=== PATIENT | male | born 1965 | race Caucasian/White ===

== ENCOUNTER 2023-06-21 09:45 | Outpatient (OUT) | payer MEDICARE, SELFPAY ==
[2023-06-22 09:11] LABS: HBsAg Screen Negative (Negative); HCV Ab Non Reactive (Non Reactive); HIV Ab/p24 Ag Screen Non Reactive (Non Reactive); Hep A Ab, IgM Negative (Negative); Hep B Core Ab, IgM Negative (Negative)
[2023-06-22 12:09] LABS: Rapid Plasma Reagin, Quant Non Reactive titer (NonRea<1:1)
== END 2023-06-21 09:46 | disposition home or self-care (01) ==
LOC: LAB 09:45
PROVIDERS: PCP Nurse Practitioner Family; Visit Provider Nurse Practitioner Family
DX: I10 Essential (primary) hypertension (principal); E78.5 Hyperlipidemia, unspecified; R53.83 Other fatigue; E11.9 Type 2 diabetes mellitus without complications; Z12.5 Encounter for screening for malignant neoplasm of prostate; Z12.11 Encounter for screening for malignant neoplasm of colon; E29.1 Testicular hypofunction; R36.9 Urethral discharge, unspecified; R74.8 Abnormal levels of other serum enzymes; Z11.3 Encounter for screening for infections with a predominantly sexual mode of transmission
CPT/HCPCS: 36415; 80074; 86592; 86695; 86696; 87389

== ENCOUNTER 2024-12-26 18:00 | Emergency (ER) | payer MEDICARE, SELFPAY ==
[2024-12-26] VITALS (9 sets, daily range): BP systolic 109–137; BP diastolic 72–85; PULSE 67–95; TEMP 36.7; O2SAT 99–100; BMI 28.3
--- OUTSIDE RECORDS SUMMARY | 2024-12-26 18:11 | XMS_ITS | CCD ---
Author Organization [facility] CliniSyga Care Team Providers Care Armored Vehicle Officer Name Role Phone Omayra Gonzales Attending Unavailable MADDY COTTO Primary Care Unavailable Omayra Gonzales Admitting Unavailable LAURA Felipe Primary Care Provider LAURA Felipe Attending Provider [phone] MD Maddy Cabezas II Attending Provider [phone] Unavailable Primary Care Provider UnavailShreyas Gregory Primary Care Provider MADDY CABEZAS Admitting Unavailable MADDY CABEZAS Attending Unavailable SHREYAS FELIPE Primary Care Unavailable MADDY CABEZAS Referring Unavailable LAURA Felipe Primary Care Provider DANILO Rodriguez Emergency Provider SHREYAS FELIPE Admitting Unavailable SHREYAS FELIPE Attending Unavailable SHREYAS FELIPE Consulting Unavailable MISC, DR HERZOG Attending Unavailable MISC, DR HERZOG Admitting Unavailable SHREYAS FELIPE Admitting Unavailable SHREYAS FELIPE Attending Unavailable SHREYAS FELIPE Consulting Unavailable Unavailable Primary Care Provider UnavailASHLYN BuiEDNA Yeung Emergency Provider LAURA Felipe Primary Care Provider LAURA Farrell Attending Provider [phone] JESSICA DOTSON Referring Unavailable RAÚL SULLIVAN Attending Unavailable JEMTTI, JESSICA T Referring Unavailable RICVILMATTI, JESSICA T Referring Unavailable RICVILMATTI, JESSICA T Referring Unavailable SELF Referring Unavailable RIGOBERTO JESSICA T Attending Unavailable LAURA Felipe Primary Care Provider Bullimore, PRINT OPERATOR-BC Nataliia E Emergency Provider Ly, DO Tuyet Florez Attending Provider Pcp MEETING SPECIALIST, No Primary Care Provider Unavaildiane Jerome MD, Naresh Lehman Primary Care Provider [phone] Josie, Shreyas Angelia Primary Care Unavailable Tuyet Adams Attending Unavailable Angie, Tuyet L Admitting Unavailable Josie, Shreyas Angelia Primary Care Unavailable Jessica Jensen Attending Unavailable Jensen, Jessica Admitting Unavailable Bullimore, Nataliia E Attending Unavailable Bullimore, Nataliia E Admitting Unavailable Josie, Shreyas Angelia Primary Care Unavailable DENAE LOPEZ A Attending Unavailable DENAE LOPEZ A Attending Unavailable Unavailable Primary Care Provider Unavailabl e Allergies Allergy Classification Reported Allergen(s) Allergy Type Date of Onset Reaction(s) Facility (1 source) No Known Medication Allergies; Translations: [No Known Medication Allergies] Propensity to adverse reactions to drug (disorder) [facility] (20 sources) Latex; Translations: [LATEX] Allergy to substance 8 Hives, Rash [facility] (8 sources) Adhesive Tape; Translations: [ADHESIVE TAPE (ROSINS)] Allergy to substance 3 [facility] Work Phone: (8 sources) Cat Dander; Translations: [CAT DANDER] Drug Allergy 3 Other: See Comments [facility] (2 sources) Cat Allergy to substance 4 Unknown Reaction [facility] (6 sources) Pravastatin Drug Allergy 3 [facility] (3 sources) Cat Hair Extract Allergy to substance 3 [facility] (2 sources) Wound Dressing Adhesive Drug Allergy 3 [facility] NEGATED: Highlighted row has been ruled out! (2 sources) Other Propensity to adverse reactions 3 Other (See Comments) [facility] Work Phone: Medications Current Medications Medication Drug Class(es) Dates Sig (Normalized) Sig (Original) 8 hr acetaminophen 650 mg extended release oral tablet (7 sources) acetaminophen (Tylenol 8 Hour) 650 MG ER tablet Take 650 mg by mouth. Active acetaminophen 325 mg / oxyCODONE hydrochloride 5 mg oral tablet (20 sources) Opioid Agonist Start: 05-22-2021 take 1 tablet by mouth every six hours Oxycodone-Acetamino phen (Percocet) 5-325 mg tablet Active 1 TAB PO Q6H 4 1 May 22, 2021 Start: 05-15-2021 End: 05-22-2021 take 1 tablet by mouth every eight hours Oxycodone-Acetaminophen (Percocet) 5-325 mg tablet Discontinued 1 TAB PO Q8H 9 3 May 15, 2021 May 22, 2021 7:11pm Start: 03-26-2019 End: 05-15-2021 take 1 tablet by mouth four times daily Oxycodone-Acetaminophen (Percocet) 10-32 5 mg tablet Discontinued 1 TAB PO Four times daily March 26, 2019 12:00am May 15, 2021 5:54pm Start: 08-04-2017 PERCOCET 10-32 5 mg tablet 0 08/04/2017 Active Start: 01-05-2017 take 1 tablet by amira th every four hours as needed oxyCODONE-acetaminophen (PERCOCET) 5-325 mg tablet Take 1 tablet by mouth every 4 hours as needed for Pain. 120 tablet 01/05/2017 Active Comment on above: Take 1 tablet by amira th every 4 hours as needed for Pain. [id number] 200 actuat albuterol 0.09 mg/actuat metered dose inhaler (10 sources) beta2-Adrenergic Agonist Start: 07-15-2024 take 2 puff(s) by mouth every six hours as needed for wheezing albuterol HFA 90 mcg/act inhaler INHALE 2 PUFFS BY MOUTH EVERY 6 HOURS NEEDED for SHORTNESS OF BREATH or FOR WHEEZING 07/15/2024 Active Start: 12-26-2016 albuterol HFA (VENTOLIN HFA) 90 mcg/actuation inhaler Inhale by mouth as instructed. 0 12/26/2016 Active Start: 12-26-2016 take 2 puff(s) by in halation every four hours as needed for wheezing albuterol sulfate HFA (PROVENTIL;VENTOLIN;PROAIR) 108 (90 Base) MCG/ACT inhaler Inhale 2 puffs into the lungs every 4 hours as needed for Shortness of Breath or Wheezing 0 12/26/2016 Active Comment on above: Inhale by mouth as i nstructed. amLODIPine 10 mg oral tablet (13 sources) Dihydropyridine Calcium Channel Miesha take 1 tablet by mouth once daily amLODIPine (NORVASC) 10 mg tablet Take 10 mg by mouth once daily. Active Comment on above: Take 10 mg by mouth once daily. amoxicillin 500 mg oral capsule (1 source) Penicillin-class Antibacterial Start: 12-26-19 25 amoxicillin (AMOXIL) 500 mg capsule Indications: Preventive antibiotic Take 4 capsules one hour prior to procedure 4 capsule 5 12/25/2024 Active calcium chloride 0.0014 meq/ml / potassium chloride 0.004 meq/ml / sodium chloride 0.103 meq/ml / sodium lactate 0.028 meq/ml injectable solution (1 source) Start: 07-26-19 23 lactated ringers infusion ciclopirox 7.7 mg/ml topical cream (2 sources) Start: 07-28-19 25 ciclopirox (Loprox) 0.77 % cream Indications: Erythema intertrigo Apply thin layer to affected area once a day, 30 day supply 90 g 11 07/28/2024 Active cloNIDine hydrochloride 0.1 mg oral tablet (5 sources) Central alpha-2 Adrenergic Agonist Start: 10-09-19 24 take 0.1 mg by mouth twice daily Clonidine Hcl Active 0.1 MG PO Twice daily October 10, 2023 12:00am take 1 tablet by mouth once claudio y cloNIDine (CATAPRES) 0.1 MG tablet Take 0.1 mg by mouth daily 0 Active 1 ml diphenhydrAMINE hydrochloride 50 mg/ml cartridge (1 source) Histamine-1 Receptor Antagonist Start: 07-26-2022 End: 07-27-2022 diphenhydrAMINE (BENADRYL) injection 12.5 mg hydroCHLOROthiazide 25 mg oral tablet (7 sources) Thiazide Diuretic Start: 10-10-2023 take 25 mg by mouth once daily Hydrochlorothiazide Active 25 MG PO Daily October 10, 2023 12:00am take 0.5 tablet by m outh once daily in the morning hydroCHLOROthiazide (HYDRODiuril) 25 MG tablet TAKE 1/2 (ONE-HALF) OF A TABLET BY MOUTH EVERY MORNING FOR 90 DAYS Active hydroCHLOROthiazide 25 mg / triamterene 37.5 mg oral capsule (14 sources) Potassium-sparing Diuretic, Thiazide Diuretic Start: 10-05-2015 End: 05-15-2021 take 1 capsule by mouth once daily triamterene-hydrochlorothiazide 37.5-25 mg per capsule Take 1 capsule by mouth once daily. 10/05/2015 Active Comment on above: Take 1 capsule by [facility] once daily. 0.5 ml HYDROmorphone hydrochloride 1 mg/ml prefilled syringe (1 source) Opioid Agonist Start: 07-26-2022 HYDROmorphone HCl PF (DILAUD ID) injection 0.25 mg 10 ml lidocaine hydrochloride 10 mg/ml injection (1 source) Antiarrhythmic, Amide Local Anesthetic Start: 07-26-2022 End: 07-27-2022 lidocaine PF 1 % injection 1 mL lisinopril 40 mg oral tablet (17 sources) Angiotensin Converting Enzyme Inhibitor Start: 03-19-2024 take 1 tablet by mouth once daily lisinopril 40 MG tablet Take 40 mg by mouth Daily 03/19/2024 Active Start: 10-10-2023 take 40 mg by mouth once daily Lisinopril Active 40 MG PO Daily October 10, 2023 12:00am Start: 06-01-2021 lisinopril (ZE STRIL, PRINIVIL) 10 mg tablet 06/01/2021 Active End: 07-28-2024 take 1 tablet by mouth in the morning lisinopril 20 MG tablet Take 20 mg by mouth in the morning. 07/28/2024 Discontinued (Dose adjustment) meloxicam 15 mg oral tablet (2 sources) Nonsteroidal Anti-inflammatory Drug Start: 06-29-2024 take 1 tablet by mouth once daily at mealtime meloxicam (Mobic) 15 MG tablet TAKE 1 TABLET BY MOUTH WITH FOOD ONCE DAILY IN THE MORNING 06/29/2024 Active meperidine hydrochloride 100 mg oral tablet (7 sources) Opioid Agonist Start: 08-23-2017 take 1 tablet by mouth once daily at bedtime Meperidine HCl 100 mg tablet Take 100 mg by mouth daily at bedtime. 08/23/2017 Active Comment on above: Take 100 mg by mouth daily at bedtime. naproxen 500 mg oral tablet (11 sources) Nonsteroidal Anti-inflammatory Drug Start: 11-07-2022 End: 10-10-2023 take 1 tablet by mouth in the morning naproxen (Naprosyn) 500 MG tablet Take 500 mg by mouth in the morning and 500 mg before bedtime. 11/07/2022 Active 2 ml ondansetron 2 mg/ml injection (1 source) Serotonin-3 Receptor Antagonist Start: 07-26-2022 End: 07-27-2022 ondansetron (ZOFRAN) injection 4 mg oxyCODONE hydrochloride 5 mg oral tablet (14 sources) Opioid Agonist Start: 07-26-2022 End: 07-27-2022 oxyCODONE (ROXICODONE) immediate release tablet 5 mg Start: 06-15-2021 oxyCODONE IR ( ROXICODONE) 10 mg tab 06/15/2021 Active take 1 tablet by amira th every three hours oxyCODONE (Roxicodone) 15 MG immediate release tablet take 1 tablet by mouth every 3 hours to every 4 hours maximum tangela... (REFER TO PRESCRIPTION NOTES). Active take 1 tablet by amira th every four hours as needed for pain oxyCODONE (OXY-IR) 15 MG immediate release tablet Take 15 mg by mouth every 4 hours as needed for Pain. 0 Active pregabalin 100 mg oral capsule (6 sources) take 1 capsule by mouth four times daily pregabalin (LYRICA) 100 mg capsule Take 100 mg by mouth four times daily. Active Comment on above: Take 100 mg by mouth four times daily. 5 ml sodium chloride 9 mg/ml injection (4 sources) Start: 07-26-2022 sodium chloride flush 0.9 % injection 5-40 mL Start: 07-26-2022 0.9 % sodium c hloride infusion Start: 07-26-2022 sodium chlorid e flush 0.9 % injection 5-40 mL tadalafil 10 mg oral tablet (6 sources) Phosphodiesterase 5 Inhibitor Cialis 10 MG tablet 1 (one) time each day at the same time. Active tiZANidine 4 mg oral tablet (5 sources) Central alpha-2 Adrenergic Agonist Start: 03-11-20 take 1 tablet by mouth twice daily as needed tiZANidine (Zanaflex) 4 MG tablet Take 4 mg by mouth 2 (two) times a day as needed 03/11/2024 Active Completed/Discontinued Medications Medication Drug Class(es) Dates Sig (Normalized) Sig (Original) Bp Med (7 sources) Start: 05-22-2021 End: 10-10-2023 Bp Med Discontinued May 22, 2021 12:00am October 10, 2023 2:04pm Start: 05-22-2021 Bp Med Active May 22, 2021 12:00am Start: 05-22-2021 Bp Med Active May 21, 2021 11:00pm gabapentin 300 mg oral capsule (7 sources) Anti-epileptic Agent Start: 03-26-2019 End: 05-15-2021 take 300 mg by mouth once daily Gabapentin Discontinued 300 MG PO Daily March 26, 2019 12:00am May 15, 2021 5:54pm 24 hr metoprolol succinate 100 mg extended release oral tablet (7 sources) beta-Adrenergic Miesha Start: 03-26-2019 End: 05-15-2021 take 100 mg by mouth once daily Metoprolol Succinate Discontinued 100 MG PO Daily March 26, 2019 12:00am May 15, 2021 5:54pm Problems Active Problems Problem Classification Problem Date Documented Date Episodic/Chronic Abdominal pain (2 sources) Abdominal pain; Translations: [Unspecified abdominal pain] 10-10-2023 Episodic Diabetes mellitus without complication (1 source) Other abnormal glucose; Translations: [OTHER ABNORMAL GLUCOSE] Onset: 11-14-2022 Episodic Essential hypertension (4 sources) Essential (primary) hypertension; Translations: [ESSENTIAL PRIMARY HYPERTENSION] Onset: 11-03-2022 Chronic Fracture of upper limb (7 sources) Fracture of hand; Translations: [Unspecified fracture of unspecified wrist and hand, initial encounter for closed fracture] 03-27-2019 Episodic Malaise and fatigue (1 source) Other fatigue; Translations: [OTHER FATIGUE] Onset: 11-14-2022 Episodic Neoplasms of unspecified nature or uncertain behavior (2 sources) Neoplastic disease; Translations: [Neoplasm of unspecified behavior of bone, soft tissue, and skin] 06-03-2024 Episodic Osteoarthritis (20 sources) Degenerative joint disease involving multiple joints; Translations: [Polyosteoarthritis, unspecified] Onset: 02-01-2006 02-01-2006 Chronic Other acquired deformities (1 source) Spondylolisthesis; Translations: [Spondylolisthesis, cervical region] 05-11-2021 Episodic Other aftercare (1 source) Antibiotic prophylaxis indicated; Translations: [custodial (current) use of antibiotics] 12-25-2024 Episodic Other connective tissue disease (7 sources) Hand pain; Translations: [Pain in unspecified hand] 03-27-2019 Episodic Other connective tissue disease (4 sources) Ganglion cyst; Translations: [Ganglion, unspecified site] 01-05-2023 Episodic Other inflammatory condition of skin (2 sources) Intertrigo; Translations: [Erythema intertrigo] 07-28-2024 Episodic Other nervous system disorders (7 sources) Chronic pain; Translations: [Other chronic pain] 05-22-2021 Chronic Other non-traumatic joint disorders (1 source) Other specific arthropathies, not elsewhere classified, right shoulder; Translations: [Rotator cuff tear arthropathy, right] Onset: 07-22-2020 Chronic Other screening for suspected conditions (not mental disorders or infectious disease) (3 sources) Encounter for screening for malignant neoplasm of prostate; Translations: [Encounter for screening for malignant neoplasm of colon] Onset: 11-14-2022 Episodic Other skin disorders (4 sources) Actinic keratosis; Translations: [Actinic keratosis] 06-03-2024 Episodic Residual codes; unclassified (2 sources) Pain; Translations: [Pain, unspecified] Episodic Spondylosis; intervertebral disc disorders; other back problems (16 sources) Degeneration of intervertebral disc; Translations: [Degeneration of intervertebral disc, site unspecified] Onset: 02-01-2006 02-01-2006 Chronic Past or Other Problems Problem Classification Problem Date Documented Date Episodic/Chronic Other connective tissue disease (7 sources) Rupture of tendon of upper limb; Translations: [Spontaneous rupture of flexor tendons, unspecified hand] Onset: 10-18-2011 10-18-2011 Episodic Other connective tissue disease (7 sources) Bicipital tenosynovitis; Translations: [Bicipital tendinitis, unspecified shoulder] Onset: 05-28-2014 05-28-2014 Episodic Other connective tissue disease (14 sources) Full thickness rotator cuff tear; Translations: [Complete rotator cuff tear or rupture of right shoulder, not specified as traumatic] Onset: 06-01-2016 06-01-2016 Episodic Other connective tissue disease (9 sources) Rotator cuff arthropathy of right shoulder; Translations: [Unspecified rotator cuff tear or rupture of right shoulder, not specified as traumatic] Onset: 07-22-2020 07-22-2020 Episodic Other connective tissue disease (8 sources) Rotator cuff arthropathy of left shoulder; Translations: [Unspecified rotator cuff tear or rupture of left shoulder, not specified as traumatic] Onset: 07-22-2020 07-22-2020 Episodic Other connective tissue disease (9 sources) Other symptoms and signs involving the musculoskeletal system; Translations: [Other musculoskeletal symptoms referable to limbs] Onset: 01-18-2023 Episodic Other connective tissue disease (1 source) Unspecified rotator cuff tear or rupture of right shoulder, not specified as traumatic; Translations: [Rotator cuff tear arthropathy, right] Onset: 07-22-2020 Episodic Other connective tissue disease (6 sources) Ganglion cyst of right wrist; Translations: [Ganglion, right wrist] Onset: 01-23-2023 01-23-2023 Episodic Other non-traumatic joint disorders (7 sources) Pain in forearm; Translations: [Pain in unspecified wrist] Onset: 07-26-2009 07-26-2009 Episodic Residual codes; unclassified (1 source) Pain, unspecified; Translations: [Pain] Onset: 01-18-2023 Episodic Spondylosis; intervertebral disc disorders; other back problems (20 sources) Low back pain; Translations: [Low back pain] Onset: 02-01-2006 04-22-2021 Episodic Sprains and strains (20 sources) Sprain of knee; Translations: [Sprain of unspecified site of right knee, initial encounter] Onset: 10-16-2013 11-07-2022 Episodic Results Test Name Value Interpretation Reference Range Facility No Panel Informationon 07-28 [facility] COVID-19 / Flu A/B / RSV PCR on 07-15-2024 SARS-CoV-2 (COVID-19) RNA DENISE+probe Ql (Unsp spec) COVID-19 Cepheid Result Negative for SARS-CoV-2 RNA by RT-PCR Flu A Cepheid Result Positive for Flu A RNA by RT-PCR Flu B Cepheid Result Negative for Flu B RNA by RT-PCR RSV Cepheid Result Negative for RSV RNA by RT-PCR COVID19 Blank Space Reference: Negative COVID19 Blank Space Cepheid Disclaimer The Cepheid Xpert Xpress CoV-2/Flu/RSV Plus has Cepheid Disclaimer not been FDA cleared or approved; this test has Cepheid Disclaimer been authorized by FDA under an EUA for use by Cepheid Disclaimer authorized laboratories; this test has been Cepheid Disclaimer authorized only for the simultaneous qualitative Cepheid Disclaimer detection and differentiation of nucleic acids from Cepheid Disclaimer SARS-CoV-2, influenza A, influenza B, and Cepheid Disclaimer respiratory syncytial virus (RSV), and not for any Cepheid Disclaimer other viruses or pathogens; and this test is only Cepheid Disclaimer authorized for the duration of the declaration that Cepheid Disclaimer circumstances exist justifying the authorization of Cepheid Disclaimer emergency use of in vitro diagnostic tests for Cepheid Disclaimer detection and/or diagnosis of COVID-19 under Cepheid Disclaimer Section 564(b)(1) of the Act, 21 U.S.C. 360bbb- Cepheid Disclaimer 3(b)(1), unless the authorization is terminated or Cepheid Disclaimer revoked sooner. PERFORMED BY: [place] [address] PATHOLOGIST WELT TRIMMING MACHINE OPERATOR MAGGIE RICARDO M.D. Normal [facility] Comment on above: Performed By: #### C OVID19 FLU RSV, CEPHEID NEG #### [address] Cepheid COVID PCR Negativeon 07-15-2024 SARS-CoV-2 (COVID-19) RNA DENISE+probe Ql (Unsp spec) Negative Normal Negative [facility] Comment on above: Result Comment: This is a duplicate Cepheid Xpert Xpress CoV-2/Flu/RSV Plus RNA by RT-PCR result to be used for statistical tracking purpose only. PERFORMED BY: [place] [address] PATHOLOGIST WELT TRIMMING MACHINE OPERATOR MAGGIE RICARDO M.D. Performed By: #### C OVID19 FLU RSV, CEPHEID NEG #### [place] [id number] [facility] XR chest 1V portableon 07-15 XR chest 1V portable [facility] [address] [place] [address] [place] [address] XRay Report Signed Patient: Edmund Christopher MR#: [id number] : 1965 Acct:[id number] Age/Sex: 59 / M ADM Date: 07/15/24 Loc: ER Room: Type: [facility] ER Attending Dr: Copies to: Jessica Jensen DO Ordering Provider: Jessica Jensen DO Date of Service: 07/15/24 XR/XR chest 1V portable: Upper Respiratory Infection PORTABLE AP ERECT CHEST 0730 hours CLINICAL HISTORY: Cough for the past week COMPARISON: The 2019 There is elevation of the left hemidiaphragm. The heart is within normal limits. There is no vascular congestion. Minor basilar atelectasis or scarring is present. No consolidation is seen. There is no effusion or pneumothorax. There is dextro scoliotic curvature and degenerative change at the spine. A dorsal stimulator is present. There are also degenerative and postoperative changes at the shoulders and suspected rotator cuff disease. XR/XR chest 1V portable IMPRESSION: NO ACUTE FINDINGS Impression dictated by: Maya Trent M.D.07/15/2024 8:32 AM Dictation Location: [place] [address] Transcribed By: [facility] 07/15/24831 Dictated By: Maya Trent MD 07/15/2404 Signed By: 07/15/24831 Normal [facility] No Panel Informationon 06-03 [facility] Type of biopsy: tangential Informed consent: discussed and consent obtained Informed consent comment: The risks and benefits of the biopsy were discussed. Risks include but are not limited to bleeding, infection, scarring, pain, and nerve damage. An opportunity to ask questions prior to the procedure was permitted and all questions were answered. Patient was prepped and draped in usual sterile fashion: area cleansed with alcohol. Anesthesia: the lesion was anesthetized in a standard fashion Anesthetic: 1% lidocaine w/ epinephrine 1-100,000 buffered w/ 8.4% NaHCO3 Instrument used: DermaBlade Hemostasis achieved with: electrodesiccation Outcome: patient tolerated procedure well Outcome comment: The specimen was placed in a prelabeled formalin container to be sent for pathology Post-procedure details: sterile dressing applied and wound care instructions given Post-procedure details comment: Emphasized need to contact clinic for any signs of infection, uncontrollable bleeding, or complications. Dressing type: bandage Additional details: Photo taken Amount of lidocaine used: 0.6 cc [facility] noodls [facility] Curry 11-12-2023 L Specimen: Received: 11/12/23 Status: EMELYN Brooke Num: [id number] Spec Type: Surgical Subm Dr: Tuyet Adams DO Tissues: A Colon Biopsy (ASC POLYPS) Procedures: HE/2, Gross/Micro L4 Age/ Patient Sex Location Account Attending Physician Edmund Christopher 58/M [id number] Tuyet Adams DO SPEC NUM: [id number] RECD: 11/12/23 STATUS: EMELYN BROOKE NUM: [id number] THONY: 11/12/23- SUBM DR: Tuyet Adams DO ENTERED: 11/12/[address] [facility] [address]: SPEC TYPE: Surgical DEPT: S ORDERED: HE/2, Gross/Micro L4 ORDERED: HE/2, Gross/Micro L4 Pathological Diagnosis Ascending colon polyps, biopsies: - Tubular adenomas. Gross Description Received in formalin, labeled with the patient's name, date of and ascending colon are 2 riggs mucosal tissue fragments measuring 0.3 x 0.2 x 0.1 cm and 0.2 x 0.2 x 0.1 cm, entirely submitted in A1. Clinical history: ABD CPT Codes 64370 -------- -------- Specimen: [id number] Received: 11/12/23 Status: EMELYN Brooke Num: [id number] Spec Type: Surgical Subm Dr: Tuyet Adams DO Tissues: A Colon Biopsy (ASC POLYPS) Procedures: HE/2, Gross/Micro L4 -------- Patient: Edmund Christopher [id number] (Continued) -------- Signed (signature on file) Jennifer Pino MD 11/13/231046 Normal [facility] Alanine aminotransferase [En zymatic activity/volume] in Serum or PlasmaOrdered By: Nataliia Banks on 10-10-2023 ALT [Catalytic activity/Vol] 24 U/L Normal 7-52 [facility] Comment on above: Performed By: #### C BC, CMP #### [place] [id number] [facility] Albumin [Mass/volume] in Ser um or Plasma by Bromocresol green (BCG) dye binding methoOrdered By: Nataliia Bullimore on 10-10-2023 Albumin BCG dye [Mass/Vol] 4.3 g/dL 3.5-5.7 [facility] Alkaline phosphatase [Enzyma tic activity/volume] in Serum or PlasmaOrdered By: Nataliia Bullimore on 10-10-2023 ALP [Catalytic activity/Vol] 74 U/L Normal 34-104 [facility] Comment on above: Performed By: #### C BC, CMP #### [address] Aspartate aminotransferase [ Enzymatic activity/volume] in Serum or PlasmaOrdered By: Nataliia Bullimore on 10-10-2023 AST [Catalytic activity/Vol] 26 U/L Normal 13-39 [facility] Comment on above: Performed By: #### C BC, CMP #### [address] Automated basophil %Ordered By: Nataliia Bullimore on 10-10-2023 Basophils/100 WBC (Bld) 0.4 % Normal . F [facility] Comment on above: Performed By: #### C BC, CMP #### [address] Automated basophil countOrde red By: Nataliia Bullimore on 10-10-2023 Basophils (Bld) [#/Vol] 0.0 10*3/uL Normal 0.0-0.2 [facility] Comment on above: Result Comment: PERF ORMED BY: [place] [address] PATHOLOGIST WELT TRIMMING MACHINE OPERATOR SIMÓN MARTINES M.D. Performed By: #### C BC, CMP #### [address] Automated blood monocyte cou ntOrdered By: Nataliia Bullimore on 10-10-2023 Monocytes (Bld) [#/Vol] 0.4 10*3/uL Normal 0.0-0.8 [facility] Comment on above: Performed By: #### C BC, CMP #### [address] Automated eosinophil %Ordere d By: Nataliia Bullimore on 10-10-2023 Eosinophils/100 WBC (Bld) 0.5 % Normal . [facility] Comment on above: Performed By: #### C BC, CMP #### [address] Automated eosinophil countOr dered By: Nataliia Bullimore on 10-10-2023 Eosinophils (Bld) [#/Vol] 0.0 10*3/uL Normal 0.0-0.45 [facility] Comment on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 signal/fracture: No evidence of pathologic marrow infiltration. No evidence of prior fracture. Cervical soft tissues: The paraspinal soft tissues are within normal limits. C2-C3: Left facet arthropathy. Mild to moderate left foraminal narrowing. Mild central canal narrowing. C3-C4: Posterior disc and osteophyte complex, eccentric to the left. Ventral impingement on the left cord with moderate spinal canal narrowing. Left foraminal stenosis. C4-C5: Posterior disc and osteophyte complex. Bilateral facet arthropathy. Moderate canal narrowing. Moderate right and qocc-nk-kzaqerlj left foraminal narrowing. C5-C6: Posterior osteophytic ridge. Moderate spinal canal stenosis with canal measuring 8 mm. Left foraminal stenosis. Hfoh-ea-wxrqglzi right foraminal narrowing. Slight ventral impression on the cord. C6-C7: Posterior disc and osteophyte complex. Kzwc-cf-hgkegbje canal narrowing. Moderate foraminal narrowing bilaterally. C7-T1: Spondylolisthesis. Bilateral foraminal stenosis. Mxwa-ky-lhfxhxlb canal narrowing. 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 The degree of spinal canal stenosis is very similar to the previous study. Multilevel foraminal stenosis. Grade 2 spondylolisthesis C7 on T1. This is unchanged from the previous study. Anatomic Variant: None. Assume 7 cervical vertebrae with counting from the craniocervical junction. Health Coordinator: [place] Transcribe Date/Time: Apr 13 2023 7:53P Dictated by : MARLEY HURT MD This examination was interpreted and the report reviewed and electronically signed by: MARLEY HURT MD on Apr 13 2023 8:01PM EST [id number] N Normal [facility] CNOVon 01-18-2023 CNOV Office Visit (ORH[facility] ) EDMUND CHRISTOPHER ([id number]) 1965 M Date Time Provider Department 01/18/23 8:15 AM JESSICA DOTSON [facility] During your visit today, we recorded the following information about you: Jessica Dotson MD 01/18/2023 5:40 PM Addendum [facility] NOTE Department of Orthopaedics Jessica Dotson M.D. NAME: Edmund Christopher CLINIC NO.: [id number] DATE: January 18, 2023 Parth returns for follow-up today for his right shoulder. I last saw him 2 years ago and we had scheduled for right reverse total shoulder arthroplasty but he ended up canceling his surgery as he injured his neck. He did seem to recover from this injury, but he notes over the last 4 to 5 months progressive weakness in his right arm. He denies any new trauma or injury. This is associated with radiating numbness and tingling in the arm. He notes these symptoms more so than pain in the shoulder and presents for further discussion on management. PHYSICAL EXAMINATION: Physical examination today of the right shoulder shows atrophy in the infraspinatus fossa. There may be some deltoid atrophy on the right as well. Range of motion testing shows passive forward elevation to 140 on the right, compared to 140 on the left. Active forward elevation on the right shows evidence of pseudoparalysis when in an upright position, compared to 140 on the left. Supine he can forward elevate on the right actively to 140 degrees. Passive external rotation at the side is to 40 on the right, compared to 40 on the left. Active internal rotation is to the lower thoracic levels on the right, compared to the lower thoracic levels on the left. Strength testing of the rotator cuff shows 4/5 strength with resisted external rotation at the side and 5/5 strength with resisted Cesilia's maneuver on the left. Strength testing of the rotator cuff shows 4/5 strength with resisted external rotation at the side and 3/5 strength with resisted Cesilia's maneuver on the right. There is also weakness with resisted deltoid testing on the right. Biceps flexion strength appears normal, but there is weakness with resisted supination. There is tenderness to palpation at the glenohumeral joint line bilaterally. The right upper extremity is otherwise grossly neurovascularly intact to testing. RADIOGRAPHIC STUDIES: X-rays of both shoulders taken today are available for review and show findings of bilateral rotator cuff tear arthropathy. Both shoulders show significant arthritic change, but the right shoulder is the more advanced of the 2. ASSESSMENT: Bilateral rotator cuff tear arthropathy, right arm weakness PLAN: I discussed treatment with Parth in regards to his right shoulder complaints. He has known advanced rotator cuff tear arthropathy and we have previously discussed potential right reverse total shoulder arthroplasty. However, he notes over the last 4 to 5 months progressive weakness in his right arm that on examination today and based on his history appears to be potentially neurologic in nature. There is weakness in his rotator cuff on testing but also weakness in other muscles including the deltoid. I would recommend further work-up of this to determine whether the etiology of his weakness is from his rotator cuff or cervical spine. We discussed obtaining a new MRI of the cervical spine as well as an EMG of the right upper extremity. We will submit for Workmen's Compensation approval of the studies. I will see him back once the studies are complete and we will have further discussion on treatment at that time. He agrees with this plan. If any questions or concerns arise, He should not hesitate to call. Jessica Dotson M.D. Referring Provider: SELF [[id number]] Allergies As of Date: 01/18/2023 Noted Allergy Reaction CAT DANDER 01/18/2023 14 - Other: See Comments Comments: congestion LATEX 03/28/2018 2 - Rash TAPE (ADHESIVE TAPE (ROSINS)) 08/12/2012 2 - Rash Comments: One episode blisters with tape 2011 shoulder surgery Date Reviewed: 01/18/2023 Reviewed by: Braden Coello - Fully Assessed Reason for Visit: Established Patient [175] Follow Up [171] Pain [78] Established Patient [175] Follow Up [171] Pain [78] Primary Visit Diagnosis:Rotator cuff tear arthropathy, right [M75.101, M12.811] Other Visit Diagnoses:Right arm weakness [R29.898] Spinal stenosis of cervical region [M48.02] Order(s):MRI CERVICAL SPINE WO IVCON [[id number]] Order #: [id number] FUTURE EMG(NEURO/NI) [[id number]] Order #: [id number]: 1 FUTURE Prescriptions as of 01/18/2023 - lisinopril (ZESTRIL, PRINIVIL) 10 mg tablet - oxyCODONE IR (ROXICODONE) 10 mg tab - pregabalin (LYRICA) 100 mg capsule Take 100 mg by mouth four times daily. - Meperidine HCl 100 mg tablet Take 100 mg by mouth daily at bedtime. - PERCOCET 10-325 mg tablet - oxyCODONE-acetaminoph en (more content not included)... Normal [facility] No Panel Informationon 01-18 [facility] XR SHLDR >/=3V AP/AQUILINO AP/OTH R LTon 01-18-2023 XR SHLDR >/=3V AP/AQUILINO AP/OTHR LT * * *Final Report* * * DATE OF EXAM: Jan 18 2023 7:40AM AOX 5252 - XR SHLDR >/=3V AP/AQUILINO AP/OTHR LT / PROCEDURE REASON: Pain * * * * Physician Interpretation * * * * HISTORY: Pain TECHNIQUE: 3 views of each shoulder COMPARISON: Shoulder radiograph 12/31/2020 RESULT: Right shoulder: Suture anchor is again seen in the humeral head from prior surgery. There is narrowing of the acromiohumeral interval as on the prior exam from chronic rotator cuff tearing. Severe glenohumeral joint degenerative change with joint space narrowing and osteophyte formation appears unchanged. Mild acromioclavicular joint degenerative change, unchanged. Partially seen spinal stimulator overlying the thoracic spine. Left shoulder: Suture anchor is again seen in the humeral head from prior surgery. There is moderate glenohumeral joint degenerative change with joint space narrowing and osteophyte formation similar to the prior exam. Unchanged narrowing of the acromiohumeral interval from chronic rotator cuff tearing. Mild acromioclavicular joint degenerative change. IMPRESSION: NO SIGNIFICANT INTERVAL CHANGE WITH POSTSURGICAL AND DEGENERATIVE CHANGES AND FINDINGS CONSISTENT WITH ROTATOR CUFF TEARING DESCRIBED Health Coordinator: [facility] Transcribe Date/Time: Jan 18 2023 8:20A Dictated by : JENIFER HAMMER MD This examination was interpreted and the report reviewed and electronically signed by: JENIFER HAMMER MD on Jan 18 2023 8:28AM EST [id number] N Normal [facility] XR SHLDR >/=3V AP/AQUILINO AP/OTH R RTon 01-18-2023 XR SHLDR >/=3V AP/AQUILINO AP/OTHR RT * * *Final Report* * * DATE OF EXAM: Jan 18 2023 7:40AM AOX 5253 - XR SHLDR >/=3V AP/AQUILINO AP/OTHR RT / PROCEDURE REASON: Pain * * * * Physician Interpretation * * * * HISTORY: Pain TECHNIQUE: 3 views of each shoulder COMPARISON: Shoulder radiograph 12/31/2020 RESULT: Right shoulder: Suture anchor is again seen in the humeral head from prior surgery. There is narrowing of the acromiohumeral interval as on the prior exam from chronic rotator cuff tearing. Severe glenohumeral joint degenerative change with joint space narrowing and osteophyte formation appears unchanged. Mild acromioclavicular joint degenerative change, unchanged. Partially seen spinal stimulator overlying the thoracic spine. Left shoulder: Suture anchor is again seen in the humeral head from prior surgery. There is moderate glenohumeral joint degenerative change with joint space narrowing and osteophyte formation similar to the prior exam. Unchanged narrowing of the acromiohumeral interval from chronic rotator cuff tearing. Mild acromioclavicular joint degenerative change. IMPRESSION: NO SIGNIFICANT INTERVAL CHANGE WITH POSTSURGICAL AND DEGENERATIVE CHANGES AND FINDINGS CONSISTENT WITH ROTATOR CUFF TEARING DESCRIBED Health Coordinator: [place] Transcribe Date/Time: Jan 18 2023 8:20A Dictated by : JENIFER HAMMER MD This examination was interpreted and the report reviewed and electronically signed by: JENIFER HAMMER MD on Jan 18 2023 8:28AM EST [id number] N Normal [facility] INSULINon 11-04-2022 Insulin 3.0 uIU/mL Normal 2.6-24.9 [facility] Comment on above: Performed By: #### I NSULIN #### [facility] [address] [place] [address] Dr. Stacy Saxena OCC BLD IMMUNO SCREENon 10-15 OCCULT BLOOD Negative Normal NEGATIVE [facility] Comment on above: Performed By: #### O BSCRN #### [facility] [address] [address] [address] Stacy Saxena TESTOSTERONE, TOTALon 2022 Testosterone [Mass/Vol] 480 ng/dL Normal 264-916 T [facility] Comment on above: Result Comment: Adul t male reference interval is based on a population of healthy nonobese males (BMI <30) between 19 and 39 years old. katherine Lucia.al. JCEM 2017,102;4914-5516. PMID: [id number]. Performed By: #### L IPID, URIC, CMP, T7, TSH #### [facility] [address] [address] [address] Stacy Saxena CBC AUTO DIFFon 11-03-2022 BASO # 0.0 103/ul Normal 0.0-0.1 [facility] Comment on above: Performed By: #### C BC #### [facility] [address] [address] [address] Stacy Saxena Basophils/100 WBC (Bld) 0.6 % Normal 0.2-2.0 [facility] Comment on above: Performed By: #### C BC #### [facility] [address] [address] [address] Stacy Saxena EO # 0.1 103/ul Normal 0.0-0.7 [facility] Comment on above: Performed By: #### C BC #### [facility] [address] [place] [address] Dr. Stacy Saxena Eosinophils/100 WBC (Bld) 1.9 % Normal 0.9-7.0 [facility] Comment on above: Performed By: #### C BC #### [facility] [address] [place] [address] Dr. Stacy Saxena Erythrocyte distribution width (RBC) [Ratio] 13.0 % Normal 11.0-15.0 [facility] Comment on above: Performed By: #### C BC #### [facility] [address] [place] [address] Dr. Stacy Saxena Hematocrit (Bld) [Volume fraction] 45.1 % Normal 42.0-54.0 [facility] Comment on above: Performed By: #### C BC #### [facility] [address] [place] [address] Dr. Stacy Saxena Hemoglobin (Bld) [Mass/Vol] 15.3 g/dL Normal 14.0-18.0 [facility] Comment on above: Performed By: #### C BC #### [facility] [address] [place] [address] Dr. Stacy Saxena IG # 0.01 10e3/ul Normal 0.00-0.03 [facility] Comment on above: Performed By: #### C BC #### [facility] [address] [place] [address] Dr. Stacy Saxena IG % 0.1 % Normal 0.0-0.5 [facility] Comment on above: Performed By: #### C BC #### [facility] [address] [place] [address] Dr. Stacy Saxena LYMPH # 1.3 103/ul Normal 1.2-3.8 [facility] Comment on above: Performed By: #### C BC #### [facility] [address] [place] [address] Dr. Stacy Saxena Lymphocytes/100 WBC (Bld) 18.9 % Critically low 20.5-60.0 [facility] Comment on above: Performed By: #### C BC #### [facility] [address] [place] [address] Dr. Stacy Saxena MANUAL DIFF REQ NO Normal [facility] Comment on above: Performed By: #### C BC #### [facility] [address] [place] [address] Dr. Stacy Saxena MCH (RBC) [Entitic mass] 29.0 pg Normal 25.9-34.0 [facility] Comment on above: Performed By: #### C BC #### [facility] [address] [place] [address] Dr. Stacy Saxena MCHC (RBC) [Mass/Vol] 33.9 g/dL Normal 29.9-35.2 [facility] Comment on above: Performed By: #### C BC #### [facility] [address] [place] [address] Dr. Stacy Saxena MCV (RBC) [Entitic vol] 85.6 fL Normal 80.0-94.0 [facility] Comment on above: Performed By: #### C BC #### [facility] [address] [place] [address] Dr. Stacy Saxena MONO # 0.9 103/ul Critically high 0.3-0.8 [facility] Comment on above: Performed By: #### C BC #### [facility] [address] [place] [address] Dr. Stacy Saxena Monocytes/100 WBC (Bld) 12.9 % Critically high 1.7-12. 0 [facility] Comment on above: Performed By: #### C BC #### [facility] [address] [place] [address] Dr. Stacy Saxena NEUT # 4.5 103/ul Normal 1.4-6.5 [facility] Comment on above: Performed By: #### C BC #### [facility] [address] [place] [address] Dr. Stacy Saxena Neutrophils/100 WBC (Bld) 65.6 % Normal 43.0-75.0 [facility] Comment on above: Performed By: #### C BC #### [facility] [address] [place] [address] Dr. Stacy Saxena Platelet mean volume (Bld) [Entitic vol] 8.9 fL Critically low 9.5-13.5 [facility] Comment on above: Performed By: #### C BC #### [facility] [address] [place] [address] Dr. Stacy Saxena PLT 250 103/ul Normal 150-450 [facility] Comment on above: Performed By: #### C BC #### [facility] [address] [place] [address] Dr. Stacy Saxena RBC 5.27 106/ul Normal 4.70-6.10 [facility] Comment on above: Performed By: #### C BC #### [facility] [address] [place] [address] Dr. Stacy Saxena WBC 6.9 103/ul Normal 4.0-11.0 [facility] Comment on above: Performed By: #### C BC #### [facility] [address] [place] [address] Dr. Stacy Saxena FREE THYROXINE INDEX T7on FTI 3.08 Normal 1.30-4.50 [facility] Comment on above: Performed By: #### L IPID, URIC, CMP, T7, TSH #### [facility] [address] [place] [address] Dr. Stacy Saxena T3U 35.0 % Normal 33.0-40.0 [facility] Comment on above: Performed By: #### L IPID, URIC, CMP, T7, TSH #### [facility] [address] [place] [address] Dr. Stacy Saxena T4 [Mass/Vol] 8.80 ug/dL Normal 4.50-12.10 [facility] Comment on above: Performed By: #### L IPID, URIC, CMP, T7, TSH #### [facility] [address] [place] [address] Dr. Stacy Saxena GLYCOHEMOGLOBIN A1Con 2022 ADA RECOMMENDATION SEE BELOW Normal [facility] Comment on above: Result Comment: ADA RECOMMENDED LIMIT 4.0 - 6.0 ADA THERAPEUTIC TARGET < 7.0 ACTION SUGGESTED > 7.0 Performed By: #### A 1C #### [facility] [address] [place] [address] Dr. Stacy Saxena Glucose [Mass/Vol] 111 mg/dL Normal [facility] Comment on above: Performed By: #### A 1C #### [facility] [address] [place] [address] Dr. Stacy Saxena HbA1c (Bld) [Mass fraction] 5.5 % Normal 4.5-6.2 [facility] Comment on above: Performed By: #### A 1C #### [facility] [address] [place] [address] Dr. Stacy Saxena LIPID PROFILEon 11-03-2022 CHOL-HDL RATIO NORM SEE BELOW Normal [facility] Comment on above: Result Comment: 3.3 - 4.4 LOW RISK 4.4 - 7.1 AVERAGE RISK 7.1 - 11.0 MODERATE RISK >11.0 HIGH RISK Performed By: #### L IPID, URIC, CMP, T7, TSH #### [facility] [address] [place] [address] Dr. Stacy Saxena Cholesterol [Mass/Vol] 183 mg/dL Normal <=200 Th [facility] Comment on above: Performed By: #### L IPID, URIC, CMP, T7, TSH #### [facility] [address] [address] [address] Stacy Saxena Cholesterol in HDL [Mass/Vol] 58 mg/dL Normal 40-60 [facility] Comment on above: Performed By: #### L IPID, URIC, CMP, T7, TSH #### [facility] [address] [address] [address] Stacy Saxena Cholesterol in LDL [Mass/Vol] 115.0 mg/dL Normal [facility] Comment on above: Performed By: #### L IPID, URIC, CMP, T7, TSH #### [facility] [address] [address] [address] Stacy Saxena Cholesterol.total/Libby sterol in HDL [Mass ratio] 3.2 {ratio} Normal [facility] Comment on above: Performed By: #### L IPID, URIC, CMP, T7, TSH #### [facility] [address] [address] [address] Stacy Saxena HDL NORMAL > or = 60 mg/dl - LO W CARDIOVASCULAR RISK <40 mg/dl - HIGH CARDIOVASCULAR RISK Normal [facility] Comment on above: Performed By: #### L IPID, URIC, CMP, T7, TSH #### [facility] [address] [address] [address] Stacy Saxena LDL CALC NORMAL SEE BELOW Normal [facility] Comment on above: Result Comment: <100 mg/dl OPTIMAL 100 - 129 mg/dl NEAR OR ABOVE OPTIMAL 130 - 159 mg/dl BORDERLINE HIGH 160 - 189 mg/dl HIGH >190 mg/dl VERY HIGH Performed By: #### L IPID, URIC, CMP, T7, TSH #### [facility] [address] [address] [address] Stacy Saxena Triglyceride [Mass/Vol] 50 mg/dL Normal <=150 T [facility] Comment on above: Performed By: #### L IPID, URIC, CMP, T7, TSH #### [facility] [address] [address] [address] Stacy Saxena VLDL CALC 10.0 mg/dL Normal [facility] Comment on above: Performed By: #### L IPID, URIC, CMP, T7, TSH #### [facility] [address] [place] [address] Dr. Stacy Saxena PROF 14(COMP METB)on 023 Albumin [Mass/Vol] 3.9 g/dL Normal 3.4-5.0 [facility] Comment on above: Performed By: #### L IPID, URIC, CMP, T7, TSH #### [facility] [address] [place] [address] Dr. Stacy Saxena Albumin/Globulin [Mass ratio] 1.2 {ratio} Normal [facility] Comment on above: Performed By: #### L IPID, URIC, CMP, T7, TSH #### [facility] [address] [place] [address] Dr. Stacy Saxena ALP [Catalytic activity/Vol] 94 U/L Normal 46-116 [facility] Comment on above: Performed By: #### L IPID, URIC, CMP, T7, TSH #### [facility] [address] [place] [address] Dr. Stacy Saxena ALT [Catalytic activity/Vol] 38 U/L Normal 16-63 [facility] Comment on above: Performed By: #### L IPID, URIC, CMP, T7, TSH #### [facility] [address] [place] [address] Dr. Stacy Saxena Anion gap [Moles/Vol] 14.1 mmol/L Normal [facility] [facility] Comment on above: Performed By: #### L IPID, URIC, CMP, T7, TSH #### [facility] [address] [place] [address] Dr. Stacy Saxena AST [Catalytic activity/Vol] 46 U/L Critically high 15-37 [facility] Comment on above: Performed By: #### L IPID, URIC, CMP, T7, TSH #### [facility] [address] [place] [address] Dr. Stacy Saxena Bilirubin [Mass/Vol] 0.3 mg/dL Normal 0.2-1.0 [facility] Comment on above: Performed By: #### L IPID, URIC, CMP, T7, TSH #### [facility] [address] [place] [address] Dr. Stacy Saxena Calcium [Mass/Vol] 9.0 mg/dL Normal 8.5-10.1 [facility] Comment on above: Performed By: #### L IPID, URIC, CMP, T7, TSH #### [facility] [address] [place] [address] Dr. Stacy Saxena Chloride [Moles/Vol] 106 mmol/L Normal 98-107 [facility] Comment on above: Performed By: #### L IPID, URIC, CMP, T7, TSH #### [facility] [address] [place] [address] Dr. Stacy Saxena CO2 [Moles/Vol] 26.1 mmol/L Normal 21.0-32.0 [facility] Comment on above: Performed By: #### L IPID, URIC, CMP, T7, TSH #### [facility] [address] [place] [address] Dr. Stacy Saxena Creatinine [Mass/Vol] 0.87 mg/dL Normal 0.70-1.30 [facility] Comment on above: Performed By: #### L IPID, URIC, CMP, T7, TSH #### [facility] [address] [place] [address] Dr. Stacy Saexna EGFR-AF FRENCH >60 Normal >=60 [facility] Comment on above: Performed By: #### L IPID, URIC, CMP, T7, TSH #### [facility] [address] [place] [address] Dr. Stacy Saxena EGFR-NON AF FRENCH >60 Normal >=60 [facility] Comment on above: Performed By: #### L IPID, URIC, CMP, T7, TSH #### [facility] [address] [place] [address] Dr. Stacy Saxena Globulin (S) [Mass/Vol] 3.3 g/dL Normal T [facility] Comment on above: Performed By: #### L IPID, URIC, CMP, T7, TSH #### [facility] [address] [place] [address] Dr. Stacy Saxena Glucose [Mass/Vol] 97 mg/dL Normal 74-106 [facility] Comment on above: Performed By: #### L IPID, URIC, CMP, T7, TSH #### [facility] [address] [place] [address] Dr. Stacy Saxena Potassium [Moles/Vol] 4.2 mmol/L Normal 3.5-5.1 [facility] Comment on above: Performed By: #### L IPID, URIC, CMP, T7, TSH #### [facility] [address] [place] [address] Dr. Stacy Saxena Protein [Mass/Vol] 7.2 g/dL Normal 6.4-8.2 [facility] Comment on above: Performed By: #### L IPID, URIC, CMP, T7, TSH #### [facility] [address] [place] [address] Dr. Stacy Saxena Sodium [Moles/Vol] 142 mmol/L Normal 136-145 [facility] Comment on above: Performed By: #### L IPID, URIC, CMP, T7, TSH #### [facility] [address] [place] [address] Dr. Stacy Saxena Urea nitrogen [Mass/Vol] 21.0 mg/dL Critically high 7.0-18.0 [facility] Comment on above: Performed By: #### L IPID, URIC, CMP, T7, TSH #### [facility] [address] [place] [address] Dr. Stacy Saxena Urea nitrogen/Creatinine [Mass ratio] 24.1 mg/mg Normal [facility] Comment on above: Performed By: #### L IPID, URIC, CMP, T7, TSH #### [facility] [address] [place] [address] Dr. Stacy Saxena TSHon 11-03-2022 TSH 1.227 uIU/mL Normal 0.358-3.740 [facility] Comment on above: Performed By: #### L IPID, URIC, CMP, T7, TSH #### [facility] [address] [place] [address] Dr. Stacy Saxena URIC ACID SERUMon 11-03-2022 Urate [Mass/Vol] 5.6 mg/dL Normal 3.5-7.2 [facility] Comment on above: Performed By: #### L IPID, URIC, CMP, T7, TSH #### [facility] [address] [address] [address] Stacy Saxena FLUORO FOR SURGICAL PROCEDUR ESon 07-26-2022 FLUORO FOR SURGICAL PROCEDURES Radiology exam is complete. No Radiologist dictation. Please follow up with ordering provider. Final result Normal [facility] Radiology exam is complete. No Radiologist dictation. Please follow up with ordering provider. MHPN RIS CONSOLIDATED CBCon 07-20-2022 Erythrocyte distribution width (RBC) [Ratio] 12.9 % Normal 11.8-14.4 [facility] Comment on above: Performed By: #### C EDNA LYTE #### [facility] [address] [place] [address] Computer Processing Scheduler: Awais Sadler MD Hematocrit (Bld) [Volume fraction] 42.3 % Normal 40.7-50.3 [facility] Comment on above: Performed By: #### Monica BISHOP LYTE #### [facility] [address] [place] [address] Computer Processing Scheduler: Awais Sadler MD Hemoglobin (Bld) [Mass/Vol] 14.2 g/dL Normal 13.0-17.0 [facility] Comment on above: Performed By: #### C EDNA LYTE #### [facility] [address] [place] [address] Computer Processing Scheduler: Awais Sadler MD MCH (RBC) [Entitic mass] 29.5 pg Normal 25.2-33.5 [facility] Comment on above: Performed By: #### C EDNA LYTE #### [facility] [address] [facility] [place] [address] Computer Processing Scheduler: Awais Sadler MD MCHC (RBC) [Mass/Vol] 33.6 g/dL Normal 28.4-34.[address] [facility] Comment on above: Performed By: #### Monica BISHOP LYTE #### [facility] [address] [place] [address] Computer Processing Scheduler: Awais Sadler MD MCV (RBC) [Entitic vol] 87.8 fL Normal 82.6-102.9 [facility] Comment on above: Performed By: #### C EDNA LYTE #### [facility] [address] [place] [address]. [place] [address] Computer Processing Scheduler: Awais Sadler MD NRBC Automated 0.0 per 100 WBC Normal 0.0 [facility] Comment on above: Performed By: #### Monica BISHOP LYTE #### [facility] [address] [place] [address]. [place] [address] Computer Processing Scheduler: Awais Sadler MD Platelet mean volume (Bld) [Entitic vol] 9.3 fL Normal 8.1-13.5 [facility] Comment on above: Performed By: #### ANGIE BRYANTTE #### [facility] [address] [place] [address]. [place] [address] Computer Processing Scheduler: Awais Sadler MD Platelets (Bld) [#/Vol] 233 10*3/uL Normal 138-453 [facility] Comment on above: Performed By: #### Monica BISHOP LYTE #### [facility] [address] [place] [address]. [place] [address] Computer Processing Scheduler: Awais Sadler MD RBC (Bld) [#/Vol] 4.82 10*6/uL Normal 4.21-5.77 [facility] Comment on above: Performed By: #### Monica BISHOP LYTE #### [facility] [address] [place] [address] Computer Processing Scheduler: Awais Sadler MD WBC (Bld) [#/Vol] 9.4 10*3/uL Normal 3.5-11.3 [facility] Comment on above: Performed By: #### C BC, BRAD #### [facility] [address] [facility] [place] [address] Computer Processing Scheduler: Awais Sadler MD Hematocrit (Bld) [Volume fraction] 42.3 % 40.7 - 50.3 % [facility] Hemoglobin (Bld) [Mass/Vol] 14.2 g/dL 13.0 - 17.0 g/dL [facility] MCH (RBC) [Entitic mass] 29.5 pg 25.2 - 33.5 pg [facility] MCHC (RBC) [Mass/Vol] 33.6 g/dL 28.4 - 34.8 g/dL [facility] MCV (RBC) [Entitic vol] 87.8 fL 82.6 - 102.9 fL [facility] NRBC Automated 0.0 0.0 per 100 WBC [facility] Platelet distribution width (Bld) [Ratio] 12.9 % 11.8 - 14.4 % [facility] Platelet mean volume (Bld) [Entitic vol] 9.3 fL 8.1 - 13.5 fL [facility] Platelets (Bld) [#/Vol] 233 10*3/uL [facility] RBC (Bld) [#/Vol] 4.82 10*6/uL 4.21 - 5.7 7 m/uL [facility] WBC (Bld) [#/Vol] 9.4 10*3/uL [facility] EKG 12 LeadOrdered By: Ashley Monahan on 07-20-2022 Atrial Rate 58 BPM [facility] Work Phone: P [place] 46 degrees [facility] Work Phone: P-R Interval 192 ms [employer] Work Phone: Q-T Interval 400 ms [employer] Work Phone: QRS Duration 96 ms [employer] Work Phone: QTc Calculation (Bazett) 392 ms [employer] Work Phone: R [place] 81 degrees [employer] Work Phone: T [place] 65 degrees [employer] Work Phone: Ventricular Rate 58 BPM [employer] Work Phone: [employer] Work Phone: EKG 12 Leadon 07-20-2022 Sinus bradycardia Otherwise normal ECG No previous ECGs available [facility] Ashley Singh MD - 07/20/2022 Sinus bradycardia Otherwise normal ECG No previous ECGs available [employer] Work Phone: Electrolyte Panelon 07-20-19 Anion gap [Moles/Vol] 10 mmol/L 9 - 17 mmol/L [employer] Chloride [Moles/Vol] 101 mmol/L 98 - 10 7 mmol/L [employer] CO2 [Moles/Vol] 25 mmol/L 20 - 31 mmol/L [employer] Potassium [Moles/Vol] 4.1 mmol/L 3.7 - 5.3 mmol/L [employer] Sodium [Moles/Vol] 136 mmol/L 135 - 144 mmol/L [facility] Missingames [facility] [employer] Electrolyteson 07-20-2022 Anion gap [Moles/Vol] 10 mmol/L Normal 9-[address] [facility] Comment on above: Performed By: #### C BRAD BISHOP #### [facility] [address] [place] [address] Computer Processing Scheduler: Awais Sadler MD Chloride [Moles/Vol] 101 mmol/L Normal 98-107 [facility] Comment on above: Performed By: #### C EDNA LYTE #### [facility] [address] [place] [address] Computer Processing Scheduler: Awais Sadler MD CO2 [Moles/Vol] 25 mmol/L Normal 20-31 [facility] Comment on above: Performed By: #### C EDNA LYTE #### [facility] [address] [place] [address] Computer Processing Scheduler: Awais Sadler MD Potassium [Moles/Vol] 4.1 mmol/L Normal 3.7-5.[address] [facility] Comment on above: Performed By: #### C ANGIE BISHOPTE #### [facility] [place] [address] Computer Processing Scheduler: Awais Sadler MD Sodium [Moles/Vol] 136 mmol/L Normal 135-144 [facility] Comment on above: Performed By: #### C EDNA LYTE #### [facility] [place] [address] Computer Processing Scheduler: Awais Sadler MD MR Cervical spine WO contras ton 05-11-2021 IMPRESSION: 1. 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 2. Spinal cord and thecal sac impingement without compression at C7-T1. 3. Left C3-4 & right C5-6 and bilateral C6-7 and C7-T1 significant foramina narrowing. COUNTING REFERENCE: Superior cervical disc is taken as C2-3. Structural anomalies: None. Health Coordinator: PSCB Transcribe Date/Time: May 11 2021 11:48A Dictated by : TREASURE NAM MD This examination was interpreted and the report reviewed and electronically signed by: TREASURE NAM MD on May 11 2021 11:54AM [facility] DIVISION OF RADIOLOGY * * *Final Report* * * DATE OF EXAM: May 11 2021 11:37AM LN [id number] - MRI CERVICAL SPINE WO IVCON / PROCEDURE REASON: multiple diagnoses * * * * Physician Interpretation * * * * COMPARISON: CT cervical spine from 04/15/2021. HISTORY: Chronic neck pain with cervical malalignment. TECHNIQUE: MRI cervical spine without contrast. MQ: [id number] RESULT: MRI CERVICAL SPINE: Acute abnormality: None. Mild kyphoscoliosis without vertebral anomalies. Loss of normal cervical lordosis with curvature reversal. Grade I degenerative retrolisthesis of C6 on C7 and anterior listhesis of C7 on T1. Decreased disc height and signal, endplate changes, disc osteophyte, facet & uncovertebral joint degeneration indicating diffuse spondylosis which is relatively stable when compared to recent CT exam. Short pedicles indicating mild congenital canal stenosis with superimposed degenerative changes but without spinal cord impingement or compression or myelomalacia or edema. Normal remaining alignment, vertebral height, marrow signal, thecal sac, spinal cord signal/caliber & posterior fossa. No fracture/dislocation. Normal soft tissues. C2 -- 3: Congenital canal narrowing with superimposed disc/joint degeneration. Central canal encroachment without significant narrowing. Patent bilateral neural foramina. C3 -- 4: Congenital canal narrowing with superimposed disc/joint degeneration. Central canal encroachment without significant narrowing. Patent right foramina. Severe left foramina narrowing. C4 -- 5: Congenital canal narrowing with superimposed disc/joint degeneration. Central canal encroachment without significant narrowing. Mild bilateral neural foramina narrowing. C5 -- 6: Congenital canal narrowing with superimposed disc/joint degeneration. Canal encroachment without significant narrowing. Mild/moderate right and moderate/severe left foramina narrowing. C6 -- 7: Grade I degenerative retrolisthesis of C6 on C7. Congenital canal narrowing with superimposed disc/joint degeneration. Central canal encroachment without significant narrowing. Severe bilateral foramina narrowing. C7 -- T1: Grade 1 degenerative anterior listhesis of C7 on T1 with mild uncovering of disc. Effacement of ventral and dorsal CSF without abnormal cord signal but with mild flattening of thecal sac and spinal cord indicating spinal cord impingement without compression or myelomalacia or edema. Congenital canal narrowing with superimposed disc/joint degeneration. Severe bilateral foramina narrowing. DIVISION OF RADIOLOGY Provider, Cc Maria E [facility] - 05/11/2021 * * *Final Report* * * DATE OF EXAM: May 11 2021 11:37AM LNM [id number] - MRI CERVICAL SPINE WO IVCON / PROCEDURE REASON: multiple diagnoses * * * * Physician Interpretation * * * * COMPARISON: CT cervical spine from 04/15/2021. HISTORY: Chronic neck pain with cervical malalignment. TECHNIQUE: MRI cervical spine without contrast. MQ: [id number] RESULT: MRI CERVICAL SPINE: Acute abnormality: None. Mild kyphoscoliosis without vertebral anomalies. Loss of normal cervical lordosis with curvature reversal. Grade I degenerative retrolisthesis of C6 on C7 and anterior listhesis of C7 on T1. Decreased disc height and signal, endplate changes, disc osteophyte, facet & uncovertebral joint degeneration indicating diffuse spondylosis which is relatively stable when compared to recent CT exam. Short pedicles indicating mild congenital canal stenosis with superimposed degenerative changes but without spinal cord impingement or compression or myelomalacia or edema. Normal remaining alignment, vertebral height, marrow signal, thecal sac, spinal cord signal/caliber & posterior fossa. No fracture/dislocation. Normal soft tissues. C2 -- 3: Congenital canal narrowing with superimposed disc/joint degeneration. Central canal encroachment without significant narrowing. Patent bilateral neural foramina. C3 -- 4: Congenital canal narrowing with superimposed disc/joint degeneration. Central canal encroachment without significant narrowing. Patent right foramina. Severe left foramina narrowing. C4 -- 5: Congenital canal narrowing with superimposed disc/joint degeneration. Central canal encroachment without significant narrowing. Mild bilateral neural foramina narrowing. C5 -- 6: Congenital canal narrowing with superimposed disc/joint degeneration. Canal encroachment without significant narrowing. Mild/moderate right and moderate/severe left foramina narrowing. C6 -- 7: Grade I degenerative retrolisthesis of C6 on C7. Congenital canal narrowing with superimposed disc/joint degeneration. Central canal encroachment without significant narrowing. Severe bilateral foramina narrowing. C7 -- T1: Grade 1 degenerative anterior listhesis of C7 on T1 with mild uncovering of disc. Effacement of ventral and dorsal CSF without abnormal cord signal but with mild flattening of thecal sac and spinal cord indicating spinal cord impingement without compression or myelomalacia or edema. Congenital canal narrowing with superimposed disc/joint degeneration. Severe bilateral foramina narrowing. IMPRESSION IMPRESSION: 1. 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 2. Spinal cord and thecal sac impingement without compression at C7-T1. 3. Left C3-4 & right C5-6 and bilateral C6-7 and C7-T1 significant foramina narrowing. COUNTING REFERENCE: Superior cervical disc is taken as C2-3. Structural anomalies: None. Health Coordinator: PSCB Transcribe Date/Time: May 11 2021 11:48A Dictated by : TREASURE NAM MD This examination was interpreted and the report reviewed and electronically signed by: TREASURE NAM MD on May 11 2021 11:54AM EST [facility] Radiology Study observation (narrative) [facility] MR Cervical spine WO contras tOrdered By: Ccf Provider on 05-11-2021 [facility] ED NOTEon 04-16-2021 ED NOTE HNO ID: [id number] Author: Vashti Mc RN Service: ? Author Type: Registered Nurse Type: ED Notes Filed: 04/16/2021 4:51 AM Note Text: Verbalized understanding of new meds sent to documented preferred pharmacy and sched f/u appt with Spine. Phone number provided to patient for PCP f/u appt. Ambulatory out of dept. Normal [facility] ED NOTE HNO ID: [id number] Author: Vashti Mc RN Service: ? Author Type: Registered Nurse Type: ED Notes Filed: 04/16/2021 3:09 AM Note Text: Ambulatory in room for urine sample. Urinal provided. [facility] ED NOTE HNO ID: [id number] Author: Vashti Mc RN Service: ? Author Type: Registered Nurse Type: ED Notes Filed: 04/16/2021 2:52 AM Note Text: Patient denies any recent injury/trauma. Denies loss of function to bowel/bladder. [facility] ED NOTE HNO ID: [id number] Author: Vashti Mc RN Service: ? Author Type: Registered Nurse Type: ED Notes Filed: 04/16/2021 1:15 AM Note Text: Patient ambulatory from lobby to room independently with steady gait. [facility] ED PROV NOTEon 04-16-2021 ED PROV NOTE HNO ID: [id number] Author: Jacquelyn Wlals PA-C Service: ? Author Type: Physician Molding And Trim Installer Type: ED Provider Notes Filed: 04/16/2021 6:16 AM Note Text: ED Provider Note Patient Name: Edmund Christopher SERVICE DATE: 04/15/21 History Patient presents with: Back Pain: pt states chronic back and neck x2 months Patient is a 56-year-old male with a history of kidney stones and hypertension who presents to emergency department for back pain. Patient reports that approximately 2 months ago he fell off of a ladder approximately 3 feet onto a anjali. States he landed directly on his back. Did hit his head, denies any loss of consciousness. Denies any anticoagulation use. States that since then he has been having a 10 out of 10 pain located in his cervical and lumbar spine. States he is been taking Tylenol with minimal relief of his symptoms. Denies any palliative factors. Pain is worse with any movement. Reports that the pain radiates into his right groin and down his right leg. Denies any dysuria, hematuria, foul-smelling urine. Denies any swelling of his scrotum. Denies any bulging. Patient reports that he has chronic low back pain, was previously receiving large doses of narcotics for his pain relief, which she discontinued approximately 6 months ago. Patient denies any urinary retention, fecal incontinence, saddle anesthesias, or weakness. Patient denies prior history of IV drug use, fever, chills, or prior history of cancer. History provided by: Patient and significant other diplomatic interpreter/translator used: No PAST MEDICAL HISTORY Diagnosis Date - CVA (cerebral infarction) - Hypertension - Kidney stone PAST SURGICAL HISTORY Procedure Laterality Date - INJ WO/CATH ANES/STER LS 04/01/10 Performed by BRUNO VICTORIA at [facility] - NJX DX/THER AGT PVRT FACET JT LMBR/SAC 1 LEVEL 04/29/2010 Performed by BRUNO VICTORIA at [facility] - PAST SURGICAL HISTORY OF 2000, 2004 shoulder surgery X 2-rotator cuff-right - PAST SURGICAL HISTORY OF 2008 rotator cuff repair right arm - PAST SURGICAL HISTORY OF 2011 hernia umbilical - PAST SURGICAL HISTORY OF 04/05/12 left wrist surg-plate - PAST SURGICAL HISTORY OF 10/2011 left RCR - PAST SURGICAL HISTORY OF 1978 right ankle repair - PAST SURGICAL HISTORY OF 1985 jaw surgery cysts removed - PAST SURGICAL HISTORY OF 08/1012 right BHR FAMILY HISTORY Problem Relation Age of Onset - Emphysema Father Social History Tobacco Use - Smoking status: Current Every Day Smoker Packs/day: 1.00 Years: 29.00 Pack years: 29.00 Types: Cigarettes Last attempt to quit: 10/22/2006 Years since quittin.4 - Smokeless tobacco: Never Used Substance and Sexual Activity - Alcohol use: Yes Comment: 2x year - Drug use: No - Sexual activity: Not on file ALLERGIES Allergen Reactions - Latex Rash - Tape [Adhesive Tape* Rash One episode blisters with tape 2011 shoulder surgery Review of Systems Constitutional: Negative for chills and fever. HENT: Negative for congestion and rhinorrhea. Eyes: Negative for visual disturbance. Respiratory: Negative for cough and shortness of breath. Cardiovascular: Negative for chest pain and palpitations. Gastrointestinal: Negative for abdominal pain, diarrhea, nausea and vomiting. Genitourinary: Negative for difficulty urinating. Musculoskeletal: Positive for back pain and neck pain. Negative for arthralgias. Skin: Negative for color change. Neurological: Negative for syncope and headaches. Hematological: Does not bruise/bleed easily. Psychiatric/Behaviora l: The patient is not nervous/anxious. Physical Exam BP 155/104 Pulse 72 Temp (Src) 98.1 (Oral) Resp 16 Ht 5' 4 (1.63m) Wt 149 lb (67.6kg) SpO2 96% BMI 25.56 kg/(m2). Physical Exam Vitals and nursing note reviewed. Constitutional: General: He is not in acute distress. HENT: Head: Normocephalic and atraumatic. Jaw: There is normal jaw occlusion. Mouth/Throat: Lips: [place]. Mouth: Mucous membranes are dry. Eyes: Extraocular Movements: Extraocular movements intact. Pupils: Pupils are equal, round, and reactive to light. Cardiovascular: Rate and Rhythm: Normal rate and regular rhythm. Pulses: Normal pulses. Heart sounds: Normal heart sounds. Pulmonary: Effort: Pulmonary effort is normal. No respiratory distress. Breath sounds: Normal breath sounds. Abdominal: General: Bowel sounds are normal. Palpations: Abdomen is soft. Tenderness: There is no abdominal tenderness. Musculoskeletal: General: Normal range of motion. Cervical back: Full passive range of motion without pain, normal range of motion and neck supple. Tenderness and bony tenderness present. Thoracic back: No tenderness or bony tenderness. Lumbar back: Tenderness and bony tenderness present. Normal range of motion. Back: Comments: Tenderness to palpation in area depicted above No o (more content not included)... Normal [facility] Urinalysis with [facility] 04-16-2021 Bilirubin, Urine Negative Normal Negative [facility] pital Cast SEE COMMENT Normal 0 [facility] Comment on above: Result Comment: 0 Clarity (U) Clear Normal Clear [facility] Color (U) Yellow Normal Yellow [facility] Glucose Ql (U) Negative Normal Negative [facility] Hemoglobin/Blood,Ur Negative Normal Negative [facility] Ketones Ql (U) Trace Critically abnormal Negative [facility] Leukest Trace Critically abnormal Negative [facility] Nitrite Ql (U) Negative Normal Negative [facility] pH (U) 6.5 [pH] Normal 5.0-8.0 [facility] Protein, Urine Negative Normal Negative [facility] RBC 0-3 Normal 0-3 [facility] Specific Depue, Ur 1.022 Normal 1.005-1.030 [facility] Urobilinogen Qn (U) 1.0 {Jalen'U}/dL Normal 0.2-1.0 [facility] WBC 0-5 Normal 0-[address] [facility] [address] BRAIN WO IVCONon 04-15-[address] BRAIN WO IVCON * * *Final Report* * * DATE OF EXAM: Apr 15 2021 8:31PM [facility] 0504 - CT BRAIN WO IVCON / PROCEDURE REASON: Head trauma, headache * * * * Physician Interpretation * * * * EXAMINATION: CT BRAIN WO IVCON CLINICAL HISTORY: Head trauma, headache TECHNIQUE: Serial axial images without IV contrast were obtained from the vertex to the foramen magnum. MQ: CTBWO_3 CT Radiation dose: Integrated Dose-Length Product (DLP) for this visit = 766 mGy*cm CT Dose Reduction Employed: Automated exposure control (AEC) COMPARISON: None. RESULT: Post-operative change: None. Acute change: No evidence of an acute infarct or other acute parenchymal process. Hemorrhage: No evidence of acute intracranial hemorrhage. ECASS hemorrhagic transformation score: Not Applicable Mass Lesion / Mass Effect: There is no evidence of an intracranial mass or extraaxial fluid collection. No significant mass effect. Chronic change: None apparent. Parenchyma: There is no significant volume loss. The brain parenchyma is otherwise within normal limits for age. Ventricles: The ventricles are within normal limits of size and configuration for age. Paranasal sinuses and skull base: The visualized paranasal sinuses are grossly clear. The skull base and imaged soft tissues are unremarkable. [employer] (topogram) images: Unremarkable. IMPRESSION: No evidence of an acute intracranial process. Health Coordinator: [facility] Transcribe Date/Time: Apr 15 2021 8:36P Dictated by : HEATHER LUCIO MD This examination was interpreted and the report reviewed and electronically signed by: HEATHER LUCIO MD on Apr 15 2021 8:38PM EST [id number] Normal [facility] CT CERVICAL SPINE WO IVCONon 04-15-2021 CT CERVICAL SPINE WO IVCON * * *Final Report* * * DATE OF EXAM: Apr 15 2021 8:31PM [facility] 0505 - CT CERVICAL SPINE WO IVCON / PROCEDURE REASON: C-spine trauma, NEXUS/CCR positive * * * * Physician Interpretation * * * * EXAMINATION: CT CERVICAL SPINE WO IVCON CLINICAL HISTORY: Neck pain TECHNIQUE: CT of the cervical spine without IV contrast. Spiral, high resolution axial images were obtained from the skull base to the cervicothoracic junction with sagittal and coronal planar reconstructions. MQ: CTCSPWO_5 CT Radiation dose: Integrated CT Dose-Length Product (DLP) for this visit = 321 mGy*cm CT Dose Reduction Employed: Automated exposure control (AEC) COMPARISON: None. RESULT: Counting reference: Craniocervical junction. Anatomic Variants: None. Super[employer] Adult [employer] (topogram) images: Alignment: Alignment is anatomic. Craniocervical junction: Craniocervical junction is normal. Osseous structures/fracture: No evidence of a lytic or blastic process in the visualized spine. No evidence of acute or chronic fracture. Cervical soft tissues: The paraspinal soft tissues are within normal limits. Degenerative changes: Moderate to severe multilevel degenerative disc disease is seen throughout the cervical spine most pronounced from levels of C4-C7. There is anterolisthesis of C7 relation to T1 on the order of approximately 3 mm which is likely on the basis of degenerative change. IMPRESSION: Moderate to significant cervical spondylosis with anterolisthesis of C7 relation to T1 presumably on the basis of degenerative change. No evidence of an acute traumatic abnormality. Anatomic Variant: None. Assume 7 cervical vertebrae with counting from the craniocervical junction. Health Coordinator: [place] Transcribe Date/Time: Apr 15 2021 8:38P Dictated by : HEATHER LUCIO MD This examination was interpreted and the report reviewed and electronically signed by: HEATHER LUCIO MD on Apr 15 2021 8:40PM EST [id number] Normal [facility] CT LUMBAR SPINE WO IVCONon 1 CT LUMBAR SPINE WO IVCON * * *Final Report* * * DATE OF EXAM: Apr 15 2021 8:31PM [facility] 0508 - CT LUMBAR SPINE WO IVCON / PROCEDURE REASON: Back pain, minor trauma * * * * Physician Interpretation * * * * EXAMINATION: CT LUMBAR SPINE WO IVCON CLINICAL HISTORY: TECHNIQUE: Spiral, high resolution axial images were obtained from the thoracolumbar junction to the sacrum with sagittal and coronal planar reconstructions. MQ: CTLSPWO_3 CT Radiation dose: Integrated Dose-Length Product (DLP) for this visit = 620 mGy*cm. CT Dose Reduction Employed: Automated exposure control (AEC) COMPARISON: None. RESULT: Counting reference: Lumbosacral junction. For the purposes of this report, Super[employer] Adult [employer] (topogram) images: Alignment: Alignment is anatomic. Bone marrow /fracture: No evidence of a lytic or blastic process in the visualized spine. No evidence of acute or chronic fracture. Paraspinal soft tissues: The paraspinal soft tissues planes are maintained. Lower thoracic spine: The visualized lower thoracic bony canal and foramina are patent. Degenerative change: Moderate to severe multilevel degenerative disc disease is present with disc space. Throughout the lumbar spine with endplate sclerosis as well as degenerative facet arthropathy. The alignment demonstrates moderate levoscoliosis of the lumbar spine with the apex at L2/L3. Sacrum and iliac wings: The visualized sacrum and iliac wings are within normal limits. IMPRESSION: Moderate to significant degenerative disc disease, degenerative facet arthropathy and moderate to significant levoscoliosis however no evidence of an acute traumatic abnormality. Anatomic Thoracic/Lumbar Variant: None. L4-5 is considered the level of the iliac crest and assume there are 5 lumbar-type vertebrae. Health Coordinator: [place] Transcribe Date/Time: Apr 15 2021 8:40P Dictated by : HEATHER LUCIO MD This examination was interpreted and the report reviewed and electronically signed by: HEATHER LUCIO MD on Apr 15 2021 8:43PM EST [id number] [facility] ED NOTEon 04-15-2021 ED NOTE HNO ID: [id number] Author: Li Damon RN Service: ? Author Type: Registered Nurse Type: ED Notes Filed: 04/15/2021 6:06 PM Note Text: Pt. to ED for neck and low back pain after falling about 4 weeks ago. Pt. states was up about 3 ft on ladder when he fell off onto anjali that was on the ground. Denies loc, no blood thinners. [facility] ED Triage Noteon 04-15-2021 ED Triage Note HNO ID: [id number] Author: Geovanny Tanner PA-C Service: Emergency Medicine Author Type: Physician Molding And Trim Installer Type: ED Triage Notes Filed: 04/15/2021 6:11 PM Note Text: ED INTAKE NOTE Patient Name: Edmund Christohper Service Date: 04/15/21 BRIEF HPI: A 56 yo male presents to the ED with neck and back pain following a fall from a 3 foot ladder 3-4 weeks ago. He slipped and hit his back. Unsure if he hit his head but almost LOC. Also c/o intermittent pain in his R scrotum. States that he has had this before the fall intermittently as well. BRIEF EXAM: Awake and Alert RRR PAEZ Midline cervical and lumbar spinal tenderness. 5/5 branch service representative, bicep, tricep strength b/l. 5/5 hip extension, knee extension/flexion, DF/PF strength b/l. Normal gross motor and sensory function to light touch over b/l face, UEs, and LEs. Normal finger to nose. No basilar skull fracture signs. Deferred exam at this time. INTAKE WORKUP: Imaging: CT: Brain, C spine, Lumbar spine Testicular US SIGNATURE: Geovanny Tanner PA-C [facility] US DOPPLER COMPLETEon 2020 US DOPPLER COMPLETE * * *Final Report* * * DATE OF EXAM: Apr 15 2021 6:53PM [facility] 1033 - US DOPPLER COMPLETE / PROCEDURE REASON: Testicular torsion * * * * Physician Interpretation * * * * EXAMINATION: SCROTAL ULTRASOUND WITH DOPPLER IMAGING CLINICAL HISTORY: Testicular torsion TECHNIQUE: Sonography of the scrotal contents with color flow and spectral Doppler imaging of the testicular vasculature was performed. Images were obtained and stored in a permanent archive. M: USC_2 COMPARISON: None RESULT: RIGHT SCROTUM: Right testis: 4.7 x 3.5 x 2.7 cm. Homogeneous with no calcifications or mass. Normal intratesticular arterial and venous flow with normal spectral waveforms. Epididymis: Normal. Vascular flow on Color Doppler is symmetric to the contralateral side. Hydrocele: physiologic fluid present Varicocele: absent LEFT SCROTUM: Left testis: 5.0 x 3.1 x 2.4 cm. Homogeneous with no calcifications or mass. Normal intratesticular arterial and venous flow with normal spectral waveforms. Epididymis: Normal. Vascular flow on Color Doppler is symmetric to the contralateral side. Hydrocele: small present. Slightly complex septated hydrocele inferolateral to the left testicle. Varicocele: absent IMPRESSION: 1. Normal sonographic appearance of the testicles. 2. Normal arterial and venous flow within both testes. 3. Slightly complex septated small left hydrocele. Health Coordinator: [facility] Transcribe Date/Time: Apr 15 2021 7:06P Dictated by : JENNIFER CASTILLO MD This examination was interpreted and the report reviewed and electronically signed by: JENNIFER CASTILLO MD on Apr 15 2021 7:12PM EST [id number] Normal [facility] US SCROTUM AND CONTENTSon US SCROTUM AND CONTENTS * * *Final Repor t* * * DATE OF EXAM: Apr 15 2021 6:53PM [facility] 1063 - US SCROTUM AND CONTENTS / PROCEDURE REASON: Testicular torsion * * * * Physician Interpretation * * * * EXAMINATION: SCROTAL ULTRASOUND WITH DOPPLER IMAGING CLINICAL HISTORY: Testicular torsion TECHNIQUE: Sonography of the scrotal contents with color flow and spectral Doppler imaging of the testicular vasculature was performed. Images were obtained and stored in a permanent archive. M: USC_2 COMPARISON: None RESULT: RIGHT SCROTUM: Right testis: 4.7 x 3.5 x 2.7 cm. Homogeneous with no calcifications or mass. Normal intratesticular arterial and venous flow with normal spectral waveforms. Epididymis: Normal. Vascular flow on Color Doppler is symmetric to the contralateral side. Hydrocele: physiologic fluid present Varicocele: absent LEFT SCROTUM: Left testis: 5.0 x 3.1 x 2.4 cm. Homogeneous with no calcifications or mass. Normal intratesticular arterial and venous flow with normal spectral waveforms. Epididymis: Normal. Vascular flow on Color Doppler is symmetric to the contralateral side. Hydrocele: small present. Slightly complex septated hydrocele inferolateral to the left testicle. Varicocele: absent IMPRESSION: 1. Normal sonographic appearance of the testicles. 2. Normal arterial and venous flow within both testes. 3. Slightly complex septated small left hydrocele. Health Coordinator: [facility] Transcribe Date/Time: Apr 15 2021 7:06P Dictated by : JENNIFER CASTILLO MD This examination was interpreted and the report reviewed and electronically signed by: JENNIFER CASTILLO MD on Apr 15 2021 7:12PM EST [id number] [facility] Son 02-17-2020 LUMB SP COMP W FLEX/EXT 6 VWS STUDY: LUMB SP COMP W FLEX/EXT 6 VWS ; 02/17/2020 9:43 am INDICATION: PAIN. COMPARISON: 10/08/2018 ACCESSION NUMBER(S): [id number] ORDERING CLINICIAN: Earl Choi FINDINGS: Severe levoscoliosis. No fracture or subluxation. Severe multilevel disc height loss with endplate sclerosis and osteophyte formation. Multilevel facet arthropathy. 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 Slight retrolisthesis L3-4. No definite pars defects are seen. No instability on flexion or extension. Partially imaged hip arthroplasties. Atherosclerosis is present. IMPRESSION: Severe degenerative changes and scoliosis of the lumbar spine without dynamic instability. Normal [facility] Coding Summaryon 04-25-2018 Coding Summary CODING DATE: 04/25/2018 [facility] STATUS: Home PAYOR: Medicare ADMIT DX: REASON FOR VISIT DX: H57.8 Other specified disorders of eye and adnexa FINAL DX: PRINCIPAL: S05.02XA Injury of conjunctiva and corneal abrasion without foreign body, left eye, initial encounter SECONDARY: Z23 Encounter for immunization PROCEDURES DOCTOR NAME DATE NOTE: The code number assigned matches the documented diagnosis and / or procedure in the patient's chart. However, the narrative phrase printed from the coding software may appear abbreviated, or result in slightly different terminology. Coded By: Carlos Alberto Oakley' Date Saved: 04/25/2018 05:43 pm Normal [facility] ED Clinical Summaryon 2017 ED Clinical Summary [facility] ? Urgent Care [address] [place] [address] Clinical Summary PERSON INFORMATION Name: EDMUND CHRISTOPHER Age: 53 Years Sex: MALE : 65 MRN: Acct#: Visit Reason: UC - Eye Pain; LEFT EYE PAIN Arrival: 03/24/18 12:26:00 Discharge: 03/24/18 13:10:00 LOS: 000 00:44 Check In: 03/24/18 12:26:00 Checkout: 03/24/18 13:10:00 Address: [address] [place] [id number] PCP: MADDY COTTO MD PROVIDER INFORMATION Provider Role Assigned Unassigned Omayra Munguia ED PA 03/24/18 12:29:30 03/24/18 12:36:20 Omayra Munguia ED PA 03/24/18 12:36:24 Lin Farmer PENCILLER Nurse 03/24/18 12:38:39 VITALS INFORMATION Vital Sign Triage Latest Temperature Tympanic Temperature Temporal Artery Pulse Rate 64 bpm 64 bpm O2 Sat 95 % 95 % Respiratory Rate 16 br/min 16 br/min Blood Pressure 108 mmHg/82 mmHg 108 mmHg/82 mmHg MEDICAL INFORMATION Medications Given: Medication Dose Route Tdap 0.5 mL IM Allergy Information: No Known Medication Allergies PHYSICIAN DOCUMENTATION Patient: EDMUND CHRISTOPHER Age: 53 years Sex: MALE : 65 Associated Diagnoses: Corneal abrasion Author: Omayra Munguia Basic Information Additional information: Chief Complaint from Nursing Triage Note : Chief Complaint 03/24/18 12:25 EDT Chief Complaint C/O left eye tearing, redness, pain after grinding metal yesterday. Unknown if there is a foreign body. . History of Present Illness 53-year-old male presents chief complaint left eye irritation redness and pain. He states he is working along [employer] believes he got something into his eye on Sunday. 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 Is a foreign body sensation on to the eye. No acute foreign bodies noted on his initial examination. Patient denies any known history of recent sinus immunization as well. Patient's eye is watering red and injected. He denies wearing contacts. Review of Systems Constitutional symptoms: Negative except as documented in HPI. Eye symptoms: Pain, blurred vision. Health Status Allergies: Allergic Reactions (Selected) No Known Medication Allergies. Medications: (Selected) Inpatient Medications Ordered tetanus/diphth/pertus s (Tdap) adult/adol: 0.5 mL, IM, Once. Past Medical/ Family/ Social History Medical history: No active or resolved past medical history items have been selected or recorded.. Surgical history: No active procedure history items have been selected or recorded.. Family history: No family history items have been selected or recorded.. Social history: Social & Psychosocial Habits Tobacco 03/24/2018 Smoking tobacco use: Former smoker, quit more . Problem list: No qualifying data available . Physical Examination Vital Signs Per nurse's notes. General: Alert, no acute distress. Skin: Warm, dry. Head: Normocephalic, atraumatic. Neck: Supple, trachea midline. Eye: Pupils are equal, round and reactive to light, extraocular movements are intact. Ears, nose, mouth and throat: Tympanic membranes clear, oral mucosa moist. Cardiovascular: Regular rate and rhythm, No murmur. Respiratory: Lungs are clear to auscultation, respirations are non-labored. Chest wall: No tenderness. Back: Nontender, Normal range of motion. Musculoskeletal: Normal ROM, normal strength. Neurological: Alert and oriented to person, place, time, and situation. Lymphatics Psychiatric: Cooperative, appropriate mood & affect. Medical Decision Making Differential Diagnosis: corneal abrasion. Reexamination/ Reevaluation Patient presents for chief complaint of left eye irritation and watering and drainage. 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 Patient did have relief of foreign body sensation with the administration of tetracaine. EOMs are intact. Upper and lower eyelids were examined for no acute foreign body. Small uptake at the 3 o'clock position for corneal abrasion. Patient started on Tobrex eyedrops and also given Acular for irritation. Patient encouraged follow-up primary care physician or eye doctor if symptoms change or worsen intervals photophobia or blurred vision. Impression and Plan Diagnosis Corneal abrasion ([id number] S05.00XA, Discharge, Medical) Plan Condition: Stable. Disposition: Discharged: Time 03/24/18 12:55:00, to home. Prescriptions: Launch prescriptions Pharmacy: Acular 0.5% ophthalmic solution (Prescribe): 1 drop(s), OPTH, QID, for 3 day(s), PRN: for itching, 5 mL, 0 Refill(s) Tobrex 0.3% ophthalmic solution (Prescribe): 1 drop(s), OPTH, QID, for 7 day(s), 5 mL, 0 Refill(s). Patient was given the following educational materials: Corneal Abrasion, Corneal Abrasion. Follow up with: MADDY COTTO In 2 days 03/26/18. Counseled: Patient, Regarding diagnosis, Regarding treatment plan, Regarding prescription, Patient indicated understanding of instructions. DISCHARGE INFORMATION: Discharge Disposition: Home Discharge Location: Home PATIENT EDUCATION INFORMATION Instructions: Corneal Abrasion Follow-Up: With: Address: When: MADDY COTTO [address] [place] [address] [facility] ([employer] In 2 days 03/26/18 DIAGNOSIS: Corneal abrasion Patient Understands: Yes - Patient/family/caregi chang verbalizes understanding of instructions given Comment: [facility] ED Note - Physicianon 2017 ED Note - Physician Patient: EDMUND CHRISTOPHER Age: 53 years Sex: MALE : 65 Associated Diagnoses: Corneal abrasion Author: Omayra Munguia Basic Information Additional information: Chief Complaint from Nursing Triage Note : Chief Complaint 03/24/18 12:25 EDT Chief Complaint C/O left eye tearing, redness, pain after grinding metal yesterday. Unknown if there is a foreign body. . History of Present Illness 53-year-old male presents chief complaint left eye irritation redness and pain. He states he is working along [place] believes he got something into his eye on Sunday. 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 Is a foreign body sensation on to the eye. No acute foreign bodies noted on his initial examination. Patient denies any known history of recent sinus immunization as well. Patient's eye is watering red and injected. He denies wearing contacts. Review of Systems Constitutional symptoms: Negative except as documented in HPI. Eye symptoms: Pain, blurred vision. Health Status Allergies: Allergic Reactions (Selected) No Known Medication Allergies. Medications: (Selected) Inpatient Medications Ordered tetanus/diphth/pertus s (Tdap) adult/adol: 0.5 mL, IM, Once. Past Medical/ Family/ Social History Medical history: No active or resolved past medical history items have been selected or recorded.. Surgical history: No active procedure history items have been selected or recorded.. Family history: No family history items have been selected or recorded.. Social history: Social & Psychosocial Habits Tobacco 03/24/2018 Smoking tobacco use: Former smoker, quit more . Problem list: No qualifying data available . Physical Examination Vital Signs Per nurse's notes. General: Alert, no acute distress. Skin: Warm, dry. Head: Normocephalic, atraumatic. Neck: Supple, trachea midline. Eye: Pupils are equal, round and reactive to light, extraocular movements are intact. Ears, nose, mouth and throat: Tympanic membranes clear, oral mucosa moist. Cardiovascular: Regular rate and rhythm, No murmur. Respiratory: Lungs are clear to auscultation, respirations are non-labored. Chest wall: No tenderness. Back: Nontender, Normal range of motion. Musculoskeletal: Normal ROM, normal strength. Neurological: Alert and oriented to person, place, time, and situation. Lymphatics Psychiatric: Cooperative, appropriate mood & affect. Medical Decision Making Differential Diagnosis: corneal abrasion. Reexamination/ Reevaluation Patient presents for chief complaint of left eye irritation and watering and drainage. 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 Patient did have relief of foreign body sensation with the administration of tetracaine. EOMs are intact. Upper and lower eyelids were examined for no acute foreign body. Small uptake at the 3 o'clock position for corneal abrasion. Patient started on Tobrex eyedrops and also given Acular for irritation. Patient encouraged follow-up primary care physician or eye doctor if symptoms change or worsen intervals photophobia or blurred vision. Impression and Plan Diagnosis Corneal abrasion ([id number] S05.00XA, Discharge, Medical) Plan Condition: Stable. Disposition: Discharged: Time 03/24/18 12:55:00, to home. Prescriptions: Launch prescriptions Pharmacy: Acular 0.5% ophthalmic solution (Prescribe): 1 drop(s), OPTH, QID, for 3 day(s), PRN: for itching, 5 mL, 0 Refill(s) Tobrex 0.3% ophthalmic solution (Prescribe): 1 drop(s), OPTH, QID, for 7 day(s), 5 mL, 0 Refill(s). Patient was given the following educational materials: Corneal Abrasion, Corneal Abrasion. Follow up with: MADDY COTTO In 2 days 03/26/18. Counseled: Patient, Regarding diagnosis, Regarding treatment plan, Regarding prescription, Patient indicated understanding of instructions. [Electronically Signed on: 03/24/2018 13:04 EDT] Omayra Munguia [Verified on: 03/24/2018 13:04 EDT] Omayra Munguia [facility] ED Patient Summaryon 018 ED Patient Summary [facility] ? Urgent Care [address] [place] [address] PATIENT DISCHARGE INSTRUCTIONS Patient Information Name: EDMUND CHRISTOPHER Age: 53 Years Date of : 65 Reason For Visit: UC - Eye Pain; LEFT EYE PAIN Arrival Time: 03/24/18 12:26:00 Primary Care Physician: MADDY COTTO MD Attending Physician: mOayra Munguia Comment: Patient Education With: Address: When: MADDY COTTO [address] [place] [id number] Business (1) In 2 days 03/26/18 Corneal Abrasion A corneal abrasion is a scratch or injury to the clear covering over the front of your eye (cornea). Your cornea forms a clear dome that protects your eye and helps to focus your vision. Your cornea is made up of many layers. The surface layer is a single layer of cells (corneal epithelium). It is one of the most sensitive tissues in your body. A corneal abrasion can be very painful. If a corneal abrasion is not treated, it can become infected and cause an ulcer. This can lead to scarring. A scarred cornea can affect your vision. Sometimes abrasions come back in the same area, even after the original injury has healed (recurrent erosion syndrome). What are the causes? This condition may be caused by: ? A international trade specialist the eye. ? A gritty or irritating substance (foreign body) in the eye. ? Excessive eye rubbing. ? Very dry eyes. ? Certain eye infections. ? Contact lenses that fit poorly or are worn for a long period of time. You can also injure your cornea when putting contacts lenses in your eye or taking them out. ? Eye surgery. Sometimes, the cause is unknown. What are the signs or symptoms? Symptoms of this condition include: ? Eye pain. The pain may get worse when your eye is open or when you move your eye. ? A feeling of something stuck in your eye. ? Having trouble keeping your eye open, or not being able to keep it open. ? Tearing and redness. ? Sensitivity to light. ? Blurred vision. ? Headache. How is this diagnosed? This condition may be diagnosed based on: ? Your medical history. ? Your symptoms. ? An eye exam. You may work with a health care provider who specializes in diseases and conditions of the eye (hoe runner). Before the eye exam, numbing drops may be put into your eye. You may also have dye put in your eye with a dropper or a small paper strip. The dye makes the abrasion easy to see when your hoe runner examines your eye with a light. Your hoe runner may look at your eye through an eye scope (slit lamp). How is this treated? Treatment may vary depending on the cause of your condition, and it may include: ? Washing out your eye. ? Removing any foreign body. ? Antibiotic drops or ointment to treat an infection. ? Steroid drops or ointment to treat redness, irritation, or inflammation. ? Pain medicine. ? An eye patch to keep your eye closed. Follow these instructions at home: Medicines ? Use eye drops or ointments as told by your eye care provider. ? If you were prescribed antibiotic drops or ointment, use them as told by your eye care provider. Do not stop using the antibiotic even if you start to feel better. ? Take xvkp-pos-rhxaydj and prescription medicines only as told by your eye care provider. ? Do not drive or use heavy machinery while taking prescription pain medicine. General instructions ? If you have an eye patch, wear it as told by your eye care provider. ? Do not drive or use machinery while wearing an eye patch. Your ability to leveler helper distances will be impaired. ? Follow instructions from your eye care provider about when to remove the patch. ? Ask your eye care provider whether you can use a cold, wet cloth (compress) on your eye to relieve pain. ? Do not rub or touch your eye. Do not wash out your eye. ? Do not wear contact lenses until your eye care provider says that this is okay. ? Avoid bright light and eye strain. ? Keep all follow-up visits as told by your eye care provider. This is important for preventing infection and vision loss. Contact a health care provider if: ? You continue to have eye pain and other symptoms for more than 2 days. ? You develop new symptoms, such as redness, tearing, or discharge. ? You have discharge that makes your eyelids stick together in the morning. ? Your eye patch becomes so loose that you can blink your eye. ? Symptoms return after the original abrasion has healed. Get help right away if: ? You have severe eye pain that does not get better with medicine. ? You have vision loss. Summary ? A corneal abrasion is a scratch on the outer layer of the clear covering over the front of your eye (cornea). ? Corneal abrasion can cause eye pain, redness, tearing, and blurred vision. ? This condition is usually treated with medicine to prevent infection and scarring. You also may have to wear an eye patch to cover your eye. ? Let your eye care provider know if your symptoms continue for more than 2 days. This information is not intended to replace advice given to you by your health care provider. Make sure you discuss any questions you have with your health care provider. Document Released: 06/29/2001 Document Revised: 06/12/2017 Document Reviewed: 06/12/2017 [employer] Interactive Patient Education ? 2017 [employer] Medication Information: The exam and treatment you received today in the [facility] Emergency Department were for an urgent problem and are not intended as complete care. It is important for you to follow up with a doctor, nurse practitioner, or physician?s physical therapist assistant for ongoing care. If your symptoms become worse or you do not improve as expected and you are unable to reach your usual health care provider, you should return to the Emergency Department, we are available 24 hours a day. For those patients who have received Radiology results, the interpretation of your X-ray as given to you by our Emergency Department physician is only a preliminary report. The Radiologist will review your films and if there is a change in the diagnosis you will be notified by phone. Please make sure you have provided a working phone number so we can reach you if necessary. In the event that you had a lab culture while you were a patient in the Emergency Department, you will be notified by phone if there is a need to change your antibiotic. Please make sure you have provided a working phone number so we can reach you if necessary. [facility] Emergency Department has provided you with a complete list of medications post discharge. Please inform your shoulder pad molder/provider of your visit and for further instruction on these medications. Any specific questions regarding your chronic medications and dosages should be discussed with your primary care physician(s) and/or pharmacist. New Medications [facility], [address] [place] [address], [phone] ketorolac ophthalmic (Acular 0.5% ophthalmic solution) 1 Drops Ophthalmic 4 times a day as needed for itching for 3 Days. Refills: 0. tobramycin ophthalmic (Tobrex 0.3% ophthalmic solution) 1 Drops Ophthalmic 4 times a day for 7 Days. Refills: 0. Visit Information Visit Diagnosis: Diagnoses This Visit Corneal abrasion (S05.00XA) UC - Eye Pain ([id number]) If you received any narcotics, sedation, or any other medication that causes drowsiness for the next 24 hours, unless otherwise directed: ? Do not drive a car. ? Do not operate machinery such as power tools, lawn mowers, drills, sewing machines, or stoves ? Avoid alcoholic beverages and drugs for allergies, nerves, or sleep ? Do not make important personal or business decisions or sign any legal documents Reason for Visit: C/O left eye tearing, redness, pain after grinding metal yesterday. Unknown if there is a foreign body. Allergies: Substance Reaction Symptoms Type Comments No Known Medication Allergies Drug Vital Signs: Vitals and Measurements this Visit (last charted value for your 03/24/2018 visit) Vital Signs This Visit Temperature Oral: 36.6 DegC Peripheral Pulse Rate: 64 bpm Respiratory Rate: 16 br/min Systolic Blood Pressure: 108 mmHg Diastolic Blood Pressure: 82 mmHg SpO2: 95 % O2 Flow: 0 L/min Problems List: Problem Onset Comments No Problems found Major Tests and Procedures: The following procedures and tests were performed during your ED visit. Laboratory Radiology Cardiology Viruses or Bacteria What?s got you sick? Antibiotics only treat bacterial infections. Viral illnesses cannot be treated with antibiotics. When an antibiotic is not prescribed, ask your healthcare professional for tips on how to relieve symptoms and feel better. Usual Cause Illness Viruses Bacteria Antibiotic Needed Cold/Runny Nose NO Bronchitis/Chest Cold (in otherwise healthy children and adults) NO Whooping Cough Yes Flu NO Strep Throat Yes Sore Throat (except strep) NO Fluid in the middle ear (otitis media with effusion) NO Urinary Tract Infection Yes Antibiotics Aren?t Always the Answer www.cdc.gov/getsmart GET SMART Know When Antibiotics Work U.S. Department of Health and Human Services Centers for Disease Control and Prevention March 2014 Normal [facility] [address] 018 Urgent Care Record [facility] ? Urgent Care [address] [place] [id number] PATIENT DISCHARGE INSTRUCTIONS Patient Information Name: EDMUND CHRISTOPHER Age: 53 Years Date of : 65 Reason For Visit: UC - Eye Pain; LEFT EYE PAIN Arrival Time: 03/24/18 12:26:00 Primary Care Physician: MADDY COTTO MD Attending Physician: Omayra Munguia Comment: Visit Diagnosis: Diagnoses This Visit Corneal abrasion (S05.00XA) UC - Eye Pain ([id number]) If you received any narcotics, sedation, or any other medication that causes drowsiness for the next 24 hours, unless otherwise directed: ? Do not drive a car. ? Do not operate machinery such as power tools, lawn mowers, drills, sewing machines, or stoves ? Avoid alcoholic beverages and drugs for allergies, nerves, or sleep ? Do not make important personal or business decisions or sign any legal documents With: Address: When: MADDY COTTO [address] [place] [id number] Business (1) In 2 days 03/26/18 Medication Information: The exam and treatment you received today in the [facility] Urgent Care were for an urgent problem and are not intended as complete care. It is important for you to follow up with a doctor, nurse practitioner, or physician?s physical therapist assistant for ongoing care. If your symptoms become worse or you do not improve as expected and you are unable to reach your usual health care provider, you should return to the Emergency Department, we are available 24 hours a day. For those patients who have received Radiology results, the interpretation of your X-ray as given to you by our Urgent Care physician is only a preliminary report. The Radiologist will review your films and if there is a change in the diagnosis you will be notified by phone. Please make sure you have provided a working phone number so we can reach you if necessary. In the event that you had a lab culture while you were a patient in the Urgent Care, you will be notified by phone if there is a need to change your antibiotic. Please make sure you have provided a working phone number so we can reach you if necessary. [facility] has provided you with a complete list of medications post discharge. Please inform your shoulder pad molder/provider of your visit and for further instruction on these medications. Any specific questions regarding your chronic medications and dosages should be discussed with your primary care physician(s) and/or pharmacist. New Medications [facility], [address] [place] [id number], [phone] ketorolac ophthalmic (Acular 0.5% ophthalmic solution) 1 Drops Ophthalmic 4 times a day as needed for itching for 3 Days. Refills: 0. tobramycin ophthalmic (Tobrex 0.3% ophthalmic solution) 1 Drops Ophthalmic 4 times a day for 7 Days. Refills: 0. Visit Information Allergies: Substance Reaction Symptoms Type Comments No Known Medication Allergies Drug Vital Signs: Vitals and Measurements this Visit (last charted value for your 03/24/2018 visit) No vitals and measurements documented Problems List: Problem Onset Comments No Problems found Patient Education Corneal Abrasion A corneal abrasion is a scratch or injury to the clear covering over the front of your eye (cornea). Your cornea forms a clear dome that protects your eye and helps to focus your vision. Your cornea is made up of many layers. The surface layer is a single layer of cells (corneal epithelium). It is one of the most sensitive tissues in your body. A corneal abrasion can be very painful. If a corneal abrasion is not treated, it can become infected and cause an ulcer. This can lead to scarring. A scarred cornea can affect your vision. Sometimes abrasions come back in the same area, even after the original injury has healed (recurrent erosion syndrome). What are the causes? This condition may be caused by: ? A international trade specialist the eye. ? A gritty or irritating substance (foreign body) in the eye. ? Excessive eye rubbing. ? Very dry eyes. ? Certain eye infections. ? Contact lenses that fit poorly or are worn for a long period of time. You can also injure your cornea when putting contacts lenses in your eye or taking them out. ? Eye surgery. Sometimes, the cause is unknown. What are the signs or symptoms? Symptoms of this condition include: ? Eye pain. The pain may get worse when your eye is open or when you move your eye. ? A feeling of something stuck in your eye. ? Having trouble keeping your eye open, or not being able to keep it open. ? Tearing and redness. ? Sensitivity to light. ? Blurred vision. ? Headache. How is this diagnosed? This condition may be diagnosed based on: ? Your medical history. ? Your symptoms. ? An eye exam. You may work with a health care provider who specializes in diseases and conditions of the eye (hoe runner). Before the eye exam, numbing drops may be put into your eye. You may also have dye put in your eye with a dropper or a small paper strip. The dye makes the abrasion easy to see when your hoe runner examines your eye with a light. Your hoe runner may look at your eye through an eye scope (slit lamp). How is this treated? Treatment may vary depending on the cause of your condition, and it may include: ? Washing out your eye. ? Removing any foreign body. ? Antibiotic drops or ointment to treat an infection. ? Steroid drops or ointment to treat redness, irritation, or inflammation. ? Pain medicine. ? An eye patch to keep your eye closed. Follow these instructions at home: Medicines ? Use eye drops or ointments as told by your eye care provider. ? If you were prescribed antibiotic drops or ointment, use them as told by your eye care provider. Do not stop using the antibiotic even if you start to feel better. ? Take leke-shk-mogkjax and prescription medicines only as told by your eye care provider. ? Do not drive or use heavy machinery while taking prescription pain medicine. General instructions ? If you have an eye patch, wear it as told by your eye care provider. ? Do not drive or use machinery while wearing an eye patch. Your ability to leveler helper distances will be impaired. ? Follow instructions from your eye care provider about when to remove the patch. ? Ask your eye care provider whether you can use a cold, wet cloth (compress) on your eye to relieve pain. ? Do not rub or touch your eye. Do not wash out your eye. ? Do not wear contact lenses until your eye care provider says that this is okay. ? Avoid bright light and eye strain. ? Keep all follow-up visits as told by your eye care provider. This is important for preventing infection and vision loss. Contact a health care provider if: ? You continue to have eye pain and other symptoms for more than 2 days. ? You develop new symptoms, such as redness, tearing, or discharge. ? You have discharge that makes your eyelids stick together in the morning. ? Your eye patch becomes so loose that you can blink your eye. ? Symptoms return after the original abrasion has healed. Get help right away if: ? You have severe eye pain that does not get better with medicine. ? You have vision loss. Summary ? A corneal abrasion is a scratch on the outer layer of the clear covering over the front of your eye (cornea). ? Corneal abrasion can cause eye pain, redness, tearing, and blurred vision. ? This condition is usually treated with medicine to prevent infection and scarring. You also may have to wear an eye patch to cover your eye. ? Let your eye care provider know if your symptoms continue for more than 2 days. This information is not intended to replace advice given to you by your health care provider. Make sure you discuss any questions you have with your health care provider. Document Released: 06/29/2001 Document Revised: 06/12/2017 Document Reviewed: 06/12/2017 [employer] Interactive Patient Education ? 2017 [employer]. Viruses or Bacteria What?s got you sick? Antibiotics only treat bacterial infections. Viral illnesses cannot be treated with antibiotics. When an antibiotic is not prescribed, ask your healthcare professional for tips on how to relieve symptoms and feel better. Usual Cause Illness Viruses Bacteria Antibiotic Needed Cold/Runny Nose NO Bronchitis/Chest Cold (in otherwise healthy children and adults) NO Whooping Cough Yes Flu NO Strep Throat Yes Sore Throat (except strep) NO Fluid in the middle ear (otitis media with effusion) NO Urinary Tract Infection Yes Antibiotics Aren?t Always the Answer www.cdc.gov/getsmart GET SMART Know When Antibiotics Work U.S. Department of Health and Human Services Centers for Disease Control and Prevention March 2014 [facility] Vital Signs Date Time Vital Sign Value Performing Clinician Facility 11-12-2023 09:41-0400 Diastolic blood pressure 62 mm[Hg] EMERGENCY VEHICLE OPERATIONS INSTRUCTOR-C Shreyas Felipe Work Phone: [facility] 11-12-2023 09:41-0400 Heart rate 59 /min EMERGENCY VEHICLE OPERATIONS INSTRUCTOR-C Shreyas Felipe Work Phone: [facility] 11-12-2023 09:41-0400 Respiratory rate 18 /min EMERGENCY VEHICLE OPERATIONS INSTRUCTOR-C Shreyas Felipe Work Phone: [facility] 11-12-2023 09:41-0400 SaO2% (BldA) [Mass fraction] 98 % EMERGENCY VEHICLE OPERATIONS INSTRUCTOR-C Shreyas Felipe Work Phone: [facility] 11-12-2023 09:41-0400 Systolic blood pressure 95 mm[Hg] EMERGENCY VEHICLE OPERATIONS INSTRUCTOR-C Shreyas Felipe Work Phone: [facility] 11-12-2023 07:49-0400 Body height 162.56 cm EMERGENCY VEHICLE OPERATIONS INSTRUCTOR-C Shreyas Josie Work Phone: [facility] 11-12-2023 07:49-0400 Body weight 70.3 kg EMERGENCY VEHICLE OPERATIONS INSTRUCTOR-C Shreyas Josie Work Phone: [facility] 10-10-2023 14:34-0400 Body temperature 97.8 [degF] EMERGENCY VEHICLE OPERATIONS INSTRUCTOR-C Shreyas Josie Work Phone: [facility] 10-10-2023 14:34-0400 Diastolic blood pressure 84 mm[Hg] EMERGENCY VEHICLE OPERATIONS INSTRUCTOR-C Shreyas Josie Work Phone: [facility] 10-10-2023 14:34-0400 Heart rate 60 /min EMERGENCY VEHICLE OPERATIONS INSTRUCTOR-C Shreyas Josie Work Phone: [facility] 10-10-2023 14:34-0400 Respiratory rate 16 /min EMERGENCY VEHICLE OPERATIONS INSTRUCTOR-C Shreyas Josie Work Phone: [facility] 10-10-2023 14:34-0400 SaO2% (BldA) [Mass fraction] 99 % EMERGENCY VEHICLE OPERATIONS INSTRUCTOR-C Shreyas Josie Work Phone: [facility] 10-10-2023 14:34-0400 Systolic blood pressure 130 mm[Hg] EMERGENCY VEHICLE OPERATIONS INSTRUCTOR-C Shreyas Josie Work Phone: [facility] 10-10-2023 11:16-0400 Body height 160.02 cm EMERGENCY VEHICLE OPERATIONS INSTRUCTOR-C Shreyas Josie Work Phone: [facility] 10-10-2023 11:16-0400 Body weight 70.5 kg EMERGENCY VEHICLE OPERATIONS INSTRUCTOR-C Shreyas Josie Work Phone: [facility] 01-05-2023 19:55-0400 Body height 162.56 cm EMERGENCY VEHICLE OPERATIONS INSTRUCTOR-C Shreyas Josie Work Phone: [facility] 01-05-2023 19:55-0400 Body temperature 97.7 [degF] EMERGENCY VEHICLE OPERATIONS INSTRUCTOR-C Shreyas Josie Work Phone: [facility] 06-23-2023 19:55-0400 Body weight 71.6 kg EMERGENCY VEHICLE OPERATIONS INSTRUCTOR-C Shreyas Josie Work Phone: [facility] 01-05-2023 19:55-0400 Diastolic blood pressure 100 mm[Hg] EMERGENCY VEHICLE OPERATIONS INSTRUCTOR-C Shreyas Josie Work Phone: [facility] 01-05-2023 19:55-0400 Heart rate 81 /min EMERGENCY VEHICLE OPERATIONS INSTRUCTOR-C Shreyas Josie Work Phone: [facility] 01-05-2023 19:55-0400 Respiratory rate 20 /min EMERGENCY VEHICLE OPERATIONS INSTRUCTOR-C Shreyas Josie Work Phone: [facility] 01-05-2023 19:55-0400 SaO2% (BldA) [Mass fraction] 95 % EMERGENCY VEHICLE OPERATIONS INSTRUCTOR-C Shreyas Josie Work Phone: [facility] 01-05-2023 19:55-0400 Systolic blood pressure 135 mm[Hg] EMERGENCY VEHICLE OPERATIONS INSTRUCTOR-C Shreyas Josie Work Phone: [facility] 11-07-2022 11:23-0400 Body height 160.02 cm EMERGENCY VEHICLE OPERATIONS INSTRUCTOR-C Shreyas Josie Work Phone: [facility] 11-07-2022 11:23-0400 Body temperature 98.1 [degF] EMERGENCY VEHICLE OPERATIONS INSTRUCTOR-C Shreyas Josie Work Phone: [facility] 11-07-2022 11:23-0400 Body weight 73.1 kg EMERGENCY VEHICLE OPERATIONS INSTRUCTOR-C Shreyas Josie Work Phone: [facility] 11-07-2022 11:23-0400 Diastolic blood pressure 83 mm[Hg] EMERGENCY VEHICLE OPERATIONS INSTRUCTOR-C Shreyas Josie Work Phone: [facility] 11-07-2022 11:23-0400 Heart rate 92 /min EMERGENCY VEHICLE OPERATIONS INSTRUCTOR-C Shreyas Josie Work Phone: [facility] 11-07-2022 11:23-0400 Respiratory rate 18 /min EMERGENCY VEHICLE OPERATIONS INSTRUCTOR-C Shreyas Josie Work Phone: [facility] 11-07-2022 11:23-0400 SaO2% (BldA) [Mass fraction] 95 % EMERGENCY VEHICLE OPERATIONS INSTRUCTOR-C Shreyas Josie Work Phone: [facility] 11-07-2022 11:23-0400 Systolic blood pressure 129 mm[Hg] EMERGENCY VEHICLE OPERATIONS INSTRUCTOR-C Shreyas Josie Work Phone: [facility] 07-26-2022 17:45-0500 Body temperature 97.5 [degF] Maddy Cabezas MD Work Phone: [employer] 07-26-2022 17:45-0500 Diastolic blood pressure 84 mm[Hg] Maddy Cabezas MD Work Phone: [employer] [facility] 07-26-2022 17:45-0500 Heart rate 56 /min Maddy Cabezas MD Work Phone: [employer] [facility] 07-26-2022 17:45-0500 Respiratory rate 17 /min Maddy Cabezas MD Work Phone: [employer] 07-26-2022 17:45-0500 SaO2% (BldA) [Mass fraction] 95 % Maddy Cabezas MD Work Phone: [employer] 07-26-2022 17:45-0500 Systolic blood pressure 106 mm[Hg] Maddy Cabezas MD Work Phone: [employer] [facility] 07-26-2022 13:06-0500 Body height 162.6 cm Maddy Cabezas MD Work Phone: [employer] [facility] 07-26-2022 13:06-0500 Body mass index (BMI) [Ratio] 26.14 kg/m2 Maddy Cabezas MD Work Phone: [employer] [facility] 07-26-2022 13:06-0500 Body weight 69.08 kg Maddy Cabezas MD Work Phone: [employer] [facility] 07-20-2022 14:07-0500 Body height 162.6 cm Sta 1 [employer] [facility] 07-20-2022 14:07-0500 Body mass index (BMI) [Ratio] 25.75 kg/m2 Sta 1 [facility] 07-20-2022 14:07-0500 Body temperature 97.81 [degF] Sta 1 [facility] 07-20-2022 14:07-0500 Body weight 68.04 kg Sta 1 [facility] 07-20-2022 14:07-0500 Diastolic blood pressure 85 mm[Hg] Sta 1 [facility] 07-20-2022 14:07-0500 Heart rate 72 /min [facility] 07-20-2022 14:07-0500 Respiratory rate 18 /min Sta 1 [facility] 07-20-2022 14:07-0500 SaO2% (BldA) [Mass fraction] 97 % Sta 1 [facility] 07-20-2022 14:07-0500 Systolic blood pressure 140 mm[Hg] Sta 1 [facility] Encounters Encounter Date Encounter Type Care Provider Facility Start: 12-25-2024 End: 12-25-2024 Refill Larry Mcdonald PA-C Work Phone: [facility] Comment on above: Refill Request Start: 07-28-2024 End: 07-28-2024 Bamboo flowsheet Denae A Felter MEETING SPECIALIST-CUPOLA MECHANIC Work Phone: [facility] Start: 07-28-2024 End: 07-28-2024 Bamboo flowsheet Denae A Felter MEETING SPECIALIST-CUPOLA MECHANIC Work Phone: [facility] Start: 07-28-2024 End: 07-28-2024 Office outpatient visit 15 minutes Denae A Felter MEETING SPECIALIST-CUPOLA MECHANIC Work Phone: [facility] Comment on above: Actinic keratosis (P rimary Dx); Erythema intertrigo Start: 07-28-2024 End: 07-28-2024 ambulatory DENAE A FELTER Not Available Start: 07-15-2024 End: 07-15-2024 Emergency department patient visit Shreyas Felipe Facility:[facility] Start: 06-03-2024 End: 06-03-2024 ambulatory DENAE A FELTER Not Available Start: 06-03-2024 End: 06-03-2024 Patient encounter procedure Denae Lopez MEETING SPECIALIST-CUPOLA MECHANIC Work Phone: [facility] Comment on above: Actinic keratosis; Neoplasm of unspecified behavior of bone, soft tissue, and skin Start: 06-03-2024 End: 06-03-2024 Bamboo flowsheet Denae Lopez MEETING SPECIALIST-CUPOLA MECHANIC Work Phone: [facility] Start: 06-03-2024 End: 06-03-2024 Bamboo flowsheet Denae Lopez MEETING SPECIALIST-CUPOLA MECHANIC Work Phone: [facility] Start: 11-12-2023 Non-patient / Non-visit EMERGENCY VEHICLE OPERATIONS INSTRUCTOR-C Shreyas Felipe Work Phone: [facility] Gastroenterology Work Phone: Start: 11-12-2023 End: 11-12-2023 Admission to same day surgery center EMERGENCY VEHICLE OPERATIONS INSTRUCTOR-C Shreyas Felipe Work Phone: [facility] Work Phone: Start: 11-12-2023 End: 11-12-2023 ambulatory EMERGENCY VEHICLE OPERATIONS INSTRUCTOR-C Shreyas Felipe Work Phone: [facility] Work Phone: Start: 10-10-2023 End: 10-10-2023 Emergency department patient visit EMERGENCY VEHICLE OPERATIONS INSTRUCTOR-C Shreyas Felipe Work Phone: [facility]Emergency Room Work Phone: Start: 08-07-2023 End: 08-08-2023 ambulatory RAÚL SULLIVAN Facility:[facility] Start: 06-18-2023 End: 06-18-2023 ambulatory EMERGENCY VEHICLE OPERATIONS INSTRUCTOR-C Shreyas Felipe Work Phone: [facility] Work Phone: Start: 06-18-2023 End: 06-18-2023 Patient encounter procedure EMERGENCY VEHICLE OPERATIONS INSTRUCTOR-C Shreyas Felipe Work Phone: [facility] Work Phone: Start: 05-04-2023 Telephone encounter Jessica paula MD Work Phone: Orthopaedics Start: 04-13-2023 End: 04-13-2023 ambulatory JESSICA DOTSON Facility:[facility] Start: 04-13-2023 End: 04-13-2023 ambulatory JESSICA T JEMElmer Facility:[facility] Start: 04-13-2023 End: 04-13-2023 ambulatory Emg 1000) Work Phone: Neurology Comment on above: EMG Start: 04-13-2023 End: 04-13-2023 Patient encounter procedure Emg 4 Neur Main (Max Weight: 1000) Work Phone: [facility] Start: 01-18-2023 End: 01-18-2023 ambulatory JESSICA DOTSON Facility:[facility] Start: 01-18-2023 End: 01-18-2023 Patient encounter procedure Jessica Dotson MD Work Phone: Orthopaedics Comment on above: Rotator cuff tear ar thropathy, right (Primary Dx); Rotator cuff tear arthropathy, left; Right arm weakness; Spinal stenosis of cervical region Start: 01-18-2023 End: 01-18-2023 Subsequent hospital visit by physician Xr Main A21 Radiology Comment on above: Pain [R52] Start: 01-05-2023 End: 01-05-2023 Emergency department patient visit EMERGENCY VEHICLE OPERATIONS INSTRUCTOR-Monica Felipe Work Phone: [facility] Work Phone: Start: 11-15-2022 Orders Only Jessica shook MD Work Phone: [facility] [place] Comment on above: Pain (Primary Dx) Start: 11-07-2022 End: 11-07-2022 Emergency department patient visit EMERGENCY VEHICLE OPERATIONS INSTRUCTOR-Monica Felipe Work Phone: [facility] Work Phone: Start: 11-04-2022 End: 11-04-2022 ambulatory SHREYAS FELIPE Facility:[facility] Start: 11-03-2022 End: 11-04-2022 ambulatory SHREYAS FELIPE Facility:[facility] Start: 07-26-2022 End: 07-26-2022 ambulatory MADDY rBadley [facility] Start: 07-26-2022 End: 07-26-2022 Subsequent hospital visit by physician Maddy Cabezas MD Work Phone: [facility] Start: 07-20-2022 End: 07-25-2022 ambulatory MADDY Davin MAHINMAYRA Bradley [facility] Start: 07-20-2022 End: 07-24-2022 Subsequent hospital visit by physician Shy Riley Rm 1 [facility] PRE-ADMIT TESTING Start: 05-29-2022 End: 05-29-2022 ambulatory EMERGENCY VEHICLE OPERATIONS INSTRUCTOR-C Shreyas Felipe Work Phone: [facility] Work Phone: Start: 05-29-2022 End: 05-29-2022 Patient encounter procedure EMERGENCY VEHICLE OPERATIONS INSTRUCTOR-C Shreyas Felipe Work Phone: [facility] Start: 12-02-2021 ambulatory SHREYAS FELIPE Facility: [facility] Start: 05-11-2021 End: 05-11-2021 Subsequent hospital visit by physician Laura [facility] (1.5t) Work Phone: Radiology Comment on above: DDD (degenerative di sc disease), cervical [M50.30] Start: 10-08-2018 Patient encounter procedure Facility:[id number] Start: 03-24-2018 End: 08-05-2018 Patient encounter procedure Omayra Gonzales Facility:[facility] Procedures Date Procedure Procedure Detail Performing Clinician Start: 07-28-2024 CRYOTHERAPY SKIN LESION Denae A Chelseaer MEETING SPECIALIST-CUPOLA MECHANIC Work Phone: Start: 06-03-2024 CRYOTHERAPY SKIN LESION Denae A Chelseaer MEETING SPECIALIST-CUPOLA MECHANIC Work Phone: Start: 06-03-2024 SKIN / NAIL BIOPSY Myrtle lie A John MEETING SPECIALIST-CUPOLA MECHANIC Work Phone: Start: 11-12-2023 Colonoscopy EMERGENCY VEHICLE OPERATIONS INSTRUCTOR-C Ania Felipe Work Phone: Start: 10-10-2023 Computed tomography of abdomen and pelvis with contrast EMERGENCY VEHICLE OPERATIONS INSTRUCTOR-C Shreyas Felipe Work Phone: Start: 06-18-2023 X-ray of lumbar spin e, six views including bending views EMERGENCY VEHICLE OPERATIONS INSTRUCTOR-C Shreyas Felipe Work Phone: Start: 04-13-2023 Nerve conduction bety dies 5-6 studies Jessica Dotson MD Work Phone: Start: 01-18-2023 Radex shoulder compl ete minimum 2 views Jessica Dotson MD Work Phone: Start: 11-07-2022 X-ray of right knee EMERGENCY VEHICLE OPERATIONS INSTRUCTOR- C Shreyas Felipe Work Phone: Start: 11-03-2022 PSA screening SHREYAS WELSH Comment on above: Performed By: #### P [facility] #### [facility] [address] [place] [address] Dr. Stacy Saxena Start: 07-26-2022 Fluoroscopy during operation Maddy Cabezas MD Work Phone: Start: 07-20-2022 Electrolyte panel Ioana Roy MD Work Phone: Start: 07-20-2022 Ecg routine ecg w/le ast 12 lds trcg only w/o i&r Ioana Roy MD Work Phone: Start: 05-29-2022 Plain x-ray of pelvi s and lower extremity EMERGENCY VEHICLE OPERATIONS INSTRUCTOR-C Shreyas Felipe Work Phone: Start: 05-29-2022 X-ray of both knees EMERGENCY VEHICLE OPERATIONS INSTRUCTOR- C Shreyas Felipe Work Phone: Start: 05-11-2021 Mri spinal canal cer vical w/o contrast wanda Steen APRN.CNP Work Phone: Plan of Treatment Date Care Activity Detail Author Start: 03-24-2028 DTaP/Tdap/Td vaccine (2 - Td or Tdap) DTaP/Tdap/Td vaccine (2 - Td or Tdap) [facility] Start: 03-24-2028 Urine microalbumin profile DTaP,Tdap,Td Vaccine (2 - Td or Tdap) [facility] Start: 11-04-2027 PROSTATE CANCER SCREENING DISCUSSION PROSTATE CANCER SCREENING DISCUSSION [facility] Start: 11-04-2027 Prostate specific antigen measurement Prostate Cancer Screening Discussion [facility] Start: 03-16-2025 Influenza vaccination Influenza Vaccine (Season Ended) [facility] Start: 01-26-2025 End: 01-26-2025 Patient encounter procedure 01/26/2025 1:20 PM EDT Office Visit [facility] [address] [place] [phone] Denae Lopez, MEETING SPECIALIST-CUPOLA MECHANIC [address] [place] [address] [facility] Start: 07-28-2024 End: 07-28-2024 Patient encounter procedure 07/28/2024 1:35 PM EST Office Visit [facility] [address] [place] [phone] eDnae Lopez, MEETING SPECIALIST-CUPOLA MECHANIC [address] [place] [address] Arrived [facility] Comment on above: Arrived Start: 07-16-2024 Medicare Advantage Annual Wellness Visit Medicare Advantage Annual Wellness Visit [facility] Start: 03-16-2024 Covid-19 Vaccine ( season) Covid-19 Vaccine ( season) [facility] Start: 03-16-2024 [facility] Start: 11-12-2023 [facility] Start: 03-16-2023 Influenza vaccination [facility] Start: 07-26-2022 End: 07-26-2022 Prq impltj nstim electrode array epidural SPINAL CORD STIMULATOR IMPLANT TRIAL Lumbar radiculopathy 07/26/2022 4:40 PM EST [facility] Start: 07-26-2022 End: 07-26-2022 Admission to same day surgery center 07/26/2022 Surgery IP Unit Maddy Cabezas MD [address] [place] [address] SPINAL CORD STIMULATOR IMPLANT TRIAL - [employer] [facility] Comment on above: SPINAL CORD STIMULATOR IMPLANT TRIAL - [employer] Start: 07-26-2022 End: 07-26-2022 Anesthesia consultation 07/26/2022 Anesthesia Event IP Unit Oswaldo Daniels MD [address] [place] [address] [facility] Start: 07-26-2022 End: 07-26-2022 Prq impltj nstim electrode array epidural SPINAL CORD STIMULATOR IMPLANT TRIAL Lumbar radiculopathy 07/26/2022 3:20 PM [facility] Start: 07-26-2022 Subsequent hospital visit by physician 07/26/2022 Hospital Encounter IP Unit Maddy Cabezas MD [address] [place], [place] [id number] [facility] Start: 07-16-2022 DEPRESSION ASSESSMENT DEPRESSION ASSESSMENT [facility] Start: 07-13-2022 Annual Wellness Visit (AWV) Annual Wellness Visit (AWV) [facility] [employer] [facility] Start: 05-29-2022 Ultrasonography of limb extremity nonvascular [facility] Start: 05-29-2022 US Extremity [facility] Start: 02-13-2022 Influenza vaccination Flu vaccine (#1) [facility] Start: 02-07-2020 PROSTATE CANCER SCREENING DISCUSSION PROSTATE CANCER SCREENING DISCUSSION [facility] Start: 12-27-2019 DIABETES SCREEN DIABETES SCREEN [facility] Start: 12-27-2019 Diabetes Screening Diabetes Screening [facility] Start: 2015 Influenza vaccination LUNG CANCER SCREENING [facility] Start: 2015 Screening for malignant neoplasm of lung Lung Cancer Screening [facility] Start: 2015 Shingles vaccine (1 of 2) Shingles vaccine (1 of 2) [facility] Start: 2015 SHINGRIX VACCINE (1 of 2) SHINGRIX VACCINE (1 of 2) [facility] Start: 2010 COLOGUARD (FIT-DNA) COLOGUARD (FIT-DNA) [facility] Start: 2010 Colonoscopy COLONOSCOPY [facility] Start: 2010 COLORECTAL CANCER SCREENING COLORECTAL CANCER SCREENING [facility] Start: [address] COLONOGRAPHY [facility] Start: 2010 FECAL OCCULT BLOOD FECAL OCCULT BLOOD [facility] Start: 2010 Screening for malignant neoplasm of colon [facility] [employer] Start: 2010 SIGMOIDOSCOPY SIGMOIDOSCOPY [facility] Start: 2005 Lipid panel Lipids [employer] Start: 02-07-2000 Diabetes screen Diabetes screen [facility] [employer] Start: 02-07-2000 Lipid 1996 panel - Serum or Plasma Lipid Screening [facility] Start: 02-07-2000 Lipid panel Lipid Screening [facility] Start: 02-07-2000 LIPID SCREEN LIPID SCREEN [facility] Start: 02-07-1984 Pneumococcal Vaccine: 50+ (1 of 2 - PCV) Pneumococcal Vaccine: 50+ (1 of 2 - PCV) [facility] Start: 02-07-1984 Urine microalbumin profile [facility] Start: 1983 Anxiety Screening Anxiety Screening [facility] Start: 1983 Depression Screening Depression Screening [facility] Start: 1983 Hepatitis C screening [facility] [employer] Start: 1983 HEPATITIS C SCREENING HEPATITIS C SCREENING [facility] Start: 1983 HIV SCREENING HIV SCREENING [facility] Start: 1983 HIV screening HIV Screening [facility] Start: 02-07-1980 HIV screening HIV screen [facility] [employer] Start: 1977 Depression Screen Depression Screen [facility] [employer] Start: 1971 PNEUMOCOCCAL (1 - PCV) PNEUMOCOCCAL (1 - PCV) [facility] Start: 1971 Pneumococcal 0-64 years Vaccine (1 - PCV) Pneumococcal 0-64 years Vaccine (1 - PCV) [employer] Start: 1971 Pneumococcal vaccination [facility] Start: 1965 COVID-19 Vaccine (#1) COVID-19 Vaccine (#1) [facility] Start: 1965 HEPATITIS B (1 of 3 - 3-dose series) HEPATITIS B (1 of 3 - 3-dose series) [facility] Start: 1965 Hepatitis B Vaccine (1 of 3 - 3-dose series) Hepatitis B Vaccine (1 of 3 - 3-dose series) [facility] End: 07-26-2022 Blood glucose - POCT Blood glucose - POCT Point of Care Testing Routine One Time for 1 Occurrences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 Dotson M.D. NAME: Edmund Christopher [facility] NO.: [id number] DATE: January 18, 2023 Parth returns for follow-up today for his right shoulder. I last saw him 2 years ago and we had scheduled for right reverse total shoulder arthroplasty but he ended up canceling his surgery as he injured his neck. He did seem to recover from this injury, but he notes over the last 4 to 5 months progressive weakness in his right arm. He denies any new trauma or injury. This is associated with radiating numbness and tingling in the arm. He notes these symptoms more so than pain in the shoulder and presents for further discussion on management. PHYSICAL EXAMINATION: Physical examination today of the right shoulder shows atrophy in the infraspinatus fossa. There may be some deltoid atrophy on the right as well. Range of motion testing shows passive forward elevation to 140 on the right, compared to 140 on the left. Active forward elevation on the right shows evidence of pseudoparalysis when in an upright position, compared to 140 on the left. Supine he can forward elevate on the right actively to 140 degrees. Passive external rotation at the side is to 40 on the right, compared to 40 on the left. Active internal rotation is to the lower thoracic levels on the right, compared to the lower thoracic levels on the left. Strength testing of the rotator cuff shows 4/5 strength with resisted external rotation at the side and 5/5 strength with resisted Cesilia's maneuver on the left. Strength testing of the rotator cuff shows 4/5 strength with resisted external rotation at the side and 3/5 strength with resisted Cesilia's maneuver on the right. There is also weakness with resisted deltoid testing on the right. Biceps flexion strength appears normal, but there is weakness with resisted supination. There is tenderness to palpation at the glenohumeral joint line bilaterally. The right upper extremity is otherwise grossly neurovascularly intact to testing. RADIOGRAPHIC STUDIES: X-rays of both shoulders taken today are available for review and show findings of bilateral rotator cuff tear arthropathy. Both shoulders show significant arthritic change, but the right shoulder is the more advanced of the 2. ASSESSMENT: Bilateral rotator cuff tear arthropathy, right arm weakness PLAN: I discussed treatment with Parth in regards to his right shoulder complaints. He has known advanced rotator cuff tear arthropathy and we have previously discussed potential right reverse total shoulder arthroplasty. However, he notes over the last 4 to 5 months progressive weakness in his right arm that on examination today and based on his history appears to be potentially neurologic in nature. There is weakness in his rotator cuff on testing but also weakness in other muscles including the deltoid. I would recommend further work-up of this to determine whether the etiology of his weakness is from his rotator cuff or cervical spine. We discussed obtaining a new MRI of the cervical spine as well as an EMG of the right upper extremity. We will submit for Workmen's Compensation approval of the studies. I will see him back once the studies are complete and we will have further discussion on treatment at that time. He agrees with this plan. If any questions or concerns arise, He should not hesitate to call. Jessica Dotson M.D. [facility] 01-18-2023 History of Present illness Narrative [facility] NOTE Department of Orthopaedics Jessica Dotson M.D. NAME: Edmund Christopher [facility] NO.: [id number] DATE: January 18, 2023 Parth returns for follow-up today for his shoulders. I last saw him 2 years ago and we had scheduled for right reverse total shoulder arthroplasty but he ended up canceling his surgery as he injured his neck. He did seem to recover from this injury, but he notes over the last 4 to 5 months progressive weakness in his right arm. He denies any new trauma or injury. This is associated with radiating numbness and tingling in the arm. He notes these symptoms more so than pain in the shoulder and presents for further discussion on management. PHYSICAL EXAMINATION: Physical examination today of the right and left shoulder shows atrophy in the infraspinatus fossa. There may be some deltoid atrophy on the right. Range of motion testing shows passive forward elevation to 140 on the right, compared to 140 on the left. Active forward elevation on the right shows evidence of pseudoparalysis when in an upright position, compared to 140 on the left. Supine he can forward elevate on the right actively to 140 degrees. Passive external rotation at the side is to 40 on the right, compared to 40 on the left. Active internal rotation is to the lower thoracic levels on the right, compared to the lower thoracic levels on the left. Strength testing of the rotator cuff shows 4/5 strength with resisted external rotation at the side and 5/5 strength with resisted Cesilia's maneuver on the left. Strength testing of the rotator cuff shows 4/5 strength with resisted external rotation at the side and 3/5 strength with resisted Cesilia's maneuver on the right. There is also weakness with resisted deltoid testing on the right. Biceps flexion strength appears normal, but there is weakness with resisted supination. There is tenderness to palpation at the glenohumeral joint line bilaterally. The right and left upper extremity is otherwise grossly neurovascularly intact to testing. RADIOGRAPHIC STUDIES: X-rays of both shoulders taken today are available for review and show findings of bilateral rotator cuff tear arthropathy. Both shoulders show significant arthritic change, but the right shoulder is the more advanced of the 2. ASSESSMENT: Bilateral rotator cuff tear arthropathy, right arm weakness PLAN: I discussed treatment with Parth in regards to his bilateral shoulder complaints. He has known advanced rotator cuff tear arthropathy and we have previously discussed potential reverse total shoulder arthroplasty. However, he notes over the last 4 to 5 months progressive weakness in his right arm that on examination today and based on his history appears to be potentially neurologic in nature. There is weakness in his rotator cuff on testing but also weakness in other muscles including the deltoid. I would recommend further work-up of this to determine whether the etiology of his weakness is from his rotator cuff or cervical spine. We discussed obtaining a new MRI of the cervical spine as well as an EMG of the right upper extremity. We will submit for Workmen's Compensation approval of the studies. I will see him back once the studies are complete and we will have further discussion on treatment at that time. He agrees with this plan. If any questions or concerns arise, He should not hesitate to call. Jessica Dotson M.D. documented in this encounter [facility] 01-18-2023 Note HNO ID: [id number] Author: Pina Armstrong Service: ? Author Type: Graphic Arts Technician Type: Progress Notes Filed: 01/18/2023 7:42 AM Note Text: Radiology Service Progress Note PATIENT NAME: Edmund Christopher DATE OF SERVICE: January 18, 2023 TIME: 7:42 AM PATIENT IDENTITY VERIFICATION COMPLETED USING TWO (2) IDENTIFIERS: Name and Date of confirmed by patient verbally. FALL SCREENING: Has the patient had 2 falls in the last year or 1 fall with injury or currently using an Ambulatory Assistive Device (Walker, Cane, Wheelchair, Crutches, etc.)? No PATIENT GENDER DATA: Male PATIENT RELEVANT IMPLANT DATA REVIEWED: Not Applicable RADIOLOGY DEPARTMENT: General X-ray: Exam(s) Completed: Upper Extremity X-Ray(s): Shoulder, AP / TRUE AP / AXILLARY bilateral PERIPHERAL IV DATA: Not applicable SIGNED BY: Pina Armstrong January 18, 2023 7:42 AM [facility] 01-18-2023 History of Present illness Narrative Radiology Service Progress Note PATIENT NAME: Edmund Christopher DATE OF SERVICE: January 18, 2023 TIME: 7:42 AM PATIENT IDENTITY VERIFICATION COMPLETED USING TWO (2) IDENTIFIERS: Name and Date of confirmed by patient verbally. FALL SCREENING: Has the patient had 2 falls in the last year or 1 fall with injury or currently using an Ambulatory Assistive Device (Walker, Cane, Wheelchair, Crutches, etc.)? No PATIENT GENDER DATA: Male PATIENT RELEVANT IMPLANT DATA REVIEWED: Not Applicable RADIOLOGY DEPARTMENT: General X-ray: Exam(s) Completed: Upper Extremity X-Ray(s): Shoulder, AP / TRUE AP / AXILLARY bilateral PERIPHERAL IV DATA: Not applicable SIGNED BY: Pina Armstrong January 18, 2023 7:42 AM documented in this encounter [facility] 07-26-2022 Hospital Discharge instructions Ana Laura Segura RN - 07/26/2022 5:35 PM EST Spinal Cord Stimulator Discharge Instructions - Avoid any twisting, bending or exaggerated spine movement -Do not lift anything heavier than a gallon of milk -Walking around the house is recommended - Keep the area of the procedure clean and dry - Do not shower or bathe, sponge baths only - Monitor for any signs of infection, such as, redness, swelling, green or yellow foul smelling drainage, increased pain or fever - Wear abdominal binder as much as possible to support your spine and limit the movement of your spine documented in this encounter [facility] Phone: 04-15-2021 Note HNO ID: [id number] Author: LAZARO Donnelly) Service: ? Author Type: Technologist Type: Progress Notes Filed: 04/15/2021 8:27 PM Note Text: Radiology Service Progress Note PATIENT NAME: Edmund Christopher DATE OF SERVICE: April 15, 2021 TIME: 8:00 PM PATIENT IDENTITY VERIFICATION COMPLETED USING TWO (2) IDENTIFIERS: Name and Date of confirmed by patient verbally and Name and Date of confirmed by identification band. FALL SCREENING: Has the patient had 2 falls in the last year or 1 fall with injury or currently using an Ambulatory Assistive Device (Walker, Cane, Wheelchair, Crutches, etc.)? Emergency Room Patient: Screened in ED PATIENT GENDER DATA: Male PATIENT RELEVANT IMPLANT DATA REVIEWED: Not Applicable RADIOLOGY DEPARTMENT: CT; Exam(s) Completed: Brain and Spine PERIPHERAL IV DATA: Not applicable SIGNED BY: LAZARO Donnelly) April 15, 2021 8:00 PM [facility] 04-15-2021 Note HNO ID: [id number] Author: Sandra Taylor RDMS Service: ? Author Type: Manager Chemical Type: Progress Notes Filed: 04/15/2021 6:49 PM Note Text: Radiology Service Progress Note PATIENT NAME: Edmund Christopher DATE OF SERVICE: April 15, 2021 TIME: 6:49 PM PATIENT IDENTITY VERIFICATION COMPLETED USING TWO (2) IDENTIFIERS: Name and Date of confirmed by patient verbally. FALL SCREENING: Has the patient had 2 falls in the last year or 1 fall with injury or currently using an Ambulatory Assistive Device (Walker, Cane, Wheelchair, Crutches, etc.)? Emergency Room Patient: Screened in ED PATIENT GENDER DATA: Male PATIENT RELEVANT IMPLANT DATA REVIEWED: Not Applicable RADIOLOGY DEPARTMENT: Ultrasound PERIPHERAL IV DATA: Not applicable SIGNED BY: Sandra Taylor RDMS April 15, 2021 6:49 PM [facility] Evaluation note No assessment inform ation [facility] Work Phone: Evaluation note Diagnosis Pain- Primary Generalized pain [facility] Diagnosis Rotator cuff tear arthropathy, right- Primary Rotator cuff tear arthropathy, left Right arm weakness Other musculoskeletal symptoms referable to limbs Spinal stenosis of cervical region Spinal stenosis in cervical region [facility] Pain Generalized pain [facility] Diagnosis Radiculopathy, cervical region- Primary Brachial neuritis or radiculitis nos Rotator cuff tear arthropathy, right Right arm weakness Other musculoskeletal symptoms referable to limbs Spinal stenosis of cervical region Spinal stenosis in cervical region [facility] Diagnosis Right arm weakness- Primary Other musculoskeletal symptoms referable to limbs [facility] Diagnosis DDD (degenerative disc disease), cervical Degeneration of cervical intervertebral disc Chronic neck pain Cervicalgia Anterolisthesis of cervical spine Cervicalgia [facility] Diagnosis Actinic keratosis Neoplasm of unspecified behavior of bone, soft tissue, and skin documented [facility]* Diagnosis Actinic keratosis- Primary Erythema intertrigo Other specified erythematous condition documented [facility]* Diagnosis Preventive antibiotic- Primary Encounter for long-term (current) use of antibiotics [facility] Author Tuyet Adams [facility] November 12, 2023 8:15am Note Date/Time November 12, 2023 8:1 5am [facility] [address] [place] [address] Gastroenterology H&P Signed Patient: Edmund Christopher MR#: [id number] : 1965 Acct:[id number] Age/Sex: 58 / M Adm Date: 4 Loc: Room: Type: [facility] Attending Dr: Tuyet Adams DO Copies to: DO Shreyas Shafer CNP~ Date of Service: 11/12/2023 HISTORY & PHYSICAL: Patient's history with special attention to the cardiovascular, pulmonary systems and the current problem was reviewed with the patient immediately prior to the procedure. Present medications and doses reviewed in the EMR. Allergies and pertinent laboratory tests were also reviewedat this time in the EMR. The physical examination, as below, was then performed. Indication, assessment and HPI: 58-year-old male who presents for colonoscopy for abdominal pain and abnormal CT. No prior colonoscopy Family history of GI malignancy? No PHYSICAL EXAMINATION General appearance: cooperative, NAD Skin: No jaundice, no rash or lesions Head: NCAT Eyes: Anicteric Neck: Supple Lungs: Normal respiratory effort, no use of accessory muscles Abdomen: Soft, nondistended Neuro: No focal deficits, Ox3. REVIEW OF SYSTEMS Constitutional: Denies malaise, fevers Cardiovascular: Denies chest pain, palpitations Respiratory: Denies shortness of breath, wheezing Gastrointestinal: As per HPI Genitourinary: Denies dysuria, polyuria Musculoskeletal: Denies joint swelling, joint stiffness Neurological: Denies confusion, numbness, tingling Endocrine: Denies fatigue Written informed consent obtained from the patient. Risks (including but not limited to perforation, infection, bloating, bleeding, need for emergent surgeryand loss of life), benefits and alternatives explained and questions answered. The patient verbalized understanding. Based on history patient is an appropriate candidate for the procedure. Tuyet Adams DO Documented By: Tuyet Adams DO 11/12/23814 Signed By: <Electronically signed by Tuyet Adams DO> 11/12/23814 [facility] Work Phone: Hospital Discharge instructions Additional Instructions Call Dr. Hoyos's office Sunday morning to make an appointment Return to the ER for redness swelling warmth of the area fever chills or any [facility] Work Phone: Hospital Discharge instructions Additional Instructions Follow-up with the specialist as scheduled concerning the stimulator If the specialist does not feel that the pains from the stimulator I am getting encourage you to follow-up with gastroenterology Return to the ER for worsening pain high fever vomiting or any other concerns [facility] Work Phone: Reason for referral (narrative)* Diagnostic Procedure Only (Routine) - Pending Review Specialty Diagnoses / Procedures Referred By Contac t Referred To Contact XR IMAGING Diagnoses Pain Procedures XR SHOULDER GENERAL 3V OR MORE AP/TRUE AP/OTHER RIGHT RADEX SHOULDER COMPLETE MINIMUM 2 VIEWS Jessica Dotson MD [address] [place] [address] Xr Imaging Referral ID Status Reason Start Date Expiration Date Visits Requested Visits Authorized [id number] Pending Review Auto-Generat ed Referral 11/16/2022 12/15/2023 1 1 * Diagnostic Procedure Only (Routine) - Pending Review Specialty Diagnoses / Procedures Referred By Contac t Referred To Contact XR IMAGING Diagnoses Pain Procedures XR SHOULDER GENERAL 3V OR MORE AP/TRUE AP/OTHER LEFT RADEX SHOULDER COMPLETE MINIMUM 2 VIEWS Jessica Dotson MD [address] [place] [address] Xr Imaging Referral ID Status Reason Start Date Expiration Date Visits Requested Visits Authorized [id number] Pending Review Auto-Generat ed Referral 11/16/2022 12/15/2023 1 1 [facility] for referral (narrative)* Outpatient Procedure (Routine) - Pending Review Specialty Diagnoses / Procedures Referred By Deshaun aleman Referred To Contact [facility] Diagnoses Rotator cuff tear arthropathy, right Right arm weakness Spinal stenosis of cervical region Procedures EMG(NEURO/NI) NERVE CONDUCTION STUDIES 9-10 STUDIES Jessica Dotson MD [address] [place] [address] Neurological [place] [address] [place] [address] Referral ID Status Reason Start Date Expiration Date Visits Requested Visits Authorized [id number] Pending Review Auto-Generat ed Referral 01/18/2023 01/19/2024 1 1 * MRI/CT (Routine) - Authorized Specialty Diagnoses / Procedures Referred By Deshaun aleman Referred To Contact MR IMAGING Diagnoses Spinal stenosis of cervical region Procedures MRI CERVICAL SPINE WO IVCON MRI SPINAL CANAL CERVICAL W/O CONTRAST MATRL Jessica Dotson MD [address] [place] [address] Mr Imaging Referral ID Status Reason Start Date Expiration Date Visits Requested Visits Authorized [id number] Authorized Auto-Generat ed Referral 01/18/2023 02/17/2024 1 1 [facility] for referral (narrative)* Diagnostic Procedure Only (Routine) - Closed Specialty Diagnoses / Procedures Referred By Deshaun aleman Referred To Contact XR IMAGING Diagnoses Pain Procedures XR SHOULDER GENERAL 3V OR MORE AP/TRUE AP/OTHER RIGHT RADEX SHOULDER COMPLETE MINIMUM 2 VIEWS Jessica Dotson MD [address] [phone] Xr Imaging Referral ID Status Reason Start Date Expiration Date V isits Requested Visits Authorized [id number] Closed Auto-Generate d Referral 11/16/2022 12/15/2023 1 1 * Diagnostic Procedure Only (Routine) - Closed Specialty Diagnoses / Procedures Referred By Deshaun aleman Referred To Contact XR IMAGING Diagnoses Pain Procedures XR SHOULDER GENERAL 3V OR MORE AP/TRUE AP/OTHER LEFT RADEX SHOULDER COMPLETE MINIMUM 2 VIEWS Jessica Dotson MD [address] [place] [address] Xr Imaging Referral ID Status Reason Start Date Expiration Date V isits Requested Visits Authorized [id number] Closed Auto-Generate d Referral 11/16/2022 12/15/2023 1 1 [facility] for visit Narrative* Diagnostic Procedure Only (Routine) - Closed Specialty Diagnoses / Procedures Referred By Deshaun aleman Referred To Contact XR IMAGING Diagnoses Pain Procedures XR SHOULDER GENERAL 3V OR MORE AP/TRUE AP/OTHER RIGHT RADEX SHOULDER COMPLETE MINIMUM 2 VIEWS Jessica Dotson MD [address] [place] [phone] Xr Imaging Referral ID Status Reason Start Date Expiration Date V isits Requested Visits Authorized [id number] Closed Auto-Generate d Referral 11/16/2022 12/15/2023 1 1 [facility] Summary Purpose Family History Relationship Condition Age at Onset Recorded Date/T mylene father Myocardial infarction Unknown father Pulmonary emphysema Unknown brother Status post coronary artery bypass graft Unknown Relationship Condition Age at Onset Recorded Date/T mylene father Myocardial infarction Unknown father Pulmonary emphysema Unknown brother Status post coronary artery bypass graft Unknown father Unknown Heart disease Unknown Family history of emphysema Unknown Not Specified Hypertension Unknown Relationship Condition Age at Onset Recorded Date/T mylene father Myocardial infarction Unknown Pulmonary emphysema Unknown Unknown Family history of emphysema Unknown Heart disease Unknown brother Status post coronary artery bypass graft Unknown Not Specified Hypertension Unknown Advance Directives Advance Directive Response Recorded Date/ Time Advance Directives No May 9:57am Advance Directive Response Recorded Date/ Time Advance Directives No May 10:57am Documents on File Type Date Recorded Patient Group Work Program Director Expl anation Advance Directive(s) 12/26/2016 12:39 PM Documents on File Type Date Recorded Patient Group Work Program Director Expl anation Advance Directive(s) 12/26/2016 12:39 PM Chief Complaint and Reason for Visit Chief Complaint r22.9 See order Chief Complaint rt leg pain Chief Complaint rt leg pain rt wrist pain Chief Complaint m54.16 m47.816 Chief Complaint L side pain, swellin g Chief Complaint L side pain, swellin g Abdominal Pain Abdominal Pain Reason for Referral Specialty Diagnoses / Procedures Referred By Contac t Referred To Contact Diagnoses Right arm weakness Procedures CONSULT TO SPINE SURGERY OFFICE/OUTPATIENT [facility] 60-74 MINUTES Jessica Dotson MD [address] [place] [address] Referral ID Status Reason Start Date Expiration Date Visits Requested Visits Authorized [id number] Pending Review PCP Requested Referral 3 05/03/2024 1 1 Specialty Diagnoses / Procedures Referred By Deshaun aleman Referred To Contact MR IMAGING Diagnoses DDD (degenerative disc disease), cervical Chronic neck pain Anterolisthesis of cervical spine Cervicalgia Procedures MRI CERVICAL SPINE WO IVCON MRI, CERV SPINE Viola Steen, MEETING SPECIALIST.[employer] MECH[employer]IC [address] [place] [address] Mr Imaging [place] [address] Referral ID Status Reason Start Date Expiration Date V isits Requested Visits Authorized [id number] Closed Auto-Generate d Referral 04/29/2021 05/29/2022 1 1 Additional Source Comments (unrecognized sect ion and content) No Status Records FoundNo Status Records FoundNo Status Records FoundNo Status Records FoundNo Status Records FoundNo Status Records FoundNo Status Records FoundNo Status Records FoundNo Status Records Found INFORMATION SOURCE (unrecogn ized section and content) DATE CREATED AUTHOR 08/14/2018 [facility] DATE CREATED AUTHOR AUTHOR'S ORGANIZ ATION 10/15/2018 [facility] DATE CREATED AUTHOR AUTHOR'S ORGANIZ ATION 03/05/2020 [facility] DATE CREATED AUTHOR AUTHOR'S ORGANIZ ATION 04/17/2021 [facility] DATE CREATED AUTHOR AUTHOR'S ORGANIZ ATION 07/26/2022 [facility] DATE CREATED AUTHOR AUTHOR'S ORGANIZ ATION 11/15/2022 [facility] DATE CREATED AUTHOR AUTHOR'S ORGANIZ ATION 08/18/2023 [facility] DATE CREATED AUTHOR AUTHOR'S ORGANIZ ATION 07/16/2024 [facility] DATE CREATED AUTHOR AUTHOR'S ORGANIZ ATION 07/31/2024 [facility] d[facility] Specialists EPIC Care Teams (unrecognized sec tion and content) Team Status: Active Member Role Status Dates Shreyas Felipe EMERGENCY VEHICLE OPERATIONS INSTRUCTOR-C Primary Care Provider Active Team Status: Inactive Member Role Status Dates Shreyas Felipe EMERGENCY VEHICLE OPERATIONS INSTRUCTOR-C Primary Care Provider Active Arnoldo Rodriguez APRN Emergency Provider Active Team Status: Inactive Member Role Status Dates Shreyas Felipe EMERGENCY VEHICLE OPERATIONS INSTRUCTOR-C Primary Care Provider Active Maddy Cabezsa II, MD Attending Provider Active Team Status: Inactive Member Role Status Dates Shreyas Felipe EMERGENCY VEHICLE OPERATIONS INSTRUCTOR-C Primary Care Provider, Attend ing Provider Active 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 Start Date End Date Shreyas Felipe [address] [place] [address] PCP - General 07/26/22 Team Status: Inactive Member Role Status Dates Shreyas Felipe EMERGENCY VEHICLE OPERATIONS INSTRUCTOR-C Primary Care Provider Active Nataliia Banks PRINT OPERATOR-BC Emergency Provider Active Team Status: Inactive Member Role Status Dates Shreyas Felipe EMERGENCY VEHICLE OPERATIONS INSTRUCTOR-C Primary Care Provider Active Kandis Farrell EMERGENCY VEHICLE OPERATIONS INSTRUCTOR-C Attending Provider Active Team Status: Inactive Member Role Status Dates Shreyas Felipe EMERGENCY VEHICLE OPERATIONS INSTRUCTOR-C Primary Care Provider Active Start: October 10, 2023 End: October 10, 2023 Nataliia Banks , PRINT OPERATOR-BC Emergency Provider Active Start: October 10, 2023 End: October 10, 2023 Team Status: Inactive Member Role Status Dates Shreyas Felipe EMERGENCY VEHICLE OPERATIONS INSTRUCTOR-C Primary Care Provider Active Start: November 12, 2023 End: November 12, 2023 Tuyet Adams DO Attending Provider Active St art: November 12, 2023 End: November 12, 2023 Team Status: Active Member Role Status Dates Shreyas Felipe EMERGENCY VEHICLE OPERATIONS INSTRUCTOR-C Primary Care Provider Active Start: November 12, 2023 Tuyet Adams DO Attending Provider, Other Provider Active Start: November 12, 2023 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 Start Date End Date Pcp, DANILO Ngo PCP - General 04/16/21 11/12/21 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 Start Date End Date Naresh Jerome MD [address] [place] [address] PCP - General Family Medicine 01/23/23 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 Start Date End Date Naresh Jerome MD [address] [place] [address] PCP - General Family Medicine 01/23/23 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 Start Date End Date Naresh Jerome MD [address] [place] [address] PCP - General Family Medicine 01/23/23 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 Start Date End Date Naresh Jerome MD [address] [place] [address] PCP - General Family Medicine 01/23/23 Goals (unrecognized section and content) Goals may be documented in a n alternate sectionGoals may be documented in an alternate sectionGoals may be documented in an alternate sectionGoals may be documented in an alternate sectionGoals may be documented in an alternate sectionGoals may be documented in an alternate section Reason for Visit (unrecogniz ed section and content) Specialty Diagnoses / Procedures Referred By Contmiguel t Referred To Contact Diagnoses Lumbar radiculopathy Low back pain Lumbar radiculopathy [M54.16] Procedures ME PRQ IMPLTJ NSTIM ELECTRODE ARRAY EPIDURAL SPINAL CORD STIMULATOR IMPLANT TRIAL - GoChime Maddy Cabezas MD [address] [place] [address] [facility] [address] [place] [address] Referral ID Status Reason Start Date Expiration Date Visits Re quested Visits Authorized [id number] 1 1 Reason Comments Established Patient Follow Up Pain Specialty Diagnoses / Procedures Referred By Deshaun aleman Referred To Contact Orthopedics / ORTHOPAEDIC SURGERY Diagnoses Bilat shoulder pain BWC - ok per Nereida Procedures [employer] Self Jessica Dotson MD [address] [place] [phone] Referral ID Status Reason Start Date Expiration Date Visits Requested Visits Authorized [id number] Outside PCP Patient Cleared - Admin/Chair man/Directo r advise to proceed or did not respond 01/18/2023 03/19/2023 1 1 Reason Onset Date Comments EMG 04/13/2023 Specialty Diagnoses / Procedures Referred By Deshaun aleman Referred To Contact [facility] Diagnoses Rotator cuff tear arthropathy, right Right arm weakness Spinal stenosis of cervical region Procedures EMG(NEURO/NI) NERVE CONDUCTION STUDIES 9-10 STUDIES Jessica Dotson MD [address] [place] [address] [place] [address] Referral ID Status Reason Start Date Expiration Date V isits Requested Visits Authorized [id number] Closed Auto-Generated Referral Patient Cleared - INN Insurance Found 01/18/2023 01/19/2024 1 1 Specialty Diagnoses / Procedures Referred By Deshaun aleman Referred To Contact MR IMAGING Diagnoses DDD (degenerative disc disease), cervical Chronic neck pain Anterolisthesis of cervical spine Cervicalgia Procedures MRI CERVICAL SPINE WO IVCON MRI, CERV SPINE Viola Steen, MEETING SPECIALIST.[employer] MECHANIC [address] [phone] Mr [facility] [place] [address] Referral ID Status Reason Start Date Expiration Date V isits Requested Visits Authorized [id number] Closed Auto-Generate d Referral 04/29/2021 05/29/2022 1 1 Reason Comments Suspicious Skin Lesion Skin Check Reason Comments Actinic Keratosis Reason Onset Date Comments Refill Request 12/25/2024 Scheduled Active and Recently Administ ered Medications (unrecognized section and content) Medication Order 07/24/2022 07/25/2022 07/26/2022 ceFAZolin (ANCEF) 2000 mg in dextrose 5 % 50 mL IVPB 2,000 mg, IntraVENous, ONCE, 1 dose, On Sun07/26/22 at 1330, Antimicrobial Indications: Surgical Prophylaxis, Pre-op (day of surgery), STAT 1330 (Due) sodium chloride flush 0.9 % injection 5-40 mL 5-40 mL, IntraVENous, EVERY 12 HOURS SCHEDULED (2 times per day), First dose on Sun07/26/22 at 2100, Until Discontinued, For Line Patency: Peripheral IV = 5 mL; Midline or Central Line = 10 mL/lumen. If following IV push medication, administer flush at same rate as the IV push. Flush volume is determined by type of infusion therapy being given. For non-viscous solutions use: Peripheral IV = 5 mL Midline or Central Line = 10 mL/lumen For viscous solutions (i.e. blood components, parenteral nutrition, contrast media, or after obtaining blood sample) use: Peripheral IV = 10 mL Midline or Central Line = 20 mL/lumen, Pre-op (day of surgery) 2100 (Due) Continuous Medication Order 07/24/2022 07/25/2022 07/26/2022 0.9 % sodium chloride infusion IntraVENous, at 125 mL/hr, CONTINUOUS, Starting on Sun07/26/22 at 1330, Pre-op (day of surgery) 1330 (Due) lactated ringers infusion IntraVENous, at 125 mL/hr, CONTINUOUS, Starting on Sun07/26/22 at 1330, Pre-op (day of surgery) 1319 (New Bag - Prov ider: Juli Wells RN) PRN Medication Order 07/24/2022 07/25/2022 07/26/2022 0.9 % sodium chloride infusion IntraVENous, at 5-250 mL/hr, PRN, if patient receiving piggyback infusions and maintenance fluids are not ordered OR KVO fluids to protect IV site / prevent frequent line interruptions/ long duration, Starting on Sun07/26/22 at 1306, For piggyback infusion, administer at same rate as piggyback for a total of 25 mL. Enter 25 mL into dose field and piggyback rate into rate field of order. If piggyback is infusing at a rate less than 100 mL/hr, enter 25 mL into dose field and 100 mL/hr into rate field of order. For KVO fluids, enter rate of 20 mL/hr or less into rate field of order., Pre-op (day of surgery) bupivacaine (PF) (MARCAINE) 0.5 % injection (CANCELED) PRN, Starting on Sun07/26/22 at 1715, Until Sun07/26/22 at 1722, Intra-op 1715 (Given - Provid er: Maddy Cabezas MD) diphenhydrAMINE (BENADRYL) injection 12.5 mg 12.5 mg, IntraVENous, ONCE PRN, 1 dose, Starting on Sun07/26/22 at 1731, Until Desiree 07/27/22 at 1731, Itching, PACU only HYDROmorphone HCl PF (DILAUDID) injection 0.25 mg HYDROmorphone (DILAUDID) 1.5mg IV is equivalent to morphine 10mg IV, 0.25 mg, IntraVENous, EVERY 5 MIN PRN, 4 doses, Starting on Sun07/26/22 at 1731, Until Discontinued, Pain Moderate (4-6), For Phase I. If Phase II oral narcotics have been administered in the last 60 minutes, do not administer IV narcotics unless specifically approved by provider., PACU only lidocaine PF 1 % injection 1 mL 1 mL, IntraDERmal, ONCE PRN, 1 dose, Starting on Sun07/26/22 at 1306, Until Desiree 07/27/22 at 1306, IV start, Pre-op (day of surgery) lidocaine-EPINEPHrine 1 %-1:[id number] 30 mL, sodium bicarbonate 1 mL (CANCELED) PRN, Starting on Sun07/26/22 at 1655, Intra-op 1655 (Given - Provid er: Maddy Cabezas MD)1715 (Given - Provider: aMddy Cabezas MD) ondansetron (ZOFRAN) injection 4 mg 4 mg, IntraVENous, ONCE PRN, 1 dose, Starting on Sun07/26/22 at 1731, Until Desiree 07/27/22 at 1731, Nausea, PACU only oxyCODONE (ROXICODONE) immediate release tablet 5 mg 5 mg, Oral, ONCE PRN, 1 dose, Starting on Sun07/26/22 at 1731, Until Desiree 07/27/22 at 1731, Pain Moderate (4-6), Pain Severe (7-10), PHASE II, PACU only sodium chloride flush 0.9 % injection 5-40 mL 5-40 mL, IntraVENous, PRN, Starting on Sun07/26/22 at 1306, Until Discontinued, Line Care, After every IV line use, For Line Patency: Peripheral IV = 5 mL; Midline or Central Line = 10 mL/lumen. If following IV push medication, administer flush at same rate as the IV push. Flush volume is determined by type of infusion therapy being given. For non-viscous solutions use: Peripheral IV = 5 mL Midline or Central Line = 10 mL/lumen For viscous solutions (i.e. blood components, parenteral nutrition, contrast media, or after obtaining blood sample) use: Peripheral IV = 10 mL Midline or Central Line = 20 mL/lumen, Pre-op (day of surgery) Source Comments (unrecognize d section and content) In the event this informatio n is protected by the Federal Confidentiality of Alcohol and Drug Abuse Patient Records regulations: The Federal rules restrict any use of the information to criminally investigate or prosecute any alcohol or drug abuse patient.[facility] the event this information is protected by the Federal Confidentiality of Alcohol and Drug Abuse Patient Records regulations: The Federal rules restrict any use of the information to criminally investigate or prosecute any alcohol or drug abuse patient.[facility] the event this information is protected by the Federal Confidentiality of Alcohol and Drug Abuse Patient Records regulations: The Federal rules restrict any use of the information to criminally investigate or prosecute any alcohol or drug abuse patient.[facility] the event this information is protected by the Federal Confidentiality of Alcohol and Drug Abuse Patient Records regulations: The Federal rules restrict any use of the information to criminally investigate or prosecute any alcohol or drug abuse patient.[facility] the event this information is protected by the Federal Confidentiality of Alcohol and Drug Abuse Patient Records regulations: The Federal rules restrict any use of the information to criminally investigate or prosecute any alcohol or drug abuse patient.[facility] the event this information is protected by the Federal Confidentiality of Alcohol and Drug Abuse Patient Records regulations: The Federal rules restrict any use of the information to criminally investigate or prosecute any alcohol or drug abuse patient.[facility] the event this information is protected by the Federal Confidentiality of Alcohol and Drug Abuse Patient Records regulations: The Federal rules restrict any use of the information to criminally investigate or prosecute any alcohol or drug abuse patient.[facility] FOR RECORDS PERTAINING TO PATIENTS WHO ARE OR HAVE BEEN ENROLLED IN A CHEMICAL DEPENDENCY/SUBSTANCEABUSE PROGRAM, SOME INFORMATION MAY BE OMITTED. This clinical summary was aggregated from multiple sources. Caution should be exercised in using it in the provision of clinical care. This summary normalizes information from multiple sources, and as a consequence, information in this document may materially change the coding, format and clinical context of patient data. In addition, data may be omitted in some cases. CLINICAL DECISIONS SHOULD BE BASED ON THE PRIMARY CLINICAL RECORDS. [facility]. provides no warranty or guarantee of the accuracy or completeness of information in this document.
--- NOTE | 2024-12-26 18:21 | ECG_ITS ---
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 Measurements Intervals [place] Rate: 84 P: 47 [place]: 200 QRS: 90 QRSD: 98 T: 60 QT: 372 QTc: 413 Interpretive Statements 1100 Sinus rhythm 9110 normal ECG No previous ECG available for comparison Electronically Signed On 12-26-2024 19:28:59 EDT by SHAKIRA SMITH M.D.
--- NOTE | 2024-12-26 18:21 | XR_ITS ---
[place] [id number] Patient Name: GABBY HAYDEN MRN: [id number] date: 1965 Sex: M Assigned Patient Location: ER Current Patient Location: ED.MAIN Accession/Order Number: [id number] Exam Date: 12/26/2024 18:49 Report Date: 12/26/2024 18:50 At the request of: RADHA ASCENCIO Procedure: XR chest 1V Plain film chest Single view HISTORY: Hypertension COMPARISON: None FINDINGS: SUPPORT DEVICES: None POSTSURGICAL CHANGES: None HEART: Within normal limits PULMONARY ANTONI: Within normal limits MEDIASTINUM: Unremarkable LUNGS AND PLEURA: No acute lung process, pleural effusion or pneumothorax identified. Mild atelectasis BONY STRUCTURES: Intact ADDITIONAL FINDINGS None XR/XR chest 1V IMPRESSION: No acute process. Impression dictated by: Earl Riddle M.D. 12/26/2024 6:50 PM Dictation Location: [place] [address] Electronically authenticated by: [id number] Y Date: 12/26/2024 18:50
--- NOTE | 2024-12-26 18:22 | ED_ITS ---
HPI HPI - General Adult General Chief complaint: Recheck/Abnormal Lab/Rx Stated complaint: HIGH BLOOD PRESSURE Time Seen by Provider: 12/26/24 18:14 Source: patient Mode of arrival: walk-in Limitations: no limitations History of Present Illness HPI narrative: 59 year old male presents to the ED for hypotension. States his BP dropped this afternoon. Reports his BP was 80s/40s. Reports dizziness at the time. Denies fever, chills, SAWANT, vision changes. Denies CP, SOB, abd pain, N/V/D. He takes Lisinopril and HCTZ. States this has happened a few times in the past. He is now asymptomatic. Related Data Home Medications ?Medication ?Instructions ?Recorded ?Confirmed lisinopril 40 mg tablet mg 12/26/24 meloxicam 15 mg tablet mg 12/26/24 oxycodone 15 mg tablet mg 12/26/24 Allergies Allergy/AdvReac Type Severity Reaction Status Date / Time No Known Drug Allergies Allergy Verified 12/26/24 19:15 Review of Systems ROS Constitutional Denies: fever, chills or fatigue Ears, nose, mouth, and throat Denies: throat pain or neck pain Cardiovascular Denies: chest pain Respiratory Denies: shortness of breath Gastrointestinal Denies: abdominal pain, nausea, vomiting or diarrhea Musculoskeletal Denies: back pain or neck pain Integumentary/Breast Denies: rash Neurological Reports: dizziness; Denies: headache, numbness in extremities or weakness in extremities PFSH PFSH Social History Little interest or pleasure in doing things: not at all Feeling down, depressed, or hopeless: not at all Exam Constitutional Vital Signs, click to edit/add: Last Vital Signs Temp 98.1 F 12/26/24 18:07 Pulse 67 12/26/24 19:10 Resp 18 12/26/24 19:10 BP 120/78 12/26/24 19:10 Pulse Ox 100 12/26/24 19:10 O2 Del Method Room Air 12/26/24 19:10 Common normals: no apparent distress and oriented x3 General appearance: cooperative HENMT Common normals: moist oral mucous membranes Eye Common normals: PERRL, EOMs intact bilaterally, conjunctivae normal and no scleral icterus Neck & C-Spine Common normals: supple Chest Chest: symmetrical chest wall rise Respiratory Common normals: normal respiratory effort Effort & inspection: able to speak in complete sentences and symmetric chest movement Cardio Common normals: regular rate and regular rhythm Neuro Common normals: oriented x3, CN's II-XII intact bilaterally, moves all extremities and no focal motor deficits Sensorium/orientation: awake and alert Speech: speech normal Gait (neuro): normal gait Course Vital Signs Vital signs: Vital Signs Temperature 98.1 F 12/26/24 18:07 Pulse Rate 81 12/26/24 18:07 Respiratory Rate 16 12/26/24 18:07 Blood Pressure 137/85 12/26/24 18:07 Pulse Oximetry 99 12/26/24 18:07 Oxygen Delivery Method Room Air 12/26/24 18:07 Temperature 98.1 F 12/26/24 18:07 Pulse Rate 67 12/26/24 19:10 Respiratory Rate 18 12/26/24 19:10 Blood Pressure 120/78 12/26/24 19:10 Pulse Oximetry 100 12/26/24 19:10 Oxygen Delivery Method Room Air 12/26/24 19:10 Medical Decision Making MDM Narrative Medical decision making narrative: Chest x-ray was negative for acute findings. The patient's BP was unremarkable here. The patient was offered IV fluids here; he declined. Findings were discussed. He requested to be discharged home. Follow up with pcp for a recheck, further evaluation and treatment. Return precautions were discussed. Return to the ER for worsening symptoms. Medical Records Medical records reviewed: Yes I reviewed the patient's medical records Lab Data Lab results reviewed: Yes I reviewed the patient's lab results Labs: Lab Results 12/26/24 Range/Units 18:32 WBC 7.1 (4.0-11.0) 10^3/uL RBC 5.33 (4.70-6.10) 10^6/uL Hgb 15.9 (14.0-18.0) g/dL Hct 45.2 (42.0-54.0) % MCV 84.8 (80.0-94.0) fL MCH 29.8 (25.9-34.0) pg MCHC 35.2 (29.9-35.2) g/dL RDW 12.5 (11.0-15.0) % Plt Count 259 (150-450) 10^3/uL MPV 9.3 L (9.5-13.5) fL Neut % (Auto) 64.4 (43.0-75.0) % Lymph % (Auto) 19.0 L (20.5-60.0) % Tyrrell % (Auto) 11.7 (1.7-12.0) % Eos % (Auto) 4.2 (0.9-7.0) % Baso % (Auto) 0.6 (0.2-2.0) % Neut # (Auto) 4.6 (1.4-6.5) 10^3/uL Lymph # (Auto) 1.4 (1.2-3.8) 10^3/uL Tyrrell # (Auto) 0.8 (0.3-0.8) 10^3/uL Eos # (Auto) 0.3 (0.0-0.7) 10^3/uL Baso # (Auto) 0.0 (0.0-0.1) 10^3/uL Abs Immat Gran (auto) 0.01 (0.00-0.03) 10^3/uL Imm/Tot Granulo (auto) 0.1 (0.0-0.5) % Sodium 139 (136-145) mmol/L Potassium 3.8 (3.5-5.1) mmol/L Chloride 101 (98-107) mmol/L Carbon Dioxide 28.6 (21.0-32.0) mmol/L Anion Gap 13.2 BUN 20.0 H (7.0-18.0) mg/dL Creatinine 0.84 (0.70-1.30) mg/dL Est GFR ( Amer) >60 (>=60 mL/min/1.73m^2) Est GFR (Non-Af Amer) >60 (>=60 mL/min/1.73m^2) BUN/Creatinine Ratio 23.8 Glucose 121 H (74-106) mg/dL Calcium 8.9 (8.5-10.1) mg/dL Imaging Data Chest x-ray: Attestation: I have reviewed the pertinent imaging results. Radiologist's impression: ITS Impressions Chest X-Ray 12/26/24 18:21 IMPRESSION: No acute process. Impression dictated by: Earl Rdidle M.D. 12/26/2024 6:50 PM Dictation Location: [place] Electronically authenticated by: [id number] Y Date: 12/26/2024 18:50 ECG Data Attestation: ?I have reviewed the pertinent ECG results. (EKG was reviewed by the attending physician. It showed sinus rhythm at a rate of 84. No acute ST segment changes.) Interpretation: Measurements Intervals [place] Rate: 84 P: 47 [place]: 200 QRS: 90 QRSD: 98 T: 60 QT: 372 QTc: 413 Interpretive Statements 1100 Sinus rhythm 9110 normal ECG No previous ECG available for comparison Discharge Plan Discharge Chief Complaint: Recheck/Abnormal Lab/Rx Clinical Impression: Hypotension Patient Disposition: Home, Self-Care Time of Disposition Decision: 19:22 Condition: Good Mode of Transportation: Private Vehicle Prescriptions / Home Meds: No Action meloxicam 15 mg tablet oxycodone 15 mg tablet lisinopril 40 mg tablet Print Language: East Timorese Instructions: How to Take a Blood Pressure Reading (ED), Hypotension (ED) Additional Instructions: Return to the ER for worsening symptoms. Referrals: SHREYAS FELIPE [Primary Care Provider, Family Practice] - 1 week
[2024-12-26 18:45] LABS: Basophils Percent Auto 0.6 % (0.2-2.0); Eosinophils Absolute Auto 0.3 10^3/uL (0.0-0.7); Eosinophils Percent Auto 4.2 % (0.9-7.0); Hematocrit 45.2 % (42.0-54.0); Hemoglobin 15.9 g/dL (14.0-18.0); Immature Granulocytes Abs Auto 0.01 10^3/uL (0.00-0.03); Immature Granulocytes Pct Auto 0.1 % (0.0-0.5); Lymphocytes Absolute Auto 1.4 10^3/uL (1.2-3.8); Mean Corpuscular HGB Conc 35.2 g/dL (29.9-35.2); Mean Corpuscular Hemoglobin 29.8 pg (25.9-34.0); Mean Corpuscular Volume 84.8 fL (80.0-94.0); Mean Platelet Volume 9.3 fL (9.5-13.5); Monocytes Absolute Auto 0.8 10^3/uL (0.3-0.8); Monocytes Percent Auto 11.7 % (1.7-12.0); Neutrophils Absolute Auto 4.6 10^3/uL (1.4-6.5); Neutrophils Percent Auto 64.4 % (43.0-75.0); Platelet Count 259 10^3/uL (150-450); Red Blood Count 5.33 10^6/uL (4.70-6.10); Red Cell Distribution Width 12.5 % (11.0-15.0); White Blood Count 7.1 10^3/uL (4.0-11.0)
[2024-12-26 18:54] LABS: Anion Gap 13.2; BUN Creatinine Ratio 23.8; Calcium 8.9 mg/dL (8.5-10.1); Carbon Dioxide 28.6 mmol/L (21.0-32.0); Chloride 101 mmol/L (98-107); Estimated GFR (African America >60 (>=60 mL/min/1.73m^2); Estimated GFR (Non-African Ame >60 (>=60 mL/min/1.73m^2); Glucose 121 mg/dL (74-106); Potassium 3.8 mmol/L (3.5-5.1); Sodium 139 mmol/L (136-145)
== END 2024-12-26 19:35 | disposition home or self-care (01) ==
PROVIDERS: Nurse Practitioner Family; Emergency Provider Emergency Medicine; PCP Nurse Practitioner Family
DX: I95.9 Hypotension, unspecified (principal); R42 Dizziness and giddiness
CPT/HCPCS: 36415; 71045; 80048; 85025; 93005; 99285

== ENCOUNTER 2024-12-27 11:58 | Emergency (ER) | payer MEDICARE, SELFPAY ==
--- OUTSIDE RECORDS SUMMARY | 2024-10-20 05:00 | XMS_ITS ---
Author Organization [facility] [place] Address [address] [place] [address] Care Team Providers Care Sales Project Coordinator Name Role Phone Carola Galindo Primary Care Provider Allergies Allergen (clinical drug ingredient) Drug/Non Drug Allergy documented on EMR Reaction Allergy Type Onset Date Status Cat dander Cat Dander unknown Allergy Active Latex Latex rash/hives Allergy Active pravastatin Pravastatin unknown Drug Allergy Act clementine REASON FOR VISIT F/U for depression/anxiety meds- said that it is working, not sure if enough, Wants to know if you have talked to Dr Jerome about another avenue for his pain management Medications Medication SIG (Take, Route, Frequency, Duration) Notes Start Date End Date Status hydrOXYzine HCl 25 MG 1 tablet as needed Orally BID for anxiety for 30 days 09/08/2024 Active Triamcinolone Acetonide 0.5 % 1 application Externally BID prn 08/08/2024 Active Lexapro 20 MG 1 tablet Orally Once a day for 30 days take 1/2 tablet po daily for first week than increase dose to 1 tablet po daily 09/08/2024 Active oxyCODONE HCl ER 15 MG 1 tablet Orally 6 hours Pain Management Active Lisinopril 40 MG TAKE 1 TABLET BY MOUTH EVERY DAY FOR 30 DAYS for 90 days Active cloNIDine HCl 0.1 MG TAKE 1 TABLET BY MOUTH TWICE A DAY for 90 days Active Cialis 10 MG 1 tablet as needed Orally Once a day for 30 days Dispense as written Active hydroCHLOROthiazide 25 MG 1 tablet in th e morning Orally Once a day for 90 days 06/19/2023 Active traZODone HCl 50 MG 1 tablet at bedtime as needed Orally Once a day for 30 days 10/20/2024 Active Social History Tobacco Use: Social History Observation Description Date Details (start date - stop date) Current Smoker 07/16/1976 - NA Tobacco Use/Smoking Question Answer Notes Patient is a current smoker When did you start smoking? 07/16/1976 How often do you smoke cigarettes? every day How many cigarettes a day do you smoke? 21-30 How soon after you wake up d o you smoke your first cigarette? 6-30 minutes Are you interested in quitting? Not ready to azeb t Additional Findings: Tobacco User Heavy cigarett e smoker (20-39 cigs/day) Problems Problem Type SNOMED Code ICD Code Onset Dates Problem Status W/U Status Risk Notes Problem Mixed anxiety and depressive disorder ([id number]) Anxiety and depression (F41.9) Active confirmed Problem Insomnia (G47.00) Active confirmed Vital Signs Blood pressure systolic 162 mm Hg 10/21/19 25 Blood pressure diastolic 106 mm Hg 025 Height 64 in 10/20/2024 Weight 167.8 lbs 10/20/2024 BMI 28.8 kg/m2 10/20/2024 Encounters Encounter Location Date Provider Diagnosis [facility] [address] [place] [address] 10/20/2024 Carola Josie Insomnia G47.00 ; Anxiety and depression F41.9 and Hypertension I10 Assessments Encounter Date Diagnosis (ICD Code) Assessment Notes Treatment Notes Treatment Clinical Notes Section Notes 10/20/2024 Insomnia (ICD-10 - G47.00) 10/20/2024 Anxiety and depression (ICD-10 - F41.9) 10/20/2024 Hypertension (ICD-10 - I10) states BP ok at home, states high because stress and pain today continue monitor Plan Of Treatment Medication Medication Name Sig Start Date Stop Date Notes Lexapro 20 MG 1 tablet Orally Once a day for 30 days 09/08/2024 take 1/2 tablet po daily for first week than increase dose to 1 tablet po daily traZODone HCl 50 MG 1 tablet at bedtime as needed Orally Once a day for 30 days 10/20/2024 Treatment Notes Assessment Notes Hypertension states BP ok at home, states high because stress and pain today continue monitor Next Appt Details Follow Up: prn,3 Months, [place] son: Progress Notes * Edmund CHRISTOPHER ADOB:[birth year] (59 yo M)Acc No.[id number]:10/20/2024 Progress Note Patient: Edmund GARCIA Provider: Brisa Galindo ([facility]), REALTIME CAPTIONER :1965 A ge:59 Y S ex:Male Date:10/20/2024 Address:[address] [place], [place] [id number] Check In:09:01 AM ESTCheck O ut:09:32 AM EST Subjective: * Chief Complaints: * 1 . F/U for depression/anxiety meds- said that it is working, not sure if enough. 2. Wants to know if you have talked to Dr Jerome about another avenue for his pain management. * HPI: G eneral: Patient presents to discuss pain mainagement options as his current provider is currently weaning him off from his medication. Patient also is follwing up for BP med changes and anxiety/depression medications. He states he feels they are working some but could be stronger. * ROS: E ENT: swollen glands or neck lumps d enies. h oarseness d enies. s ore throat d enies. d ifficulty swallowing d enies. n rosana congestion?denies. G eneral/Constitutional: Sweats: D enies. F atigue a dmits. D epression?admits- states it is due to pain. S leep problems a dmits, broken sleep. P ain a dmits. chronic back. F ever or Chills d enies. C ardiovascular: Shortness of Breath w/lying flat d enies. L ightheadedness/dizziness d enies. C hest discomfort, pain, tightness, or pressure with exertion d enies. C hest tightness/ heavy pressure d enies. S welling of legs, ankles, or feet d enies. W aking up with shortness of breath d enies. C hest pain d enies. P alpitations d enies. R espiratory: Breathing difficulty d enies. C hronic or frequent cough d enies. D ifficulty breathing d enies. C hest pain d enies. W heezing?denies. M usculoskeletal: Chronic Back Pain a dmits. J oint pain a dmits. A rthralgias/joint pain A dmits. B ack pain a dmits, pain medication is effective but not at current dose as he is being wenaed down.. M uscle aches d enies. * Active Problem List J44.9 Chronic obstructive pulmonary disease, unspecified Modified On:11/11/2022 Status:confirmed Z96.649 Presence of unspecif ied artificial hip joint Modified On:11/11/2022 Status:confirmed E78.5 Hyperlipidemia Modified On:11/11/2022 Status:confirmed I10 Hypertension Modified On:11/11/2022 Status:confirmed M54.12 Cervical radiculopat hy Modified On:11/11/2022 Status:confirmed I63.9 Stroke Modified On:11/11/2022 Status:confirmed M19.90 Arthritis Modified On:11/11/2022 Status:confirmed F17.200 Current smoker Modified On:11/11/2022 Status:confirmed E66.3 Over weight Modified On:11/11/2022 Status:confirmed R22.9 Lump Modified On:11/11/2022 Status:confirmed M25.519 Pain in shoulder Modified On:11/11/2022 Status:confirmed R41.840 Poor concentration Modified On:11/11/2022 Status:confirmed M51.36 Degenerative disc di sease, lumbar Modified On:11/11/2022 Status:confirmed M54.30 Sciatica Modified On:11/11/2022 Status:confirmed N52.9 Erectile dysfunction , unspecified erectile dysfunction type Modified On:06/29/2023 Status:confirmed I10 Hypertension, unspec ified type Modified On:06/29/2023 Status:confirmed F17.200 Smoker Modified On:10/31/2022 Status:confirmed M18.2 Bilateral post-traum atic osteoarthritis of first carpometacarpal joints Modified On:01/24/2023 Status:confirmed M19.031 Primary osteoarthrit is, right wrist Modified On:01/25/2023 Status:confirmed M67.431 Ganglion, right wris t Modified On:01/25/2023 Status:confirmed K63.5 Colonic polyp Modified On:11/12/2023 Status:confirmed G89.29 Chronic pain Modified On:05/20/2024 Status:confirmed G45.9 TIA (transient ische elodia attack) Modified On:08/08/2024 Status:confirmed F32.9 Depression Modified On:08/08/2024 Status:confirmed F41.9 Anxiety Modified On:09/08/2024 Status:confirmed G47.00 Insomnia Modified On:10/20/2024 Status:confirmed F41.9 Anxiety and depressi on Modified On:10/20/2024 Status:confirmed * Medical History: M ajor depressive disorder, single episode, unspecified, Chronic obstructive pulmonary disease, unspecified, Arthritis, Degenerative disc disease, lumbar, Cervical radiculopathy, Sciatica, Lump, Over weight, Hyperlipidemia, Poor concentration, Current smoker, Stroke, Hypertension, Presence of unspecified artificial hip joint, Pain in shoulder. * Surgical History: S satya Cord Stimulator , Spine Surgery , Colonoscopy 11/12/2023. * Hospitalization/Major Diagno stic Procedure: d enies . * Family History: F ather: , diagnosed with Unspecified heart disease. M other: alive. B rother(s): LUNG CANCER. 4 brother(s) , 2 sister(s) . 1 daughter(s) - healthy. . * Social History: T obacco Use: T obacco Use/Smoking P atient is a c urrent smoker W hen did you start smoking? 0 07/16/1976 H ow often do you smoke cigarettes? e very day H ow many cigarettes a day do you smoke? 2 1-30 H ow soon after you wake up do you smoke your first cigarette? 6 -30 minutes A re you interested in quitting? N ot ready to quit A dditional Findings: Tobacco User H eavy cigarette smoker (20-39 cigs/day) * Medications: T aking Cialis(Tadalafil) 10 MG Tablet 1 tablet as needed Orally Once a day , Notes to Pharmacist: Dispense as written, Taking cloNIDine HCl 0.1 MG Tablet TAKE 1 TABLET BY MOUTH TWICE A DAY , Taking hydroCHLOROthiazide 25 MG Tablet 1 tablet in the morning Orally Once a day , Taking hydrOXYzine HCl 25 MG Tablet 1 tablet as needed Orally BID for anxiety , Taking Lexapro(Escitalopram Oxalate) 10 MG Tablet 1 tablet Orally Once a day , Notes to Pharmacist: take 1/2 tablet po daily for first week than increase dose to 1 tablet po daily, Taking Lisinopril 40 MG Tablet TAKE 1 TABLET BY MOUTH EVERY DAY FOR 30 DAYS , Taking oxyCODONE HCl ER 15 MG Tablet ER 12 Hour Abuse-Deterrent 1 tablet Orally 6 hours , Notes to Pharmacist: Pain Management, Taking Triamcinolone Acetonide 0.5 % Cream 1 application Externally BID prn , Medication List reviewed and reconciled with the patient * Allergies: L atex: rash/hives - Allergy, Cat Dander: unknown - Allergy, Pravastatin: unknown. Objective: * Vitals: W t:167.8lbs, Ht: 64 in, BP:162/106mm Hg, BMI:28.8Index, Ht-cm: 162.56 cm, Wt-k.11 kg. * Examination: P hysical Exam: GENERAL: w ell developed, well nourished, in no acute distress. HEAD: n ormocephalic/atraumatic. EYES: p upils equal, round and reactive to light, conjunctivae and sclerae normal. MOUTH: m ucous membranes moist, normal oropharynx and posterior pharynx without lesions or exudates, tongue normal, dentition normal. NECK: n rishi supple, no masses or palpable cervical nodes, trachea midline, thyroid without nodules, masses, tenderness, or enlargement. LUNGS: n ormal respiratory effort and clear to auscultation, no wheezes, rales, or rhonchi, good air exchange. CARDIO: r egular rate and rhythm, normal S1 and S2, nor murmur, rub, or gallop. PULSES: n ormal capillary refill. MUSCULOSKELETAL: c hronic back pain, scoliosis and disc disease. EXTREMITY: n o clubbing, cyanosis, edema, or deformity with normal ROM in both upper and lower bilateral extremities. NEUROLOGIC: g rossly normal. LYMPH NODES: n o cervical adenopathy, nodes normal. MENTAL STATUS: a lert and oriented x3, normal mood and affect. Assessment: * Assessment: 1. A nxiety and depression - F41.9 (Primary) 2 . I nsomnia - G47.00 ? 3 . H ypertension - I10 Plan: * Treatment: 2. I nsomnia Start traZODone HCl Tablet, 50 MG, 1 tablet at bedtime as needed, Orally, Once a day, 30 days, 30, Refills 5. 3. H ypertension Notes: states BP ok at home, states high because stress and pain today continue monitor * Preventive Medicine: Screenings/Counseling: B [place] ACTION PLAN Above Normal BMI Follow-up D ietary management education, guidance, and counseling * Follow Up: p rn,3 Months * * Electronically signed by Jeanine Galindo NP, COTTON STRIPPER.REALTIME [id number] on 10/23/2024 at 09:02 AM EDT Sign off status: Completed Visit Status: C HK (Check Out) true * Provider: Brisa Galindo ([facility]), REALTIME CAPTIONER Date: 0 10/20/2024 Generated for Sergio beth/Jasmina/eTransmitting on: 0 12/27/2024 12:25 PM EDT History and Physical Notes * HPI (History of Present Illness) Category Sub-Category Detail Notes Category Not es General Patient present s to discuss pain mainagement options as his current provider is currently weaning him off from his medication. Patient also is follwing up for BP med changes and anxiety/depression medications. He states he feels they are working some but could be stronger. Examination Category Sub-Category Detail Notes Category Not es Physical Exam GENERAL: well developed, well nourished, in no acute distress HEAD: normocephalic/atraum atic EYES: pupils equal, round and reactive to light, conjunctivae and sclerae normal MOUTH: mucous membranes ha st, normal oropharynx and posterior pharynx without lesions or exudates, tongue normal, dentition normal NECK: neck supple, no mass es or palpable cervical nodes, trachea midline, thyroid without nodules, masses, tenderness, or enlargement LUNGS: normal respiratory e ffort and clear to auscultation, no wheezes, rales, or rhonchi, good air exchange CARDIO: regular rate and rhy thm, normal S1 and S2, nor murmur, rub, or gallop PULSES: normal capillary ref ill MUSCULOSKELETAL: chronic back pain, s coliosis and disc disease EXTREMITY: no clubbing, cyanosi s, edema, or deformity with normal ROM in both upper and lower bilateral extremities NEUROLOGIC: grossly normal LYMPH NODES: no cervical adenopat hy, nodes normal MENTAL STATUS: alert and oriented x 3, normal mood and affect
--- OUTSIDE RECORDS SUMMARY | 2024-11-12 11:50 | XMS_ITS ---
Author Organization [facility] [place] [facility] Address [address] [facility] [place] [address] Care Team Providers Care Frame Stylist Name Role Phone Kim Barlow Primary Care Provider [phone] Dr. Edmund Del Toro Unavailable [phone] REASON FOR VISIT NEW PT Encounters Encounter Location Date Provider Diagnosis [facility] [address] [place] [address] 11/12/2024 Edmund Del Toro Plan Of Treatment No Information Progress Notes * RAJESH HAYDENOB:1965 ([age] yo M)Acc No.[id number]:11/12/2024 Patient: MONICO GARCIA Provider: Davin Del Toro DDS :1965 A ge:59 Y S ex:Male Date:11/12/2024 Address:[address] [place], [place] [phone] Pcp:Kim Barlow Subjective: * Chief Complaints: * 1 . NEW PT. * Medical History: Objective: * Vitals: Assessment: Plan: * Treatment: * Images: * Electronic signature of Dr. Edmund Del Toro , DMD on 12/27/2024 at 12:25 PM EDT Sign off status: Pending * Provider: Davin Del Toro DDS Date: 11/12/2024 Generated for Sergio ng/Fabeccag/eTransmitting on: 12/27/2024 12:25 PM EDT
--- OUTSIDE RECORDS SUMMARY | 2024-12-09 12:00 | XMS_ITS ---
Author Organization [facility] [place] Address [address] [place] [address] Care Team Providers Care Visual Manager Name Role Phone Carola Galindo Primary Care Provider [phone] REASON FOR VISIT stopped meds Encounters Encounter Location Date Provider Diagnosis [facility] [address] [place] [address] 12/09/2024 Carola Galindo Plan Of Treatment No Information Progress Notes * Edmund [place] ADOB:[birth year] (59 yo M)Acc No.[id number]:12/09/2024 Patient: Jey MARBINMELVINAEdmund :1965 A ge:59 Y S ex:Male Address:[address] [place] [address] * true * Date: Generated for Hakeemi kirit/Belgicag/eTransmitting on: 0 12/27/2024 12:26 PM EDT
--- OUTSIDE RECORDS SUMMARY | 2024-12-09 12:25 | XMS_ITS ---
Author Organization [facility] [place] Address [address] [place] [address] Care Team Providers Care Epidemiologist Name Role Phone Carola Galindo Primary Care Provider [phone] Medications Medication SIG (Take, Route, Frequency, Duration) Notes Start Date End Date Status Triamcinolone Acetonide 0.5 % 1 application Externally BID prn 08/08/2024 Unknown cloNIDine HCl 0.1 MG TAKE 1 TABLET BY MOUTH TWICE A DAY for 90 days Unknown traZODone HCl 50 MG 1 tablet at bedtime as needed Orally Once a day for 30 days 10/20/2024 Not-Taking Cialis 10 MG 1 tablet as needed Orally Once a day for 30 days Dispense as written Unknown oxyCODONE HCl ER 15 MG 1 tablet Orally 6 hours Pain Management Unknown hydroCHLOROthiazide 25 MG 1 tablet in the morning Orally Once a day for 90 days 06/19/2023 Unknown Lisinopril 40 MG TAKE 1 TABLET BY MOUTH EVERY DAY FOR 30 DAYS for 90 days Unknown hydrOXYzine HCl 25 MG 1 tablet as needed Orally BID for anxiety for 30 days 09/08/2024 Not-Taking Lexapro 20 MG 1 tablet Orally Once a day for 30 days take 1/2 tablet po daily for first week than increase dose to 1 tablet po daily 09/08/2024 Not-Taking Encounters Encounter Location Date Provider Diagnosis [facility] [address] [place] [address] 12/09/2024 Carola Galindo Plan Of Treatment No Information Progress Notes * Edmund CHRISTOPHER ADOB:[birth year] (59 yo M)Acc No.[id number]:12/09/2024 Patient: Edmund GARCIA :1965 A ge:59 Y S ex:Male Address:[address] [place] [id number] Subjective: * Chief Complaints: * * Medical History: * Surgical History: * Hospitalization/Major Diagno stic Procedure: * Medications: N ot-Taking/PRNhydrOXYzine HCl 25 MG Tablet 1 tablet as needed Orally BID for anxiety Lexapro(Escitalopram Oxalate) 20 MG Tablet 1 tablet Orally Once a day , Notes to Pharmacist: take 1/2 tablet po daily for first week than increase dose to 1 tablet po dailytraZODone HCl 50 MG Tablet 1 tablet at bedtime as needed Orally Once a day Not-Taking/PRN hydrOXYzine HCl 25 MG Tablet 1 tablet as needed Orally BID for anxiety Not-Taking/PRN Lexapro(Escitalopram Oxalate) 20 MG Tablet 1 tablet Orally Once a day , Notes to Pharmacist: take 1/2 tablet po daily for first week than increase dose to 1 tablet po dailyNot-Taking/PRN traZODone HCl 50 MG Tablet 1 tablet at bedtime as needed Orally Once a day UnknownCialis(Tadalafil) 10 MG Tablet 1 tablet as needed Orally Once a day , Notes to Pharmacist: Dispense as writtencloNIDine HCl 0.1 MG Tablet TAKE 1 TABLET BY MOUTH TWICE A DAY hydroCHLOROthiazide 25 MG Tablet 1 tablet in the morning Orally Once a day Lisinopril 40 MG Tablet TAKE 1 TABLET BY MOUTH EVERY DAY FOR 30 DAYS oxyCODONE HCl ER 15 MG Tablet ER 12 Hour Abuse-Deterrent 1 tablet Orally 6 hours , Notes to Pharmacist: Pain ManagementTriamcinolone Acetonide 0.5 % Cream 1 application Externally BID prn Unknown Cialis(Tadalafil) 10 MG Tablet 1 tablet as needed Orally Once a day , Notes to Pharmacist: Dispense as writtenUnknown cloNIDine HCl 0.1 MG Tablet TAKE 1 TABLET BY MOUTH TWICE A DAY Unknown hydroCHLOROthiazide 25 MG Tablet 1 tablet in the morning Orally Once a day Unknown Lisinopril 40 MG Tablet TAKE 1 TABLET BY MOUTH EVERY DAY FOR 30 DAYS Unknown oxyCODONE HCl ER 15 MG Tablet ER 12 Hour Abuse-Deterrent 1 tablet Orally 6 hours , Notes to Pharmacist: Pain ManagementUnknown Triamcinolone Acetonide 0.5 % Cream 1 application Externally BID prn Objective: * Vitals: * Physical Examination: Assessment: Plan: * Treatment: * Procedure Codes: * true * Date: Generated for Sergio beth/Jasmina/Jackie on: 0 12/27/2024 12:25 PM EDT
[2024-12-27 12:01] VITALS: BP 140/103; PULSE 112; TEMP 36.9; O2SAT 97
--- NOTE | 2024-12-27 12:07 | PC.NURSE ---
Patient reports having dental procedure scheduled for Sunday, reports he called orthopedic office 2 days ago for antibiotics prior to procedure and never received prescription from office.
--- OUTSIDE RECORDS SUMMARY | 2024-12-27 12:25 | XMS_ITS | Patient Health Record ---
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 Name Role Phone Carola Galindo Primary Care Provider [phone] Allergies Allergen (clinical drug ingredient) Drug/Non Drug Allergy documented on EMR Reaction Allergy Type Onset Date Status Cat dander Cat Dander unknown Allergy Active Latex Latex rash/hives Allergy Active pravastatin Pravastatin unknown Drug Allergy Act clementine Results Component Value Reference Range Notes CBC AUTO DIFF (Not yet revie wed by provider) Interpretation: Performing Lab: Notes/Report: [facility] , White Blood Count 7.1 4.0-11.0 10 3/uL Red Blood Count 5.33 4.70-6.10 10 6/uL Hemoglobin 15.9 14.0-18.0 g/dL Hematocrit 45.2 42.0-54.0 % Mean Corpuscular Volume 84.8 80.0-94.0 fL Mean Corpuscular Hemoglobin 29.8 25.9-34.0 pg Mean Corpuscular HGB Conc 35.2 29.9-35.2 g/dL Red Cell Distribution Width 12.5 11.0-15.0 % Platelet Count 259 150-450 10 3/uL Mean Platelet Volume 9.3 9.5-13.5 fL Neutrophils Percent Auto 64.4 43.0-75.0 % Lymphocytes Percent Auto 19.0 20.5-60.0 % Monocytes Percent Auto 11.7 1.7-12.0 % Eosinophils Percent Auto 4.2 0.9-7.0 % Basophils Percent Auto 0.6 0.2-2.0 % Immature Granulocytes Pct Auto 0.1 0.0-0.5 % Neutrophils Absolute Auto 4.6 1.4-6.5 10 3/uL Lymphocytes Absolute Auto 1.4 1.2-3.8 10 3/uL Monocytes Absolute Auto 0.8 0.3-0.8 10 3/uL Eosinophils Absolute Auto 0.3 0.0-0.7 10 3/uL Basophils Absolute Auto 0.0 0.0-0.1 10 3/uL Immature Granulocytes Abs Auto 0.01 0.00-0.03 10 3/uL Performing Lab: see note ML - [facility] LB PROF CHEM 8 (BAS METB) (Not yet reviewed by provider) Interpretation: Performing Lab: Notes/Report: [facility] , Sodium 139 136-145 mmol/L Potassium 3.8 3.5-5.1 mmol/L Chloride 101 98-107 mmol/L Carbon Dioxide 28.6 21.0-32.0 mmol/L Anion Gap 13.2 Glucose 121 74-106 mg/dL Blood Urea Nitrogen 20.0 7.0-18.0 mg/dL Creatinine 0.84 0.70-1.30 mg/dL Estimated GFR ( Bhavya >60 >=60 mL/min/1.73m 2 Estimated GFR (Non- Marian >60 >=60 mL/min/1.73m 2 BUN Creatinine Ratio 23.8 Calcium 8.9 8.5-10.1 mg/dL Performing Lab: see note - [facility] LB XR chest 1V (Not yet reviewe d by provider) Interpretation: Performing Lab: Notes/Report: Source Facility: [facility]-[address] [place] [address] [place] [address] XRay Report Signed Patient: EDMUND CHRISTOPHER MR#: [id number] : 1965 Acct:[id number] Age/Sex: 59 / M ADM Date: 12/26/24 Loc: ER Attending Dr: Ordering Physician: Radha Ascencio Date of Service: 12/26/24 Procedure(s): XR chest 1V Accession Number(s): [id number] cc: CAROLA GALINDO ; Radha Ascencio [place] [id number] Patient Name: EDMUND CHRISTOPHER MRN: [id number] date: 1965 Sex: M Assigned Patient Location: ER Current Patient Location: ED.MAIN Accession/Order Number: [id number] Exam Date: 12/26/2024 18:49 Report Date: 12/26/2024 18:50 At the request of: RADHA ASCENCIO Procedure: XR chest 1V Plain film chest Single view HISTORY: Hypertension COMPARISON: None FINDINGS: SUPPORT DEVICES: None POSTSURGICAL CHANGES: None HEART: Within normal limits PULMONARY ANTONI: Within normal limits MEDIASTINUM: Unremarkable LUNGS AND PLEURA: No acute lung process, pleural effusion or pneumothorax identified. Mild atelectasis BONY STRUCTURES: Intact ADDITIONAL FINDINGS None XR/XR chest 1V IMPRESSION: No acute process. Impression dictated by: Earl Riddle M.D. 12/26/2024 6:50 PM Dictation Location: [place] [address] Electronically authenticated by: [id number] Y Date: 12/26/2024 18:50 Dictated By: Earl Riddle D.O. Signed By: 12/26/241851 DD/ 49 TD/TT: Personnel Administrator: [place] [address] XRay Report Signed Patient: BAYRON CHRISTOPHER PH MR#: [id number] : 1965 Acct:[id number] Age/Sex: 59 / M ADM Date: 12/26/24 Loc: ER Attending Dr: Ordering Physician: Radha Ascencio Date of Service: 12/26/24 Procedure(s): XR chest 1V Accession Number(s): [id number] cc: CAROLA GALINDO ; Radha Ascencio [place] [id number] Patient Name: EDMUND CHRISTOPHER MRN: [id number] date: 1965 Sex: M Assigned Patient Loc ation: ER Current Patient Loca tion: ED.MAIN Accession/Order Numb er: [id number] Exam Date: 12/26/2024 18:49 Report Date: 12/26/2024 18:50 At the request of: RADHA ASCENCIO Procedure: XR chest 1V Plain film chest Sin gle view HISTORY: Hypertension COMPARISON: None FINDINGS: SUPPORT DEVICES: None POSTSURGICAL CHANGES: None HEART: Within normal limits PULMONARY ANTONI: With in normal limits MEDIASTINUM: Unremarkable LUNGS AND PLEURA: No acute lung process, pleural effusion or pneumothorax identified. Mild atelectasis BONY STRUCTURES: Intact ADDITIONAL FINDINGS None X R/XR chest 1V IMPRESSION: No acute process. Impression dictated by: Earl Riddle M.D. 12/26/2024 6:50 PM [facility]ictation [facility] Electronically authenticated by: [id number] Y Date: 12/26/2024 18:50 Dictated By: Augustus Riddle D.O. 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 Measurements Intervals [place] Rate: 84 P: 47 FL: 200 QRS: 90 QRSD: 98 T: 60 QT: 372 QTc: 413 Interpretive Statements 1100 Sinus rhythm 9110 normal ECG No previous ECG available for comparison Electronically Signed On 12-26-2024 19:28:59 EDT by SHAKIRA SMITH M.D. Dictated By: SHAKIRA SMITH Signed By: 12/26/241928 DD/ 24 TD/TT: Personnel Administrator: [place] [address] Electrocardiograph Report Signed Patient: BAYRON CHRISTOPHER PH MR#: [id number] : 1965 Acct:[id number] Age/Sex: 59 / M ADM Date: 12/26/24 Loc: ER Attending Dr: Ordering Physician: Radha Ascencio Date of Service: 12/26/24 Procedure(s): ECG 12 lead Accession Number(s): [id number] cc: [facility] Test Date: 2024-12-26 Pat Name: EDMUND OTTO Department: 97 Room: - Gender: Male Figurine Maker: : 1965 Cadence henson By: 1812 Order Number: [id number] Reading MD: SHAKIRA SMITH M.D. Measurements Intervals [place] Rate: 84 P: 47 FL: 200 QRS: 90 QRSD: 98 T: 60 QT: 372 QTc: 413 Interpretive Statements 1100 Sinus rhythm 9110 normal ECG No previous ECG avai lable for comparison Electronically [place]pc[place] d On 12-26-2024 19:28:59 EDT by SHAKIRA SMITH M.D. Dictated By: SHAKIRA SMITH Signed By: 12/26/241928 DD/ 24 TD/TT: Personnel Administrator: Reason For Referral No Information Medications Medication SIG (Take, Route, Frequency, Duration) Notes Start Date End Date Status hydroCHLOROthiazide 25 MG 1 tablet in the morning Orally Once a day for 90 days 06/19/2023 Unknown Triamcinolone Acetonide 0.5 % 1 application Externally [...] tablet Orally 6 hours Pain Management Unknown Lisinopril 40 MG TAKE 1 TABLET [...] to 1 tablet po daily 09/08/2024 Not-Taking Social History Tobacco Use: Social History Observation [...] User Heavy cigarett e smoker (20-39 cigs/day) Alcohol Screen (Audit-C) Question Answer Notes Did you have a drink contain ing alcohol in the past year? Yes How many drinks did you have on a typical day when you were drinking in the past year? 1 or 2 drinks (0 point) How often did you have a dri nk containing alcohol in the past year? Less than monthly (1 point) Points 1 Interpretation Negative AUDIT-C (Standard) Question Answer Notes Did you have a drink containing alcohol in the p ast year? 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) Active confirmed Problem 027588930 Ganglion, right wrist (M67.431) Active confirmed Problem Total hip replacement prosthesis (662308728) Presence of unspecified artificial hip joint (Z96.649) Active confirmed Problem Hyperlipidemia (87160542) Hyperlipidemia (E78.5) Active confirmed Problem Hypertension (35153458) Hypertension (I10) Active confirmed Problem Cervical radiculopathy (20464665) Cervical radiculopathy (M54.12) Active confirmed Problem Anxiety (39755174) Anxiety (F41.9) Active confi rmed Problem Stroke (228136662) Stroke (I63.9) Active confir med Problem Arthritis (0256081) Arthritis (M19.90) Active confirmed Problem Depression (437888713) Depression (F32.9) Active confirmed Problem 86543956 Smoker (F17.200) Active confirmed Problem Insomnia (788307517) Insomnia (G47.00) Active confirmed Problem Transient ischemic attack (125100517) TIA (transient ischemic attack) (G45.9) Active confirmed Problem Degeneration of lumbar intervertebral disc (36103861) Degenerative disc disease, lumbar (M51.36) Active confirmed Problem Sciatica (32048629) Sciatica (M54.30) Active confirmed Problem Chronic pain (91607145) Chronic pain (G89.29) Active confirmed Problem Colonic polyp (74791168) Colonic polyp (K63.5) Active confirmed Problem 734454230 Erectile dysfunction, unspecified erectile dysfunction type (N52.9) Active confirmed Problem Current smoker (91681110) Current smoker (F17.200) Active confirmed Problem Overweight (378200408) Over weight (E66.3) Active confirmed Problem Lump (7504383) Lump (R22.9) Active confirmed Problem Shoulder pain (11116534) Pain in shoulder (M25.519) Active confirmed Problem Poor concentration (70090625) Poor concentration (R41.840) Active confirmed Problem Mixed anxiety and depressive disorder (293040366) Anxiety and depression (F41.9) Active confirmed Problem 08401008 Hypertension, unspecified type (I10) Active confirmed Vital Signs Blood pressure diastolic 106 mm Hg 10/20/2024 Height 64 in 10/20/2024 Blood pressure systolic 162 mm Hg 10/20/2024 Weight 167.8 lbs 10/20/2024 BMI 28.8 kg/m2 10/20/2024 Encounters Encounter Location Date Provider Diagnosis [facility] [address] [place] [address] 05/30/2024 Carola Galindo [facility] [address] [place] [address] 12/09/2024 Carola Galindo [facility] [address] [place] [address] 12/09/2024 Carola Galindo [facility] [address] [place] [address] 05/20/2024 Carola Galindo Hypertension I10 ; Chronic pain G89.29 and Wellness examination Z00.00 [facility] [address] [place] [address] 08/08/2024 Carola Galindo Eczema L30.9 ; Depression F32.9 and Hypertension I10 [facility] [address] [place] [address] 09/08/2024 Carola Galindo Anxiety F41.9 ; Chronic pain G89.29 and Hypertension, unspecified type I10 [facility] [address] [place] [address] 10/20/2024 Caorla Galindo Insomnia G47.00 ; Anxiety and depression F41.9 and Hypertension I10 Assessments Encounter Date Diagnosis (ICD Code) Assessment Notes Treatment Notes Treatment Clinical Notes Section Notes 05/20/2024 Hypertension (ICD-10 - I10) record BP report 1-2 weeks 05/20/2024 Chronic pain (ICD-10 - G89.29) current pain man tapering him off oxy discussed other options, Dr Verde, [facility] if needed 08/08/2024 Eczema (ICD-10 - L30.9) fu derm if not improving 08/08/2024 Depression (ICD-10 - F32.9) consider counseling fu one month 09/08/2024 Anxiety (ICD-10 - F41.9) fu one month 09/08/2024 Chronic pain (ICD-10 - G89.29) look for different pain managment? current specialist weaning him down unhappy with this does not want referral for back pain- neurosurg etc 10/20/2024 Insomnia (ICD-10 - G47.00) 10/20/2024 Anxiety and depression (ICD-10 - F41.9) 10/20/2024 Hypertension (ICD-10 - I10) states BP ok at home, states high because stress and pain today continue monitor 09/08/2024 Hypertension, unspecified type (ICD-10 - I10) recommend adding clonidine back 08/08/2024 Hypertension (ICD-10 - I10) bring BP cuff next visit continue monitor increase HCTZ dose pt stating BP good at home 05/20/2024 Wellness examination (ICD-10 - Z00.00) ROS done exam done encouraged labs, CT Lung screening 05/20/[address] BP Plan Of Treatment Pending Test Test Name Order Date CMP (COMPLETE METABOLIC PANEL) 3 HEMOGLOBIN A1C (GLYCO) 10/31/2022 INSULIN, TOTAL 10/31/2022 LIPID PANEL (CHOL/TRIG/HDL/LDL) 11/01/19 23 CBC WITH DIFF 10/31/2022 PSA, PROSTATE-SPECIFIC ANTIGEN 3 URIC ACID 10/31/2022 STOOL OCCULT BLOOD 10/31/2022 CBC AUTO DIFF 12/26/2024 HEPATITIS PANEL, ACUTE 06/19/2023 HERPES SIMPLEX 1 or 2 IGG 06/19/2023 HIV 1 AND 2 WITH REFLEX 06/19/2023 PROF CHEM 8 (BAS METB) 12/26/2024 RPR QUAL REFLEX TO QUANT 06/19/2023 THYROID PANEL (T4/TSH/FREE T3) 3 ECG 12 lead 12/26/2024 XR chest 1V 12/26/2024 Insurance Providers Payer Name Payer Address Payer Phone Subscriber Number Group Number Insured Name Patient Relationship to Insured Coverage Start Date Coverage End Date [employer] ADV PLAN [address] [address] [place] [address] [id number] Edmund Christopher Self - patient is the insured Medications Administered Medication Instructions Date of Administration Dosage Notes Rocephin 06/28/2023 0.5 g 500 mg Medical (General) History Medical History History ICD Code Major depressive disorder, single episod e, unspecified F32.9 Chronic obstructive pulmonary disease, u nspecified J44.9 Arthritis M19.90 Degenerative disc disease, lumbar M51.36 Cervical radiculopathy M54.12 Sciatica M54.30 Lump R22.9 Over weight E66.3 Hyperlipidemia E78.5 Poor concentration R41.840 Current smoker F17.200 Stroke I63.9 Hypertension I10 Presence of unspecified artificial hip j oint Z96.649 Pain in shoulder M25.519 Surgical History Surgery Date(Month/Year) Colonoscopy 11/12/2023 Spine Surgery Spinal Cord Stimulator Hospitalization History Reason Date(Month/Year) denies
--- OUTSIDE RECORDS SUMMARY | 2024-12-27 12:26 | XMS_ITS | CCD ---
Author Organization [facility] CliniSydc Care Team Providers Care Draw Furnace Tender Name Role Phone Omayra Gonzales Attending Unavailable MADDY COTTO Primary Care Unavailable Omayra Gonzales Admitting Unavailable LAURA Felipe Primary Care Provider LAURA Felipe Attending Provider MD Maddy Cabezas II Attending Provider Unavailable Primary Care Provider UnavailShreyas Gregory Primary Care Provider MADDY CABEZAS Admitting Unavailable MADDY CABEZAS Attending Unavailable SHREYAS FELIPE Primary Care Unavailable MADDY CABEZAS Referring Unavailable LAURA Felipe Primary Care Provider DANILO Rodriguez Emergency Provider [phone] SHREYAS FELIPE Admitting Unavailable SHREYAS FELIPE Attending Unavailable SHREYAS FELIPE Consulting Unavailable MISC, DR HERZOG Attending Unavailable MISC, DR HERZOG Admitting Unavailable SHREYAS FELIPE Admitting Unavailable SHREYAS FELIPE Attending Unavailable SHREYAS FELIPE Consulting Unavailable Unavailable Primary Care Provider UnavailASHLYN BuiEDNA Yeung Emergency Provider LAURA Felipe Primary Care Provider [phone] LAURA Farrell Attending Provider JESSICA DOTSON Referring Unavailable RAÚL SULLIVAN Attending Unavailable JEMTTI, JESSICA T Referring Unavailable RICVILMATTI, JESSICA T Referring Unavailable RICVILMATTI, JESSICA T Referring Unavailable SELF Referring Unavailable RIGOBERTO JESSICA T Attending Unavailable LAURA Felipe Primary Care Provider Bullimore, ENGINE TEST CELL TECHNICIAN-BC Nataliia E Emergency Provider [phone] Ly, DO Tuyet Florez Attending Provider Pcp WINDLACE MACHINE OPERATOR, No Primary Care Provider Unavaildiane Jerome MD, Naresh Lehman Primary Care Provider [phone] Josie, Shreyas Angelia Primary Care Unavailable Tuyet Aadms Attending Unavailable Angie, Tuyet L Admitting Unavailable [...] Propensity to adverse reactions to drug (disorder) [facility] (20 sources) Latex; Translations: [LATEX] Allergy to substance 8 Hives, Rash [facility] (8 sources) Adhesive Tape; Translations: [ADHESIVE TAPE (ROSINS)] Allergy to substance 3 [facility] Work Phone: (8 sources) Cat Dander; Translations: [CAT DANDER] Drug Allergy 3 Other: See Comments [facility] (2 sources) Cat Allergy to substance 4 Unknown Reaction [facility] (6 sources) Pravastatin Drug Allergy 3 [facility] (3 sources) Cat Hair Extract Allergy to substance 3 [facility] (2 sources) Wound Dressing Adhesive Drug Allergy 3 [facility] NEGATED: Highlighted row has been ruled out! (2 sources) Other Propensity to adverse reactions 3 Other (See Comments) [facility] Work Phone: Medications Current Medications Medication Drug [...] every 4 hours as needed for Pain. [id number] actuat albuterol 0.09 mg/actuat metered dose [...] Comment on above: Take 1 capsule by [facility] once daily. 0.5 ml HYDROmorphone hydrochloride 1 [...] aftercare (1 source) Antibiotic prophylaxis indicated; Translations: [care home (current) use of antibiotics] 12-25-2024 Episodic Other [...] Reference Range Facility No Panel Informationon 07-28 [facility] Healthcare COVID-19 / Flu A/B / RSV [...] or Cepheid Disclaimer revoked sooner. PERFORMED BY: [place] [address] PATHOLOGIST MANAGEMENT EXPERT MAGGIE RICARDO M.D. Normal [facility] Comment on above: Performed By: #### C OVID19 FLU RSV, CEPHEID NEG #### [address] Cepheid COVID PCR Negativeon 07-15-2024 SARS-CoV-2 (COVID-19) RNA DENISE+probe Ql (Unsp spec) Negative Normal Negative [facility] Comment on above: Result Comment: This is a duplicate Cepheid Xpert Xpress CoV-2/Flu/RSV Plus RNA by RT-PCR result to be used for statistical tracking purpose only. PERFORMED BY: [place] [address] PATHOLOGIST MANAGEMENT EXPERT MAGGIE RICARDO M.D. Performed By: #### C OVID19 FLU RSV, CEPHEID NEG #### [place] [id number] [facility] XR chest 1V portableon 07-15 XR chest 1V portable [facility] [address] [place] [address] XRay Report Signed Patient: Edmund Christopher MR#: [id number] : 1965 Acct:[id number] Age/Sex: 59 / M ADM Date: 07/15/24 Loc: ER Room: Type: [facility] ER Attending Dr: Copies to: Jessica Jensen [...] Maya Trent M.D.07/15/2024 8:32 AM Dictation Location: [place] [address] Transcribed By: [facility] 07/15/24831 Dictated By: Maya Trent MD 07/15/2404 Signed By: 07/15/24831 Normal [facility] No Panel Informationon 06-03 NOM[facility] [...] taken Amount of lidocaine used: 0.6 cc [facility] [employer] [facility] Curry 11-12-2023 L Specimen: Received: 11/12/23 Status: EMELYN Brooke Num: [id number] Spec Type: Surgical Subm Dr: Tuyet Adams DO Tissues: A Colon Biopsy (ASC POLYPS) Procedures: HE/2, Gross/Micro L4 Age/ Patient Sex Location Account Attending Physician Edmund Christopher 58/M [id number] Tuyet Adams DO SPEC NUM: [id number] RECD: 11/12/23 STATUS: EMELYN BROOKE NUM: [id number] THONY: 11/12/23- SUBM DR: Tuyet Adams DO ENTERED: 11/12/23 [facility] DR: SPEC TYPE: Surgical DEPT: S [...] in A1. Clinical history: ABD CPT Codes 35811 -------- -------- Specimen: [id number] Received: 11/12/23 Status: EMELYN Brooke Num: [id number] Spec Type: Surgical Subm Dr: Tuyet Adams DO Tissues: A Colon Biopsy (ASC POLYPS) Procedures: HE/2, Gross/Micro L4 -------- Patient: Edmund Christopher [id number] (Continued) -------- Signed (signature on file) Jennifer Pino MD 11/13/231046 Normal [facility] Alanine aminotransferase [En zymatic activity/volume] in Serum or PlasmaOrdered By: Nataliia Banks on 10-10-2023 ALT [Catalytic activity/Vol] 24 U/L Normal 7-52 [facility] Comment on above: Performed By: #### C BC, CMP #### [place] [id number] [facility] Albumin [Mass/volume] in Ser um or Plasma by Bromocresol green (BCG) dye binding methoOrdered By: Nataliia Bullimore on 10-10-2023 Albumin BCG dye [Mass/Vol] 4.3 g/dL 3.5-5.7 [facility] Alkaline phosphatase [Enzyma tic activity/volume] in Serum or PlasmaOrdered By: Nataliia Bullimore on 10-10-2023 ALP [Catalytic activity/Vol] 74 U/L Normal 34-104 [facility] Comment on above: Performed By: #### C BC, CMP #### [address] Aspartate aminotransferase [ Enzymatic activity/volume] in Serum or PlasmaOrdered By: Nataliia Bullimore on 10-10-2023 AST [Catalytic activity/Vol] 26 U/L Normal 13-39 [facility] Comment on above: Performed By: #### C BC, CMP #### [address] Automated basophil %Ordered By: Nataliia Bullimore on 10-10-2023 Basophils/100 WBC (Bld) 0.4 % Normal . [facility] Comment on above: Performed By: #### C BC, CMP #### [address] Automated basophil countOrde red By: Nataliia Bullimore on 10-10-2023 Basophils (Bld) [#/Vol] 0.0 10*3/uL Normal 0.0-0.2 [facility] Comment on above: Result Comment: PERF ORMED BY: [place] [address] PATHOLOGIST MANAGEMENT EXPERT SIMÓN MARTINES M.D. Performed By: #### C BC, CMP #### [address] Automated blood monocyte cou ntOrdered By: Nataliia Bullimore on 10-10-2023 Monocytes (Bld) [#/Vol] 0.4 10*3/uL Normal 0.0-0.8 [facility] Comment on above: Performed By: #### C BC, CMP #### [address] Automated eosinophil %Ordere d By: Nataliia Bullimore on 10-10-2023 Eosinophils/100 WBC (Bld) 0.5 % Normal . [facility] Comment on above: Performed By: #### C BC, CMP #### [address] Automated eosinophil countOr dered By: Nataliia Bullimore on 10-10-2023 Eosinophils (Bld) [#/Vol] 0.0 10*3/uL Normal 0.0-0.45 [facility] Comment on above: Performed By: #### C BC, CMP #### [address] Automated monocyte %Ordered By: Nataliia Bullimore on 10-10-2023 Monocytes/100 WBC (Bld) 4.4 % Normal . [facility] Comment on above: Performed By: #### C BC, CMP #### [address] Automated neutrophil %Ordere d By: Nataliia Bullimore on 10-10-2023 Neutrophils/100 WBC (Bld) 85.2 % Normal . [facility] Comment on above: Performed By: #### C BC, CMP #### [address] Automated urine color determ inationOrdered By: Nataliia Jocelyn on 10-10-2023 Color (U) Yellow Normal Yellow [facility] Comment on above: Order Comment: Name Collection Type:: Clean-Voided Midstream Performed By: #### U A #### [address] Bilirubin Test strip Ql (U)O rdered By: Nataliia Bullimore on 10-10-2023 Bilirubin Ql (U) Negative Negative [facility] Bilirubin.total [Mass/volume ] in Serum or PlasmaOrdered By: Nataliia Bullimore on 10-10-2023 Bilirubin [Mass/Vol] 0.5 mg/dL Normal 0.3-1.[address] [facility] Comment on above: Performed By: #### C BC, CMP #### [facility] [address] abdomen pelvis w conon CT abdomen pelvis w con [facility] [address] [place] [address] CT Scan Report Signed Patient: Edmund Christopher MR#: [id number] : 1965 Acct:[id number] Age/Sex: 58 / M ADM Date: 10/10/23 Loc: ER Room: Type: [facility] ER Attending Dr: Copies to: LUIS Keenan [...] Sanz Jr., Lamonte10/10/2023 3:30 PM Dictation Location: [place] [address] Transcribed By: [facility] 10/10/23 1530 Dictated By: Edmund Sanz Jr, DO 10/10/23 1527 Signed By: 10/10/23 1530 Normal [facility] Calcium [Mass/volume] in Ser um or PlasmaOrdered By: Nataliia Banks on 10-10-2023 Calcium [Mass/Vol] 9.8 mg/dL Normal 8.6-10.3 [facility] Comment on above: Performed By: #### C BC, CMP #### [address] Carbon dioxide, total [Moles /volume] in Serum or PlasmaOrdered By: Nataliia Banks on 10-10-2023 CO2 [Moles/Vol] 26.4 mmol/L Normal 21.0-31.0 [facility] Comment on above: Performed By: #### C BC, CMP #### [address] Chloride [Moles/volume] in S tammy or PlasmaOrdered By: Nataliia Banks on 10-10-2023 Chloride [Moles/Vol] 104 mmol/L Normal 98-[address] [facility] Comment on above: Performed By: #### C BC, CMP #### [address] Complete Blood Count Auto Di ffon 10-10-2023 Mean Corpuscular HGB Conc 33.6 g/dL Normal 32.5-35.6 [facility] Comment on above: Performed By: #### C BC, CMP #### [place] [address] [place] Monocytes/100 WBC (Bld) 14.04 % Normal 0.00-20.00 [facility] Comment on above: Performed By: #### C BC, CMP #### [address] NRBC% 0.1 /100{WBC} Normal 0-0.5 [facility] Comment on above: Performed By: #### C BC, CMP #### [address] Comprehensive Metabolic Pane curry 10-10-2023 Albumin [Mass/Vol] 4.3 g/dL Normal 3.5-5.7 [facility] Comment on above: Performed By: #### C BC, CMP #### [address] Creatinine Clr Calc Pharmacy 92.21 Normal [facility] Comment on above: Result Comment: PERF ORMED BY: [place] [address] PATHOLOGIST MANAGEMENT EXPERT SIMÓN MARTINES M.D. Performed By: #### C BC, CMP #### [address] GFR/1.73 sq M.predicted MDRD (S/P/Bld) [Vol rate/Area] mL/min/{1.73_m2} Normal [facility] Comment on above: Performed By: #### C BC, CMP #### [address] Creatinine [Mass/volume] in Serum or PlasmaOrdered By: Nataliia Banks on 10-10-2023 Creatinine [Mass/Vol] 0.77 mg/dL Normal 0.70-1.30 [facility] Comment on above: Performed By: #### C BC, CMP #### [address] Erythrocyte distribution wid th [Ratio] by Automated countOrdered By: Nataliia Danielore on 10-10-2023 Erythrocyte distribution width (RBC) [Ratio] 13.4 % Normal 12.0-14.8 [facility] Comment on above: Performed By: #### C BC, CMP #### [address] [place] [address] [place] Erythrocytes [#/volume] in B lood by Automated countOrdered By: Nataliia Banks on 10-10-2023 RBC (Bld) [#/Vol] 5.23 10*6/uL Normal 3.90-5.60 [facility] Comment on above: Performed By: #### C BC, CMP #### [address] Glucose [Mass/volume] in Ser um or PlasmaOrdered By: Nataliia Jocelyn on 10-10-2023 Glucose [Mass/Vol] 97 mg/dL Normal 70-100 [facility] Comment on above: ADA recommended refe rence rangeRandom Glucose Reference Range is dependent on time and content of last meal. Glucose of more than 200 mg/dL in a nonstressed, ambulatory subject supports the diagnosis of Diabetes Mellitus. Result Comment: [place] om Glucose Reference Range is dependent on time and content of last meal. Glucose of more than 200 mg/dL in a nonstressed, ambulatory subject supports the diagnosis of Diabetes Mellitus. ADA recommended reference range Performed By: #### C BC, CMP #### [address] Hematocrit [Volume Fraction] of Blood by Automated countOrdered By: Nataliia Banks on 10-10-2023 Hematocrit (Bld) [Volume fraction] 46.4 % Normal 38.8-50.0 [facility] Comment on above: Performed By: #### C BC, CMP #### [address] Hemoglobin [Mass/volume] in BloodOrdered By: Nataliia Banks on 10-10-2023 Hemoglobin (Bld) [Mass/Vol] 15.6 g/dL Normal 13.0-17.0 [facility] Comment on above: Performed By: #### C BC, CMP #### [address] Ketones Auto test strip (U) [Mass/Vol]Ordered By: Nataliia Banks on 10-10-2023 Ketones (U) [Mass/Vol] Negative Negative [facility] Leukocytes [#/volume] correc ronaldo for nucleated erythrocytes in Blood by Automated counOrdered By: Nataliia Gamalimore on 10-10-2023 WBC corrected for nucl RBC Auto (Bld) [#/Vol] 9.9 10*3/uL 4.1-10.5 [facility] Leukocytes [#/volume] in Blo od by Automated countOrdered By: Nataliia Bullimore on 10-10-2023 WBC (Bld) [#/Vol] 9.9 10*3/uL Normal 4.1-10.5 [facility] Comment on above: Performed By: #### C BC, CMP #### [address] Lymphocytes [#/volume] in Bl ood by Automated countOrdered By: Nataliia Yeungimore on 10-10-2023 Lymphocytes (Bld) [#/Vol] 0.9 10*3/uL Low 1.00-4.8 [facility] Comment on above: Performed By: #### C BC, CMP #### [address] Lymphocytes/100 leukocytes i n Blood by Automated countOrdered By: Nataliia Banks on 10-10-2023 Lymphocytes/100 WBC (Bld) 9.5 % Normal . [facility] Comment on above: Performed By: #### C BC, CMP #### [facility] [address] [place] [address] MCH [Entitic mass] by Automa ronaldo countOrdered By: Nataliia Bullimore on 10-10-2023 MCH (RBC) [Entitic mass] 29.8 pg Normal 27.5-35.2 [facility] Comment on above: Performed By: #### C BC, CMP #### [address] MCHC Auto (RBC) [Mass/Vol]Or dered By: Nataliia Bullimore on 10-10-2023 MCHC (RBC) [Mass/Vol] 33.6 g/dL 32.5-35.6 [facility] MCV [Entitic volume] by Auto mated countOrdered By: Nataliia Banks on 10-10-2023 MCV (RBC) [Entitic vol] 88.7 fL Normal 83.5-101 [facility] Comment on above: Performed By: #### C BC, CMP #### [address] Monocyte distribution width [Entitic volume] in Blood by AutomatedOrdered By: Nataliia Banks on 10-10-2023 Monocyte distribution width Auto (Bld) [Entitic vol] 14.04 % 0.00-20.00 [facility] Neutrophils [#/volume] in Bl ood by Automated countOrdered By: Nataliia Banks on 10-10-2023 Neutrophils (Bld) [#/Vol] 8.4 10*3/uL High 1.8-7.7 [facility] Comment on above: Performed By: #### C EDNA, CMP #### [address] Nitrite Test strip Ql (U)Ord ered By: Nataliia Banks on 10-10-2023 Nitrite Ql (U) Negative Negative [facility] No Panel InformationOrdered By: Nataliia Banks on 10-10-2023 Estimated GFR (CKD-EPI) > 60.0 mL/Min [facility] Creatinine Clearance (Chem 92.21 [facility] Nucleated erythrocytes [Pres ence] in Blood by Automated countOrdered By: Nataliia Banks on 10-10-2023 Nucleated RBC Auto Ql (Bld) 0.1 /100{WBC} 0-0.5 [facility] Platelet mean volume [Entiti c volume] in Blood by Automated countOrdered By: Nataliia Banks on 10-10-2023 Platelet mean volume (Bld) [Entitic vol] 7.2 fL Normal 6.6-10.1 [facility] Comment on above: Performed By: #### C BC, CMP #### [address] Platelets [#/volume] in Bloo d by Automated countOrdered By: Nataliia Banks on 10-10-2023 Platelets (Bld) [#/Vol] 313 10*3/uL Normal 150-450 [facility] Comment on above: Performed By: #### C BC, CMP #### [address] Potassium [Moles/volume] in Serum or PlasmaOrdered By: Nataliia Bullimore on 10-10-2023 Potassium [Moles/Vol] 4.4 mmol/L Normal 3.5-5.1 [facility] Comment on above: Performed By: #### C BC, CMP #### [address] Protein Auto test strip (U) [Mass/Vol]Ordered By: Nataliia Bullimore on 10-10-2023 Protein (U) [Mass/Vol] Negative Negative [facility] Protein [Mass/volume] in Ser um or PlasmaOrdered By: Nataliia Bullimore on 10-10-2023 Protein [Mass/Vol] 7.0 g/dL Normal 6.4-8.9 [facility] Comment on above: Performed By: #### C BC, CMP #### [address] Serum globulin measurement b y calculation (mass/volume)Ordered By: Nataliia Bullimore on 10-10-2023 Globulin (S) [Mass/Vol] 2.7 g/dL Normal [facility] Comment on above: Performed By: #### C BC, CMP #### [facility] [address] [place] [address] Serum or plasma albumin/glob ulin mass ratioOrdered By: Nataliia Bullimore on 10-10-2023 Albumin/Globulin [Mass ratio] 1.6 {ratio} Normal [facility] Comment on above: Performed By: #### C BC, CMP #### [address] Serum or plasma anion gap de terminationOrdered By: Nataliia Bullimore on 10-10-2023 Anion gap [Moles/Vol] 12.0 mmol/L Normal 6.0-15.0 [facility] Comment on above: Performed By: #### C EDNA, CMP #### [address] Sodium [Moles/volume] in Ser um or PlasmaOrdered By: Nataliia Bullimore on 10-10-2023 Sodium [Moles/Vol] 138 mmol/L Normal 136-145 [facility] Comment on above: Performed By: #### C EDNA, CMP #### [address] Specific gravity Auto test s trip (U) [Rel density]Ordered By: Naatliia Bullimore on 10-10-2023 Specific gravity (U) [Rel density] 1.008 1.001-1.030 [facility] Urea nitrogen [Mass/volume] in Serum or PlasmaOrdered By: Nataliia Bullimore on 10-10-2023 Urea nitrogen [Mass/Vol] 20 mg/dL Normal 7-25 [facility] Comment on above: Performed By: #### C EDNA, CMP #### [address] Urinalysison 10-10-2023 Appearance (U) Clear Normal Clear [facility] Comment on above: Order Comment: Name Collection Type:: Clean-Voided Midstream Performed By: #### U A #### [address] Bilirubin,Urine Negative Normal Negative [facility] Comment on above: Order Comment: Name Collection Type:: Clean-Voided Midstream Performed By: #### U A #### [address] Glucose Ql (U) Normal Normal Normal [facility] Comment on above: Order Comment: Name Collection Type:: Clean-Voided Midstream Performed By: #### U A #### [address] Ketones Ql (U) Negative Normal Negative [facility] Comment on above: Order Comment: Name Collection Type:: Clean-Voided Midstream Performed By: #### U A #### [address] Leukocyte esterase Test strip Ql (U) Negative Normal Negative [facility] Comment on above: Order Comment: Name Collection Type:: Clean-Voided Midstream Performed By: #### U A #### [address] Nitrite,Urine Negative Normal Negative [facility] Comment on above: Order Comment: Name Collection Type:: Clean-Voided Midstream Performed By: #### U A #### [address] Occult Blood,Urine Negative Normal Negative [facility] Comment on above: Order Comment: Name Collection Type:: Clean-Voided Midstream Result Comment: PERF ORMED BY: [place] [address] PATHOLOGIST MANAGEMENT EXPERT SIMÓN MARTINES M.D. Performed By: #### U A #### [address] Protein,Urine Negative Normal Negative [facility] Comment on above: Order Comment: Name Collection Type:: Clean-Voided Midstream Performed By: #### U A #### [address] Specificy [place],Urine 1.008 Normal 1.001-1.030 [facility] Comment on above: Order Comment: Name Collection Type:: Clean-Voided Midstream Performed By: #### U A #### [address] Urobilinogen,Urine Normal Normal Normal [facility] Comment on above: Order Comment: Name Collection Type:: Clean-Voided Midstream Performed By: #### U A #### [address] Urine clarity by refractomet ry automatedOrdered By: Nataliia Banks on 10-10-2023 Clarity Refractometry automated (U) Clear Clear [facility] Urine glucose measurement by automated test strip (mass/volume)Ordered By: Nataliia Banks on 10-10-2023 Glucose Auto test strip (U) [Mass/Vol] Normal mg/dL Normal [facility] Urine hemoglobin detection b y automated test stripOrdered By: Nataliia Banks on 10-10-2023 Hemoglobin Auto test strip Ql (U) Negative Negative [facility] Urine leukocyte esterase det ection by automated test stripOrdered By: Nataliia Banks on 10-10-2023 Leukocyte esterase Auto test strip Ql (U) Negative Negative [facility] Urine pH measurement by auto mated test stripOrdered By: Nataliia Banks on 10-10-2023 pH (U) 5.5 [pH] Normal 5.0-9.0 [facility] Comment on above: Order Comment: Name Collection Type:: Clean-Voided Midstream Performed By: #### U A #### [address] Urobilinogen Auto test strip (U) [Mass/Vol]Ordered By: Nataliia Banks on 10-10-2023 Urobilinogen (U) [Mass/Vol] Normal mg/dL Normal [facility] CNOVon 08-07-2023 CNOV Office Visit (MAGYSES ) EDMUND CHRISTOPHER ([id number]) 1965 M Date Time Provider Department 08/07/23 [...] LS 04/01/10 Performed by BRUNO VICTORIA at [facility] LORCEZAR NJX DX/THER AGT PVRT FACET JT LMBR/SAC 1 LEVEL 04/29/2010 Performed by BRUNO VICTORIA at [facility], [...] bedtime. PERCOCET (more content not included)... Normal 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 EMG(NEURO/NI)on 04-13-2023 [facility] MRI CERVICAL SPINE WO IVCONo n [...] arthropathy. Moderate canal narrowing. Moderate right and qwhw-jh-cdhvtian left foraminal narrowing. C5-C6: Posterior osteophytic ridge. Moderate spinal canal stenosis with canal measuring 8 mm. Left foraminal stenosis. Xbwu-mn-ktjhdfyv right foraminal narrowing. Slight ventral impression on the cord. C6-C7: Posterior disc and osteophyte complex. Ygdo-qf-nvmfnmwo canal narrowing. Moderate foraminal narrowing bilaterally. C7-T1: Spondylolisthesis. Bilateral foraminal stenosis. Ybbs-cn-lyukvxlj canal narrowing. 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 The degree of spinal canal stenosis is very similar to the previous study. Multilevel foraminal stenosis. Grade 2 spondylolisthesis C7 on T1. This is unchanged from the previous study. Anatomic Variant: None. Assume 7 cervical vertebrae with counting from the craniocervical junction. Internal Recruiter: [place] Transcribe Date/Time: Apr 13 2023 7:53P Dictated by : MARLEY HURT MD This examination was interpreted and the report reviewed and electronically signed by: MARLEY HURT MD on Apr 13 2023 8:01PM EST [id number] N Normal [facility] CNOVon 01-18-2023 CNOV Office Visit ([facility] ) EDMUND CHRISTOPHER ([id number]) 1965 M Date Time Provider Department 01/18/23 8:15 AM JESSICA DOTSON [facility] During your visit today, we recorded the following information about you: Jessica Dotson MD 01/18/2023 5:40 PM Addendum [facility] NOTE Department of Orthopaedics Jessica Dotson M.D. NAME: Edmund Christopher CLINIC NO.: [id number] DATE: January 18, 2023 Parth returns for [...] region [M48.02] Order(s):MRI CERVICAL SPINE WO IVCON [[id number]] Order #: [id number] FUTURE EMG(NEURO/NI) [[id number]] Order #: [id number]: 1 FUTURE Prescriptions as of 01/18/2023 - lisinopril (ZESTRIL, PRINIVIL) 10 mg tablet - oxyCODONE IR (ROXICODONE) 10 mg tab - pregabalin (LYRICA) 100 mg capsule Take 100 mg by mouth four times daily. - Meperidine HCl 100 mg tablet Take 100 mg by mouth daily at bedtime. - PERCOCET 10-325 mg tablet - oxyCODONE-acetaminoph en (more content not included)... Normal [facility] No Panel Informationon 01-18 [facility] XR SHLDR >/=3V AP/AQUILINO AP/OTH R [...] FINDINGS CONSISTENT WITH ROTATOR CUFF TEARING DESCRIBED Internal Recruiter: [facility] Transcribe Date/Time: Jan 18 2023 8:20A Dictated by : JENIFER HAMMER MD This examination was interpreted and the report reviewed and electronically signed by: JENIFER HAMMER MD on Jan 18 2023 8:28AM EST [id number] N Normal [facility] XR SHLDR >/=3V AP/AQUILINO AP/OTH R RTon [...] FINDINGS CONSISTENT WITH ROTATOR CUFF TEARING DESCRIBED Internal Recruiter: [place] Transcribe Date/Time: Jan 18 2023 8:20A Dictated by : JENIFER HAMMER MD This examination was interpreted and the report reviewed and electronically signed by: JENIFER HAMMER MD on Jan 18 2023 8:28AM EST [id number] N Normal [facility] INSULINon 11-04-2022 Insulin 3.0 uIU/mL Normal 2.6-24.9 [facility] Comment on above: Performed By: #### I NSULIN #### [facility] [address] [place] [address] Dr. Stacy Saxena OCC BLD IMMUNO SCREENon 10-15 OCCULT BLOOD Negative Normal NEGATIVE [facility] Comment on above: Performed By: #### O BSCRN #### [facility] [address] [address] [address] Stacy Saxena TESTOSTERONE, TOTALon 2022 Testosterone [Mass/Vol] 480 ng/dL Normal 264-916 [facility] Comment on above: Result Comment: Adul t male reference interval is based on a population of healthy nonobese males (BMI <30) between 19 and 39 years old. katherine Lucia.al. JCEM 2017,102;[id number]. PMID: [id number]. Performed By: #### L IPID, URIC, CMP, T7, TSH #### [facility] [address] [address] [address] Stacy Saxena CBC AUTO DIFFon 11-03-2022 BASO # 0.0 103/ul Normal 0.0-0.1 [facility] Comment on above: Performed By: #### C BC #### [facility] [address] [address] [address] Stacy Saxena Basophils/100 WBC (Bld) 0.6 % Normal 0.2-2.0 [facility] Comment on above: Performed By: #### C BC #### [facility] [address] [address] [address] Stacy Saxena EO # 0.1 103/ul Normal 0.0-0.7 [facility] Comment on above: Performed By: #### C BC #### [facility] [address] [place] [address] Dr. Stacy Saxena Eosinophils/100 WBC (Bld) 1.9 % Normal 0.9-7.0 [facility] Comment on above: Performed By: #### C BC #### [facility] [address] [place] [address] Dr. Stacy Saxena Erythrocyte distribution width (RBC) [Ratio] 13.0 % Normal 11.0-15.0 [facility] Comment on above: Performed By: #### C BC #### [facility] [address] [place] [address] Dr. Stacy Saxena Hematocrit (Bld) [Volume fraction] 45.1 % Normal 42.0-54.0 [facility] Comment on above: Performed By: #### C BC #### [facility] [address] [place] [address] Dr. Stacy Saxena Hemoglobin (Bld) [Mass/Vol] 15.3 g/dL Normal 14.0-18.0 [facility] Comment on above: Performed By: #### C BC #### [facility] [address] [place] [address] Dr. Stacy Saxena IG # 0.01 10e3/ul Normal 0.00-0.03 [facility] Comment on above: Performed By: #### C BC #### [facility] [address] [place] [address] Dr. Stacy Saxena IG % 0.1 % Normal 0.0-0.5 [facility] Comment on above: Performed By: #### C BC #### [facility] [address] [place] [address] Dr. Stacy Saxena LYMPH # 1.3 103/ul Normal 1.2-3.8 [facility] Comment on above: Performed By: #### C BC #### [facility] [address] [place] [address] Dr. Stacy Saxena Lymphocytes/100 WBC (Bld) 18.9 % Critically low 20.5-60.0 [facility] Comment on above: Performed By: #### C BC #### [facility] [address] [place] [address] Dr. Stacy Saxena MANUAL DIFF REQ NO Normal [facility] Comment on above: Performed By: #### C BC #### [facility] [address] [place] [address] Dr. Stacy Saxena MCH (RBC) [Entitic mass] 29.0 pg Normal 25.9-34.0 [facility] Comment on above: Performed By: #### C BC #### [facility] [address] [place] [address] Dr. Stacy Saxena MCHC (RBC) [Mass/Vol] 33.9 g/dL Normal 29.9-35.2 [facility] Comment on above: Performed By: #### C BC #### [facility] [address] [place] [address] Dr. Stacy Saxena MCV (RBC) [Entitic vol] 85.6 fL Normal 80.0-94.0 [facility] Comment on above: Performed By: #### C BC #### [facility] [address] [place] [address] Dr. Stacy Saxena MONO # 0.9 103/ul Critically high 0.3-0.8 [facility] Comment on above: Performed By: #### C BC #### [facility] [address] [place] [address] Dr. Stacy Saxena Monocytes/100 WBC (Bld) 12.9 % Critically high 1.7-12. 0 [facility] Comment on above: Performed By: #### C BC #### [facility] [address] [place] [address] Dr. Stacy Saxena NEUT # 4.5 103/ul Normal 1.4-6.5 [facility] Comment on above: Performed By: #### C BC #### [facility] [address] [place] [address] Dr. Stacy Saxena Neutrophils/100 WBC (Bld) 65.6 % Normal 43.0-75.0 [facility] Comment on above: Performed By: #### C BC #### [facility] [address] [place] [address] Dr. Stacy Saxena Platelet mean volume (Bld) [Entitic vol] 8.9 fL Critically low 9.5-13.5 [facility] Comment on above: Performed By: #### C BC #### [facility] [address] [place] [address] Dr. Stacy Saxena PLT 250 103/ul Normal 150-450 [facility] Comment on above: Performed By: #### C BC #### [facility] [address] [place] [address] Dr. Stacy Saxena RBC 5.27 106/ul Normal 4.70-6.10 [facility] Comment on above: Performed By: #### C BC #### [facility] [address] [place] [address] Dr. Stacy Saxena WBC 6.9 103/ul Normal 4.0-11.0 [facility] Comment on above: Performed By: #### C BC #### [facility] [address] [place] [address] Dr. Stacy Saxena FREE THYROXINE INDEX T7on FTI 3.08 Normal 1.30-4.50 [facility] Comment on above: Performed By: #### L IPID, URIC, CMP, T7, TSH #### [facility] [address] [place] [address] Dr. Stacy Saxena T3U 35.0 % Normal 33.0-40.0 [facility] Comment on above: Performed By: #### L IPID, URIC, CMP, T7, TSH #### [facility] [address] [place] [address] Dr. Stacy Saxena T4 [Mass/Vol] 8.80 ug/dL Normal 4.50-12.10 [facility] Comment on above: Performed By: #### L IPID, URIC, CMP, T7, TSH #### [facility] [address] [place] [address] Dr. Stacy Saxena GLYCOHEMOGLOBIN A1Con 2022 ADA RECOMMENDATION SEE BELOW Normal [facility] Comment on above: Result Comment: ADA RECOMMENDED LIMIT 4.0 - 6.0 ADA THERAPEUTIC TARGET < 7.0 ACTION SUGGESTED > 7.0 Performed By: #### A 1C #### [facility] [address] [place] [address] Dr. Stacy Saxena Glucose [Mass/Vol] 111 mg/dL Normal [facility] Comment on above: Performed By: #### A 1C #### [facility] [address] [place] [address] Dr. Stacy Saxena HbA1c (Bld) [Mass fraction] 5.5 % Normal 4.5-6.2 [facility] Comment on above: Performed By: #### A 1C #### [facility] [address] [place] [address] Dr. Stacy Saxena LIPID PROFILEon 11-03-2022 CHOL-HDL RATIO NORM SEE BELOW Normal [facility] Comment on above: Result Comment: 3.3 - 4.4 LOW RISK 4.4 - 7.1 AVERAGE RISK 7.1 - 11.0 MODERATE RISK >11.0 HIGH RISK Performed By: #### L IPID, URIC, CMP, T7, TSH #### [facility] [address] [place] [address] Dr. Stacy Saxena Cholesterol [Mass/Vol] 183 mg/dL Normal <=200 Th [facility] Comment on above: Performed By: #### L IPID, URIC, CMP, T7, TSH #### [facility] [address] [address] [address] Stacy Saxena Cholesterol in HDL [Mass/Vol] 58 mg/dL Normal 40-60 [facility] Comment on above: Performed By: #### L IPID, URIC, CMP, T7, TSH #### [facility] [address] [address] [address] Stacy Saxena Cholesterol in LDL [Mass/Vol] 115.0 mg/dL Normal [facility] Comment on above: Performed By: #### L IPID, URIC, CMP, T7, TSH #### [facility] [address] [address] [address] Stacy Saxena Cholesterol.total/Libby sterol in HDL [Mass ratio] 3.2 {ratio} Normal [facility] Comment on above: Performed By: #### L IPID, URIC, CMP, T7, TSH #### [facility] [address] [address] [address] Stacy Saxena HDL NORMAL > or = 60 mg/dl - LO W CARDIOVASCULAR RISK <40 mg/dl - HIGH CARDIOVASCULAR RISK Normal [facility] Comment on above: Performed By: #### L IPID, URIC, CMP, T7, TSH #### [facility] [address] [address] [address] Stacy Saxena LDL CALC NORMAL SEE BELOW Normal [facility] Comment on above: Result Comment: <100 mg/dl OPTIMAL 100 - 129 mg/dl NEAR OR ABOVE OPTIMAL 130 - 159 mg/dl BORDERLINE HIGH 160 - 189 mg/dl HIGH >190 mg/dl VERY HIGH Performed By: #### L IPID, URIC, CMP, T7, TSH #### [facility] [address] [address] [address] Stacy Saxena Triglyceride [Mass/Vol] 50 mg/dL Normal <=150 [facility] Comment on above: Performed By: #### L IPID, URIC, CMP, T7, TSH #### [facility] [address] [address] [address] Stacy Saxena VLDL CALC 10.0 mg/dL Normal [facility] Comment on above: Performed By: #### L IPID, URIC, CMP, T7, TSH #### [facility] [address] [place] [address] Dr. Stacy Saxena PROF 14(COMP METB)on 023 Albumin [Mass/Vol] 3.9 g/dL Normal 3.4-5.0 [facility] Comment on above: Performed By: #### L IPID, URIC, CMP, T7, TSH #### [facility] [address] [place] [address] Dr. Stacy Saxena Albumin/Globulin [Mass ratio] 1.2 {ratio} Normal [facility] Comment on above: Performed By: #### L IPID, URIC, CMP, T7, TSH #### [facility] [address] [place] [address] Dr. Stacy Saxena ALP [Catalytic activity/Vol] 94 U/L Normal 46-116 [facility] Comment on above: Performed By: #### L IPID, URIC, CMP, T7, TSH #### [facility] [address] [place] [address] Dr. Stacy Saxena ALT [Catalytic activity/Vol] 38 U/L Normal 16-63 [facility] Comment on above: Performed By: #### L IPID, URIC, CMP, T7, TSH #### [facility] [address] [place] [address] Dr. Stcay Saxena Anion gap [Moles/Vol] 14.1 mmol/L Normal [facility] Comment on above: Performed By: #### L IPID, URIC, CMP, T7, TSH #### [facility] [address] [place] [address] Dr. Stacy Saxena AST [Catalytic activity/Vol] 46 U/L Critically high 15-37 [facility] Comment on above: Performed By: #### L IPID, URIC, CMP, T7, TSH #### [facility] [address] [place] [address] Dr. Stacy Saxena Bilirubin [Mass/Vol] 0.3 mg/dL Normal 0.2-1.0 [facility] Comment on above: Performed By: #### L IPID, URIC, CMP, T7, TSH #### [facility] [address] [place] [address] Dr. Stacy Saxena Calcium [Mass/Vol] 9.0 mg/dL Normal 8.5-10.1 [facility] Comment on above: Performed By: #### L IPID, URIC, CMP, T7, TSH #### [facility] [address] [place] [address] Dr. Stacy Saxena Chloride [Moles/Vol] 106 mmol/L Normal 98-107 [facility] Comment on above: Performed By: #### L IPID, URIC, CMP, T7, TSH #### [facility] [address] [place] [address] Dr. Stacy Saxena CO2 [Moles/Vol] 26.1 mmol/L Normal 21.0-32.0 [facility] Comment on above: Performed By: #### L IPID, URIC, CMP, T7, TSH #### [facility] [address] [place] [address] Dr. Stacy Saxena Creatinine [Mass/Vol] 0.87 mg/dL Normal 0.70-1.30 [facility] Comment on above: Performed By: #### L IPID, URIC, CMP, T7, TSH #### [facility] [address] [place] [address] Dr. Stacy Saxena EGFR-AF PALAUAN >60 Normal >=60 [facility] Comment on above: Performed By: #### L IPID, URIC, CMP, T7, TSH #### [facility] [address] [place] [address] Dr. Stacy Saxena EGFR-NON AF PALAUAN >60 Normal >=60 [facility] Comment on above: Performed By: #### L IPID, URIC, CMP, T7, TSH #### [facility] [address] [place] [address] Dr. Stacy Saxena Globulin (S) [Mass/Vol] 3.3 g/dL Normal [facility] Comment on above: Performed By: #### L IPID, URIC, CMP, T7, TSH #### [facility] [address] [place] [address] Dr. Stacy Saxena Glucose [Mass/Vol] 97 mg/dL Normal 74-106 [facility] Comment on above: Performed By: #### L IPID, URIC, CMP, T7, TSH #### [facility] [address] [place] [address] Dr. Stacy Saxena Potassium [Moles/Vol] 4.2 mmol/L Normal 3.5-5.1 [facility] Comment on above: Performed By: #### L IPID, URIC, CMP, T7, TSH #### [facility] [address] [place] [address] Dr. Stacy Saxena Protein [Mass/Vol] 7.2 g/dL Normal 6.4-8.2 [facility] Comment on above: Performed By: #### L IPID, URIC, CMP, T7, TSH #### [facility] [address] [place] [address] Dr. Stacy Saxena Sodium [Moles/Vol] 142 mmol/L Normal 136-145 [facility] Comment on above: Performed By: #### L IPID, URIC, CMP, T7, TSH #### [facility] [address] [place] [address] Dr. Stacy Saxena Urea nitrogen [Mass/Vol] 21.0 mg/dL Critically high 7.0-18.0 [facility] Comment on above: Performed By: #### L IPID, URIC, CMP, T7, TSH #### [facility] [address] [place] [address] Dr. Stacy Saxena Urea nitrogen/Creatinine [Mass ratio] 24.1 mg/mg Normal [facility] Comment on above: Performed By: #### L IPID, URIC, CMP, T7, TSH #### [facility] [address] [place] [address] Dr. Stacy Saxena TSHon 11-03-2022 TSH 1.227 uIU/mL Normal 0.358-3.740 [facility] Comment on above: Performed By: #### L IPID, URIC, CMP, T7, TSH #### [facility] [address] [place] [address] Dr. Stacy Saxena URIC ACID SERUMon 11-03-2022 Urate [Mass/Vol] 5.6 mg/dL Normal 3.5-7.2 [facility] Comment on above: Performed By: #### L IPID, URIC, CMP, T7, TSH #### [facility] [address] [address] [address] Stacy Saxena FLUORO FOR SURGICAL PROCEDUR ESon 07-26-2022 FLUORO FOR SURGICAL PROCEDURES Radiology exam is complete. No Radiologist dictation. Please follow up with ordering provider. Final result Normal [facility] Radiology exam is complete. No Radiologist dictation. Please follow up with ordering provider. MHPN RIS CONSOLIDATED CBCon 07-20-2022 Erythrocyte distribution width (RBC) [Ratio] 12.9 % Normal 11.8-14.4 [facility] Comment on above: Performed By: #### C EDNA LYTE #### [facility] [address] [facility] [place] [address] Cook Chief: Awais Sadler MD Hematocrit (Bld) [Volume fraction] 42.3 % Normal 40.7-50.3 [facility] Comment on above: Performed By: #### Monica BISHOP LYTE #### [facility] [address] [place] [address] Cook Chief: Awais Sadler MD Hemoglobin (Bld) [Mass/Vol] 14.2 g/dL Normal 13.0-17.0 [facility] Comment on above: Performed By: #### C EDNA LYTE #### [facility] [address] [place] [address] Cook Chief: Awais Sadler MD MCH (RBC) [Entitic mass] 29.5 pg Normal 25.2-33.5 [facility] Comment on above: Performed By: #### C EDNA LYTE #### [facility] [address] [facility] [place] [address] Cook Chief: Awais Sadler MD MCHC (RBC) [Mass/Vol] 33.6 g/dL Normal 28.4-34.8 [facility] Comment on above: Performed By: #### Monica BISHOP LYTE #### [facility] [address] [place] [address] Cook Chief: Awais Sadler MD MCV (RBC) [Entitic vol] 87.8 fL Normal 82.6-102.9 [facility] Comment on above: Performed By: #### C EDNA LYTE #### [facility] [address] [place] [address]. [place] [address] Cook Chief: Awais Sadler MD NRBC Automated 0.0 per 100 WBC Normal 0.0 [facility] Comment on above: Performed By: #### Monica BISHOP LYTE #### [facility] [address] [place] [address]. [place] [address] Cook Chief: Awais Sadler MD Platelet mean volume (Bld) [Entitic vol] 9.3 fL Normal 8.1-13.5 [facility] Comment on above: Performed By: #### ANGIE BRYANTTE #### [facility] [address] [place] [address]. [place] [address] Cook Chief: Awais Sadler MD Platelets (Bld) [#/Vol] 233 10*3/uL Normal 138-453 [facility] Comment on above: Performed By: #### Monica BISHOP LYTE #### [facility] [address] [place] [address]. [place] [address] Cook Chief: Awais Sadler MD RBC (Bld) [#/Vol] 4.82 10*6/uL Normal 4.21-5.77 [facility] Comment on above: Performed By: #### Monica BISHOP LYTE #### [facility] [address] [place] [address] Cook Chief: Awais Sadler MD WBC (Bld) [#/Vol] 9.4 10*3/uL Normal 3.5-11.3 [facility] Comment on above: Performed By: #### C BC, BRAD #### [facility] [address] [facility] [place] [address] Cook Chief: Awais Sadler MD Hematocrit (Bld) [Volume fraction] 42.3 % 40.7 - 50.3 % [facility] Hemoglobin (Bld) [Mass/Vol] 14.2 g/dL 13.0 - 17.0 g/dL [facility] MCH (RBC) [Entitic mass] 29.5 pg 25.2 - 33.5 pg [facility] MCHC (RBC) [Mass/Vol] 33.6 g/dL 28.4 - 34.8 g/dL [facility] MCV (RBC) [Entitic vol] 87.8 fL 82.6 - 102.9 fL [facility] NRBC Automated 0.0 0.0 per 100 WBC [facility] Platelet distribution width (Bld) [Ratio] 12.9 % 11.8 - 14.4 % [facility] Platelet mean volume (Bld) [Entitic vol] 9.3 fL 8.1 - 13.5 fL [facility] Platelets (Bld) [#/Vol] 233 10*3/uL [facility] RBC (Bld) [#/Vol] 4.82 10*6/uL 4.21 - 5.7 7 m/uL [facility] WBC (Bld) [#/Vol] 9.4 10*3/uL [facility] EKG 12 LeadOrdered By: Ashley Monahan on 07-20-2022 Atrial Rate 58 BPM [facility] Work Phone: P [place] 46 degrees [facility] Work Phone: P-R Interval 192 ms [employer] Work Phone: Q-T Interval 400 ms [employer] Work Phone: QRS Duration 96 ms [employer] Work Phone: QTc Calculation (Bazett) 392 ms [employer] Work Phone: R [place] 81 degrees [employer] Work Phone: T [place] 65 degrees [employer] Work Phone: Ventricular Rate 58 BPM [employer] Work Phone: [employer] Work Phone: EKG 12 Leadon 07-20-2022 Sinus bradycardia Otherwise normal ECG No previous ECGs available [facility] Ashley Singh MD - 07/20/2022 Sinus bradycardia Otherwise normal ECG No previous ECGs available [employer] Work Phone: Electrolyte Panelon 07-20-19 Anion gap [Moles/Vol] 10 mmol/L 9 - 17 mmol/L [employer] Chloride [Moles/Vol] 101 mmol/L 98 - 10 7 mmol/L [employer] CO2 [Moles/Vol] 25 mmol/L 20 - 31 mmol/L [employer] Potassium [Moles/Vol] 4.1 mmol/L 3.7 - 5.3 mmol/L [employer] Sodium [Moles/Vol] 136 mmol/L 135 - 144 mmol/L [facility] [employer] [facility] [employer] Electrolyteson 07-20-2022 Anion gap [Moles/Vol] 10 mmol/L Normal 9-17 [facility] Comment on above: Performed By: #### C BRAD BISHOP #### [facility] [address] [place] [address] Cook Chief: Awais Sadler MD Chloride [Moles/Vol] 101 mmol/L Normal 98-107 [facility] Comment on above: Performed By: #### C EDNA LYTE #### [facility] [address] [place] [address] Cook Chief: Awais Sadler MD CO2 [Moles/Vol] 25 mmol/L Normal 20-31 [facility] Comment on above: Performed By: #### C EDNA LYTE #### [facility] [address] [place] [address] Cook Chief: Awais Sadler MD Potassium [Moles/Vol] 4.1 mmol/L Normal 3.7-5.3 [facility] Comment on above: Performed By: #### C ANGIE BISHOPTE #### [facility] [place] [address] Cook Chief: Awais Sadler MD Sodium [Moles/Vol] 136 mmol/L Normal 135-144 [facility] Comment on above: Performed By: #### C EDNA LYTE #### [facility] [place] [address] Cook Chief: Awais Sadler MD MR Cervical spine WO contras ton 05-11-2021 IMPRESSION: 1. 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 2. Spinal cord and thecal sac impingement without compression at C7-T1. 3. Left C3-4 & right C5-6 and bilateral C6-7 and C7-T1 significant foramina narrowing. COUNTING REFERENCE: Superior cervical disc is taken as C2-3. Structural anomalies: None. Internal Recruiter: PSCB Transcribe Date/Time: May 11 2021 11:48A Dictated by : TREASURE NAM MD This examination was interpreted and the report reviewed and electronically signed by: TREASURE NAM MD on May 11 2021 11:54AM [facility] DIVISION OF RADIOLOGY * * *Final Report* [...] DIVISION OF RADIOLOGY Provider, [facility] - 05/11/2021 * * *Final Report* * [...] is taken as C2-3. Structural anomalies: None. Internal Recruiter: PSCB Transcribe Date/Time: May 11 2021 11:48A Dictated by : TREASURE NAM MD This examination was interpreted and the report reviewed and electronically signed by: TREASURE NAM MD on May 11 2021 11:54AM EST [facility] Radiology Study observation (narrative) [facility] MR Cervical spine WO contras tOrdered By: Ccf Provider on 05-11-2021 [facility] ED NOTEon 04-16-2021 ED NOTE HNO ID: [id number] Author: Vashti Mc RN Service: ? Author Type: Registered Nurse Type: ED Notes Filed: 04/16/2021 4:51 AM Note Text: Verbalized understanding of new meds sent to documented preferred pharmacy and sched f/u appt with Spine. Phone number provided to patient for PCP f/u appt. Ambulatory out of dept. Normal [facility] ED NOTE HNO ID: [id number] Author: Vashti Mc RN Service: ? Author Type: Registered Nurse Type: ED Notes Filed: 04/16/2021 3:09 AM Note Text: Ambulatory in room for urine sample. Urinal provided. [facility] ED NOTE HNO ID: [id number] Author: Vashti Mc RN Service: ? Author Type: Registered Nurse Type: ED Notes Filed: 04/16/2021 2:52 AM Note Text: Patient denies any recent injury/trauma. Denies loss of function to bowel/bladder. [facility] ED NOTE HNO ID: [id number] Author: Vashti Mc RN Service: ? Author Type: Registered Nurse Type: ED Notes Filed: 04/16/2021 1:15 AM Note Text: Patient ambulatory from lobby to room independently with steady gait. [facility] ED PROV NOTEon 04-16-2021 ED PROV NOTE HNO ID: [id number] Author: Jacquelyn Walls PA-C Service: ? 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 Mouth/Throat: Lips: [place]. Mouth: Mucous membranes are dry. Eyes: Extraocular [...] No o (more content not included)... Normal [facility] Urinalysis with [facility] 04-16-2021 Bilirubin, Urine Negative Normal Negative [facility] pital Cast SEE COMMENT Normal 0 [facility] Comment on above: Result Comment: 0 Clarity (U) Clear Normal Clear [facility] Color (U) Yellow Normal Yellow [facility] Glucose Ql (U) Negative Normal Negative [facility] Hemoglobin/Blood,Ur Negative Normal Negative [facility] Ketones Ql (U) Trace Critically abnormal Negative [facility] Leukest Trace Critically abnormal Negative [facility] Nitrite Ql (U) Negative Normal Negative [facility] pH (U) 6.5 [pH] Normal 5.0-8.0 [facility] Protein, Urine Negative Normal Negative [facility] RBC 0-3 Normal 0-3 [facility] Specific [place], Ur 1.022 Normal 1.005-1.030 [facility] Urobilinogen Qn (U) 1.0 {Jalen'U}/dL Normal 0.2-1.0 [facility] WBC 0-5 Normal 0-[address] [facility] [address] BRAIN WO IVCONon 04-15-[address] BRAIN WO IVCON * * *Final Report* * * DATE OF EXAM: Apr 15 2021 8:31PM [facility] 0504 - CT BRAIN WO [...] base and imaged soft tissues are unremarkable. [employer] Truck [employer] (topogram) images: Unremarkable. IMPRESSION: No evidence of an acute intracranial process. Internal Recruiter: PSCB Transcribe Date/Time: Apr 15 2021 8:36P Dictated by : HEATHER LUCIO MD This examination was interpreted and the report reviewed and electronically signed by: HEATHER LUCIO MD on Apr 15 2021 8:38PM EST [id number] Normal [facility] CT CERVICAL SPINE WO IVCONon 04-15-2021 CT CERVICAL SPINE WO IVCON * * *Final Report* * * DATE OF EXAM: Apr 15 2021 8:31PM [facility] 0505 - CT CERVICAL SPINE [...] Counting reference: Craniocervical junction. Anatomic Variants: None. [employer] (topogram) images: Alignment: Alignment is anatomic. Craniocervical [...] vertebrae with counting from the craniocervical junction. Internal Recruiter: [place] Transcribe Date/Time: Apr 15 2021 8:38P Dictated by : HEATHER LUCIO MD This examination was interpreted and the report reviewed and electronically signed by: HEATHER LUCIO MD on Apr 15 2021 8:40PM EST [id number] Normal [facility] CT LUMBAR SPINE WO IVCONon 1 CT LUMBAR SPINE WO IVCON * * *Final Report* * * DATE OF EXAM: Apr 15 2021 8:31PM [facility] 0508 - CT LUMBAR SPINE [...] junction. For the purposes of this report, [employer] (topogram) images: Alignment: Alignment is anatomic. Bone [...] and assume there are 5 lumbar-type vertebrae. Internal Recruiter: [place] Transcribe Date/Time: Apr 15 2021 8:40P Dictated by : HEATHER LUCIO MD This examination was interpreted and the report reviewed and electronically signed by: HEATHER LUCIO MD on Apr 15 2021 8:43PM EST [id number] [facility] ED NOTEon 04-15-2021 ED NOTE HNO ID: [id number] Author: Li Damon RN Service: ? Author Type: Registered Nurse Type: ED Notes Filed: 04/15/2021 6:06 PM Note Text: Pt. to ED for neck and low back pain after falling about 4 weeks ago. Pt. states was up about 3 ft on ladder when he fell off onto anjali that was on the ground. Denies loc, no blood thinners. [facility] ED Triage Noteon 04-15-2021 ED Triage Note HNO ID: [id number] Author: Geovanny Tanner PA-C Service: Emergency Medicine Author Type: Physician [employer] Type: ED Triage Notes Filed: 04/15/2021 6:11 PM Note Text: ED INTAKE NOTE Patient Name: Edmund Christopher Service Date: 04/15/21 BRIEF HPI: A 56 [...] Midline cervical and lumbar spinal tenderness. 5/5 communications advisor, bicep, tricep strength b/l. 5/5 hip extension, knee extension/flexion, DF/PF strength b/l. Normal gross motor and sensory function to light touch over b/l face, UEs, and LEs. Normal finger to nose. No basilar skull fracture signs. Deferred exam at this time. INTAKE WORKUP: Imaging: CT: Brain, C spine, Lumbar spine Testicular US SIGNATURE: Geovanny Tanner PA-C [facility] US DOPPLER COMPLETEon 2020 US DOPPLER COMPLETE * * *Final Report* * * DATE OF EXAM: Apr 15 2021 6:53PM [facility] 1033 - US DOPPLER COMPLETE / [...] 3. Slightly complex septated small left hydrocele. Internal Recruiter: [facility] Transcribe Date/Time: Apr 15 2021 7:06P Dictated by : JENNIFER CASTILLO MD This examination was interpreted and the report reviewed and electronically signed by: JENNIFER CASTILLO MD on Apr 15 2021 7:12PM EST [id number] Normal [facility] US SCROTUM AND CONTENTSon US SCROTUM AND CONTENTS * * *Final Repor t* * * DATE OF EXAM: Apr 15 2021 6:53PM [facility] 1063 - US SCROTUM AND CONTENTS [...] 3. Slightly complex septated small left hydrocele. Internal Recruiter[facility] Transcribe Date/Time: Apr 15 2021 7:06P Dictated by : JENNIFER CASTILLO MD This examination was interpreted and the report reviewed and electronically signed by: JENNIFER CASTILLO MD on Apr 15 2021 7:12PM EST [id number] [facility] VW Son 02-17-2020 LUMB SP COMP W FLEX/EXT 6 VWS STUDY: LUMB SP COMP W FLEX/EXT 6 VWS ; 02/17/2020 9:43 am INDICATION: PAIN. COMPARISON: 10/08/2018 ACCESSION NUMBER(S): [id number] ORDERING CLINICIAN: Earl Choi FINDINGS: Severe levoscoliosis. [...] the lumbar spine without dynamic instability. Normal [facility] Coding Summaryon 04-25-2018 Coding Summary CODING DATE: 04/25/2018 [facility] STATUS: Home PAYOR: Medicare ADMIT DX: [...] Oakley' Date Saved: 04/25/2018 05:43 pm Normal [facility] ED Clinical Summaryon 2017 ED Clinical Summary [facility] ? Urgent Care [address] [place] [address] Clinical Summary PERSON INFORMATION Name: EDMUND CHRISTOPHER Age: 53 Years Sex: MALE : 65 MRN: Acct#: Visit Reason: UC - Eye Pain; LEFT EYE PAIN Arrival: 03/24/18 12:26:00 Discharge: 03/24/18 13:10:00 LOS: 000 00:44 Check In: 03/24/18 12:26:00 Checkout: 03/24/18 13:10:00 Address: [address] [place] [id number] PCP: MADDY COTTO MD PROVIDER INFORMATION Provider Role Assigned Unassigned Omayra Munguia ED PA 03/24/18 12:29:30 03/24/18 12:36:20 Omayra Munguia ED PA 03/24/18 12:36:24 Lin Farmer ADMINISTRATIVE SPECIALIST Nurse 03/24/18 12:38:39 VITALS INFORMATION Vital Sign [...] pain. He states he is working along [employer] believes he got something into his eye [...] vision. Impression and Plan Diagnosis Corneal abrasion ([id number] S05.00XA, Discharge, Medical) Plan Condition: Stable. Disposition: [...] Abrasion Follow-Up: With: Address: When: MADDY COTTO [address] [place] [address] [facility] ([employer] In 2 days 03/26/18 DIAGNOSIS: Corneal abrasion Patient Understands: Yes - Patient/family/caregi chang verbalizes understanding of instructions given Comment: [facility] ED Note - Physicianon 2017 ED Note [...] vision. Impression and Plan Diagnosis Corneal abrasion ([id number] S05.00XA, Discharge, Medical) Plan Condition: Stable. Disposition: [...] [Verified on: 03/24/2018 13:04 EDT] Omayra Munguia [facility] ED Patient Summaryon 018 ED Patient Summary [facility] ? Urgent Care [address] [place] [address] PATIENT DISCHARGE INSTRUCTIONS Patient Information Name: EDMUND CHRISTOPHER Age: 53 Years Date of : [birth year] Reason For Visit: UC - Eye Pain; LEFT EYE PAIN Arrival Time: 03/24/18 12:26:00 Primary Care Physician: MADDY COTTO MD Attending Physician: Omayra Munguia Comment: Patient Education With: Address: When: MADDY COTTO [address] [place] [id number] Business (1) In 2 days 03/26/18 [...] condition may be caused by: ? A cured meat packing supervisor the eye. ? A gritty or irritating [...] in diseases and conditions of the eye (ethernet network architect). Before the eye exam, numbing drops may be put into your eye. You may also have dye put in your eye with a dropper or a small paper strip. The dye makes the abrasion easy to see when your ethernet network architect examines your eye with a light. Your ethernet network architect may look at your eye through an [...] you start to feel better. ? Take rlgi-doa-akvbdvc and prescription medicines only as told by your eye care provider. ? Do not drive or use heavy machinery while taking prescription pain medicine. General instructions ? If you have an eye patch, wear it as told by your eye care provider. ? Do not drive or use machinery while wearing an eye patch. Your ability to soils engineer distances will be impaired. ? Follow instructions [...] 06/29/2001 Document Revised: 06/12/2017 Document Reviewed: 06/12/2017 [employer] Patient Education ? 2017 [employer] Medication Information: The exam and treatment you received today in the [facility] Emergency Department were for an urgent problem and are not intended as complete care. It is important for you to follow up with a doctor, nurse practitioner, or physician?s customer relations assistant for ongoing care. If your symptoms [...] so we can reach you if necessary. [facility] Emergency Department has provided you with a complete list of medications post discharge. Please inform your human resources services specialist/provider of your visit and for further instruction on these medications. Any specific questions regarding your chronic medications and dosages should be discussed with your primary care physician(s) and/or pharmacist. New Medications [facility], [address] [place] [address], [phone] ketorolac ophthalmic (Acular 0.5% ophthalmic solution) 1 Drops Ophthalmic 4 times a day as needed for itching for 3 Days. Refills: 0. tobramycin ophthalmic (Tobrex 0.3% ophthalmic solution) 1 Drops Ophthalmic 4 times a day for 7 Days. Refills: 0. Visit Information Visit Diagnosis: Diagnoses This Visit Corneal abrasion (S05.00XA) UC - Eye Pain ([id number]) If you received any narcotics, sedation, or [...] Disease Control and Prevention March 2014 Normal [facility] [place] 018 Urgent Care Record [facility] ? Urgent Care [address] [place] [address] PATIENT DISCHARGE INSTRUCTIONS Patient Information Name: EDMUND CHRISTOPHER Age: 53 Years Date of : 65 Reason For Visit: UC - Eye Pain; LEFT EYE PAIN Arrival Time: 03/24/18 12:26:00 Primary Care Physician: MADDY COTTO MD Attending Physician: Omayra Munguia Comment: Visit Diagnosis: Diagnoses This Visit Corneal abrasion (S05.00XA) UC - Eye Pain ([id number]) If you received any narcotics, sedation, or [...] legal documents With: Address: When: MADDY COTTO [address] [place] [address] Business (1) In 2 days 03/26/18 Medication Information: The exam and treatment you received today in the [facility] Urgent Care were for an urgent problem and are not intended as complete care. It is important for you to follow up with a doctor, nurse practitioner, or physician?s customer relations assistant for ongoing care. If your symptoms [...] so we can reach you if necessary. [facility] has provided you with a complete list of medications post discharge. Please inform your human resources services specialist/provider of your visit and for further instruction on these medications. Any specific questions regarding your chronic medications and dosages should be discussed with your primary care physician(s) and/or pharmacist. New Medications [facility], [address] [place] [id number], [phone] ketorolac ophthalmic (Acular 0.5% ophthalmic solution) 1 [...] condition may be caused by: ? A cured meat packing supervisor the eye. ? A gritty or irritating [...] in diseases and conditions of the eye (ethernet network architect). Before the eye exam, numbing drops may be put into your eye. You may also have dye put in your eye with a dropper or a small paper strip. The dye makes the abrasion easy to see when your ethernet network architect examines your eye with a light. Your ethernet network architect may look at your eye through an [...] you start to feel better. ? Take dlmd-gob-jasatia and prescription medicines only as told by your eye care provider. ? Do not drive or use heavy machinery while taking prescription pain medicine. General instructions ? If you have an eye patch, wear it as told by your eye care provider. ? Do not drive or use machinery while wearing an eye patch. Your ability to soils engineer distances will be impaired. ? Follow instructions [...] 06/29/2001 Document Revised: 06/12/2017 Document Reviewed: 06/12/2017 [employer] Patient Education ? 2017 [employer]. Viruses or Bacteria What?s got you sick? [...] for Disease Control and Prevention March 2014 [facility] Vital Signs Date Time Vital Sign Value Performing Clinician Facility 11-12-2023 09:41-0400 Diastolic blood pressure 62 mm[Hg] PLATFORM MATERIAL HANDLING SUPERVISOR-C Shreyas Felipe Work Phone: [facility] 11-12-2023 09:41-0400 Heart rate 59 /min PLATFORM MATERIAL HANDLING SUPERVISOR-C Shreyas Felipe Work Phone: [facility] 11-12-2023 09:41-0400 Respiratory rate 18 /min PLATFORM MATERIAL HANDLING SUPERVISOR-C Shreyas Felipe Work Phone: [facility] 11-12-2023 09:41-0400 SaO2% (BldA) [Mass fraction] 98 % PLATFORM MATERIAL HANDLING SUPERVISOR-C Shreyas Felipe Work Phone: [facility] 11-12-2023 09:41-0400 Systolic blood pressure 95 mm[Hg] PLATFORM MATERIAL HANDLING SUPERVISOR-C Shreyas Felipe Work Phone: [facility] 11-12-2023 07:49-0400 Body height 162.56 cm PLATFORM MATERIAL HANDLING SUPERVISOR-C Shreyas Josie Work Phone: [facility] 11-12-2023 07:49-0400 Body weight 70.3 kg PLATFORM MATERIAL HANDLING SUPERVISOR-C Shreyas Josie Work Phone: [facility] 10-10-2023 14:34-0400 Body temperature 97.8 [degF] PLATFORM MATERIAL HANDLING SUPERVISOR-C Shreyas Josie Work Phone: [facility] 10-10-2023 14:34-0400 Diastolic blood pressure 84 mm[Hg] PLATFORM MATERIAL HANDLING SUPERVISOR-C Shreyas Josie Work Phone: [facility] 10-10-2023 14:34-0400 Heart rate 60 /min PLATFORM MATERIAL HANDLING SUPERVISOR-C Shreyas Josie Work Phone: [facility] 10-10-2023 14:34-0400 Respiratory rate 16 /min PLATFORM MATERIAL HANDLING SUPERVISOR-C Shreyas Josie Work Phone: [facility] 10-10-2023 14:34-0400 SaO2% (BldA) [Mass fraction] 99 % PLATFORM MATERIAL HANDLING SUPERVISOR-C Shreyas Josie Work Phone: [facility] 10-10-2023 14:34-0400 Systolic blood pressure 130 mm[Hg] PLATFORM MATERIAL HANDLING SUPERVISOR-C Shreyas Josie Work Phone: [facility] 10-10-2023 11:16-0400 Body height 160.02 cm PLATFORM MATERIAL HANDLING SUPERVISOR-C Shreyas Josie Work Phone: [facility] 10-10-2023 11:16-0400 Body weight 70.5 kg PLATFORM MATERIAL HANDLING SUPERVISOR-C Shreyas Josie Work Phone: [facility] 01-05-2023 19:55-0400 Body height 162.56 cm PLATFORM MATERIAL HANDLING SUPERVISOR-C Shreyas Josie Work Phone: [facility] 01-05-2023 19:55-0400 Body temperature 97.7 [degF] PLATFORM MATERIAL HANDLING SUPERVISOR-C Shreyas Josie Work Phone: [facility] 06-23-2023 19:55-0400 Body weight 71.6 kg PLATFORM MATERIAL HANDLING SUPERVISOR-C Shreyas Josie Work Phone: [facility] 01-05-2023 19:55-0400 Diastolic blood pressure 100 mm[Hg] PLATFORM MATERIAL HANDLING SUPERVISOR-C Shreyas Josie Work Phone: [facility] 01-05-2023 19:55-0400 Heart rate 81 /min PLATFORM MATERIAL HANDLING SUPERVISOR-C Shreyas Josie Work Phone: [facility] 01-05-2023 19:55-0400 Respiratory rate 20 /min PLATFORM MATERIAL HANDLING SUPERVISOR-C Shreyas Josie Work Phone: [facility] 01-05-2023 19:55-0400 SaO2% (BldA) [Mass fraction] 95 % PLATFORM MATERIAL HANDLING SUPERVISOR-C Shreyas Josie Work Phone: [facility] 01-05-2023 19:55-0400 Systolic blood pressure 135 mm[Hg] PLATFORM MATERIAL HANDLING SUPERVISOR-C Shreyas Josie Work Phone: [facility] 11-07-2022 11:23-0400 Body height 160.02 cm PLATFORM MATERIAL HANDLING SUPERVISOR-C Shreyas Josie Work Phone: [facility] 11-07-2022 11:23-0400 Body temperature 98.1 [degF] PLATFORM MATERIAL HANDLING SUPERVISOR-C Shreyas Josie Work Phone: [facility] 11-07-2022 11:23-0400 Body weight 73.1 kg PLATFORM MATERIAL HANDLING SUPERVISOR-C Shreyas Josie Work Phone: [facility] 11-07-2022 11:23-0400 Diastolic blood pressure 83 mm[Hg] PLATFORM MATERIAL HANDLING SUPERVISOR-C Shreyas Josie Work Phone: [facility] 11-07-2022 11:23-0400 Heart rate 92 /min PLATFORM MATERIAL HANDLING SUPERVISOR-C Shreyas Josie Work Phone: [facility] 11-07-2022 11:23-0400 Respiratory rate 18 /min PLATFORM MATERIAL HANDLING SUPERVISOR-C Shreyas Josie Work Phone: [facility] 11-07-2022 11:23-0400 SaO2% (BldA) [Mass fraction] 95 % PLATFORM MATERIAL HANDLING SUPERVISOR-C Shreyas Josie Work Phone: [facility] 11-07-2022 11:23-0400 Systolic blood pressure 129 mm[Hg] PLATFORM MATERIAL HANDLING SUPERVISOR-C Shreyas Josie Work Phone: [facility] 07-26-2022 17:45-0500 Body temperature 97.5 [degF] Maddy Cabezas MD Work Phone: [employer] 07-26-2022 17:45-0500 Diastolic blood pressure 84 mm[Hg] Maddy Cabezas MD Work Phone: [employer] [facility] 07-26-2022 17:45-0500 Heart rate 56 /min Maddy Cabezas MD Work Phone: [employer] [facility] 07-26-2022 17:45-0500 Respiratory rate 17 /min Maddy Cabezas MD Work Phone: [employer] 07-26-2022 17:45-0500 SaO2% (BldA) [Mass fraction] 95 % Maddy Cabezas MD Work Phone: [employer] 07-26-2022 17:45-0500 Systolic blood pressure 106 mm[Hg] Maddy Cabezas MD Work Phone: [employer] [facility] 07-26-2022 13:06-0500 Body height 162.6 cm Maddy Cabezas MD Work Phone: [employer] [facility] 07-26-2022 13:06-0500 Body mass index (BMI) [Ratio] 26.14 kg/m2 Maddy Cabezas MD Work Phone: [employer] [facility] 07-26-2022 13:06-0500 Body weight 69.08 kg Maddy Cabezas MD Work Phone: [employer] [facility] 07-20-2022 14:07-0500 Body height 162.6 cm Sta 1 [employer] [facility] 07-20-2022 14:07-0500 Body mass index (BMI) [Ratio] 25.75 kg/m2 Sta 1 [facility] 07-20-2022 14:07-0500 Body temperature 97.81 [degF] Sta 1 [facility] [employer] 07-20-2022 14:07-0500 Body weight 68.04 kg Sta 1 [facility] 07-20-2022 14:07-0500 Diastolic blood pressure 85 mm[Hg] Sta 1 [facility] 07-20-2022 14:07-0500 Heart rate 72 /min Sta 1 [facility] [employer] 07-20-2022 14:07-0500 Respiratory rate 18 /min Sta 1 [facility] [employer] 07-20-2022 14:07-0500 SaO2% (BldA) [Mass fraction] 97 % Sta 1 [facility] 07-20-2022 14:07-0500 Systolic blood pressure 140 mm[Hg] Sta 1 [facility] Encounters Encounter Date Encounter Type Care Provider Facility Start: 12-25-2024 End: 12-25-2024 Refill Larry Mcdonald PA-C Work Phone: [facility] Comment on above: Refill Request Start: 07-28-2024 End: 07-28-2024 Bamboo flowsheet Denae A Felter WINDLACE MACHINE OPERATOR-ENGINEHOUSE [employer] Work Phone: [facility] Start: 07-28-2024 End: 07-28-2024 Bamboo flowsheet Denae A Felter WINDLACE MACHINE OPERATOR-ENGINEHOUSE [employer]RAK[employer]AN Work Phone: [facility] Start: 07-28-2024 End: 07-28-2024 Office outpatient visit 15 minutes Denae A Felter WINDLACE MACHINE OPERATOR-ENGINEHOUSE [employer]AN Work Phone: [facility] Comment on above: Actinic keratosis (P rimary Dx); Erythema intertrigo Start: 07-28-2024 End: 07-28-2024 ambulatory DENAE A FELTER Not Available Start: 07-15-2024 End: 07-15-2024 Emergency department patient visit Shreyas Felipe Facility:[facility] Start: 06-03-2024 End: 06-03-2024 ambulatory DENAE A FELTER Not Available Start: 06-03-2024 End: 06-03-2024 Patient encounter procedure Denae Lopez WINDLACE MACHINE OPERATOR-ENGINEHOUSE [employer]AN Work Phone: [facility] Comment on above: Actinic keratosis; Neoplasm of unspecified behavior of bone, soft tissue, and skin Start: 06-03-2024 End: 06-03-2024 Bamboo flowsheet Denae Lopez WINDLACE MACHINE OPERATOR-ENGINEHOUSE BRAKEMAN Work Phone: [facility] Start: 06-03-2024 End: 06-03-2024 Bamboo flowsheet Denae Lopez WINDLACE MACHINE OPERATOR-ENGINEHOUSE BRAKEMAN Work Phone: [facility] Start: 11-12-2023 Non-patient / Non-visit PLATFORM MATERIAL HANDLING SUPERVISOR-C Shreyas Felipe Work Phone: [facility] Gastroenterology Work Phone: Start: 11-12-2023 End: 11-12-2023 Admission to same day surgery center PLATFORM MATERIAL HANDLING SUPERVISOR-C Shreyas Felipe Work Phone: [facility] Work Phone: Start: 11-12-2023 End: 11-12-2023 ambulatory PLATFORM MATERIAL HANDLING SUPERVISOR-C Shreyas Felipe Work Phone: [facility] Work Phone: Start: 10-10-2023 End: 10-10-2023 Emergency department patient visit PLATFORM MATERIAL HANDLING SUPERVISOR-C Shreyas Felipe Work Phone: [facility]Emer[facility] Work Phone: Start: 08-07-2023 End: 08-08-2023 ambulatory RAÚL SULLIVAN Facility:[facility] Start: 06-18-2023 End: 06-18-2023 ambulatory PLATFORM MATERIAL HANDLING SUPERVISOR-C Shreyas Felipe Work Phone: [facility] Work Phone: Start: 06-18-2023 End: 06-18-2023 Patient encounter procedure PLATFORM MATERIAL HANDLING SUPERVISOR-C Shreyas Felipe Work Phone: [facility] Work Phone: Start: 05-04-2023 Telephone encounter Jessica paula MD Work Phone: Orthopaedics Start: 04-13-2023 End: 04-13-2023 ambulatory JESSICA DOTSON Facility:[facility] Start: 04-13-2023 End: 04-13-2023 ambulatory JESSICA T JEMElmer Facility:[facility] Start: 04-13-2023 End: 04-13-2023 ambulatory Emg 1000) Work Phone: Neurology Comment on above: EMG Start: 04-13-2023 End: 04-13-2023 Patient encounter procedure Emg 4 Neur Main (Max Weight: 1000) Work Phone: [facility] Start: 01-18-2023 End: 01-18-2023 ambulatory JESSICA DOTSON Facility:[facility] Start: 01-18-2023 End: 01-18-2023 Patient encounter procedure Jessica Dotson MD Work Phone: Orthopaedics Comment on above: Rotator cuff tear ar thropathy, right (Primary Dx); Rotator cuff tear arthropathy, left; Right arm weakness; Spinal stenosis of cervical region Start: 01-18-2023 End: 01-18-2023 Subsequent hospital visit by physician Xr Main A21 Radiology Comment on above: Pain [R52] Start: 01-05-2023 End: 01-05-2023 Emergency department patient visit PLATFORM MATERIAL HANDLING SUPERVISOR-Monica Felipe Work Phone: [facility] Work Phone: Start: 11-15-2022 Orders Only Jessica shook MD Work Phone: [facility] Comment on above: Pain (Primary Dx) Start: 11-07-2022 End: 11-07-2022 Emergency department patient visit PLATFORM MATERIAL HANDLING SUPERVISOR-Monica Felipe Work Phone: [facility] Work Phone: Start: 11-04-2022 End: 11-04-2022 ambulatory SHREYAS FELIPE Facility:[facility] Start: 11-03-2022 End: 11-04-2022 ambulatory SHREYAS FELIPE Facility:[facility] Start: 07-26-2022 End: 07-26-2022 ambulatory MADDY Bradley [facility] Start: 07-26-2022 End: 07-26-2022 Subsequent hospital visit by physician Maddy Cabezas MD Work Phone: [facility] Start: 07-20-2022 End: 07-25-2022 ambulatory MADDY Davin MAHINMAYRA Bradley [facility] Start: 07-20-2022 End: 07-24-2022 Subsequent hospital visit by physician Shy Riley Rm 1 [facility] PRE-ADMIT TESTING Start: 05-29-2022 End: 05-29-2022 ambulatory PLATFORM MATERIAL HANDLING SUPERVISOR-C Shreyas Felipe Work Phone: [facility] Work Phone: Start: 05-29-2022 End: 05-29-2022 Patient encounter procedure PLATFORM MATERIAL HANDLING SUPERVISOR-C Shreyas Felipe Work Phone: [facility] Start: 12-02-2021 ambulatory SHREYAS FELIPE Facility: [facility] Start: 05-11-2021 End: 05-11-2021 Subsequent hospital visit by physician [facility]ie (1.5t) Work Phone: Radiology Comment on above: DDD (degenerative di sc disease), cervical [M50.30] Start: 10-08-2018 Patient encounter procedure Facility:[id number] Start: 03-24-2018 End: 08-05-2018 Patient encounter procedure Omayra Gonzales Facility:[facility] Procedures Date Procedure Procedure Detail Performing Clinician Start: 07-28-2024 CRYOTHERAPY SKIN LESION Denae A Chelseaer WINDLACE MACHINE OPERATOR-ENGINEHOUSE BRAKEMAN Work Phone: Start: 06-03-2024 CRYOTHERAPY SKIN LESION Denae A Chelseaer WINDLACE MACHINE OPERATOR-ENGINEHOUSE BRAKEMAN Work Phone: Start: 06-03-2024 SKIN / NAIL BIOPSY Myrtle lie A John WINDLACE MACHINE OPERATOR-ENGINEHOUSE BRAKEMAN Work Phone: Start: 11-12-2023 Colonoscopy PLATFORM MATERIAL HANDLING SUPERVISOR-C Ania Felipe Work Phone: Start: 10-10-2023 Computed tomography of abdomen and pelvis with contrast PLATFORM MATERIAL HANDLING SUPERVISOR-C Shreyas Felipe Work Phone: Start: 06-18-2023 X-ray of lumbar spin e, six views including bending views PLATFORM MATERIAL HANDLING SUPERVISOR-C Shreyas Felipe Work Phone: Start: 04-13-2023 Nerve conduction bety dies 5-6 studies Jessica Dotson MD Work Phone: Start: 01-18-2023 Radex shoulder compl ete minimum 2 views Jessica Dotson MD Work Phone: Start: 11-07-2022 X-ray of right knee PLATFORM MATERIAL HANDLING SUPERVISOR- C Shreyas Felipe Work Phone: Start: 11-03-2022 PSA screening SHREYAS WELSH Comment on above: Performed By: #### P [facility] #### [facility] [address] [place] [address] Dr. Stacy Saxena Start: 07-26-2022 Fluoroscopy during operation Maddy Cabezas MD Work Phone: Start: 07-20-2022 Electrolyte panel Ioana Roy MD Work Phone: Start: 07-20-2022 Ecg routine ecg w/le ast 12 lds trcg only w/o i&r Ioana Roy MD Work Phone: Start: 05-29-2022 Plain x-ray of pelvi s and lower extremity PLATFORM MATERIAL HANDLING SUPERVISOR-C Shreyas Felipe Work Phone: Start: 05-29-2022 X-ray of both knees PLATFORM MATERIAL HANDLING SUPERVISOR- C Shreyas Felipe Work Phone: Start: 05-11-2021 Mri spinal canal cer vical w/o contrast wanda Steen APRN.CNP Work Phone: Plan of Treatment Date Care Activity Detail Author Start: 03-24-2028 DTaP/Tdap/Td vaccine (2 - Td or Tdap) DTaP/Tdap/Td vaccine (2 - Td or Tdap) [facility] Start: 03-24-2028 Urine microalbumin profile DTaP,Tdap,Td Vaccine (2 - Td or Tdap) [facility] Start: 11-04-2027 PROSTATE CANCER SCREENING DISCUSSION PROSTATE CANCER SCREENING DISCUSSION [facility] Start: 11-04-2027 Prostate specific antigen measurement Prostate Cancer Screening Discussion [facility] Start: 03-16-2025 Influenza vaccination Influenza Vaccine (Season Ended) [facility] Start: 01-26-2025 End: 01-26-2025 Patient encounter procedure 01/26/2025 1:20 PM EDT Office Visit [facility] [address] [place] [phone] Denae Lopez, WINDLACE MACHINE OPERATOR-ENGINEHOUSE BRAKEMAN [address] [place] [address] [facility] Start: 07-28-2024 End: 07-28-2024 Patient encounter procedure 07/28/2024 1:35 PM EST Office Visit [facility] [address] [place] [phone] Denae Lopez, WINDLACE MACHINE OPERATOR-ENGINEHOUSE BRAKEMAN [address] [place] [address] Arrived [facility] Comment on above: Arrived Start: 07-16-2024 Medicare Advantage Annual Wellness Visit Medicare Advantage Annual Wellness Visit [facility] Start: 03-16-2024 Covid-19 Vaccine ( season) Covid-19 Vaccine ( season) [facility] Start: 03-16-2024 Influenza vaccination [facility] Start: 11-12-2023 [facility] Start: 03-16-2023 Influenza vaccination [facility] Start: 07-26-2022 End: 07-26-2022 Prq impltj nstim electrode array epidural SPINAL CORD STIMULATOR IMPLANT TRIAL Lumbar radiculopathy 07/26/2022 4:40 PM EST [facility] Start: 07-26-2022 End: 07-26-2022 Admission to same day surgery center 07/26/2022 Surgery IP Unit Maddy Cabezas MD [address] [place] [address] SPINAL CORD STIMULATOR IMPLANT TRIAL - [employer] [facility] Comment on above: SPINAL CORD STIMULATOR IMPLANT TRIAL - B [employer] Start: 07-26-2022 End: 07-26-2022 Anesthesia consultation 07/26/2022 Anesthesia Event IP Unit Oswaldo Daniels MD [address] [place] [address] [facility] Start: 07-26-2022 End: 07-26-2022 Prq impltj nstim electrode array epidural SPINAL CORD STIMULATOR IMPLANT TRIAL Lumbar radiculopathy 07/26/2022 3:20 PM [facility] Start: 07-26-2022 Subsequent hospital visit by physician 07/26/2022 Hospital Encounter IP Unit Maddy Cabezas MD [address] [place], [place] [id number] [facility] Start: 07-16-2022 DEPRESSION ASSESSMENT DEPRESSION ASSESSMENT [facility] Start: 07-13-2022 Annual Wellness Visit (AWV) Annual Wellness Visit (AWV) [facility] Start: 05-29-2022 Ultrasonography of limb extremity nonvascular [facility] Start: 05-29-2022 US Extremity [facility] Start: 02-13-2022 Influenza vaccination Flu vaccine (#1) [facility] Start: 02-07-2020 PROSTATE CANCER SCREENING DISCUSSION PROSTATE CANCER SCREENING DISCUSSION [facility] Start: 12-27-2019 DIABETES SCREEN DIABETES SCREEN [facility] Start: 12-27-2019 Diabetes Screening Diabetes Screening [facility] Start: 2015 Influenza vaccination LUNG CANCER SCREENING [facility] Start: 2015 Screening for malignant neoplasm of lung Lung Cancer Screening [facility] Start: 2015 Shingles vaccine (1 of 2) Shingles vaccine (1 of 2) [facility] Start: 2015 SHINGRIX VACCINE (1 of 2) SHINGRIX VACCINE (1 of 2) [facility] Start: 2010 COLOGUARD (FIT-DNA) COLOGUARD (FIT-DNA) [facility] Start: 2010 Colonoscopy COLONOSCOPY [facility] Start: 2010 COLORECTAL CANCER SCREENING COLORECTAL CANCER SCREENING [facility] Start: [address] COLONOGRAPHY [facility] Start: 2010 FECAL OCCULT BLOOD FECAL OCCULT BLOOD [facility] Start: 2010 Screening for malignant neoplasm of colon [facility] [employer] Start: 2010 SIGMOIDOSCOPY SIGMOIDOSCOPY [facility] Start: 2005 Lipid panel [employer] Start: 02-07-2000 Diabetes screen Diabetes screen [facility] [employer] Start: 02-07-2000 Lipid 1996 panel - Serum or Plasma Lipid Screening [facility] Start: 02-07-2000 Lipid panel Lipid Screening [facility] Start: 02-07-2000 LIPID SCREEN LIPID SCREEN [facility] Start: 02-07-1984 Pneumococcal Vaccine: 50+ (1 of 2 - PCV) Pneumococcal Vaccine: 50+ (1 of 2 - PCV) [facility] Start: 02-07-1984 Urine microalbumin profile [facility] Start: 1983 Anxiety Screening Anxiety Screening [facility] Start: 1983 Depression Screening Depression Screening [facility] Start: 1983 Hepatitis C screening [facility] [employer] Start: 1983 HEPATITIS C SCREENING HEPATITIS C SCREENING [facility] Start: 1983 HIV SCREENING HIV SCREENING [facility] Start: 1983 HIV screening HIV Screening [facility] Start: 02-07-1980 HIV screening HIV screen [facility] [employer] Start: 1977 Depression Screen Depression Screen [facility] [employer] Start: 1971 PNEUMOCOCCAL (1 - PCV) PNEUMOCOCCAL (1 - PCV) [facility] Start: 1971 Pneumococcal 0-64 years Vaccine (1 - PCV) Pneumococcal 0-64 years Vaccine (1 - PCV) [employer] Start: 1971 Pneumococcal vaccination [facility] Start: 1965 COVID-19 Vaccine (#1) COVID-19 Vaccine (#1) [employer] Start: 1965 HEPATITIS B (1 of 3 - 3-dose series) HEPATITIS B (1 of 3 - 3-dose series) [facility] Start: 1965 Hepatitis B Vaccine (1 of 3 - 3-dose series) Hepatitis B Vaccine (1 of 3 - 3-dose series) [facility] End: 07-26-2022 Blood glucose - POCT Blood glucose - POCT Point of Care Testing Routine One Time for 1 Occurrences starting 07/26/2022 until 07/26/2022 [employer] Work Phone: Comment on above: One Time for 1 Occurrences starting 07/16 until 07/26/2022 Dermatopathology exam Dermatopat hology exam Pathology and Cytology Timed Neoplasm of unspecified behavior of bone, soft tissue, and skin Release Upon Ordering for 1 Occurrences starting 06/03/2024 [facility] Work Phone: Comment on above: Release Upon Ordering for 1 Occurrences starting 06/03/2024 End: 01-19-2024 EMG(NEURO/NI) EMG(NEURO/NI) EMG Routine Rotator cuff tear arthropathy, right Right arm weakness Spinal stenosis of cervical region 1 Occurrences starting 01/18/2023 until 01/19/2024 [facility] Work Phone: Comment on above: 1 Occurrences starting 01/18/2023 until 01/19/2024 End: 07-26-2022 INITIATE PACU OXYGEN THERAPY PROTOCOL Initiate PACU Oxygen Therapy Protocol Respiratory Care Routine Continuous until discontinued starting 07/26/2022 [employer] Work Phone: Comment on above: Continuous until discontinued starting 0 07/26/2022 End: 02-17-2024 Mri spinal canal cervical w/o contrast matrl MRI CERVICAL SPINE WO IVCON Radiology Routine Spinal stenosis of cervical region 1 Occurrences starting 01/18/2023 until 02/17/2024 [facility] Work Phone: Comment on above: 1 Occurrences starting 01/18/2023 until 02/17/2024 Oxygen therapy [[facility] Data Set] Initiate Oxygen Therapy Protocol Respiratory Care Routine As Needed until discontinued starting 07/26/2022 [employer] Work Phone: Comment on above: As Needed until discontinued starting Patient Education [facility] Work Phone: Patient referral [facility] Work Phone: End: 07-26-2022 , urine POCT , urine POCT Point of Care Testing Routine One Time for 1 Occurrences starting 07/26/2022 until 07/26/2022 [facility]EW[facility] Work Phone: Comment on above: One Time for 1 Occurrences starting 07/16 until 07/26/2022 End: 12-15-2023 XR SHOULDER GENERAL 3V OR MORE AP/TRUE AP/OTHER LEFT XR SHOULDER GENERAL 3V OR MORE AP/TRUE AP/OTHER LEFT Radiology Routine Pain 1 Occurrences starting 11/16/2022 until 12/15/2023 [facility] Work Phone: Comment on above: 1 Occurrences starting 11/16/2022 until 12/15/2023 End: 12-15-2023 XR SHOULDER GENERAL 3V OR MORE AP/TRUE AP/OTHER RIGHT XR SHOULDER GENERAL 3V OR MORE AP/TRUE AP/OTHER RIGHT Radiology Routine Pain 1 Occurrences starting 11/16/2022 until 12/15/2023 [facility] Work Phone: Comment on above: 1 Occurrences starting 11/16/2022 until 12/15/2023 Payers Date Payer Category Payer Medicare [id number] 2020 Medicare (Managed Care) [id number] 2018 Medicare [id number] 2018 Self-pay ABC 2010 Unknown [id number] 2010 Unknown [id number] 1965 Unknown [id number] 18 1965 Unknown [id number] 56 1965 Unknown [id number] 77 1965 Unknown [id number] 77 1965 Unknown [id number] 93 1965 Unknown [id number] 93 1965 Unknown [id number] 93 1965 Unknown [id number] 259 1965 Unknown [id number] 259 1959 Medicare [id number] 1959 Self-pay [id number] Medicare Medicare [id number] Medicare Anthem MCR PFFS [id number] Unknown HCAP/HFA/FAP Active [id number] Worker's Compensation [employer] [facility] [id number] Social History Date Type Detail Facility Start: 05-22-2021 End: 11-12-2023 Tobacco smoking status [facility] Smoker (finding) [facility] Start: 1965 Sex Assigned At Male F [facility] Start: 07-20-2022 End: 01-18-2023 Tobacco smoking status [facility] Smokes tobacco daily [employer] Phone: Start: 10-22-1977 End: 10-22-2006 History of tobacco use Cigarette Smoker [employer] Phone: Start: 07-20-2022 End: 01-18-2023 Cigarettes smoked current (pack per day) - Reported 1 [employer] Phone: Start: 07-20-2022 End: 01-18-2023 Tobacco use and exposure Smokeless tobacco non-user [employer] Phone: Start: 07-20-2022 End: 08-07-2023 Alcohol intake Current drinker of alcohol (finding) [employer] Phone: Start: 07-20-2022 Alcohol Comment socailly [employer] Phone: Start: 1965 Sex Assigned At Not on file B ON [employer] Phone: Start: 04-11-2021 End: 07-26-2022 Exposure to SARS-CoV-2 (event) Not sure [employer] Phone: Start: 11-21-2012 Alcohol Comment 2x year [facility] Start: 01-18-2023 End: 08-07-2023 Tobacco use panel [facility] National Score (1-10 0), lower number is lower risk 73 [facility] Start: 01-23-2023 Alcohol Comment coffee 2-3 coffee NO [facility] Procedure Code Equipment Code [...] Cntct W Imag Rdy Mri Full - [id number] Start: 07-26-2022 Anchr Sut 5.5mm Bcmps Crkscr - [id number] Start: 02-19-2015 Bolivar Corkscrew Fiber[employer] Tigerwire 5.5mm 2 Full Thread Biocomposite 14.7 - [id number] Start: 01-05-2017 Bit Drl 165mm 2. 8mm Ti Qc Ns - [id number] Start: 04-05-2012 Comment on above: Description: DRILL B IT Graft Bn Dbm 10m l Ptty Strl - [id number] Start: 04-05-2012 Leander Bn Smpx P To bra Fd - [id number] Start: 08-30-2012 0---Leander Bn Smpx P Tobra Fd - [id number] Start: 12-03-2012 Cortical Screw [id number] Start: 04-05-2012 Multifire Scorpi on Needle [id number] Start: 02-19-2015 Comment on above: Description: NDL SUT MULTFI SCRPN STRL DISP Head Fem 48mm Hi p - [id number] Start: 08-30-2012 0---Head Fem 48m m Hip - [id number] Start: 12-03-2012 Screw Bn 3.5mm 1 6mm Lcp Ss - [id number] Start: 04-05-2012 Anchr Sut 5.5mm 2 Crkscr 2 - [id number] Start: 10-17-2011 Anchr Sut 5.5mm Bcmps Crkscr - [id number] Start: 02-19-2015 Bit Drl 140mm 2m m Qc D Mrk Ns - [id number] Start: 04-05-2012 Comment on above: Description: DRILL B IT Bit Drl Gld 110m m 2.5mm Ss Qc - [id number] Start: 04-05-2012 Comment on above: Description: DRILL B IT Wmh-Vc-U-Kind Implant - [id number] Start: 04-05-2012 Comment on above: Description: wrist f usion plate Cup Actb 54mm 48 mm r - [id number] Start: 08-30-2012 0---Cup Actb 54m m 48mm r Hd - [id number] Start: 12-03-2012 Screw Bn 2.7mm 2 2mm Lcp Ss Sm - [id number] Start: 04-05-2012 Screw Bn 2.7mm 1 6mm Lcp Ss - [id number] Start: 04-05-2012 Screw Bn 3.5mm 2 0mm Lcp Ss - [id number] Start: 04-05-2012 Screw Bn 2.7mm 1 4mm Lcp Ss Sm - [id number] Start: 04-05-2012 Screw Bn 2.7mm 2 0mm Lcp Ss Sm - [id number] Start: 04-05-2012 Goals Date Patient Goal Desired Activity /State Functional Status Date Assessment Result Facility 10-01-2014 Are you deaf, or do you have serious difficulty hearing No 10/01/2014 7:00 AM Meldoie Loza No [facility] 10-01-2014 Are you blind, or do you have serious difficulty seeing, even when wearing glasses No 10/01/2014 7:00 AM EDMelodie Rosario [facility] 10-01-2014 Do you have serious difficulty walking or climbing stairs No 10/01/2014 7:00 AM Melodie Loza [facility] 10-01-2014 Do you have difficul ty dressing or bathing No 10/01/2014 7:00 AM Melodie Loza [facility] 10-01-2014 Because of a physica l, mental, or emotional condition, do you have difficulty doing errands alone such as visiting a physician's office or shopping No 10/01/2014 7:00 AM KAMRYNMelodie Rosario [facility] Mental Status Date Assessment Result Facility 10-01-2014 Because of a physica l, mental, or emotional condition, do you have serious difficulty concentrating, remembering, or making decisions No 10/01/2014 7:00 AM KAMRYNMelodie Rosario [facility] Clinical Notes 04-15-2021 to 07-28-2024 COREY [...] limited to risks of scarring, darker or concrete boom operator pigmentary changes, recurrence, incomplete removal and infection. [...] intertrigo Left Medial Thigh, Right Medial Thigh [place] moist plaques. Flaring today Discussed that intertrigo [...] in 6 months documented in this encounter [facility] 06-03-2024 History of Present illness Narrative Images [...] limited to risks of scarring, darker or concrete boom operator pigmentary changes, recurrence, incomplete removal and infection. [...] year, skin check documented in this encounter [facility] 11-12-2023 Procedure note [facility] 08-07-2023 Note HNO ID: [id number] Author: RAÚL SULLIVAN MD Service: ? Author [...] LS 04/01/10 Performed by BRUNO VICTORIA at [facility] NJX DX/THER AGT PVRT FACET JT LMBR/SAC 1 LEVEL 04/29/2010 Performed by BRUNO VICTORIA at [facility] PAST SURGICAL HISTORY OF 2000, 2004 shoulder [...] per capsule Ta (more content not included)... [facility] 05-04-2023 Miscellaneous Notes Follow-up MRI of the [...] Jessica Dotson MD documented in this encounter [facility] 04-13-2023 Note HNO ID: [id number] Author: Belem Ruiz RT(R) Service: Radiology Author [...] RT Aditya(R) April 13, 2023 6:[address] [facility] 04-13-2023 Note HNO ID: [id number] Author: Keke Hollingsworth MD Service: ? Author [...] when applicable. LANDEN Quintero. Keke Hollingsworth MD [facility] 04-13-2023 History of Present illness Narrative [facility] [...] Keke Hollingsworth MD documented in this encounter [facility] 01-18-2023 Note HNO ID: [id number] Author: Jessica Dotson MD Service: ? Author Type: Physician Type: Progress Notes Filed: 01/18/2023 5:40 PM Note Text: [facility] NOTE Department of Orthopaedics Jessica Dotson M.D. NAME: Edmund Christopher [facility] NO.: [id number] DATE: January 18, 2023 Parth returns for [...] not hesitate to call. Jessica Dotson M.D. [facility] 01-18-2023 History of Present illness Narrative [facility] NOTE Department of Orthopaedics Jessica Dotson M.D. NAME: Edmund Christopher [facility] NO.: [id number] DATE: January 18, 2023 Parth returns for [...] Jessica Dotson M.D. documented in this encounter [facility] 01-18-2023 Note HNO ID: [id number] Author: Pina Armstrong Service: ? Author Type: Surgical Forceps Fabricator Type: Progress Notes Filed: 01/18/2023 7:42 AM [...] Pina Armstrong January 18, 2023 7:[address] [facility] 01-18-2023 History of Present illness Narrative Radiology [...] 2023 7:42 AM documented in this encounter [facility] 07-26-2022 Hospital Discharge instructions Ana Laura [...] of your spine documented in this encounter [employer] Phone: 04-15-2021 Note HNO ID: [id number] Author: LAZARO Donnelly) Service: ? Author Type: [...] LAZARO Donnelly) April 15, 2021 8:00 PM [facility] 04-15-2021 Note HNO ID: [id number] Author: Sandra Taylor RDMS Service: ? Author Type: Mid Level Clinician Type: Progress Notes Filed: 04/15/2021 6:49 PM [...] Taylor RDMS April 15, 2021 6:49 PM [facility] Evaluation note No assessment inform ation [facility] Work Phone: Evaluation note Diagnosis Pain- Primary Generalized pain [facility] Rotator cuff tear arthropathy, [...] cervical spine Cervicalgia [facility] Actinic keratosis Neoplasm of unspecified behavior of bone, soft tissue, and skin documented in this encounter [facility]* Diagnosis Actinic keratosis- Primary Erythema intertrigo Other specified erythematous condition documented in this encounter [facility]* Diagnosis Preventive antibiotic- Primary Encounter for long-term (current) use of antibiotics documented in this encounter [facility] Author Tuyet Adams [facility] November 12, 2023 8:15am Note Date/Time November 12, 2023 8:[address] [facility] [address] [place] [address] Gastroenterology H&P Signed Patient: Edmund Christopher MR#: [id number] : 1965 Acct:[id number] Age/Sex: 58 / M Adm Date: 4 Loc: Room: Type: [facility] Attending Dr: Tuyet Adams DO Copies to: [...] <Electronically signed by Tuyet Adams DO> 11/12/23814 [facility] Work Phone: Hospital Discharge instructions Additional Instructions Call Dr. Hoyos's office Sunday morning to make an appointment Return to the ER for redness swelling warmth of the area fever chills [facility] Discharge instructions Additional Instructions Follow-up with the specialist as scheduled concerning the stimulator If the specialist does not feel that the pains from the stimulator I am getting encourage you to follow-up with gastroenterology Return to the ER for worsening pain high fever vomiting or any other concerns [facility] Work Phone: Reason for referral (narrative)* Diagnostic Procedure Only (Routine) - Pending Review Specialty Diagnoses / Procedures Referred By Contac t Referred To Contact XR IMAGING Diagnoses Pain Procedures XR SHOULDER GENERAL 3V OR MORE AP/TRUE AP/OTHER RIGHT RADEX SHOULDER COMPLETE MINIMUM 2 VIEWS Jessica Dotson MD [address] [place] [address] Xr Imaging Referral ID Status Reason Start Date Expiration Date Visits Requested Visits Authorized [id number] Pending Review Auto-Generat ed Referral 11/16/2022 12/15/2023 1 1 * Diagnostic Procedure Only (Routine) - Pending Review Specialty Diagnoses / Procedures Referred By Contac t Referred To Contact XR IMAGING Diagnoses Pain Procedures XR SHOULDER GENERAL 3V OR MORE AP/TRUE AP/OTHER LEFT RADEX SHOULDER COMPLETE MINIMUM 2 VIEWS Jessica Dotson MD [address] [place] [address] Xr Imaging Referral ID Status Reason Start Date Expiration Date Visits Requested Visits Authorized [id number] Pending Review Auto-Generat ed Referral 11/16/2022 12/15/2023 1 1 [facility] for referral (narrative)* Outpatient Procedure (Routine) - Pending Review Specialty Diagnoses / Procedures Referred By Deshaun aleman Referred To Contact [facility] Diagnoses Rotator cuff tear arthropathy, right Right arm weakness Spinal stenosis of cervical region Procedures EMG(NEURO/NI) NERVE CONDUCTION STUDIES 9-10 STUDIES Jessica Dotson MD [address] [place] [address] [address] [place] [address] [place] [address] Referral ID Status Reason Start Date Expiration Date Visits Requested Visits Authorized [id number] Pending Review Auto-Generat ed Referral 01/18/2023 01/19/2024 1 1 * MRI/CT (Routine) - Authorized Specialty Diagnoses / Procedures Referred By Deshaun aleman Referred To Contact MR IMAGING Diagnoses Spinal stenosis of cervical region Procedures MRI CERVICAL SPINE WO IVCON MRI SPINAL CANAL CERVICAL W/O CONTRAST MATRL Jessica Dotson MD [address] [place] [address] Mr Imaging Referral ID Status Reason Start Date Expiration Date Visits Requested Visits Authorized [id number] Authorized Auto-Generat ed Referral 01/18/2023 02/17/2024 1 1 [facility] for referral (narrative)* Diagnostic Procedure Only (Routine) - Closed Specialty Diagnoses / Procedures Referred By Deshaun aleman Referred To Contact XR IMAGING Diagnoses Pain Procedures XR SHOULDER GENERAL 3V OR MORE AP/TRUE AP/OTHER RIGHT RADEX SHOULDER COMPLETE MINIMUM 2 VIEWS Jessica Dotson MD [address] [place] [id number] Xr Imaging Referral ID Status Reason Start Date Expiration Date V isits Requested Visits Authorized [id number] Closed Auto-Generate d Referral 11/16/2022 12/15/2023 1 1 * Diagnostic Procedure Only (Routine) - Closed Specialty Diagnoses / Procedures Referred By Deshaun aleman Referred To Contact XR IMAGING Diagnoses Pain Procedures XR SHOULDER GENERAL 3V OR MORE AP/TRUE AP/OTHER LEFT RADEX SHOULDER COMPLETE MINIMUM 2 VIEWS Jessica Dotson MD [address] [place] [address] Xr Imaging Referral ID Status Reason Start Date Expiration Date V isits Requested Visits Authorized [id number] Closed Auto-Generate d Referral 11/16/2022 12/15/2023 1 1 [facility] for visit Narrative* Diagnostic Procedure Only (Routine) - Closed Specialty Diagnoses / Procedures Referred By Deshaun aleman Referred To Contact XR IMAGING Diagnoses Pain Procedures XR SHOULDER GENERAL 3V OR MORE AP/TRUE AP/OTHER RIGHT RADEX SHOULDER COMPLETE MINIMUM 2 VIEWS Jessica Dotson MD [address] [place] [phone] Xr Imaging Referral ID Status Reason Start Date Expiration Date V isits Requested Visits Authorized [id number] Closed Auto-Generate d Referral 11/16/2022 12/15/2023 1 1 [facility] Summary Purpose Family History Relationship Condition [...] Documents on File Type Date Recorded Patient Varnisher Expl anation Advance Directive(s) 12/26/2016 12:39 PM Documents on File Type Date Recorded Patient Varnisher Expl anation Advance Directive(s) 12/26/2016 12:39 PM [...] weakness Procedures CONSULT TO SPINE SURGERY OFFICE/OUTPATIENT [facility] 60-74 MINUTES Jessica Dotson MD [address] [place] [address] Referral ID Status Reason Start Date Expiration Date Visits Requested Visits Authorized [id number] Pending Review PCP Requested Referral 3 05/03/2024 1 1 Specialty Diagnoses / Procedures Referred By Deshaun aleman Referred To Contact MR IMAGING Diagnoses DDD (degenerative disc disease), cervical Chronic neck pain Anterolisthesis of cervical spine Cervicalgia Procedures MRI CERVICAL SPINE WO IVCON MRI, CERV SPINE Viola Steen, WINDLACE MACHINE OPERATOR.ENGINEHOUSE BRAKEMAN [address] [place] [address] Mr Imaging [place] [address] Referral ID Status Reason Start Date Expiration Date V isits Requested Visits Authorized [id number] Closed Auto-Generate d Referral 04/29/2021 05/29/2022 1 [...] DATE CREATED AUTHOR AUTHOR'S ORGANIZ ATION 10/15/2018 [facility] DATE CREATED AUTHOR AUTHOR'S ORGANIZ ATION 03/05/2020 [facility] DATE CREATED AUTHOR AUTHOR'S ORGANIZ ATION 04/17/2021 [facility] DATE CREATED AUTHOR AUTHOR'S ORGANIZ ATION 07/26/2022 [facility] DATE CREATED AUTHOR AUTHOR'S ORGANIZ ATION 11/15/2022 [facility] DATE CREATED AUTHOR AUTHOR'S ORGANIZ ATION 08/18/2023 [facility] DATE CREATED AUTHOR AUTHOR'S ORGANIZ ATION 07/16/2024 [facility] DATE CREATED AUTHOR AUTHOR'S ORGANIZ ATION 07/31/2024 [facility] dical Specialists EPIC Care Teams (unrecognized sec tion and content) Team Status: Active Member Role Status Dates Shreyas Felipe PLATFORM MATERIAL HANDLING SUPERVISOR-C Primary Care Provider Active Team Status: Inactive Member Role Status Dates Shreyas Felipe PLATFORM MATERIAL HANDLING SUPERVISOR-C Primary Care Provider Active Arnoldo Rodriguez APRN Emergency Provider Active Team Status: Inactive Member Role Status Dates Shreyas Felipe PLATFORM MATERIAL HANDLING SUPERVISOR-C Primary Care Provider Active Maddy Cabezas II, MD Attending Provider Active Team Status: Inactive Member Role Status Dates Shreyas Felipe PLATFORM MATERIAL HANDLING SUPERVISOR-C Primary Care Provider, Attend ing Provider Active Draw Furnace Tender Relationship Specialty Start Date End Date Shreyas Felipe [address] [place] [address] PCP - General 07/26/22 Team Status: Inactive Member Role Status Dates Shreyas Felipe PLATFORM MATERIAL HANDLING SUPERVISOR-C Primary Care Provider Active Nataliia Banks ENGINE TEST CELL TECHNICIAN-BC Emergency Provider Active Team Status: Inactive Member Role Status Dates Shreyas Felipe PLATFORM MATERIAL HANDLING SUPERVISOR-C Primary Care Provider Active Kandis Farrell PLATFORM MATERIAL HANDLING SUPERVISOR-C Attending Provider Active Team Status: Inactive Member Role Status Dates Shreyas Felipe PLATFORM MATERIAL HANDLING SUPERVISOR-C Primary Care Provider Active Start: October 10, 2023 End: October 10, 2023 Nataliia Banks , ENGINE TEST CELL TECHNICIAN-BC Emergency Provider Active Start: October 10, 2023 End: October 10, 2023 Team Status: Inactive Member Role Status Dates Shreyas Felipe PLATFORM MATERIAL HANDLING SUPERVISOR-C Primary Care Provider Active Start: November 12, 2023 End: November 12, 2023 Tuyet Adams DO Attending Provider Active St art: November 12, 2023 End: November 12, 2023 Team Status: Active Member Role Status Dates Shreyas Felipe PLATFORM MATERIAL HANDLING SUPERVISOR-C Primary Care Provider Active Start: November 12, 2023 Tuyet Adams DO Attending Provider, Other Provider Active Start: November 12, 2023 Draw Furnace Tender Relationship Specialty Start Date End Date Pcp, DANILO Ngo PCP - General 04/16/21 11/12/21 Draw Furnace Tender Relationship Specialty Start Date End Date Naresh Jerome MD [address] [place] [address] PCP - General Family Medicine 01/23/23 Draw Furnace Tender Relationship Specialty Start Date End Date Naresh Jerome MD [address] [place] [address] PCP - General Family Medicine 01/23/23 Draw Furnace Tender Relationship Specialty Start Date End Date Naresh Jerome MD [address] [place] [address] PCP - General Family Medicine 01/23/23 Draw Furnace Tender Relationship Specialty Start Date End Date Naresh Jerome MD [address] [place] [address] PCP - General Family Medicine 01/23/23 Goals [...] Low back pain Lumbar radiculopathy [M54.16] Procedures CT PRQ [id number] NSTIM ELECTRODE ARRAY EPIDURAL SPINAL CORD STIMULATOR IMPLANT TRIAL - CEDU Maddy Cabezas MD [address] [place] [address] [facility] [address] [place] [address] Referral ID Status Reason Start Date Expiration Date Visits Re quested Visits Authorized [id number] 1 1 Reason Comments Established Patient Follow Up Pain Specialty Diagnoses / Procedures Referred By Deshaun aleman Referred To Contact Orthopedics / ORTHOPAEDIC SURGERY Diagnoses Bilat shoulder pain BWC - ok per Nereida Procedures CAMILL[employer] Self Jessica Dotson MD [address] [place] [phone] Referral ID Status Reason Start Date Expiration Date Visits Requested Visits Authorized [id number] Outside PCP Patient Cleared - Admin/Chair man/Directo r advise to proceed or did not respond 01/18/2023 03/19/2023 1 1 Reason Onset Date Comments EMG 04/13/2023 Specialty Diagnoses / Procedures Referred By Deshaun aleman Referred To Contact [facility] Diagnoses Rotator cuff tear arthropathy, right Right arm weakness Spinal stenosis of cervical region Procedures EMG(NEURO/NI) NERVE CONDUCTION STUDIES 9-10 STUDIES Jessica Dotson MD [address] [place] [address] [place] [address] Referral ID Status Reason Start Date Expiration Date V isits Requested Visits Authorized [id number] Closed Auto-Generated Referral Patient Cleared - INN Insurance Found 01/18/2023 01/19/2024 1 1 Specialty Diagnoses / Procedures Referred By Deshaun aleman Referred To Contact MR IMAGING Diagnoses DDD (degenerative disc disease), cervical Chronic neck pain Anterolisthesis of cervical spine Cervicalgia Procedures MRI CERVICAL SPINE WO IVCON MRI, CERV SPINE Viola Steen, WINDLACE MACHINE OPERATOR.ENGINEHOUSE BRAKEMAN [address] [place] [id number] [facility] [place] [address] Referral ID Status Reason Start Date Expiration Date V isits Requested Visits Authorized [id number] Closed Auto-Generate d Referral 04/29/2021 05/29/2022 1 [...] start, Pre-op (day of surgery) lidocaine-EPINEPHrine 1 %-1:134226 30 mL, sodium bicarbonate 1 mL (CANCELED) PRN, Starting on Sun07/26/22 at 1655, Intra-op 1655 (Given - Provid er: Maddy Cabezas MD)1715 (Given - Provider: Maddy Cabezas MD) ondansetron (ZOFRAN) injection 4 mg [...] or prosecute any alcohol or drug abuse patient.[facility] the event this information is protected by the Federal Confidentiality of Alcohol and Drug Abuse Patient Records regulations: The Federal rules restrict any use of the information to criminally investigate or prosecute any alcohol or drug abuse patient.[facility] the event this information is protected by the Federal Confidentiality of Alcohol and Drug Abuse Patient Records regulations: The Federal rules restrict any use of the information to criminally investigate or prosecute any alcohol or drug abuse patient.[facility] the event this information is protected by the Federal Confidentiality of Alcohol and Drug Abuse Patient Records regulations: The Federal rules restrict any use of the information to criminally investigate or prosecute any alcohol or drug abuse patient.[facility] HospitalIn the event this information is protected by the Federal Confidentiality of Alcohol and Drug Abuse Patient Records regulations: The Federal rules restrict any use of the information to criminally investigate or prosecute any alcohol or drug abuse patient.[facility] Hospital[facility] the event this information is protected by the Federal Confidentiality of Alcohol and Drug Abuse Patient Records regulations: The Federal rules restrict any use of the information to criminally investigate or prosecute any alcohol or drug abuse patient.[facility] HospitalIn the event this information is protected by the Federal Confidentiality of Alcohol and Drug Abuse Patient Records regulations: The Federal rules restrict any use of the information to criminally investigate or prosecute any alcohol or drug abuse patient.[facility] FOR RECORDS PERTAINING TO PATIENTS WHO [...] BE BASED ON THE PRIMARY CLINICAL RECORDS. [facility] [employer]. provides no warranty or guarantee of the accuracy or completeness of information in this document.
--- NOTE | 2024-12-27 12:50 | ED_ITS ---
HPI - Recheck/Abnormal Lab/Rx General Chief Complaint: Recheck/Abnormal Lab/Rx Stated Complaint: PT IS REQUESTIONG ANTIBIOTICS PRIOR TO DENTAL PROC Time Seen by Provider: 12/27/24 12:11 Source: patient Mode of arrival: walk-in Limitations: no limitations History of Present Illness HPI narrative: The patient is 59-year-old male with multiple joint replacement surgery including bilateral hip and left shoulder, he is supposed to get root canal treatment for his left upper molar tooth #14 and he was told by his orthopedic that whenever he need any dental procedure he need to be given antibiotics before the procedure The patient does have redness and pain in the left upper molar Related Data Home Medications ?Medication ?Instructions ?Recorded ?Confirmed lisinopril 40 mg tablet mg 12/26/24 meloxicam 15 mg tablet mg 12/26/24 oxycodone 15 mg tablet mg 12/26/24 Previous Rx's ?Medication ?Instructions ?Recorded amoxicillin 500 mg capsule 500 mg PO Q8H #20 caps 12/14 11/07 Allergies Allergy/AdvReac Type Severity Reaction Status Date / Time No Known Drug Allergies Allergy Verified 12/26/24 19:15 Review of Systems ROS Status of ROS 10 or more systems reviewed and unremark able except as noted in history and below PFSH PFSH Social History Little interest or pleasure in doing things: not at all Feeling down, depressed, or hopeless: not at all Exam Narrative Exam Narrative: Nurses notes and vital signs reviewed and patient is not hypoxic. General: Well-appearing and in no apparent distress. Skin: Warm, dry, no pallor noted. Dental exam: The patient have a poor dental hygiene with multiple decayed tooth, there is inflammation of the gum at the tooth #14 and tenderness on palpation Constitutional Vital Signs, click to edit/add: Last Vital Signs Temp 98.4 F 12/27/24 12:01 Pulse 112 H 12/27/24 12:01 Resp 18 12/27/24 12:01 BP 140/103 H 12/27/24 12:01 Pulse Ox 97 12/27/24 12:01 O2 Del Method Room Air 12/27/24 12:01 Course Vital Signs Vital signs: Vital Signs Temperature 98.4 F 12/27/24 12:01 Pulse Rate 112 H 12/27/24 12:01 Respiratory Rate 18 12/27/24 12:01 Blood Pressure 140/103 H 12/27/24 12:01 Pulse Oximetry 97 12/27/24 12:01 Oxygen Delivery Method Room Air 12/27/24 12:01 Temperature 98.4 F 12/27/24 12:01 Pulse Rate 112 H 12/27/24 12:01 Respiratory Rate 18 12/27/24 12:01 Blood Pressure 140/103 H 12/27/24 12:01 Pulse Oximetry 97 12/27/24 12:01 Oxygen Delivery Method Room Air 12/27/24 12:01 MDM - Recheck/Abnormal Lab/Rx MDM Narrative Medical decision making narrative: The patient right now have a valid request of having amoxicillin especially with his infection, I initially was going to give him Augmentin but because he is planning to take amoxicillin 4 tablets before this procedure which is not usual intake dosage I did explain to the patient right now I will give him amoxicillin 500 mg every 8 hours Patient will follow-up as outpatient with his dentist The patient is to follow up with primary care physician in next 2-3 days or to return to the emergency department should any of the signs or symptoms worsen or new symptoms develop. The patient agrees with the following Diagnosis and Treatment plan and the patient will be discharged home. Discharge Plan Discharge Chief Complaint: Recheck/Abnormal Lab/Rx Clinical Impression: Dental infection Patient Disposition: Home, Self-Care Time of Disposition Decision: 12:26 Condition: Good Prescriptions / Home Meds: New amoxicillin 500 mg capsule 500 mg PO Q8H Qty: 20 0RF No Action meloxicam 15 mg tablet oxycodone 15 mg tablet lisinopril 40 mg tablet Print Language: Greek Instructions: Dental Abscess (ED) Referrals: SHREYAS FELIPE [Primary Care Provider, Family Practice] - 1 week Discharge Date/Time: 12/27/24 12:36
== END 2024-12-27 12:36 | disposition home or self-care (01) ==
PROVIDERS: Emergency Provider Emergency Medicine; PCP Nurse Practitioner Family
DX: K04.7 Periapical abscess without sinus (principal); Z96.643 Presence of artificial hip joint, bilateral; Z96.612 Presence of left artificial shoulder joint
CPT/HCPCS: 99283

== ENCOUNTER 2025-01-13 10:25 | Outpatient (OUT) | payer MEDICARE, SELFPAY ==
--- NOTE | 2025-01-13 11:00 | PC.NURSE ---
Nursing Note Cardiac Stress Test Reviewed: Medication, allergies and patient history reviewed. Stress Test: [x ] Patient tolerated stress test well. [ ] Patient unable to tolerate walking on treadmill. Switched to Lexiscan stress test. [x ] No chest pain noted per patient [ ] Chest pain that resolved prior to leaving stress lab. [ ] No dyspnea noted. [x ] Dyspnea that resolved prior to leaving stress lab. [x ] Patient left stress lab asymptomatic and hemodynamically stable. [ ] Patient taken to the Emergency Room due to non-resolving symptoms following stress test. [x ] Patient achieved target heart rate. [ ] Patient unable to achieve target heart rate. [ ] Aminophylline administered as reversal agent to Lexiscan (Regadenoson). [ ] Nitro administered. Nursing Comments:Pt had regular TM test. No CP noted but did have SOB which he states is normal for him. States he was surprised on how long he walked since he can barely walk 50-100 yards at home without getting winded and has to rest. Pt left stress lab with no symptoms.
--- NOTE | 2025-01-14 19:09 | PM.STRESS ---
Stress Test Stress Test Allergies Allergy/AdvReac Type Severity Reaction Status Date / Time No Known Drug Allergies Allergy Verified 12/26/24 19:15 Requesting physician: SHREYAS FELIPE Procedure: Treadmill EKG stress test General Information: Reason for Stress Test: [Fatigue] Cardiac History and Risk Factors: [Hypertension, age and gender] Resting 12 - Lead Electrocardiogram: Resting twelve-lead EKG showed normal sinus rhythm, heart rate 76 bpm, right axis deviation, poor R progression V1-V3, possible old septal infarct next Resting heart rate 76 bpm, resting blood pressure 140/78 mmHg The patient was exercised according to standard Maxx protocol and he was able to finish 10 minutes and 6 seconds consistent with stage IV and 13.3 METS and achieving max heart rate of 137 bpm which represents 85% of age-predicted maximum heart rate and peak blood pressure of 152/86 mmHg. Exercise was terminated secondary to achievement of target heart rate and fatigue. The patient did not experience any chest, neck, jaw, or arm discomfort. He has some shortness of breath at peak exercise. Patient was monitored for 6 minutes post exercise with heart rate back to 103 bpm and blood pressure to 140/78 mmHg. EKG during exercise, at peak exercise, and during recovery phase did not show any significant T or ST changes or any significant arrhythmias. Stress Test: Protocol: [Maxx] Exercise Capacity: [Excellent] Blood Pressure Response: [Normal] Rhythm: [Sinus, no arrhythmia] ST - Response: [No ST changes] Patient Response: [Normal] Interpretation: Maximal stress test achieving 85% of age-predicted maximum heart rate Normal heart rate and blood pressure response to exercise Excellent exercise tolerance The stress test is negative for exercise-induced ischemic symptoms, EKG changes or arrhythmias Ventura score 10 consistent with low cardiac risk Indio Walsh MD [facility]
== END 2025-01-13 10:26 | disposition home or self-care (01) ==
LOC: CARD 10:25
PROVIDERS: PCP Nurse Practitioner Family; Visit Provider Nurse Practitioner Family
DX: R53.83 Other fatigue (principal); R07.89 Other chest pain
CPT/HCPCS: 93017

== ENCOUNTER 2025-02-04 12:51 | Outpatient (OUT) | payer MEDICARE, SELFPAY ==
--- OUTSIDE RECORDS SUMMARY | 2024-11-12 11:50 | XMS_ITS ---
Author Organization [facility] [place] Address [address] [facility] [place] [address] Care Team Providers Care Geography Head Name Role Phone Kim Barlow Primary Care Provider [phone] Dr. Edmund Del Toro Unavailable [phone] REASON FOR VISIT NEW PT Encounters Encounter Location Date Provider Diagnosis [facility] [place] [address] [place] [address] 11/12/2024 Edmund Del Toro Plan Of Treatment No Information Progress Notes * CATRACHO EDMUNDDOB:1965 (59 yo M)Acc No.[id number]:11/12/2024 Patient: EDMUND GARCIA Provider: Davin Del Toro DDS :1965 A ge:59 Y S ex:Male Date:11/12/2024 Address:[address] [place], [place] [id number] Pcp:Kim Barlow Subjective: * Chief Complaints: * 1 . NEW PT. * Medical History: Objective: * Vitals: Assessment: Plan: * Treatment: * Images: * Electronic signature of Dr. Edmund Del Toro , DMD on 02/04/2025 at 12:54 PM EDT Sign off status: Pending * Provider: Davin Del Toro DDS Date: 11/12/2024 Generated for Sergio beth/Jasmina/eTransmitting on: 02/04/2025 12:54 PM EDT
--- OUTSIDE RECORDS SUMMARY | 2025-01-09 05:45 | XMS_ITS ---
Author Organization [facility] [place] Address [address] [place] [address] Care Team Providers Care Patent Attorney Name Role Phone Carola Galindo Primary Care Provider Allergies Allergen (clinical drug ingredient) Drug/Non Drug Allergy documented on EMR Reaction Allergy Type Onset Date Status Cat dander Cat Dander unknown Allergy Active Latex Latex rash/hives Allergy Active pravastatin Pravastatin unknown Drug Allergy Act clementine REASON FOR VISIT Extreme Fatigue, Hypertension Medications Medication SIG (Take, Route, Frequency, Duration) Notes Start Date End Date Status oxyCODONE HCl ER 15 MG 1 tablet Orally 6 hours Pain Management Active hydroCHLOROthiazide 25 MG 1 tablet in th e morning Orally Once a day for 90 days 06/19/2023 Active Lisinopril 40 MG TAKE 1 TABLET BY MOUTH EVERY DAY FOR 30 DAYS for 90 days Active cloNIDine HCl 0.1 MG TAKE 1 TABLET BY MOUTH TWICE A DAY for 90 days Active Meloxicam 15 MG 1 tablet Orally Once a day Active Social History Tobacco Use: Social History [...] Problem Status W/U Status Risk Notes Problem Moderate major depression, single episode (37784321) Major depressive disorder, single episode, moderate (F32.1) Active confirmed Vital Signs Weight 162.4 lbs 01/09/2025 Height 64 in 01/09/2025 Blood pressure systolic 162 mm Hg 01/10/20 Blood pressure diastolic 92 mm Hg 025 BMI 27.87 kg/m2 01/09/2025 142/82 Procedures Procedure Date Ordered Date Performed Result Body Sit e CARDIO Stress Test - Treadmill Exercise 01/09/2025 N/A Encounters Encounter Location Date Provider Diagnosis [facility] [address] [place] [address] 01/09/2025 Carola Hollowaymer Major depressive disorder, single episode, moderate F32.1 ; Fatigue R53.83 and Cervical radiculopathy M54.12 Assessments Encounter Date Diagnosis (ICD Code) Assessment Notes Treatment Notes Treatment Clinical Notes Section Notes 01/09/2025 Major depressive disorder, single episode, moderate (ICD-10 - F32.1) stopped taking meds denies SI states mood ok 01/09/2025 Fatigue (ICD-10 - R53.83) increase fluids, electrolytes defers sleep apnea testing recent CBC< CMP reviewed 01/09/2025 Cervical radiculopathy (ICD-10 - M54.12) patient requesting CT, does not want MRI bilateral arm pain, numbness and tingling in right arm Plan Of Treatment Treatment Notes Assessment Notes Major depressive disorder, s chris episode, moderate stopped taking meds denies SI states mood ok Fatigue increase fluids, electrolytes defers sleep apnea testing recent CBC< CMP reviewed Cervical radiculopathy patient requesting CT, does not want MRI bilateral arm pain, numbness and tingling in right arm Pending Test Test Name Order Date VITAMIN B12 LEVEL (COBALAMIN) 01/09/2025 IRON, TOTAL 01/09/2025 VITAMIN D, 25 LEVEL (TOTAL) 01/09/2025 CARDIO Stress Test - Treadmill Exercise 01/09/2025 THYROID PANEL (T4/TSH/FREE T3) CT cervical spine wo con 01/09/2025 Next Appt Details Follow Up: 6 Months,robbienDianne son: Progress Notes * Edmund CHRISTOPHER ADOB:[birth year] (59 yo M)Acc No.[id number]:01/09/2025 Progress Note Patient: Edmund GARCIA Provider: Brisa Galindo ([facility]), SMOKE ROOM OPERATOR :1965 A ge:59 Y S ex:Male Date:01/09/2025 Address:[address] [place] [address] L[place] [id number] Check In:09:42 AM ESTCheck O ut:10:22 AM EST Subjective: * Chief Complaints: * 1 . Extreme Fatigue. 2. Hypertension. * HPI: G eneral: cramping all over, random spots and times severe fatigue for 4-5 months, getting worse muscle fatigue in legs, even jaw when chewing sometimes had tooth pulled recently, thats better has had several episodes of low BP over last 8 months feels weak, lightheaded, nausea wants neck CT getting some dizziness, pain in arms, numbness right arm. * ROS: G eneral/Constitutional: Chronic fatigue a dmits. C hronic Pain A dmits.?Fever d enies. H eadache d enies. W eight loss d enies. O phthalmologic: Discharge d enies. E ye Pain d enies. I tching and redness d enies. E NT: Nasal discharge d enies. N rosana congestion d enies.?Sore throat d enies. C ardiovascular: Chest tightness/ heavy pressure d enies. R apid heart rate d enies. S welling of extremities d enies. C hest pain d enies. ? R espiratory: Productive cough d enies. C hest pain d enies. C ough d enies. S hortness of breath d enies. W heezing d enies. ? G astrointestinal: Abdominal pain d enies. C onstipation d enies. D ecreased appetite d enies. D iarrhea d enies. N ausea d enies. V omiting?denies. G enitourinary: Urinary incontinence d enies. P ainful urination d enies. M usculoskeletal: Patient complaining of r andom muscle cramps. B ack pain d enies. N rishi pain a dmits with BL arm pain, numbness right arm. M uscle aches?denies. S kin: Rash d enies. S kin lesion(s) d enies. ? * Active Problem List J44.9 Chronic obstructive [...] Modified On:01/25/2023 Status:confirmed K63.5 Colonic polyp Modified On:11/12/2023U Status:confirmed G89.29 Chronic pain Modified On:05/20/2024 Status:confirmed G45.9 TIA (transient ische elodia attack) Modified On:08/08/2024 Status:confirmed F32.9 Depression Modified On:08/08/2024 Status:confirmed F41.9 Anxiety Modified On:09/08/2024 Status:confirmed G47.00 Insomnia Modified On:10/20/2024 Status:confirmed F41.9 Anxiety and depressi on Modified On:10/20/2024 Status:confirmed F32.1 Major depressive dis order, single episode, moderate Modified On:01/09/2025 Status:confirmed * Medical History: M ajor depressive [...] smoker (20-39 cigs/day) * Medications: T aking cloNIDine HCl 0.1 MG Tablet TAKE 1 TABLET BY MOUTH TWICE A DAY , Taking hydroCHLOROthiazide 25 MG Tablet 1 tablet in the morning Orally Once a day , Taking Lisinopril 40 MG Tablet TAKE 1 TABLET BY MOUTH EVERY DAY FOR 30 DAYS , Taking Meloxicam 15 MG Tablet 1 tablet Orally Once a day , Taking oxyCODONE HCl ER 15 MG Tablet ER 12 Hour Abuse-Deterrent 1 tablet Orally 6 hours , Notes to Pharmacist: Pain Management, Discontinued Cialis(Tadalafil) 10 MG Tablet 1 tablet as needed Orally Once a day , Notes to Pharmacist: Dispense as written, Discontinued hydrOXYzine HCl 25 MG Tablet 1 tablet as needed Orally BID for anxiety , Discontinued Lexapro(Escitalopram Oxalate) 20 MG Tablet 1 tablet Orally Once a day , Notes to Pharmacist: take 1/2 tablet po daily for first week than increase dose to 1 tablet po daily, Discontinued traZODone HCl 50 MG Tablet 1 tablet at bedtime as needed Orally Once a day , Discontinued Triamcinolone Acetonide 0.5 % Cream 1 application Externally BID prn , Medication List reviewed and reconciled with the patient * Allergies: L atex: rash/hives - Allergy, Cat Dander: unknown - Allergy, Pravastatin: unknown. Objective: * Vitals: W t:162.4lbs, Ht: 64 in, BP:162/92mm Hg, BMI:27.87Index, Ht-cm: 162.56 cm, Wt-k.66 kg. 142/82. * Examination: G eneral Examinations: GENERAL APPEARANCE: a lert and oriented, i n no acute distress. EYES: c onjunctiva normal, sclera non-icteric. NOSE: n ormal external appearance. LUNGS: c lear to auscultation bilaterally. CARDIO: r egular rate and rhythm, S1, S2 normal, no murmurs, no edema. MUSCULOSKELETAL: d ecreased ROM due to chronic pain. SKIN: w arm and dry. Assessment: * Assessment: 1. M ajor depressive disorder, single episode, moderate - F32.1 (Primary) 2 .?Fatigue - R53.83 3 . C ervical radiculopathy - M54.12 Plan: * Treatment: 2. F atigue L AB: VITAMIN B12 LEVEL (COBALAMIN) L AB: IRON, TOTAL L AB: VITAMIN D, 25 LEVEL (TOTAL) L AB: THYROID PANEL (T4/TSH/FREE T3) P rocedure: CARDIO Stress Test - Treadmill Exercise Notes: increase fluids, electrolytes defers sleep apnea testing recent CBC< CMP reviewed 3. C ervical radiculopathy I maging: CT cervical spine wo con Notes: patient requesting CT, does not want MRI bilateral arm pain, numbness and tingling in right arm * Follow Up: 6 Months,prn * * Electronically signed by Jeanine Galindo , MISHA, SUPERVISING CHEF.SMOKE ROOM OPERATOR.[id number] on 01/12/2025 at 11:17 AM EDT Sign off status: Completed Visit Status: C HK (Check Out) true * Provider: Brisa Galindo ([facility]), SMOKE ROOM OPERATOR Date: 0 01/09/2025 Generated for Hakeemi kirit/Jasmina/eTransmitting on: 0 02/04/2025 12:54 PM EDT History and Physical Notes * HPI (History of Present Illness) Category Sub-Category Detail Notes Category Not es General cramping all over, random spots and times severe fatigue for 4-5 months, getting worse muscle fatigue in legs, even jaw when chewing sometimes had tooth pulled recently, thats better has had several episodes of low BP over last 8 months feels weak, lightheaded, nausea wants neck CT getting some dizziness, pain in arms, numbness right arm Examination Category Sub-Category Detail Notes Category Not es General Examinations GENERAL APPEARANCE: alert a nd oriented, in no acute distress EYES: conjunctiva normal, sclera non-icteric EARS: NOSE: normal external appe arance THROAT: CARDIO: regular rate and rhy thm, S1, S2 normal, no murmurs, no edema LUNGS: clear to auscultatio n bilaterally ABDOMEN: SKIN: warm and dry BACK: MUSCULOSKELETAL: decreased ROM due to chronic pain LYMPH NODES:
--- OUTSIDE RECORDS SUMMARY | 2025-01-09 06:54 | XMS_ITS ---
Author Organization [facility] in [place] Address [address] [place] [address] Care Team Providers Care Dealmaker Name Role Phone Carola Galindo Primary Care Provider REASON FOR VISIT Stress Test Encounters Encounter Location Date Provider Diagnosis [facility] [address] [place] [address] 01/09/2025 Carola Galindo Plan Of Treatment No Information Progress Notes * Edmund HAYDEN ADOB:[birth year] (59 yo M)Acc No.[id number]:01/09/2025 Patient: Jey MARBINMELVINAEdmund :1965 A ge:59 Y S ex:Male Address:[address] [place] [id number] * true * Date: Generated for Hakeemi kirit/Belgicag/eTransmitting on: 0 02/04/2025 12:54 PM EDT
--- OUTSIDE RECORDS SUMMARY | 2025-01-15 05:05 | XMS_ITS ---
Author Organization [facility] in [place] Address [address] [place] [address] Care Team Providers Care Isolation Washer Name Role Phone Carola Galindo Primary Care Provider REASON FOR VISIT review stress test- Encounters Encounter Location Date Provider Diagnosis [facility] [address] [place] [address] 01/15/2025 Carola Galindo Plan Of Treatment No Information Progress Notes * Edmund CHRISTOPHER ADOB:[birth year] (59 yo M)Acc No.[id number]:01/15/2025 Patient: Jey MARBINMELVINAEdmund :1965 A ge:59 Y S ex:Male Address:[address] [place] [phone] * true * Date: Generated for Sergio beth/Jasmina/eTransmitting on: 0 02/04/2025 12:55 PM EDT
--- OUTSIDE RECORDS SUMMARY | 2025-02-04 12:54 | XMS_ITS | Clinical Summary ---
Author Organization [facility] Address [address] [place] [address], [address] [place] [address] Care Team Providers Care Ripening Room Attendant Name Role Phone Carola Galindo SOLUTIONS SPECIALIST - AUTOMOTIVE MACHINIST APPRENTICE Primary Care Provide r Allergies Active Allergy Reactions Criticality Noted Date Comments Latex Hives 07/20/2022 Other Other (See Comments) 07/20/2022 Cat hair Medications oxyCODONE (OXY-IR) 15 MG immediate release tablet Take 15 mg by mouth every 4 hours as needed for Pain. Active cloNIDine (CATAPRES) 0.1 MG tablet Take 0.1 mg by mouth daily Active lisinopril (PRINIVIL;ZESTR IL) 20 MG tablet Take 20 mg by mouth daily Active acetaminophen (TYLENOL) 650 MG extended release tablet Take 650 mg by mouth every 8 hours as needed for Pain Active albuterol sulfate HFA (PROVENTIL;VENT AYAAN;PROAIR) 108 (90 Base) MCG/ACT inhaler Inhale 2 puffs into the lungs every 4 hours as needed for Shortness of Breath or Wheezing 7 Active Social History Tobacco Use Types Packs/Day Years Used Date Smoking Tobacco: Every Day Cigarettes Smokeless Tobacco: Never Tobacco Cessation:Ready to Q uit: Not Asked; Counseling Given: Not Answered Alcohol Use Standard Drinks/Week Comments Yes 0 (1 standard drink = 0.6 oz pur e alcohol) socailly Sex and Gender Information Value Date Recorded Sex Assigned at Not on file Legal Sex Male 1:27 PM EST Gender Identity Not on file Sexual Orientation Not on file Last Filed Vital Signs Vital Sign Reading Time Taken Comments Blood Pressure 106/84 07/26/2022 5:45 PM EST Pulse 56 07/26/2022 5:45 PM EST Temperature 36.4 C (97.5 F) 07/26/2022 5:45 PM EST Respiratory Rate 17 07/26/2022 5:45 PM EST Oxygen Saturation 95% 07/26/2022 5:45 PM EST Inhaled Oxygen Concentration - - Weight 69.1 kg (152 lb 4.8 oz) 07/26/2022 1:06 P M EST Height 162.6 cm (5' 4 ) 07/26/2022 1:06 PM EST Body Mass Index 26.14 07/26/2022 1:06 PM EST Plan of Treatment Health Maintenance Due Date Last Done Comments Depression Screen 1977 HIV screen 02/07/1980 Hepatitis C screen 1983 Hepatitis B vaccine (1 of 3 - 19+ 3-dose series) 02/07/1984 Pneumococcal 50+ years Vacci ne (1 of 2 - PCV) 02/07/1984 Lipids 2005 Colonoscopy 2010 Colorectal Cancer Screen 2010 FIT/FOBT: Average risk 2010 Fecal-DNA (Cologuard): [place] ge risk 2010 Sigmoidoscopy/CT colonography 2010 Shingles vaccine (1 of 2) 2015 COVID-19 Vaccine ( - 2023-2 5 season) 2024 Annual Wellness Visit (Medic are Advantage) 07/16/2024 Flu vaccine (#1) 02/13/2025 DTaP/Tdap/Td vaccine (2 - Td or Tdap) 03/24/2028 03/24/2018 Hepatitis A vaccine Aged Out No longe r eligible based on patient's age to complete this topic Hib vaccine Aged Out No longer eligi ble based on patient's age to complete this topic Meningococcal (ACWY) vaccine Aged Out No longer eligible based on patient's age to complete this topic Meningococcal B vaccine Aged Out No l onger eligible based on patient's age to complete this topic Polio vaccine Aged Out No longer elig ible based on patient's age to complete this topic Medical Devices Implanted Type Area Sifting Operator Device Identifier Shelf Expiration Date Model / Serial / Lot Kit Ld Trl L50cm Spnl Crd Perc 16 Cntct W Imag Rdy Mri Full - [id number] Implanted:Qty: 1 on 07/26/2022 by Herberth Cabezas MD at [facility] N/A: Back Lighting by LED 06/17/2024 [id number] / [id number] / Kit Ld Trl L50cm Spnl Crd Perc 16 Cntct W Imag Rdy Mri Full - [id number] Implanted:Qty: 1 on 07/26/2022 by Herberth Cabezas MD at [facility] N/A: Back [employer]-Foodist 06/28/2024 [id number] / [id number] / Cable Neurostimulator L2ft Spl [id number] Spnl Crd Or Extn - [id number] Implanted:Qty: 2 on 07/26/2022 by Herberth Cbaezas MD at [facility] N/A: Back Lighting by LED [id number] / / Insurance MEDICARE Care Teams Ripening Room Attendant Relationship Specialty Start Date End Date Carola Galindo, SOLUTIONS SPECIALIST - AUTOMOTIVE MACHINIST APPRENTICE [address] [place] [address] [place] [address] PCP - General 07/26/22
--- OUTSIDE RECORDS SUMMARY | 2025-02-04 12:54 | XMS_ITS | Clinical Summary ---
Author Organization [facility] Address [address] [place] [address] Care Team Providers Care Bottle House Pumper Name Role Phone No, Physician Primary Care Provider Unavailabl e Encounters Date Type Department Care Team Description 12/30/2024 9:45 AM EDT Office Visit [facility] [address] [place], [place] [id number] from Last 3 Months Social History Tobacco Use Types Packs/Day Years Used Date Smoking Tobacco: Never Assessed Sex and Gender Information Value Date Recorded Sex Assigned at Not on file Legal Sex Male 7:49 AM EDT Gender Identity Male 12/30/2024 8:08 AM EDT Sexual Orientation Straight 12/30/2024 8: 08 AM EDT Plan of Treatment Health Maintenance Due Date Last Done Comments CT Colonography 1965 Fecal DNA 1965 Fecal occult blood test (FOBT,FIT) 1965 PSA Level 1965 Medicare Wellness Visit 02/07/1968 Depression Screening/Follow-Up (PHQ-2/9) 1977 HIV Screening 02/07/1980 Hepatitis C Screening 1983 Pneumococcal Vaccine: Age 50+ (1 of 2 - PCV) 4 Flexible sigmoidoscopy 2015 Zoster Vaccines (1 of 2) 2015 COVID-19 Vaccine (1 - season) 2024 Influenza Vaccine (#1) 2025 Tetanus: Every 10yrs 03/24/2028 03/24/2018 Colonoscopy 11/11/2033 11/12/2023 Colorectal Cancer Screening/Monitoring 11/11/2033 Insurance [address] [place] [address] [employer] ADVANTAGE CHOICE PPO DENTAL [employer] Care Teams Bottle House Pumper Relationship Specialty Start Date End Date No, Physician [facility] PCP - General 12/30/24
--- OUTSIDE RECORDS SUMMARY | 2025-02-04 12:55 | XMS_ITS | Patient Health Record ---
Author Organization [facility] Address [address] [place] [address] Care Team Providers Care Geoscientist Name Role Phone Kim Barlow Primary Care Provider Dr. Gabby Del Toro Unavailable [phone] Reason For Referral No Information Encounters Encounter Location Date Provider Diagnosis [facility] [address] [place] [address] 12/17/2024 Kim Barlow Encounter for dental examination and cleaning with abnormal findings Z01.21 ; Other dental procedure status Z98.818 ; Disturbances in tooth eruption K00.6 ; Dental caries on pit and fissure surface penetrating into dentin K02.52 and Necrosis of pulp K04.1 Assessments Encounter Date Diagnosis (ICD Code) Assessment Notes Treatment Notes Treatment Clinical Notes Section Notes 12/17/2024 Encounter for dental examination and cleaning with abnormal findings (ICD-10 - Z01.21) 12/17/2024 Other dental procedure status (ICD-10 - Z98.818) 12/17/2024 Disturbances in tooth eruption (ICD-10 - K00.6) 12/17/2024 Dental caries on pit and fissure surface penetrating into dentin (ICD-10 - K02.52) 12/17/2024 Necrosis of pulp (ICD-10 - K04.1) Plan Of Treatment No Information Insurance Providers Payer Name Payer Address Payer Phone Subscriber Number Group Number Insured Name Patient Relationship to Insured Coverage Start Date Coverage End Date DENTAL [employer] MEDICARE [address] [address] [place] [phone] [id number] GABBY HAYDEN Self - patient is the insured
--- OUTSIDE RECORDS SUMMARY | 2025-02-04 12:55 | XMS_ITS | Patient Health Record ---
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 Name Role Phone Carola Galindo Primary Care Provider Allergies Allergen (clinical drug ingredient) Drug/Non Drug Allergy documented on EMR Reaction Allergy Type Onset Date Status Cat dander Cat Dander unknown Allergy Active Latex Latex rash/hives Allergy Active pravastatin Pravastatin unknown Drug Allergy Act clementine Results Component Value Reference Range Notes CBC AUTO DIFF Reviewed date:01/01/2025 10:33:46 AM Interpretation: Performing Lab: Notes/Report: [facility] , White Blood Count 7.1 [...] 3/uL Performing Lab: see note ML - [facility] LB XR chest 1V Reviewed date:01/01/2025 10:33:46 AM Interpretation: Performing Lab: Notes/Report: Source Facility: [place] [address] XRay Report Signed Patient: EDMUND CHRISTOPHER MR#: [id number] : 1965 Acct:[id number] Age/Sex: 59 / M ADM Date: 12/26/24 Loc: ER Attending Dr: Ordering Physician: Radha Ascencio Date of Service: 12/26/24 Procedure(s): XR chest 1V Accession Number(s): [id number] cc: CAROLA GALINDO ; Radha Ascencio [place] [id number] Patient Name: EDMUND CHRISTOPHER MRN: [id number] date: 1965 Sex: M Assigned Patient Location: ER Current Patient Location: ED.MAIN Accession/Order Number: [id number] Exam Date: 12/26/2024 18:49 Report Date: 12/26/2024 [...] Riddle M.D. 12/26/2024 6:50 PM Dictation Location: [facility]IO-PC-20 Electronically authenticated by: [id number] Y Date: 12/26/2024 18:50 Dictated By: Earl Riddle D.O. Signed By: 12/26/241851 DD/ 49 TD/TT: Mesh Worker: [place] [address] XRay Report Signed Patient: BAYRON CHRISTOPHER PH MR#: [id number] : 1965 Acct:[id number] Age/Sex: 59 / M ADM Date: 12/26/24 Loc: ER Attending Dr: Ordering Physician: Radha Ascencio Date of Service: 12/26/24 Procedure(s): XR chest 1V Accession Number(s): [id number] cc: CAROLA GALINDO ; Radha Ascencio [place] [address] Patient Name: EDMUND CHRISTOPHER MRN: [id number] date: 1965 Sex: M Assigned Patient Loc ation: ER Current Patient Loca tion: ED.MAIN Accession/Order Numb er: [id number] Exam Date: 12/26/2024 18:49 Report Date: 12/26/2024 [...] Riddle M.D. 12/26/2024 6:50 PM Dictation Location: [facility]-20 Electronically authenticated by: [id number] Y Date: 12/26/2024 18:50 Dictated By: Augustus Riddle D.O. Signed By: 12/26/241851 DD/ 49 TD/TT: Mesh Worker: PROF MATA 8 ([facility]) Reviewed date:01/01/2025 10:33:46 AM Interpretation: Performing Lab: Notes/Report: [facility] , Sodium 139 136-145 mmol/L [...] 8.9 8.5-10.1 mg/dL Performing Lab: see note ML - The [facility] LB ECG 12 lead Reviewed date:01/01/2025 10:33:46 AM Interpretation: Performing Lab: Notes/Report: Source Facility: [facility]-[address] [place] [address] [place] [address] Electrocardiograph Report Signed Patient: EDMUND CHRISTOPHER MR#: [id number] : 1965 Acct:[id number] Age/Sex: 59 / M ADM Date: 12/26/24 Loc: ER Attending Dr: Ordering Physician: Radha Ascencio Date of Service: 12/26/24 Procedure(s): ECG 12 lead Accession Number(s): [id number] cc: [facility] Test Date: 2024-12-26 Pat Name: EDMUND CHRISTOPHER Department: Room: - Gender: Male 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 Measurements Intervals Gates Rate: 84 P: 47 AL: 200 QRS: 90 QRSD: 98 T: 60 QT: 372 QTc: 413 Interpretive Statements 1100 Sinus rhythm 9110 normal ECG No previous ECG available for comparison Electronically Signed On 12-26-2024 19:28:59 EDT by SHAKIRA SMITH M.D. Dictated By: SHAKIRA SMITH Signed By: 12/26/241928 DD/ 24 TD/TT: Mesh Worker: [place] [address] Electrocardiograph Report Signed Patient: BAYRON CHRISTOPHER PH MR#: [id number] : 1965 Acct:[id number] Age/Sex: 59 / M ADM Date: 12/26/24 Loc: ER Attending Dr: Ordering Physician: Radha Ascencio Date of Service: 12/26/24 Procedure(s): ECG 12 lead Accession Number(s): [id number] cc: [facility] Test Date: 2024-12-26 Pat Name: EDMUND OTTO Department: 97 Room: - Gender: Male Crew Chief: : 1965 Requ ested By: [id number] Order Number: [id number] Reading MD: SHAKIRA SMITH M.D. Measurements Intervals Gates Rate: 84 P: 47 AL: 200 QRS: 90 QRSD: 98 T: 60 QT: 372 QTc: 413 Interpretive Statements 1100 Sinus rhythm 9110 normal ECG No previous ECG avai lable for comparison Electronically Concepción hogan On 12-26-2024 19:28:59 EDT by SHAKIRA SMITH M.D. 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) Active confirmed Problem 304818021 Ganglion, right wrist (M67.431) Active confirmed Problem Total hip replacement prosthesis (613475139) Presence of unspecified artificial hip joint (Z96.649) Active confirmed Problem Hyperlipidemia (18010747) Hyperlipidemia (E78.5) Active confirmed Problem Hypertension (56787849) Hypertension (I10) Active confirmed Problem Cervical radiculopathy (84266355) Cervical radiculopathy (M54.12) Active confirmed Problem Anxiety (66650133) Anxiety (F41.9) Active confi rmed Problem Stroke (088293673) Stroke (I63.9) Active confir med Problem Arthritis (3284176) Arthritis (M19.90) Active confirmed Problem Depression (082750224) Depression (F32.9) Active confirmed Problem 97414741 Smoker (F17.200) Active confirmed Problem Insomnia (980353930) Insomnia (G47.00) Active confirmed Problem Transient ischemic attack (087607330) TIA (transient ischemic attack) (G45.9) Active confirmed Problem Degeneration of lumbar intervertebral disc (04828826) Degenerative disc disease, lumbar (M51.36) Active confirmed Problem Sciatica (56368515) Sciatica (M54.30) Active confirmed Problem Chronic pain (33069036) Chronic pain (G89.29) Active confirmed Problem Colonic polyp (73152087) Colonic polyp (K63.5) Active confirmed Problem 509571477 Erectile dysfunction, unspecified erectile dysfunction type (N52.9) Active confirmed Problem Current smoker (49593055) Current smoker (F17.200) Active confirmed Problem Overweight (043777593) Over weight (E66.3) Active confirmed Problem Lump (3321506) Lump (R22.9) Active confirmed Problem Shoulder pain (90416129) Pain in shoulder (M25.519) Active confirmed Problem Poor concentration (40148032) Poor concentration (R41.840) Active confirmed Problem Mixed anxiety and depressive disorder (361070607) Anxiety and depression (F41.9) Active confirmed Problem 52859555 Hypertension, unspecified type (I10) Active confirmed Vital Signs Blood pressure diastolic 92 mm Hg 01/09/2025 142 /82 Height 64 in 01/09/2025 142/82 Blood pressure systolic 162 mm Hg 01/09/2025 142/ 82 Weight 162.4 lbs 01/09/2025 142/82 BMI 27.87 kg/m2 01/09/2025 142/82 Procedures Procedure Date Ordered Date Performed Result Body Sit e CARDIO Stress Test - Treadmill Exercise 01/09/2025 N/A Encounters Encounter Location Date Provider Diagnosis [facility] [address] [place] [address] 05/30/2024 Carola Galindo [facility] [address] [place] [address] 12/09/2024 Carola Galindo [facility] [address] [place] [address] 12/09/2024 Carola Galindo [facility] [address] [place] [address] 01/09/2025 Carola Galindo [facility] [address] [place] [facility] [address] 01/15/2025 Carola Galindo [facility] [address] [place] [address] 05/20/2024 Carola Galindo Hypertension I10 ; Chronic pain G89.29 and Wellness examination Z00.00 [facility] [address] [place] [address] 08/08/2024 Carola Galindo Eczema L30.9 ; Depression F32.9 and Hypertension I10 [facility] [address] [place] [address] 09/08/2024 Carola Galindo Anxiety F41.9 ; Lube Man kaden pain G89.29 and Hypertension, unspecified type I10 [facility] [address] [place] [address] 10/20/2024 Carola Galindo Insomnia G47.00 ; Anxiety and depression F41.9 and Hypertension I10 [facility] [address] [place] [place] [address] 01/09/2025 Carola Galindo Major depressive disorder, single episode, moderate F32.1 ; Fatigue R53.83 and Cervical radiculopathy M54.12 Assessments Encounter Date Diagnosis (ICD Code) Assessment Notes Treatment Notes Treatment Clinical Notes Section Notes 05/20/2024 Hypertension (ICD-10 - I10) record BP report 1-2 weeks 05/20/2024 Chronic pain (ICD-10 - G89.29) current pain man tapering him off oxy discussed other options, Dr Verde, [facility] if needed 08/08/2024 Eczema (ICD-10 - L30.9) [...] 10/20/2024 Anxiety and depression (ICD-10 - F41.9) 01/09/2025 Major depressive disorder, single episode, moderate (ICD-10 - F32.1) stopped taking meds denies SI states mood ok 01/09/2025 Fatigue (ICD-10 - R53.83) increase fluids, electrolytes defers sleep apnea testing recent CBC< CMP reviewed 01/09/2025 Cervical radiculopathy (ICD-10 - M54.12) patient requesting CT, does not want MRI bilateral arm pain, numbness and tingling in right arm 10/20/2024 Hypertension (ICD-10 - I10) states BP [...] Order Date CMP (COMPLETE METABOLIC PANEL) 3 VITAMIN B12 LEVEL (COBALAMIN) 01/09/2025 HEMOGLOBIN A1C (GLYCO) 10/31/2022 INSULIN, TOTAL 10/31/2022 IRON, TOTAL 01/09/2025 LIPID PANEL (CHOL/TRIG/HDL/LDL) 11/01/19 23 CBC WITH DIFF 10/31/2022 PSA, PROSTATE-SPECIFIC ANTIGEN 3 URIC ACID 10/31/2022 VITAMIN D, 25 LEVEL (TOTAL) 01/09/2025 CARDIO Stress Test - Treadmill Exercise 01/09/2025 STOOL OCCULT BLOOD 10/31/2022 HEPATITIS PANEL, ACUTE 06/19/2023 HERPES SIMPLEX 1 or 2 IGG 06/19/2023 HIV 1 AND 2 WITH REFLEX 06/19/2023 RPR QUAL REFLEX TO QUANT 06/19/2023 THYROID PANEL (T4/TSH/FREE T3) 5 THYROID PANEL (T4/TSH/FREE T3) 3 CT cervical spine wo con 01/09/2025 Insurance Providers Payer Name Payer Address Payer Phone Subscriber Number Group Number Insured Name Patient Relationship to Insured Coverage Start Date Coverage End Date [employer] ADV PLAN [address] [address] [place] [address] [id number] Edmund Christopher Self - patient is the [...] in shoulder M25.519 Surgical History Surgery Date(Month/Year) Spine Surgery Spinal Cord Stimulator Colonoscopy 11/12/2023 Hospitalization History Reason Date(Month/Year) denies
--- NOTE | 2025-02-04 12:59 | CT_ITS ---
The [place] [id number] Patient Name: GABBY HAYDEN MRN: [id number] date: 1965 Sex: M Assigned Patient Location: CT Current Patient Location: CT Accession/Order Number: [id number] Exam Date: 02/04/2025 13:35 Report Date: 02/04/2025 13:37 At the request of: SHREYAS FELIPE Procedure: CT cervical spine wo con CT CERVICAL SPINE WITHOUT CONTRAST WITH 3D RECONSTRUCTIONS: CLINICAL HISTORY: Cervical radiculopathy COMPARISON: None TECHNIQUE: Spiral axial unenhanced images were obtained through the cervical spine. Sagittal, coronal and 3D volume-rendered reconstructions were also reviewed. This CT exam was performed using one or more following dose reduction techniques: Automated exposure control, adjustment of the mA and/or kV according to patient size, or use of iterative reconstruction technique. FINDINGS: No fracture. Vertebral body heights appear maintained. Scattered endplate, facet and uncovertebral joint degenerative changes with multilevel spondylosis worst at C5-C7. There is approximately 3 mm of anterolisthesis of C4 on C5 and C7 on T1.. No prevertebral soft tissue swelling. Visualized lung apices are clear. CT/CT cervical spine wo con IMPRESSION: MULTILEVEL SPONDYLOSIS WORST AT C5-C7. Impression dictated by: Gabby Sanz Jr., D.O. 02/04/2025 1:37 PM Dictation Location: [place] [address] Electronically authenticated by: [id number] Y Date: 02/04/2025 13:37
== END 2025-02-04 12:52 | disposition home or self-care (01) ==
LOC: CT 12:52
PROVIDERS: PCP Nurse Practitioner Family; Visit Provider Nurse Practitioner Family
DX: M54.12 Radiculopathy, cervical region (principal); M47.812 Spondylosis without myelopathy or radiculopathy, cervical region
CPT/HCPCS: 72125

== ENCOUNTER 2025-04-04 12:16 | Emergency (ER) | payer MEDICARE, SELFPAY ==
[2025-04-04 12:20] VITALS: BP 175/129; PULSE 89; TEMP 36.8; O2SAT 96; BMI 27.5
--- OUTSIDE RECORDS SUMMARY | 2025-04-04 12:24 | XMS_ITS | CCD ---
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 Name Role Phone Omayra Gonzales Attending Unavailable MADDY COTTO Primary Care Unavailable Omayra Gonzales Admitting Unavailable LAURA Felipe Primary Care Provider LAURA Felipe Attending Provider MD Maddy Cabezas II Attending Provider Unavailable Primary Care Provider UnavailShreyas Gregory Primary Care Provider [phone] MADDY CABEZAS Admitting Unavailable MADDY CABEZAS Attending Unavailable SHREYAS FELIPE Primary Care Unavailable MADDY CABEZAS Referring Unavailable LAURA Felipe Primary Care Provider DANILO Rodriguez Emergency Provider SHREYAS FELIPE Admitting Unavailable SHREYAS FELIPE Attending Unavailable SHREYAS FELIPE Consulting Unavailable MISC, DR HERZOG Attending Unavailable MISC, DR HERZGO Admitting Unavailable SHREYAS FELIPE Admitting Unavailable SHREYAS FELIPE Attending Unavailable SHREYAS FELIPE Consulting Unavailable Unavailable Primary Care Provider UnavailASHLYN BuiEDNA Yeung Emergency Provider LAURA Felipe Primary Care Provider LAURA Farrell Attending Provider [phone] JESSICA DOTSON Referring Unavailable RAÚL SULLIVAN Attending Unavailable JEMTTI, JESSICA T Referring Unavailable RICVILMATTI, JESSICA T Referring Unavailable RICVILMATTI, JESSICA T Referring Unavailable SELF Referring Unavailable RIGOBERTO JESSICA T Attending Unavailable LAURA Felipe Primary Care Provider Bullimore, DIRECTOR OUTPATIENT SERVICES-BC Nataliia E Emergency Provider [phone] Ly, DO Tuyet Florez Attending Provider Pcp ONLINE PROGRAM COORDINATOR, No Primary Care Provider Unavaildiane Jerome MD, Naresh Lehman Primary Care Provider [phone] Josie, Shreyas Angelia Primary Care Unavailable Tuyet [...] Propensity to adverse reactions to drug (disorder) [facility] (20 sources) Latex; Translations: [LATEX] Allergy to substance 8 Hives, Rash [facility] (8 sources) Adhesive Tape; Translations: [ADHESIVE TAPE (ROSINS)] Allergy to substance 3 [facility] Work Phone: (8 sources) Cat Dander; Translations: [CAT DANDER] Drug Allergy 3 Other: See Comments [facility] (2 sources) Cat Allergy to substance [address] [facility] (6 sources) Pravastatin Drug Allergy 3 [facility] (3 sources) Cat Hair Extract Allergy to substance 3 [facility] (2 sources) Wound Dressing Adhesive Drug Allergy 3 [facility] NEGATED: Highlighted row has been ruled out! (2 sources) Other Propensity to adverse reactions 3 Other (See Comments) [facility] Work Phone: Medications Current Medications Medication [...] every 4 hours as needed for Pain. [id number] 200 actuat albuterol 0.09 mg/actuat metered dose [...] Comment on above: Take 1 capsule by [facility] daily. 0.5 ml HYDROmorphone hydrochloride [...] aftercare (1 source) Antibiotic prophylaxis indicated; Translations: [long term (current) use of antibiotics] 12-25-2024 Episodic Other [...] Reference Range Facility No Panel Informationon 07-28 [facility] Healthcare COVID-19 / Flu A/B / RSV [...] or Cepheid Disclaimer revoked sooner. PERFORMED BY: [place] [address] PATHOLOGIST PHOTONIC LABORATORY TECHNICIAN MAGGIE RICARDO M.D. Normal [facility] Comment on above: Performed By: #### C OVID19 FLU RSV, CEPHEID NEG #### [address] Cepheid COVID PCR Negativeon 07-15-2024 SARS-CoV-2 (COVID-19) RNA DENISE+probe Ql (Unsp spec) Negative Normal Negative [facility] Comment on above: Result Comment: This is a duplicate Cepheid Xpert Xpress CoV-2/Flu/RSV Plus RNA by RT-PCR result to be used for statistical tracking purpose only. PERFORMED BY: [place] [address] PATHOLOGIST PHOTONIC LABORATORY TECHNICIAN MAGGIE RICARDO M.D. Performed By: #### C OVID19 FLU RSV, CEPHEID NEG #### [place] [id number] [facility] XR chest 1V portableon 07-15 XR chest 1V portable [facility] [address] [place] [address] [place] [address] XRay Report Signed Patient: Edmund Christopher MR#: [id number] : 1965 Acct:[id number] Age/Sex: 59 / M ADM Date: 07/15/24 Loc: ER Room: Type: [facility] ER Attending Dr: Copies to: Jessica Jensen [...] Maya Trent M.D.07/15/2024 8:32 AM Dictation Location: [place] [address] Transcribed By: [facility] 07/15/24831 Dictated By: Maya Trent MD 07/15/2404 Signed By: 07/15/24831 Normal [facility] No Panel Informationon 06-03 NOMS [...] taken Amount of lidocaine used: 0.6 cc [facility] Curry 11-12-2023 L Specimen: Received: 11/12/23 Status: EMELYN Brooke Num: [id number] Spec Type: Surgical Subm Dr: Tuyet Adams DO Tissues: A Colon Biopsy (ASC POLYPS) Procedures: HE/2, Gross/Micro L4 Age/ Patient Sex Location Account Attending Physician Edmund Christopher 58/M [id number] Tuyet Adams DO SPEC NUM: [id number] RECD: 11/12/23 STATUS: EMELYN BROOKE NUM: [id number] THONY: 11/12/23- SUBM DR: Tuyet Adams DO ENTERED: 11/12/[address] [facility] [address]: SPEC TYPE: Surgical DEPT: S [...] in A1. Clinical history: ABD CPT Codes 62791 -------- -------- Specimen: [id number] Received: 11/12/23 Status: EMELYN Brooke Num: [id number] Spec Type: Surgical Subm Dr: Tuyet Adams DO Tissues: A Colon Biopsy (ASC POLYPS) Procedures: HE/2, Gross/Micro L4 -------- Patient: Edmund Christopher [id number] (Continued) -------- Signed (signature on file) Jennifer Pino MD 11/13/231046 Normal [facility] Alanine aminotransferase [En zymatic activity/volume] in Serum or PlasmaOrdered By: Nataliia Banks on 10-10-2023 ALT [Catalytic activity/Vol] 24 U/L Normal 7-52 [facility] Comment on above: Performed By: #### C BC, CMP #### [place] [id number] [facility] Albumin [Mass/volume] in Ser um or Plasma by Bromocresol green (BCG) dye binding methoOrdered By: Nataliia Bullimore on 10-10-2023 Albumin BCG dye [Mass/Vol] 4.3 g/dL 3.5-5.7 [facility] Alkaline phosphatase [Enzyma tic activity/volume] in Serum or PlasmaOrdered By: Nataliia Bullimore on 10-10-2023 ALP [Catalytic activity/Vol] 74 U/L Normal 34-104 [facility] Comment on above: Performed By: #### C BC, CMP #### [address] Aspartate aminotransferase [ Enzymatic activity/volume] in Serum or PlasmaOrdered By: Nataliia Bullimore on 10-10-2023 AST [Catalytic activity/Vol] 26 U/L Normal 13-39 [facility] Comment on above: Performed By: #### C BC, CMP #### [address] Automated basophil %Ordered By: Nataliia Bullimore on 10-10-2023 Basophils/100 WBC (Bld) 0.4 % Normal . [facility] Comment on above: Performed By: #### C BC, CMP #### [address] Automated basophil countOrde red By: Nataliia Bullimore on 10-10-2023 Basophils (Bld) [#/Vol] 0.0 10*3/uL Normal 0.0-0.2 [facility] Comment on above: Result Comment: PERF ORMED BY: [place] [address] PATHOLOGIST PHOTONIC LABORATORY TECHNICIAN SIMÓN MARTINES M.D. Performed By: #### C BC, CMP #### [address] Automated blood monocyte cou ntOrdered By: Nataliia Bullimore on 10-10-2023 Monocytes (Bld) [#/Vol] 0.4 10*3/uL Normal 0.0-0.8 [facility] Comment on above: Performed By: #### C BC, CMP #### [address] Automated eosinophil %Ordere d By: Nataliia Bullimore on 10-10-2023 Eosinophils/100 WBC (Bld) 0.5 % Normal . [facility] Comment on above: Performed By: #### C BC, CMP #### [address] Automated eosinophil countOr dered By: Nataliia Bullimore on 10-10-2023 Eosinophils (Bld) [#/Vol] 0.0 10*3/uL Normal 0.0-0.45 [facility] Comment on above: Performed By: #### C BC, CMP #### [address] Automated monocyte %Ordered By: Nataliia Bullimore on 10-10-2023 Monocytes/100 WBC (Bld) 4.4 % Normal . [facility] Comment on above: Performed By: #### C BC, CMP #### [address] Automated neutrophil %Ordere d By: Nataliia Bullimore on 10-10-2023 Neutrophils/100 WBC (Bld) 85.2 % Normal . [facility] Comment on above: Performed By: #### C BC, CMP #### [address] Automated urine color determ inationOrdered By: Nataliia Jocelyn on 10-10-2023 Color (U) Yellow Normal Yellow [facility] Comment on above: Order Comment: Name Collection Type:: Clean-Voided Midstream Performed By: #### U A #### [address] Bilirubin Test strip Ql (U)O rdered By: Nataliia Bullimore on 10-10-2023 Bilirubin Ql (U) Negative Negative [facility] Bilirubin.total [Mass/volume ] in Serum or PlasmaOrdered By: Nataliia Bullimore on 10-10-2023 Bilirubin [Mass/Vol] 0.5 mg/dL Normal 0.3-1.0 [facility] Comment on above: Performed By: #### C BC, CMP #### [facility] [address] abdomen pelvis w conon CT abdomen pelvis w con [facility] [address] [place] [address] [place] [address] CT Scan Report Signed Patient: Edmund Christopher MR#: [id number] : 1965 Acct:[id number] Age/Sex: 58 / M ADM Date: 10/10/23 Loc: ER Room: Type: [facility] ER Attending Dr: Copies to: [...] Sanz Jr., Lamonte10/10/2023 3:30 PM Dictation Location: [place] [address] Transcribed By: [facility] 10/10/23 1530 Dictated By: Edmund Sanz Jr, DO 10/10/23 1527 Signed By: 10/10/23 1530 Normal [facility] Calcium [Mass/volume] in Ser um or PlasmaOrdered By: Nataliia Banks on 10-10-2023 Calcium [Mass/Vol] 9.8 mg/dL Normal 8.6-10.3 [facility] Comment on above: Performed By: #### C BC, CMP #### [address] Carbon dioxide, total [Moles /volume] in Serum or PlasmaOrdered By: Nataliia Banks on 10-10-2023 CO2 [Moles/Vol] 26.4 mmol/L Normal 21.0-31.0 [facility] Comment on above: Performed By: #### C BC, CMP #### [address] Chloride [Moles/volume] in S tammy or PlasmaOrdered By: Nataliia Banks on 10-10-2023 Chloride [Moles/Vol] 104 mmol/L Normal 98-107 [facility] Comment on above: Performed By: #### C BC, CMP #### [address] Complete Blood Count Auto Di ffon 10-10-2023 Mean Corpuscular HGB Conc 33.6 g/dL Normal 32.5-35.6 [facility] Comment on above: Performed By: #### C BC, CMP #### [place] [address] [place] Monocytes/100 WBC (Bld) 14.04 % Normal 0.00-20.00 [facility] Comment on above: Performed By: #### C BC, CMP #### [address] NRBC% 0.1 /100{WBC} Normal 0-0.5 [facility] Comment on above: Performed By: #### C BC, CMP #### [address] Comprehensive Metabolic Pane curry 10-10-2023 Albumin [Mass/Vol] 4.3 g/dL Normal 3.5-5.7 [facility] Comment on above: Performed By: #### C BC, CMP #### [address] Creatinine Clr Calc Pharmacy 92.21 Normal [facility] Comment on above: Result Comment: PERF ORMED BY: [place] [address] PATHOLOGIST PHOTONIC LABORATORY TECHNICIAN SIMÓN MARTINES M.D. Performed By: #### C BC, CMP #### [address] GFR/1.73 sq M.predicted MDRD (S/P/Bld) [Vol rate/Area] mL/min/{1.73_m2} Normal [facility] Comment on above: Performed By: #### C BC, CMP #### [address] Creatinine [Mass/volume] in Serum or PlasmaOrdered By: Nataliia Banks on 10-10-2023 Creatinine [Mass/Vol] 0.77 mg/dL Normal 0.70-1.30 [facility] Comment on above: Performed By: #### C BC, CMP #### [address] Erythrocyte distribution wid th [Ratio] by Automated countOrdered By: Nataliia Danielore on 10-10-2023 Erythrocyte distribution width (RBC) [Ratio] 13.4 % Normal 12.0-14.8 [facility] Comment on above: Performed By: #### C BC, CMP #### [address] [place] [address] [place] Erythrocytes [#/volume] in B lood by Automated countOrdered By: Nataliia Banks on 10-10-2023 RBC (Bld) [#/Vol] 5.23 10*6/uL Normal 3.90-5.60 [facility] Comment on above: Performed By: #### C BC, CMP #### [address] Glucose [Mass/volume] in Ser um or PlasmaOrdered By: Nataliia Jocelyn on 10-10-2023 Glucose [Mass/Vol] 97 mg/dL Normal 70-100 [facility] Comment on above: ADA recommended refe rence rangeRandom Glucose Reference Range is dependent on time and content of last meal. Glucose of more than 200 mg/dL in a nonstressed, ambulatory subject supports the diagnosis of Diabetes Mellitus. Result Comment: [place] om Glucose Reference Range is dependent on time and content of last meal. Glucose of more than 200 mg/dL in a nonstressed, ambulatory subject supports the diagnosis of Diabetes Mellitus. ADA recommended reference range Performed By: #### C BC, CMP #### [address] Hematocrit [Volume Fraction] of Blood by Automated countOrdered By: Nataliia Banks on 10-10-2023 Hematocrit (Bld) [Volume fraction] 46.4 % Normal 38.8-50.0 [facility] Comment on above: Performed By: #### C BC, CMP #### [address] Hemoglobin [Mass/volume] in BloodOrdered By: Nataliia Banks on 10-10-2023 Hemoglobin (Bld) [Mass/Vol] 15.6 g/dL Normal 13.0-17.0 [facility] Comment on above: Performed By: #### C BC, CMP #### [address] Ketones Auto test strip (U) [Mass/Vol]Ordered By: Nataliia Banks on 10-10-2023 Ketones (U) [Mass/Vol] Negative Negative [facility] Leukocytes [#/volume] correc ronaldo for nucleated erythrocytes in Blood by Automated counOrdered By: Nataliia Gamalimore on 10-10-2023 WBC corrected for nucl RBC Auto (Bld) [#/Vol] 9.9 10*3/uL 4.1-10.5 [facility] Leukocytes [#/volume] in Blo od by Automated countOrdered By: Nataliia Bullimore on 10-10-2023 WBC (Bld) [#/Vol] 9.9 10*3/uL Normal 4.1-10.5 [facility] Comment on above: Performed By: #### C BC, CMP #### [address] Lymphocytes [#/volume] in Bl ood by Automated countOrdered By: Nataliia Yeungimore on 10-10-2023 Lymphocytes (Bld) [#/Vol] 0.9 10*3/uL Low 1.00-4.8 [facility] Comment on above: Performed By: #### C BC, CMP #### [address] Lymphocytes/100 leukocytes i n Blood by Automated countOrdered By: Nataliia Banks on 10-10-2023 Lymphocytes/100 WBC (Bld) 9.5 % Normal . [facility] Comment on above: Performed By: #### C BC, CMP #### [facility] [address] [place] [address] MCH [Entitic mass] by Automa ronaldo countOrdered By: Nataliia Bullimore on 10-10-2023 MCH (RBC) [Entitic mass] 29.8 pg Normal 27.5-35.2 [facility] Comment on above: Performed By: #### C BC, CMP #### [address] MCHC Auto (RBC) [Mass/Vol]Or dered By: Nataliia Bullimore on 10-10-2023 MCHC (RBC) [Mass/Vol] 33.6 g/dL 32.5-35.6 [facility] MCV [Entitic volume] by Auto mated countOrdered By: Nataliia Banks on 10-10-2023 MCV (RBC) [Entitic vol] 88.7 fL Normal 83.5-101 [facility] Comment on above: Performed By: #### C BC, CMP #### [address] Monocyte distribution width [Entitic volume] in Blood by AutomatedOrdered By: Nataliia Banks on 10-10-2023 Monocyte distribution width Auto (Bld) [Entitic vol] 14.04 % 0.00-20.00 [facility] Neutrophils [#/volume] in Bl ood by Automated countOrdered By: Nataliia Banks on 10-10-2023 Neutrophils (Bld) [#/Vol] 8.4 10*3/uL High 1.8-7.7 [facility] Comment on above: Performed By: #### C EDNA, CMP #### [address] Nitrite Test strip Ql (U)Ord ered By: Nataliia Banks on 10-10-2023 Nitrite Ql (U) Negative Negative [facility] No Panel InformationOrdered By: Nataliia Banks on 10-10-2023 Estimated GFR (CKD-EPI) > 60.0 mL/Min [facility] Creatinine Clearance (Chem 92.21 [facility] Nucleated erythrocytes [Pres ence] in Blood by Automated countOrdered By: Nataliia Banks on 10-10-2023 Nucleated RBC Auto Ql (Bld) 0.1 /100{WBC} 0-0.5 [facility] Platelet mean volume [Entiti c volume] in Blood by Automated countOrdered By: Nataliia Banks on 10-10-2023 Platelet mean volume (Bld) [Entitic vol] 7.2 fL Normal 6.6-10.1 [facility] Comment on above: Performed By: #### C BC, CMP #### [address] Platelets [#/volume] in Bloo d by Automated countOrdered By: Nataliia Banks on 10-10-2023 Platelets (Bld) [#/Vol] 313 10*3/uL Normal 150-450 [facility] Comment on above: Performed By: #### C BC, CMP #### [address] Potassium [Moles/volume] in Serum or PlasmaOrdered By: Nataliia Bullimore on 10-10-2023 Potassium [Moles/Vol] 4.4 mmol/L Normal 3.5-5.1 [facility] Comment on above: Performed By: #### C BC, CMP #### [address] Protein Auto test strip (U) [Mass/Vol]Ordered By: Nataliia Bullimore on 10-10-2023 Protein (U) [Mass/Vol] Negative Negative [facility] Protein [Mass/volume] in Ser um or PlasmaOrdered By: Nataliia Bullimore on 10-10-2023 Protein [Mass/Vol] 7.0 g/dL Normal 6.4-8.9 [facility] Comment on above: Performed By: #### C BC, CMP #### [address] Serum globulin measurement b y calculation (mass/volume)Ordered By: Nataliia Bullimore on 10-10-2023 Globulin (S) [Mass/Vol] 2.7 g/dL Normal [facility] Comment on above: Performed By: #### C BC, CMP #### [facility] [address] [place] [address] Serum or plasma albumin/glob ulin mass ratioOrdered By: Antaliia Bullimore on 10-10-2023 Albumin/Globulin [Mass ratio] 1.6 {ratio} Normal [facility] Comment on above: Performed By: #### C BC, CMP #### [address] Serum or plasma anion gap de terminationOrdered By: Nataliia Bullimore on 10-10-2023 Anion gap [Moles/Vol] 12.0 mmol/L Normal 6.0-15.0 [facility] Comment on above: Performed By: #### C EDNA, CMP #### [address] Sodium [Moles/volume] in Ser um or PlasmaOrdered By: Nataliia Bullimore on 10-10-2023 Sodium [Moles/Vol] 138 mmol/L Normal 136-145 [facility] Comment on above: Performed By: #### C EDNA, CMP #### [address] Specific gravity Auto test s trip (U) [Rel density]Ordered By: Nataliia Bullimore on 10-10-2023 Specific gravity (U) [Rel density] 1.008 1.001-1.030 [facility] Urea nitrogen [Mass/volume] in Serum or PlasmaOrdered By: Nataliia Bullimore on 10-10-2023 Urea nitrogen [Mass/Vol] 20 mg/dL Normal 7-25 [facility] Comment on above: Performed By: #### C EDNA, CMP #### [address] Urinalysison 10-10-2023 Appearance (U) Clear Normal Clear [facility] Comment on above: Order Comment: Name Collection Type:: Clean-Voided Midstream Performed By: #### U A #### [address] Bilirubin,Urine Negative Normal Negative [facility] Comment on above: Order Comment: Name Collection Type:: Clean-Voided Midstream Performed By: #### U A #### [address] Glucose Ql (U) Normal Normal Normal [facility] Comment on above: Order Comment: Name Collection Type:: Clean-Voided Midstream Performed By: #### U A #### [address] Ketones Ql (U) Negative Normal Negative [facility] Comment on above: Order Comment: Name Collection Type:: Clean-Voided Midstream Performed By: #### U A #### [address] Leukocyte esterase Test strip Ql (U) Negative Normal Negative [facility] Comment on above: Order Comment: Name Collection Type:: Clean-Voided Midstream Performed By: #### U A #### [address] Nitrite,Urine Negative Normal Negative [facility] Comment on above: Order Comment: Name Collection Type:: Clean-Voided Midstream Performed By: #### U A #### [address] Occult Blood,Urine Negative Normal Negative [facility] Comment on above: Order Comment: Name Collection Type:: Clean-Voided Midstream Result Comment: PERF ORMED BY: [place] [address] PATHOLOGIST PHOTONIC LABORATORY TECHNICIAN SIMÓN MARTINES M.D. Performed By: #### U A #### [address] Protein,Urine Negative Normal Negative [facility] Comment on above: Order Comment: Name Collection Type:: Clean-Voided Midstream Performed By: #### U A #### [address] Specificy [place],Urine 1.008 Normal 1.001-1.030 [facility] Comment on above: Order Comment: Name Collection Type:: Clean-Voided Midstream Performed By: #### U A #### [address] Urobilinogen,Urine Normal Normal Normal [facility] Comment on above: Order Comment: Name Collection Type:: Clean-Voided Midstream Performed By: #### U A #### [address] Urine clarity by refractomet ry automatedOrdered By: Nataliia Banks on 10-10-2023 Clarity Refractometry automated (U) Clear Clear [facility] Urine glucose measurement by automated test strip (mass/volume)Ordered By: Nataliia Banks on 10-10-2023 Glucose Auto test strip (U) [Mass/Vol] Normal mg/dL Normal [facility] Urine hemoglobin detection b y automated test stripOrdered By: Nataliia Banks on 10-10-2023 Hemoglobin Auto test strip Ql (U) Negative Negative [facility] Urine leukocyte esterase det ection by automated test stripOrdered By: Nataliia Banks on 10-10-2023 Leukocyte esterase Auto test strip Ql (U) Negative Negative [facility] Urine pH measurement by auto mated test stripOrdered By: Nataliia Banks on 10-10-2023 pH (U) 5.5 [pH] Normal 5.0-9.0 [facility] Comment on above: Order Comment: Name Collection Type:: Clean-Voided Midstream Performed By: #### U A #### [address] Urobilinogen Auto test strip (U) [Mass/Vol]Ordered By: Nataliia Banks on 10-10-2023 Urobilinogen (U) [Mass/Vol] Normal mg/dL Normal [facility] CNOVon 08-07-2023 CNOV Office Visit (MAGYSES ) EDMUND CHRISTOPHER ([id number]) 1965 M Date Time Provider Department 08/07/23 [...] LS 04/01/10 Performed by BRUNO VICTORIA at [facility] LORCEZAR NJX DX/THER AGT PVRT FACET JT LMBR/SAC 1 LEVEL 04/29/2010 Performed by BRUNO VICTORIA at [facility]GICAL H[facility]ORY OF 2000, 2004 shoulder [...] bedtime. PERCOCET (more content not included)... Normal [facility] Coreen 05-04-2023 BRITTANIN Telephone ([facility]) EDMUND CHRISTOPHER ([id number]) 1965 M Date Time Provider Department 05/04/23 [facility] During your visit today, we recorded the [...] arm weakness [R29.898] Order(s):CONSULT TO SPINE SURGERY [[id number]] Order #: [id number]: 1 FUTURE Prescriptions as of 05/04/2023 - [...] Date 05/04/2023 Noted Resolved LUMBOSACRAL NEURITIS NOS [[id number]] 02/01/2006 DISC DEGENERATION NOS [[id number]] 02/01/2006 GENERAL OSTEOARTHROSIS [M15.9] 02/01/2006 LUMBOSACRAL SPONDYLOSIS [...] Status:Closed by JESSICA DOTSON on 05/04/23 Normal [facility] EMG(NEURO/NI)on 04-13-2023 [facility] MRI CERVICAL SPINE WO IVCONo n [...] arthropathy. Moderate canal narrowing. Moderate right and mseu-wn-wxwnehnx left foraminal narrowing. C5-C6: Posterior osteophytic ridge. Moderate spinal canal stenosis with canal measuring 8 mm. Left foraminal stenosis. Mjme-gu-wahvsaru right foraminal narrowing. Slight ventral impression on the cord. C6-C7: Posterior disc and osteophyte complex. Wiwi-gq-ohyyjuwe canal narrowing. Moderate foraminal narrowing bilaterally. C7-T1: Spondylolisthesis. Bilateral foraminal stenosis. Ekey-ix-xhnnomso canal narrowing. 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 The degree of spinal canal stenosis is very similar to the previous study. Multilevel foraminal stenosis. Grade 2 spondylolisthesis C7 on T1. This is unchanged from the previous study. Anatomic Variant: None. Assume 7 cervical vertebrae with counting from the craniocervical junction. Cloth Bale Header: [place] Transcribe Date/Time: Apr 13 2023 7:53P Dictated by : MARLEY HURT MD This examination was interpreted and the report reviewed and electronically signed by: MARLEY HURT MD on Apr 13 2023 8:01PM EST [id number] N Normal [facility] CNOVon 01-18-2023 CNOV Office Visit ([facility] ) EDMUND CHRISTOPHER ([id number]) 1965 M Date Time Provider Department 01/18/23 8:15 AM [facility] During your visit today, we recorded the following information about you: Jessica Dotson MD 01/18/2023 5:40 PM Addendum [facility] NOTE Department of Orthopaedics Jessica Dotson M.D. NAME: Edmund Christopher CLINIC NO.: [id number] DATE: January 18, 2023 Parth returns for [...] region [M48.02] Order(s):MRI CERVICAL SPINE WO IVCON [[id number]] Order #: [id number] FUTURE EMG(NEURO/NI) [[id number]] Order #: [id number]: 1 FUTURE Prescriptions as of 01/18/2023 - lisinopril (ZESTRIL, PRINIVIL) 10 mg tablet - oxyCODONE IR (ROXICODONE) 10 mg tab - pregabalin (LYRICA) 100 mg capsule Take 100 mg by mouth four times daily. - Meperidine HCl 100 mg tablet Take 100 mg by mouth daily at bedtime. - PERCOCET 10-325 mg tablet - oxyCODONE-acetaminoph en (more content not included)... Normal [facility] No Panel Informationon 01-18 [facility] XR SHLDR >/=3V AP/AQUILINO AP/OTH R [...] FINDINGS CONSISTENT WITH ROTATOR CUFF TEARING DESCRIBED Cloth Bale Header: [facility] Transcribe Date/Time: Jan 18 2023 8:20A Dictated by : JENIFER HAMMER MD This examination was interpreted and the report reviewed and electronically signed by: JENIFER HAMMER MD on Jan 18 2023 8:28AM EST [id number] N Normal [facility] XR SHLDR >/=3V AP/AQUILINO AP/OTH R RTon [...] FINDINGS CONSISTENT WITH ROTATOR CUFF TEARING DESCRIBED Cloth Bale Header: [place] Transcribe Date/Time: Jan 18 2023 8:20A Dictated by : JENIFER HAMMER MD This examination was interpreted and the report reviewed and electronically signed by: JENIFER HAMMER MD on Jan 18 2023 8:28AM EST [id number] N Normal [facility] INSULINon 11-04-2022 Insulin 3.0 uIU/mL Normal 2.6-24.[address] [facility] Comment on above: Performed By: #### I NSULIN #### [facility] [address] [place] [address] Dr. Stacy Saxena OCC BLD IMMUNO SCREENon 10-15 OCCULT BLOOD Negative Normal NEGATIVE [facility] Comment on above: Performed By: #### O BSCRN #### [facility] [address] [address] [address] Stacy Saxena TESTOSTERONE, TOTALon 2022 Testosterone [Mass/Vol] 480 ng/dL Normal 264-916 [facility] Comment on above: Result Comment: Adul t male reference interval is based on a population of healthy nonobese males (BMI <30) between 19 and 39 years old. katherine Lucia.al. JCEM 2017,102;2207-5062. PMID: [id number]. Performed By: #### L IPID, URIC, CMP, T7, TSH #### [facility] [address] [address] [address] Stacy Saxena CBC AUTO DIFFon 11-03-2022 BASO # 0.0 103/ul Normal 0.0-0.1 [facility] Comment on above: Performed By: #### C BC #### [facility] [address] [address] [address] Stacy Saxena Basophils/100 WBC (Bld) 0.6 % Normal 0.2-2.0 [facility] Comment on above: Performed By: #### C BC #### [facility] [address] [address] [address] Stacy Saxena EO # 0.1 103/ul Normal 0.0-0.7 [facility] Comment on above: Performed By: #### C BC #### [facility] [address] [place] [address] Dr. Stacy Saxena Eosinophils/100 WBC (Bld) 1.9 % Normal 0.9-7.0 [facility] Comment on above: Performed By: #### C BC #### [facility] [address] [place] [address] Dr. Stacy Saxena Erythrocyte distribution width (RBC) [Ratio] 13.0 % Normal 11.0-15.0 [facility] Comment on above: Performed By: #### C BC #### [facility] [address] [place] [address] Dr. Stacy Saxena Hematocrit (Bld) [Volume fraction] 45.1 % Normal 42.0-54.0 [facility] Comment on above: Performed By: #### C BC #### [facility] [address] [place] [address] Dr. Stacy Saxena Hemoglobin (Bld) [Mass/Vol] 15.3 g/dL Normal 14.0-18.0 [facility] Comment on above: Performed By: #### C BC #### [facility] [address] [place] [address] Dr. Stacy Saxena IG # 0.01 10e3/ul Normal 0.00-0.03 [facility] Comment on above: Performed By: #### C BC #### [facility] [address] [place] [address] Dr. Stacy Saxena IG % 0.1 % Normal 0.0-0.5 [facility] Comment on above: Performed By: #### C BC #### [facility] [address] [place] [address] Dr. Stacy Saxena LYMPH # 1.3 103/ul Normal 1.2-3.8 [facility] Comment on above: Performed By: #### C BC #### [facility] [address] [place] [address] Dr. Stacy Saxena Lymphocytes/100 WBC (Bld) 18.9 % Critically low 20.5-60.0 [facility] Comment on above: Performed By: #### C BC #### [facility] [address] [place] [address] Dr. Stacy Saxena MANUAL DIFF REQ NO Normal [facility] Comment on above: Performed By: #### C BC #### [facility] [address] [place] [address] Dr. Stacy Saxena MCH (RBC) [Entitic mass] 29.0 pg Normal 25.9-34.0 [facility] Comment on above: Performed By: #### C BC #### [facility] [address] [place] [address] Dr. Stacy Saxena MCHC (RBC) [Mass/Vol] 33.9 g/dL Normal 29.9-35.2 [facility] Comment on above: Performed By: #### C BC #### [facility] [address] [place] [address] Dr. Stacy Saxena MCV (RBC) [Entitic vol] 85.6 fL Normal 80.0-94.0 [facility] Comment on above: Performed By: #### C BC #### [facility] [address] [place] [address] Dr. Stacy Saxena MONO # 0.9 103/ul Critically high 0.3-0.8 [facility] Comment on above: Performed By: #### C BC #### [facility] [address] [place] [address] Dr. Stacy Saxena Monocytes/100 WBC (Bld) 12.9 % Critically high 1.7-12. 0 [facility] Comment on above: Performed By: #### C BC #### [facility] [address] [place] [address] Dr. Stacy Saxena NEUT # 4.5 103/ul Normal 1.4-6.5 [facility] Comment on above: Performed By: #### C BC #### [facility] [address] [place] [address] Dr. Stacy Saxena Neutrophils/100 WBC (Bld) 65.6 % Normal 43.0-75.0 [facility] Comment on above: Performed By: #### C BC #### [facility] [address] [place] [address] Dr. Stacy Saxena Platelet mean volume (Bld) [Entitic vol] 8.9 fL Critically low 9.5-13.5 [facility] Comment on above: Performed By: #### C BC #### [facility] [address] [place] [address] Dr. Stacy Saxena PLT 250 103/ul Normal 150-[address] [facility] Comment on above: Performed By: #### C BC #### [facility] [address] [place] [address] Dr. Stacy Saxena RBC 5.27 106/ul Normal 4.70-6.[address] [facility] Comment on above: Performed By: #### C BC #### [facility] [address] [place] [address] Dr. Stacy Saxena WBC 6.9 103/ul Normal 4.0-11.[address] [facility] Comment on above: Performed By: #### C BC #### [facility] [address] [place] [address] Dr. Stacy Saxena FREE THYROXINE INDEX T7on FTI 3.08 Normal 1.30-4.50 [facility] Comment on above: Performed By: #### L IPID, URIC, CMP, T7, TSH #### [facility] [address] [place] [address] Dr. Stacy Saxena T3U 35.0 % Normal 33.0-40.0 [facility] Comment on above: Performed By: #### L IPID, URIC, CMP, T7, TSH #### [facility] [address] [place] [address] Dr. Stacy Saxena T4 [Mass/Vol] 8.80 ug/dL Normal 4.50-12.10 [facility] Comment on above: Performed By: #### L IPID, URIC, CMP, T7, TSH #### [facility] [address] [place] [address] Dr. Stacy Saxena GLYCOHEMOGLOBIN A1Con 2022 ADA RECOMMENDATION SEE BELOW Normal [facility] Comment on above: Result Comment: ADA RECOMMENDED LIMIT 4.0 - 6.0 ADA THERAPEUTIC TARGET < 7.0 ACTION SUGGESTED > 7.0 Performed By: #### A 1C #### [facility] [address] [place] [address] Dr. Stacy Saxena Glucose [Mass/Vol] 111 mg/dL Normal [facility] Comment on above: Performed By: #### A 1C #### [facility] [address] [place] [address] Dr. Stacy Saxena HbA1c (Bld) [Mass fraction] 5.5 % Normal 4.5-6.2 [facility] Comment on above: Performed By: #### A 1C #### [facility] [address] [place] [address] Dr. Stacy Saxena LIPID PROFILEon 11-03-2022 CHOL-HDL RATIO NORM SEE BELOW Normal [facility] Comment on above: Result Comment: 3.3 - 4.4 LOW RISK 4.4 - 7.1 AVERAGE RISK 7.1 - 11.0 MODERATE RISK >11.0 HIGH RISK Performed By: #### L IPID, URIC, CMP, T7, TSH #### [facility] [address] [place] [address] Dr. Stacy Saxena Cholesterol [Mass/Vol] 183 mg/dL Normal <=200 [facility] Comment on above: Performed By: #### L IPID, URIC, CMP, T7, TSH #### [facility] [address] [address] [address] Stacy Saxena Cholesterol in HDL [Mass/Vol] 58 mg/dL Normal 40-60 [facility] Comment on above: Performed By: #### L IPID, URIC, CMP, T7, TSH #### [facility] [address] [address] [address] Stacy Saxena Cholesterol in LDL [Mass/Vol] 115.0 mg/dL Normal [facility] Comment on above: Performed By: #### L IPID, URIC, CMP, T7, TSH #### [facility] [address] [address] [address] Stacy Saxena Cholesterol.total/Libby sterol in HDL [Mass ratio] 3.2 {ratio} Normal [facility] Comment on above: Performed By: #### L IPID, URIC, CMP, T7, TSH #### [facility] [address] [address] [address] Stacy Saxena HDL NORMAL > or = 60 mg/dl - LO W CARDIOVASCULAR RISK <40 mg/dl - HIGH CARDIOVASCULAR RISK Normal [facility] Comment on above: Performed By: #### L IPID, URIC, CMP, T7, TSH #### [facility] [address] [address] [address] Stacy Saxena LDL CALC NORMAL SEE BELOW Normal [facility] Comment on above: Result Comment: <100 mg/dl OPTIMAL 100 - 129 mg/dl NEAR OR ABOVE OPTIMAL 130 - 159 mg/dl BORDERLINE HIGH 160 - 189 mg/dl HIGH >190 mg/dl VERY HIGH Performed By: #### L IPID, URIC, CMP, T7, TSH #### [facility] [address] [address] [address] Stacy Saxena Triglyceride [Mass/Vol] 50 mg/dL Normal <=150 T [facility] Comment on above: Performed By: #### L IPID, URIC, CMP, T7, TSH #### [facility] [address] [address] [address] Stacy Saxena VLDL CALC 10.0 mg/dL Normal [facility] Comment on above: Performed By: #### L IPID, URIC, CMP, T7, TSH #### [facility] [address] [place] [address] Dr. Stacy Saxena PROF 14(COMP METB)on 023 Albumin [Mass/Vol] 3.9 g/dL Normal 3.4-5.0 [facility] Comment on above: Performed By: #### L IPID, URIC, CMP, T7, TSH #### [facility] [address] [place] [address] Dr. Stacy Saxena Albumin/Globulin [Mass ratio] 1.2 {ratio} Normal [facility] Comment on above: Performed By: #### L IPID, URIC, CMP, T7, TSH #### [facility] [address] [place] [address] Dr. Stacy Saxena ALP [Catalytic activity/Vol] 94 U/L Normal 46-116 [facility] Comment on above: Performed By: #### L IPID, URIC, CMP, T7, TSH #### [facility] [address] [place] [address] Dr. Stacy Saxena ALT [Catalytic activity/Vol] 38 U/L Normal 16-63 [facility] Comment on above: Performed By: #### L IPID, URIC, CMP, T7, TSH #### [facility] [address] [place] [address] Dr. Stacy Saxena Anion gap [Moles/Vol] 14.1 mmol/L Normal [facility] Comment on above: Performed By: #### L IPID, URIC, CMP, T7, TSH #### [facility] [address] [place] [address] Dr. Stacy Saxena AST [Catalytic activity/Vol] 46 U/L Critically high 15-37 [facility] Comment on above: Performed By: #### L IPID, URIC, CMP, T7, TSH #### [facility] [address] [place] [address] Dr. Stacy Saxena Bilirubin [Mass/Vol] 0.3 mg/dL Normal 0.2-1.0 [facility] Comment on above: Performed By: #### L IPID, URIC, CMP, T7, TSH #### [facility] [address] [place] [address] Dr. Stacy Saxena Calcium [Mass/Vol] 9.0 mg/dL Normal 8.5-10.1 [facility] Comment on above: Performed By: #### L IPID, URIC, CMP, T7, TSH #### [facility] [address] [place] [address] Dr. Stacy Saxena Chloride [Moles/Vol] 106 mmol/L Normal 98-107 [facility] Comment on above: Performed By: #### L IPID, URIC, CMP, T7, TSH #### [facility] [address] [place] [address] Dr. Stacy Saxena CO2 [Moles/Vol] 26.1 mmol/L Normal 21.0-32.0 [facility] Comment on above: Performed By: #### L IPID, URIC, CMP, T7, TSH #### [facility] [address] [place] [address] Dr. Stacy Saxena Creatinine [Mass/Vol] 0.87 mg/dL Normal 0.70-1.30 [facility] Comment on above: Performed By: #### L IPID, URIC, CMP, T7, TSH #### [facility] [address] [place] [address] Dr. Stacy Saxena EGFR-AF [place] >60 Normal >=60 [facility] Comment on above: Performed By: #### L IPID, URIC, CMP, T7, TSH #### [facility] [address] [place] [address] Dr. Stacy Saxena EGFR-NON AF [place] >60 Normal >=60 [facility] Comment on above: Performed By: #### L IPID, URIC, CMP, T7, TSH #### [facility] [address] [place] [address] Dr. Stacy Saxena Globulin (S) [Mass/Vol] 3.3 g/dL Normal [facility] Comment on above: Performed By: #### L IPID, URIC, CMP, T7, TSH #### [facility] [address] [place] [address] Dr. Stacy Saxena Glucose [Mass/Vol] 97 mg/dL Normal 74-106 [facility] Comment on above: Performed By: #### L IPID, URIC, CMP, T7, TSH #### [facility] [address] [place] [address] Dr. Stacy Saxena Potassium [Moles/Vol] 4.2 mmol/L Normal 3.5-5.[address] [facility] Comment on above: Performed By: #### L IPID, URIC, CMP, T7, TSH #### [facility] [address] [place] [address] Dr. Stacy Saxena Protein [Mass/Vol] 7.2 g/dL Normal 6.4-8.2 [facility] Comment on above: Performed By: #### L IPID, URIC, CMP, T7, TSH #### [facility] [address] [place] [address] Dr. Stacy Saxena Sodium [Moles/Vol] 142 mmol/L Normal 136-145 [facility] Comment on above: Performed By: #### L IPID, URIC, CMP, T7, TSH #### [facility] [address] [place] [address] Dr. Stacy Saxena Urea nitrogen [Mass/Vol] 21.0 mg/dL Critically high 7.0-18.0 [facility] Comment on above: Performed By: #### L IPID, URIC, CMP, T7, TSH #### [facility] [address] [place] [address] Dr. Stacy Saxena Urea nitrogen/Creatinine [Mass ratio] 24.1 mg/mg Normal [facility] Comment on above: Performed By: #### L IPID, URIC, CMP, T7, TSH #### [facility] [address] [place] [address] Dr. Stacy Saxena TSHon 11-03-2022 TSH 1.227 uIU/mL Normal 0.358-3.740 [facility] Comment on above: Performed By: #### L IPID, URIC, CMP, T7, TSH #### [facility] [address] [place] [address] Dr. Stacy Saxena URIC ACID SERUMon 11-03-2022 Urate [Mass/Vol] 5.6 mg/dL Normal 3.5-7.2 [facility] Comment on above: Performed By: #### L IPID, URIC, CMP, T7, TSH #### [facility] [address] [address] [address] Stacy Saxena FLUORO FOR SURGICAL PROCEDUR ESon 07-26-2022 FLUORO FOR SURGICAL PROCEDURES Radiology exam is complete. No Radiologist dictation. Please follow up with ordering provider. Final result Normal [facility] Radiology exam is complete. No Radiologist dictation. Please follow up with ordering provider. MHPN RIS CONSOLIDATED CBCon 07-20-2022 Erythrocyte distribution width (RBC) [Ratio] 12.9 % Normal 11.8-14.4 [facility] Comment on above: Performed By: #### C EDNA LYTE #### [facility] [address] [place] [address] [employer]: Awais Sadler MD Hematocrit (Bld) [Volume fraction] 42.3 % Normal 40.7-50.3 [facility] Comment on above: Performed By: #### Monica BISHOP LYTE #### [facility] [address] [place] [address] [employer]: Awais Sadler MD Hemoglobin (Bld) [Mass/Vol] 14.2 g/dL Normal 13.0-17.0 [facility] Comment on above: Performed By: #### C EDNA LYTE #### [facility] [address] [place] [address] [employer]: Awais Sadler MD MCH (RBC) [Entitic mass] 29.5 pg Normal 25.2-33.5 [facility] Comment on above: Performed By: #### C EDNA LYTE #### [facility] [address] [facility] [place] [address] [employer]: Awais Sadler MD MCHC (RBC) [Mass/Vol] 33.6 g/dL Normal 28.4-34.8 [facility] Comment on above: Performed By: #### Monica BISHOP LYTE #### [facility] [address] [place] [address] [employer]: Awais Sadlre MD MCV (RBC) [Entitic vol] 87.8 fL Normal 82.6-102.9 [facility] Comment on above: Performed By: #### C EDNA LYTE #### [facility] [address] [place] [address]. [place] [address] [employer]: Awais Sadler MD NRBC Automated 0.0 per 100 WBC Normal 0.0 [facility] Comment on above: Performed By: #### Monica BISHOP LYTE #### [facility] [address] [place] [address]. [place] [address] [employer]: Awais Sadler MD Platelet mean volume (Bld) [Entitic vol] 9.3 fL Normal 8.1-13.5 [facility] Comment on above: Performed By: #### ANGIE BRYANTTE #### [facility] [address] [place] [address]. [place] [address] [employer]: Awais Sadler MD Platelets (Bld) [#/Vol] 233 10*3/uL Normal 138-453 [facility] Comment on above: Performed By: #### Monica BISHOP LYTE #### [facility] [address] [place] [address]. [place] [address] [employer]: Awais Sadler MD RBC (Bld) [#/Vol] 4.82 10*6/uL Normal 4.21-5.77 [facility] Comment on above: Performed By: #### Monica BISHOP LYTE #### [facility] [address] [place] [address] [employer]: Awais Sadler MD WBC (Bld) [#/Vol] 9.4 10*3/uL Normal 3.5-11.3 [facility] Comment on above: Performed By: #### C BC, BRAD #### [facility] [address] [place] [address] [employer]: Awais Sadler MD Hematocrit (Bld) [Volume fraction] 42.3 % 40.7 - 50.3 % [facility] Hemoglobin (Bld) [Mass/Vol] 14.2 g/dL 13.0 - 17.0 g/dL [facility] MCH (RBC) [Entitic mass] 29.5 pg 25.2 - 33.5 pg [facility] MCHC (RBC) [Mass/Vol] 33.6 g/dL 28.4 - 34.8 g/dL [facility] MCV (RBC) [Entitic vol] 87.8 fL 82.6 - 102.9 fL [facility] NRBC Automated 0.0 0.0 per 100 WBC [facility] Platelet distribution width (Bld) [Ratio] 12.9 % 11.8 - 14.4 % [facility] Platelet mean volume (Bld) [Entitic vol] 9.3 fL 8.1 - 13.5 fL [facility] Platelets (Bld) [#/Vol] 233 10*3/uL [facility] RBC (Bld) [#/Vol] 4.82 10*6/uL 4.21 - 5.7 7 m/uL [facility] WBC (Bld) [#/Vol] 9.4 10*3/uL [facility] EKG 12 LeadOrdered By: Ashley Monahan on 07-20-2022 Atrial Rate 58 BPM [facility] Work Phone: P [place] 46 degrees [facility] Work Phone: P-R Interval 192 ms [employer] Work Phone: Q-T Interval 400 ms [employer] Work Phone: QRS Duration 96 ms [employer] Work Phone: QTc Calculation (Bazett) 392 ms [employer] Work Phone: R [place] 81 degrees [employer] Work Phone: T [place] 65 degrees [employer] Work Phone: Ventricular Rate 58 BPM [facility] [employer] Work Phone: [employer] Work Phone: EKG 12 Leadon 07-20-2022 Sinus bradycardia Otherwise normal ECG No previous ECGs available [facility] Ashley Singh MD - 07/20/2022 Sinus bradycardia Otherwise normal ECG No previous ECGs available [employer] Work Phone: Electrolyte Panelon 07-20-19 Anion gap [Moles/Vol] 10 mmol/L 9 - 17 mmol/L [employer] Chloride [Moles/Vol] 101 mmol/L 98 - 10 7 mmol/L [employer] CO2 [Moles/Vol] 25 mmol/L 20 - 31 mmol/L [employer] Potassium [Moles/Vol] 4.1 mmol/L 3.7 - 5.3 mmol/L [employer] Sodium [Moles/Vol] 136 mmol/L 135 - 144 mmol/L [facility] [employer] [facility] [employer] Electrolyteson 07-20-2022 Anion gap [Moles/Vol] 10 mmol/L Normal 9-17 [facility] Comment on above: Performed By: #### C BRAD BISHOP #### [facility] [address] [place] [address] [employer]: Awais Sadler MD Chloride [Moles/Vol] 101 mmol/L Normal 98-107 [facility] Comment on above: Performed By: #### C EDNA LYTE #### [facility] [address] [place] [address] [employer]: Awais Sadler MD CO2 [Moles/Vol] 25 mmol/L Normal 20-31 [facility] Comment on above: Performed By: #### C EDNA LYTE #### [facility] [address] [place] [address] [employer]: Awais Sadler MD Potassium [Moles/Vol] 4.1 mmol/L Normal 3.7-5.3 [facility] Comment on above: Performed By: #### C ANGIE BISHOPTE #### [facility] [place] [address] [employer]: Awais Sadler MD Sodium [Moles/Vol] 136 mmol/L Normal 135-144 [facility] Comment on above: Performed By: #### C EDNA LYTE #### [facility] [place] [address] [employer]: Awais Sadler MD MR Cervical spine WO contras ton 05-11-2021 IMPRESSION: 1. 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 2. Spinal cord and thecal sac impingement without compression at C7-T1. 3. Left C3-4 & right C5-6 and bilateral C6-7 and C7-T1 significant foramina narrowing. COUNTING REFERENCE: Superior cervical disc is taken as C2-3. Structural anomalies: None. Cloth Bale Header: PSCB Transcribe Date/Time: May 11 2021 11:48A [...] DIVISION OF RADIOLOGY Provider, Cc [facility] - 05/11/2021 * * *Final Report* * [...] is taken as C2-3. Structural anomalies: None. Cloth Bale Header: PSCB Transcribe Date/Time: May 11 2021 11:48A Dictated by : TREASURE NAM MD This examination was interpreted and the report reviewed and electronically signed by: TREASURE NAM MD on May 11 2021 11:54AM EST [facility] Radiology Study observation (narrative) [facility] MR Cervical spine WO contras tOrdered By: Ccf Provider on 05-11-2021 [facility] ED NOTEon 04-16-2021 ED NOTE HNO ID: [id number] Author: Vashti Mc RN Service: ? Author Type: Registered Nurse Type: ED Notes Filed: 04/16/2021 4:51 AM Note Text: Verbalized understanding of new meds sent to documented preferred pharmacy and sched f/u appt with Spine. Phone number provided to patient for PCP f/u appt. Ambulatory out of dept. Normal [facility] ED NOTE HNO ID: [id number] Author: Vashti Mc RN Service: ? Author Type: Registered Nurse Type: ED Notes Filed: 04/16/2021 3:09 AM Note Text: Ambulatory in room for urine sample. Urinal provided. [facility] ED NOTE HNO ID: [id number] Author: Vashti Mc RN Service: ? Author Type: Registered Nurse Type: ED Notes Filed: 04/16/2021 2:52 AM Note Text: Patient denies any recent injury/trauma. Denies loss of function to bowel/bladder. [facility] ED NOTE HNO ID: [id number] Author: Vashti Mc RN Service: ? Author Type: Registered Nurse Type: ED Notes Filed: 04/16/2021 1:15 AM Note Text: Patient ambulatory from lobby to room independently with steady gait. [facility] ED PROV NOTEon 04-16-2021 ED PROV NOTE HNO ID: [id number] Author: Jacquelyn Walls PA-C Service: ? Author Type: Physician Licensing Court Magistrate Type: ED Provider Notes Filed: 04/16/2021 6:16 [...] History provided by: Patient and significant other hourly sign language interpreter used: No PAST MEDICAL HISTORY Diagnosis Date - CVA (cerebral infarction) - Hypertension - Kidney stone PAST SURGICAL HISTORY Procedure Laterality Date - INJ WO/CATH ANES/STER LS 04/01/10 Performed by BRUNO VICTORIA at [facility] - NJX DX/THER AGT PVRT FACET JT LMBR/SAC 1 LEVEL 04/29/2010 Performed by BRUNO VICTORIA at [facility] - PAST SURGICAL HISTORY [...] There is normal jaw occlusion. Mouth/Throat: Lips: [place]. Mouth: Mucous membranes are dry. Eyes: Extraocular [...] No o (more content not included)... Normal [facility] Urinalysis with [facility] 04-16-2021 Bilirubin, Urine Negative Normal Negative [facility] pital Cast SEE COMMENT Normal 0 [facility] Comment on above: Result Comment: 0 Clarity (U) Clear Normal Clear [facility] Color (U) Yellow Normal Yellow [facility] Glucose Ql (U) Negative Normal Negative [facility] Hemoglobin/Blood,Ur Negative Normal Negative [facility] Ketones Ql (U) Trace Critically abnormal Negative [facility] Leukest Trace Critically abnormal Negative [facility] Nitrite Ql (U) Negative Normal Negative [facility] pH (U) 6.5 [pH] Normal 5.0-8.0 [facility] Protein, Urine Negative Normal Negative [facility] RBC 0-3 Normal 0-3 [facility] Specific [place], Ur 1.022 Normal 1.005-1.030 [facility] Urobilinogen Qn (U) 1.0 {Jalen'U}/dL Normal 0.2-1.0 [facility] WBC 0-5 Normal 0-[address] [facility] [address] BRAIN WO IVCONon 04-15-[address] BRAIN WO IVCON * * *Final Report* * * DATE OF EXAM: Apr 15 2021 8:31PM [facility] 0504 - CT BRAIN WO IVCON / [...] base and imaged soft tissues are unremarkable. Photo Journalist (topogram) images: Unremarkable. IMPRESSION: No evidence of an acute intracranial process. Cloth Bale Header: PSCB Transcribe Date/Time: Apr 15 2021 8:36P Dictated by : HEATHER LUCIO MD This examination was interpreted and the report reviewed and electronically signed by: HEATHER LUCIO MD on Apr 15 2021 8:38PM EST [id number] Normal [facility] CT CERVICAL SPINE WO IVCONon 04-15-2021 CT CERVICAL SPINE WO IVCON * * *Final Report* * * DATE OF EXAM: Apr 15 2021 8:31PM [facility] 0505 - CT CERVICAL SPINE WO IVCON [...] Counting reference: Craniocervical junction. Anatomic Variants: None. Photo Journalist (topogram) images: Alignment: Alignment is anatomic. Craniocervical [...] vertebrae with counting from the craniocervical junction. Cloth Bale Header: [place] Transcribe Date/Time: Apr 15 2021 8:38P Dictated by : HEATHER LUCIO MD This examination was interpreted and the report reviewed and electronically signed by: HEATHER LUCIO MD on Apr 15 2021 8:40PM EST [id number] Normal [facility] CT LUMBAR SPINE WO IVCONon 1 CT LUMBAR SPINE WO IVCON * * *Final Report* * * DATE OF EXAM: Apr 15 2021 8:31PM [facility] 0508 - CT LUMBAR SPINE WO IVCON [...] junction. For the purposes of this report, Photo Journalist (topogram) images: Alignment: Alignment is anatomic. Bone [...] and assume there are 5 lumbar-type vertebrae. Cloth Bale Header: [place] Transcribe Date/Time: Apr 15 2021 8:40P Dictated by : HEATHER LUCIO MD This examination was interpreted and the report reviewed and electronically signed by: HEATHER LUCIO MD on Apr 15 2021 8:43PM EST [id number] [facility] ED NOTEon 04-15-2021 ED NOTE HNO ID: [id number] Author: Li Damon RN Service: ? Author Type: Registered Nurse Type: ED Notes Filed: 04/15/2021 6:06 PM Note Text: Pt. to ED for neck and low back pain after falling about 4 weeks ago. Pt. states was up about 3 ft on ladder when he fell off onto anjali that was on the ground. Denies loc, no blood thinners. [facility] ED Triage Noteon 04-15-2021 ED Triage Note HNO ID: [id number] Author: Geovanny Tanner PA-C Service: Emergency Medicine Author Type: Physician Licensing Court Magistrate Type: ED Triage Notes Filed: 04/15/2021 6:11 [...] Midline cervical and lumbar spinal tenderness. 5/5 travel writer, bicep, tricep strength b/l. 5/5 hip extension, knee extension/flexion, DF/PF strength b/l. Normal gross motor and sensory function to light touch over b/l face, UEs, and LEs. Normal finger to nose. No basilar skull fracture signs. Deferred exam at this time. INTAKE WORKUP: Imaging: CT: Brain, C spine, Lumbar spine Testicular US SIGNATURE: Geovanny Tanner PA-C [facility] US DOPPLER COMPLETEon 2020 US DOPPLER COMPLETE * * *Final Report* * * DATE OF EXAM: Apr 15 2021 6:53PM [facility] 1033 - US DOPPLER COMPLETE / PROCEDURE [...] 3. Slightly complex septated small left hydrocele. Cloth Bale Header: [facility] Transcribe Date/Time: Apr 15 2021 7:06P Dictated by : JENNIFER CASTILLO MD This examination was interpreted and the report reviewed and electronically signed by: JENNIFER CASTILLO MD on Apr 15 2021 7:12PM EST [id number] Normal [facility] US SCROTUM AND CONTENTSon US SCROTUM AND CONTENTS * * *Final Repor t* * * DATE OF EXAM: Apr 15 2021 6:53PM [facility] 1063 - US SCROTUM AND CONTENTS / [...] 3. Slightly complex septated small left hydrocele. Cloth Bale [facility] Transcribe Date/Time: Apr 15 2021 7:06P Dictated by : JENNIFER CASTILLO MD This examination was interpreted and the report reviewed and electronically signed by: JENNIFER CASTILLO MD on Apr 15 2021 7:12PM EST [id number] Son 02-17-2020 LUMB SP COMP W FLEX/EXT 6 VWS STUDY: LUMB SP COMP W FLEX/EXT 6 VWS ; 02/17/2020 9:43 am INDICATION: PAIN. COMPARISON: 10/08/2018 ACCESSION NUMBER(S): [id number] ORDERING CLINICIAN: Earl Choi FINDINGS: Severe levoscoliosis. [...] the lumbar spine without dynamic instability. Normal [facility] Coding Summaryon 04-25-2018 Coding Summary CODING DATE: 04/25/2018 [facility] STATUS: Home PAYOR: Medicare ADMIT DX: REASON [...] Oakley' Date Saved: 04/25/2018 05:43 pm Normal [facility] ED Clinical Summaryon 2017 ED Clinical Summary [facility] ? Urgent Care [address] [place] [address] Clinical Summary PERSON INFORMATION Name: EDMUND CHRISTOPHER Age: 53 Years Sex: MALE : 65 MRN: Acct#: Visit Reason: UC - Eye Pain; LEFT EYE PAIN Arrival: 03/24/18 12:26:00 Discharge: 03/24/18 13:10:00 LOS: 000 00:44 Check In: 03/24/18 12:26:00 Checkout: 03/24/18 13:10:00 Address: [address] [place] [id number] PCP: MADDY COTTO MD PROVIDER INFORMATION Provider Role Assigned Unassigned Omayra Munguia ED PA 03/24/18 12:29:30 03/24/18 12:36:20 Omayra Munguia ED PA 03/24/18 12:36:24 Lin Farmer FELTMAKER Nurse 03/24/18 12:38:39 VITALS INFORMATION Vital Sign [...] pain. He states he is working along [employer] believes he got something into his eye [...] vision. Impression and Plan Diagnosis Corneal abrasion ([id number] S05.00XA, Discharge, Medical) Plan Condition: Stable. Disposition: [...] Abrasion Follow-Up: With: Address: When: MADDY COTTO [address] [place] [address] [facility] In 2 days 03/26/18 DIAGNOSIS: Corneal abrasion Patient Understands: Yes - Patient/family/caregi chang verbalizes understanding of instructions given Comment: [facility] ED Note - Physicianon 2017 ED Note [...] vision. Impression and Plan Diagnosis Corneal abrasion (GSL67-SO S05.00XA, Discharge, Medical) Plan Condition: Stable. Disposition: [...] Omayra Munguia [facility] ED Patient Summaryon 018 ED Patient Summary [facility] ? Urgent Care [address] [place] [address] PATIENT DISCHARGE INSTRUCTIONS Patient Information Name: EDMUND CHRISTOPHER Age: 53 Years Date of : [birth year] Reason For Visit: UC - Eye Pain; LEFT EYE PAIN Arrival Time: 03/24/18 12:26:00 Primary Care Physician: MADDY COTTO MD Attending Physician: Omayra Munguia Comment: Patient Education With: Address: When: MADDY COTTO [address] [place] [id number] Business (1) In 2 days 03/26/18 [...] condition may be caused by: ? A fountain worker the eye. ? A gritty or irritating [...] in diseases and conditions of the eye (dandy tender). Before the eye exam, numbing drops may be put into your eye. You may also have dye put in your eye with a dropper or a small paper strip. The dye makes the abrasion easy to see when your dandy tender examines your eye with a light. Your dandy tender may look at your eye through an [...] you start to feel better. ? Take mssp-ztk-kegaluh and prescription medicines only as told by your eye care provider. ? Do not drive or use heavy machinery while taking prescription pain medicine. General instructions ? If you have an eye patch, wear it as told by your eye care provider. ? Do not drive or use machinery while wearing an eye patch. Your ability to white sugar syrup operator distances will be impaired. ? Follow instructions [...] 06/29/2001 Document Revised: 06/12/2017 Document Reviewed: 06/12/2017 [employer] Interactive Patient Education ? 2017 [employer] Medication Information: The exam and treatment you received today in the [facility] Emergency Department were for an urgent problem and are not intended as complete care. It is important for you to follow up with a doctor, nurse practitioner, or physician?s assistant technician for ongoing care. If your symptoms become [...] so we can reach you if necessary. [facility] Emergency Department has provided you with a complete list of medications post discharge. Please inform your basting machine operator/provider of your visit and for further instruction on these medications. Any specific questions regarding your chronic medications and dosages should be discussed with your primary care physician(s) and/or pharmacist. New Medications [facility], [address] [place] [address], [phone] ketorolac ophthalmic (Acular 0.5% ophthalmic solution) 1 Drops Ophthalmic 4 times a day as needed for itching for 3 Days. Refills: 0. tobramycin ophthalmic (Tobrex 0.3% ophthalmic solution) 1 Drops Ophthalmic 4 times a day for 7 Days. Refills: 0. Visit Information Visit Diagnosis: Diagnoses This Visit Corneal abrasion (S05.00XA) UC - Eye Pain ([id number]) If you received any narcotics, sedation, or [...] Disease Control and Prevention March 2014 Normal [facility] [place] 018 Urgent Care Record [facility] ? Urgent Care [address] [place] [id number] PATIENT DISCHARGE INSTRUCTIONS Patient Information Name: EDMUND CHRISTOPHER Age: 53 Years Date of : 65 Reason For Visit: UC - Eye Pain; LEFT EYE PAIN Arrival Time: 03/24/18 12:26:00 Primary Care Physician: MADDY COTTO MD Attending Physician: Omayra Munguia Comment: Visit Diagnosis: Diagnoses This Visit Corneal abrasion (S05.00XA) UC - Eye Pain ([id number]) If you received any narcotics, sedation, or [...] legal documents With: Address: When: MADDY COTTO [address] [place] [id number] Business (1) In 2 days 03/26/18 Medication Information: The exam and treatment you received today in the [facility] were for an urgent problem and are not intended as complete care. It is important for you to follow up with a doctor, nurse practitioner, or physician?s assistant technician for ongoing care. If your symptoms become [...] so we can reach you if necessary. [facility] has provided you with a complete list of medications post discharge. Please inform your basting machine operator/provider of your visit and for further instruction on these medications. Any specific questions regarding your chronic medications and dosages should be discussed with your primary care physician(s) and/or pharmacist. New Medications [facility], [address] [place] [id number], [phone] ketorolac ophthalmic (Acular 0.5% ophthalmic solution) 1 [...] condition may be caused by: ? A fountain worker the eye. ? A gritty or irritating [...] in diseases and conditions of the eye (dandy tender). Before the eye exam, numbing drops may be put into your eye. You may also have dye put in your eye with a dropper or a small paper strip. The dye makes the abrasion easy to see when your dandy tender examines your eye with a light. Your dandy tender may look at your eye through an [...] you start to feel better. ? Take hejf-rya-ueategc and prescription medicines only as told by your eye care provider. ? Do not drive or use heavy machinery while taking prescription pain medicine. General instructions ? If you have an eye patch, wear it as told by your eye care provider. ? Do not drive or use machinery while wearing an eye patch. Your ability to white sugar syrup operator distances will be impaired. ? Follow instructions [...] 06/29/2001 Document Revised: 06/12/2017 Document Reviewed: 06/12/2017 [employer] Interactive Patient Education ? 2017 [employer]. Viruses or Bacteria What?s got you sick? [...] March 2014 [facility] Vital Signs Date Time Vital Sign Value Performing Clinician Facility 11-12-2023 09:41-0400 Diastolic blood pressure 62 mm[Hg] SUPERVISOR ROLLER PRINTING-C Shreyas Felipe Work Phone: [facility] 11-12-2023 09:41-0400 Heart rate 59 /min SUPERVIS[employer] Shreyas Felipe Work Phone: [facility] 11-12-2023 09:41-0400 Respiratory rate 18 /min SUPERVISOR [employer]-C Shreyas Felipe Work Phone: [facility] 11-12-2023 09:41-0400 SaO2% (BldA) [Mass fraction] 98 % SUPERVISOR [employer] Shreyas Felipe Work Phone: [facility] 11-12-2023 09:41-0400 Systolic blood pressure 95 mm[Hg] SUPERVISOR [employer]-C Shreyas Felipe Work Phone: [facility] 11-12-2023 07:49-0400 Body height 162.56 cm SUPERVISOR [employer]-C Shreyas Josie Work Phone: [facility] 11-12-2023 07:49-0400 Body weight 70.3 kg SUPERVISOR [employer] Shreyas Josie Work Phone: [facility] 10-10-2023 14:34-0400 Body temperature 97.8 [degF] SUPERVISOR [employer]-C Shreyas Josie Work Phone: [facility] 10-10-2023 14:34-0400 Diastolic blood pressure 84 mm[Hg] SUPERVISOR [employer]-C Shreyas Josie Work Phone: [facility] 10-10-2023 14:34-0400 Heart rate 60 /min SUPERVISOR [employer]-C Shreyas Josie Work Phone: [facility] 10-10-2023 14:34-0400 Respiratory rate 16 /min SUPERVISOR [employer]-C Shreyas Josie Work Phone: [facility] 10-10-2023 14:34-0400 SaO2% (BldA) [Mass fraction] 99 % SUPERVISOR [employer]-C Shreyas Josie Work Phone: [facility] 10-10-2023 14:34-0400 Systolic blood pressure 130 mm[Hg] SUPERVISOR [employer]-C Shreyas Josie Work Phone: [facility] 10-10-2023 11:16-0400 Body height 160.02 cm SUPERVISOR [employer]-C Shreyas Josie Work Phone: [facility] 10-10-2023 11:16-0400 Body weight 70.5 kg SUPERVISOR [employer] Shreyas Josie Work Phone: [facility] 01-05-2023 19:55-0400 Body height 162.56 cm SUPERVISOR [employer]-C Shreyas Josie Work Phone: [facility] 01-05-2023 19:55-0400 Body temperature 97.7 [degF] SUPERVISOR [employer]-C Shreyas Josie Work Phone: [facility] 06-23-2023 19:55-0400 Body weight 71.6 kg SUPERVISOR [employer]-C Shreyas Josie Work Phone: [facility] 01-05-2023 19:55-0400 Diastolic blood pressure 100 mm[Hg] SUPERVISOR [employer]-C Shreyas Josie Work Phone: [facility] 01-05-2023 19:55-0400 Heart rate 81 /min SUPERVISOR [employer]-C Shreyas Josie Work Phone: [facility] 01-05-2023 19:55-0400 Respiratory rate 20 /min SUPERVISOR [employer]-C Shreyas Josie Work Phone: [facility] 01-05-2023 19:55-0400 SaO2% (BldA) [Mass fraction] 95 % SUPERVISOR [employer]-C Shreyas Josie Work Phone: [facility] 01-05-2023 19:55-0400 Systolic blood pressure 135 mm[Hg] SUPERVISOR ROLL[employer]-C Shreyas Josie Work Phone: [facility] 11-07-2022 11:23-0400 Body height 160.02 cm SUPERVISOR ROLL[employer]-C Shreyas Josie Work Phone: [facility] 11-07-2022 11:23-0400 Body temperature 98.1 [degF] SUPERVISOR RO[employer]-C Shreyas Josie Work Phone: [facility] 11-07-2022 11:23-0400 Body weight 73.1 kg SUPERVISOR RO[employer]-C Shreyas Josie Work Phone: [facility] 11-07-2022 11:23-0400 Diastolic blood pressure 83 mm[Hg] SUPERVISOR [employer]-C Shreyas Josie Work Phone: [facility] 11-07-2022 11:23-0400 Heart rate 92 /min SUPERVISOR [employer]-C Shreyas Josie Work Phone: [facility] 11-07-2022 11:23-0400 Respiratory rate 18 /min SUPERVISOR ROLL[employer]ING-C Shreyas Josie Work Phone: [facility] 11-07-2022 11:23-0400 SaO2% (BldA) [Mass fraction] 95 % SUPERVISOR RO[employer]-C Shreyas Josie Work Phone: [facility] 11-07-2022 11:23-0400 Systolic blood pressure 129 mm[Hg] SUPERVISOR RO[employer]-C Shreyas Josie Work Phone: [facility] 07-26-2022 17:45-0500 Body temperature 97.5 [degF] Maddy Cabezas MD Work Phone: [employer] 07-26-2022 17:45-0500 Diastolic blood pressure 84 mm[Hg] Maddy Cabezas MD Work Phone: [employer] [facility] 07-26-2022 17:45-0500 Heart rate 56 /min Maddy Cabezas MD Work Phone: [facility] 07-26-2022 17:45-0500 Respiratory rate 17 /min Maddy Cabezas MD Work Phone: [employer] 07-26-2022 17:45-0500 SaO2% (BldA) [Mass fraction] 95 % Maddy Cabezas MD Work Phone: [employer] 07-26-2022 17:45-0500 Systolic blood pressure 106 mm[Hg] Maddy Cabezas MD Work Phone: [employer] [facility] 07-26-2022 13:06-0500 Body height 162.6 cm Maddy Cabezas MD Work Phone: [employer] [facility] 07-26-2022 13:06-0500 Body mass index (BMI) [Ratio] 26.14 kg/m2 Maddy Cabezas MD Work Phone: [employer] [facility] 07-26-2022 13:06-0500 Body weight 69.08 kg Maddy Cabezas MD Work Phone: [employer] [facility] 07-20-2022 14:07-0500 Body height 162.6 cm Sta 1 [employer] [facility] 07-20-2022 14:07-0500 Body mass index (BMI) [Ratio] 25.75 kg/m2 Sta 1 [facility] 07-20-2022 14:07-0500 Body temperature 97.81 [degF] Sta 1 [facility] [employer] 07-20-2022 14:07-0500 Body weight 68.04 kg Sta 1 [facility] 07-20-2022 14:07-0500 Diastolic blood pressure 85 mm[Hg] Sta 1 [facility] 07-20-2022 14:07-0500 Heart rate 72 /min Sta 1 [facility] 07-20-2022 14:07-0500 Respiratory rate 18 /min Sta 1 [facility] 07-20-2022 14:07-0500 SaO2% (BldA) [Mass fraction] 97 % Sta 1 [facility] 07-20-2022 14:07-0500 Systolic blood pressure 140 mm[Hg] Sta 1 [facility] Encounters Encounter Date Encounter Type Care Provider Facility Start: 12-25-2024 End: 12-25-2024 Refill Larry Mcdonald PA-C Work Phone: [facility] Comment on above: Refill Request Start: 07-28-2024 End: 07-28-2024 Bamboo flowsheet Denae A Felter ONLINE PROGRAM COORDINATOR-X RAY SERVICE TECHNICIAN Work Phone: [facility] Start: 07-28-2024 End: 07-28-2024 Bamboo flowsheet Denae A Felter ONLINE PROGRAM COORDINATOR-X RAY SERVICE TECHNICIAN Work Phone: [facility] Start: 07-28-2024 End: 07-28-2024 Office outpatient visit 15 minutes Denae A Felter ONLINE PROGRAM COORDINATOR-X RAY SERVICE TECHNICIAN Work Phone: [facility] Comment on above: Actinic keratosis (P rimary Dx); Erythema intertrigo Start: 07-28-2024 End: 07-28-2024 ambulatory DENAE A FELTER Not Available Start: 07-15-2024 End: 07-15-2024 Emergency department patient visit Shreyas Felipe Facility:[facility] Start: 06-03-2024 End: 06-03-2024 ambulatory DENAE A FELTER Not Available Start: 06-03-2024 End: 06-03-2024 Patient encounter procedure Denae Lopez ONLINE PROGRAM COORDINATOR-X RAY SERVICE TECHNICIAN Work Phone: [facility] Comment on above: Actinic keratosis; Neoplasm of unspecified behavior of bone, soft tissue, and skin Start: 06-03-2024 End: 06-03-2024 Bamboo flowsheet Denae Lopez ONLINE PROGRAM COORDINATOR-X RAY SERVICE TECHNICIAN Work Phone: [facility] Start: 06-03-2024 End: 06-03-2024 Bamboo flowsheet Denae Lopez ONLINE PROGRAM COORDINATOR-X RAY SERVICE TECHNICIAN Work Phone: [facility] Start: 11-12-2023 Non-patient / Non-visit SUPERVISOR ROLLER PRINTING-C Shreyas Felipe Work Phone: [facility] Work Phone: Start: 11-12-2023 End: 11-12-2023 Admission to same day surgery center SUPERVISOR ROLLER PRINTING-C Shreyas Felipe Work Phone: [facility] Work Phone: Start: 11-12-2023 End: 11-12-2023 ambulatory SUPERVISOR ROLLER PRINTING-C Shreyas Felipe Work Phone: [facility] Work Phone: Start: 10-10-2023 End: 10-10-2023 Emergency department patient visit SUPERVISOR ROLLER PRINTING-C Shreyas Felipe Work Phone: [facility] Work Phone: Start: 08-07-2023 End: 08-08-2023 ambulatory RAÚL SULLIVAN Facility:[facility] Start: 06-18-2023 End: 06-18-2023 ambulatory SUPERVISOR ROLLER PRINTING-C Shreyas Felipe Work Phone: [facility] Work Phone: Start: 06-18-2023 End: 06-18-2023 Patient encounter procedure SUPERVISOR ROLLER PRINTING-C Shreyas Felipe Work Phone: [facility] Work Phone: Start: 05-04-2023 Telephone encounter Jessica paula MD Work Phone: Orthopaedics Start: 04-13-2023 End: 04-13-2023 ambulatory JESSICA DOTSON Facility:[facility] Start: 04-13-2023 End: 04-13-2023 ambulatory JESSICA T JEMElmer Facility:[facility] Start: 04-13-2023 End: 04-13-2023 ambulatory Emg 1000) Work Phone: Neurology Comment on above: EMG Start: 04-13-2023 End: 04-13-2023 Patient encounter procedure Emg 4 Neur Main (Max Weight: 1000) Work Phone: [facility] Start: 01-18-2023 End: 01-18-2023 ambulatory JESSICA DOTSON Facility:[facility] Start: 01-18-2023 End: 01-18-2023 Patient encounter procedure Jessica Dotson MD Work Phone: Orthopaedics Comment on above: Rotator cuff tear ar thropathy, right (Primary Dx); Rotator cuff tear arthropathy, left; Right arm weakness; Spinal stenosis of cervical region Start: 01-18-2023 End: 01-18-2023 Subsequent hospital visit by physician Xr Main A21 Radiology Comment on above: Pain [R52] Start: 01-05-2023 End: 01-05-2023 Emergency department patient visit SUPERVISOR ROLLER PRINTING-Monica Felipe Work Phone: [facility] Work Phone: Start: 11-15-2022 Orders Only Jessica shook MD Work Phone: [facility] Comment on above: Pain (Primary Dx) Start: 11-07-2022 End: 11-07-2022 Emergency department patient visit SUPERVISOR ROLLER PRINTING-Monica Felipe Work Phone: [facility] Work Phone: Start: 11-04-2022 End: 11-04-2022 ambulatory SHREYAS FELIPE Facility:[facility] Start: 11-03-2022 End: 11-04-2022 ambulatory SHREYAS FELIPE Facility:[facility] Start: 07-26-2022 End: 07-26-2022 ambulatory MADDY [facility] Start: 07-26-2022 End: 07-26-2022 Subsequent hospital visit by physician Maddy Cabezas MD Work Phone: [facility] Start: 07-20-2022 End: 07-25-2022 ambulatory MADDY Davin MAHINMAYRA [facility] Start: 07-20-2022 End: 07-24-2022 Subsequent hospital visit by physician Shy Riley Rm 1 ST[facility] PRE-ADMIT TESTING Start: 05-29-2022 End: 05-29-2022 ambulatory SUPERVISOR ROLLER PRINTING-C Shreyas Felipe Work Phone: [facility] Work Phone: Start: 05-29-2022 End: 05-29-2022 Patient encounter procedure SUPERVISOR ROLLER PRINTING-C Shreyas Feilpe Work Phone: [facility] Start: 12-02-2021 ambulatory SHREYAS FELIPE Facility: [facility] Start: 05-11-2021 End: 05-11-2021 Subsequent hospital visit by physician Laura [facility] Melodie (1.5t) Work Phone: Radiology Comment on above: DDD (degenerative di sc disease), cervical [M50.30] Start: 10-08-2018 Patient encounter procedure Facility:[id number] Start: 03-24-2018 End: 08-05-2018 Patient encounter procedure Omayra Gonzales Facility:[facility] Procedures Date Procedure Procedure Detail Performing Clinician Start: 07-28-2024 CRYOTHERAPY SKIN LESION Denae A Chelseaer ONLINE PROGRAM COORDINATOR-X RAY SERVICE TECHNICIAN Work Phone: Start: 06-03-2024 CRYOTHERAPY SKIN LESION Denae A Chelseaer ONLINE PROGRAM COORDINATOR-X RAY SERVICE TECHNICIAN Work Phone: Start: 06-03-2024 SKIN / NAIL BIOPSY Myrtle lie A John ONLINE PROGRAM COORDINATOR-X RAY SERVICE TECHNICIAN Work Phone: Start: 11-12-2023 Colonoscopy SUPERVISOR ROLLER PRINTING-C Ania Felipe Work Phone: Start: 10-10-2023 Computed tomography of abdomen and pelvis with contrast SUPERVISOR ROLLER PRINTING-C Shreyas Felipe Work Phone: Start: 06-18-2023 X-ray of lumbar spin e, six views including bending views SUPERVISOR ROLLER PRINTING-C Shreyas Felipe Work Phone: Start: 04-13-2023 Nerve conduction bety dies 5-6 studies Jessica Dotosn MD Work Phone: Start: 01-18-2023 Radex shoulder compl ete minimum 2 views Jessica Dotson MD Work Phone: Start: 11-07-2022 X-ray of right knee SUPERVISOR ROLLER PRINTING- C Shreyas Felipe Work Phone: Start: 11-03-2022 PSA screening SHREYAS WELSH Comment on above: Performed By: #### P [facility] #### [facility] [address] [place] [address] Dr. Stacy Saxena Start: 07-26-2022 Fluoroscopy during operation Maddy Cabezas MD Work Phone: Start: 07-20-2022 Electrolyte panel Ioana Roy MD Work Phone: Start: 07-20-2022 Ecg routine ecg w/le ast 12 lds trcg only w/o i&r Ioana Roy MD Work Phone: Start: 05-29-2022 Plain x-ray of pelvi s and lower extremity SUPERVISOR ROLLER PRINTING-C Shreyas Felipe Work Phone: Start: 05-29-2022 X-ray of both knees SUPERVISOR ROLLER PRINTING- C Shreyas Felipe Work Phone: Start: 05-11-2021 Mri spinal canal cer vical w/o contrast wanda Steen APRN.CNP Work Phone: Plan of Treatment Date Care Activity Detail Author Start: 03-24-2028 DTaP/Tdap/Td vaccine (2 - Td or Tdap) DTaP/Tdap/Td vaccine (2 - Td or Tdap) [facility] Start: 03-24-2028 Urine microalbumin profile DTaP,Tdap,Td Vaccine (2 - Td or Tdap) [facility] Start: 11-04-2027 PROSTATE CANCER SCREENING DISCUSSION PROSTATE CANCER SCREENING DISCUSSION [facility] Start: 11-04-2027 Prostate specific antigen measurement Prostate Cancer Screening Discussion [facility] Start: 03-16-2025 Influenza vaccination Influenza Vaccine (Season Ended) [facility] Start: 01-26-2025 End: 01-26-2025 Patient encounter procedure 01/26/2025 1:20 PM EDT Office Visit [facility] [address] [place] [phone] Denae Lopez, ONLINE PROGRAM COORDINATOR-X RAY SERVICE TECHNICIAN [address] [place] [address] [facility] Start: 07-28-2024 End: 07-28-2024 Patient encounter procedure 07/28/2024 1:35 PM EST Office Visit [facility] [address] [place] [phone] Denae Lopez, ONLINE PROGRAM COORDINATOR-X RAY SERVICE TECHNICIAN [address] [place] [address] Arrived [facility] Comment on above: Arrived Start: 07-16-2024 Medicare Advantage Annual Wellness Visit Medicare Advantage Annual Wellness Visit [facility] Start: 03-16-2024 Covid-19 Vaccine ( season) Covid-19 Vaccine ( season) [facility] Start: 03-16-2024 Influenza vaccination Influenza Vaccine (#1) [facility] Start: 11-12-2023 [facility] Start: 03-16-2023 Influenza vaccination [facility] Start: 07-26-2022 End: 07-26-2022 Prq impltj nstim electrode array epidural SPINAL CORD STIMULATOR IMPLANT TRIAL Lumbar radiculopathy 07/26/2022 4:40 PM EST [facility] Start: 07-26-2022 End: 07-26-2022 Admission to same day surgery center 07/26/2022 Surgery IP Unit Maddy Cabezas MD [address] [place] [address] SPINAL CORD STIMULATOR IMPLANT TRIAL - [facility] Comment on above: SPINAL CORD STIMULATOR IMPLANT TRIAL - [facility] Start: 07-26-2022 End: 07-26-2022 Anesthesia consultation 07/26/2022 Anesthesia Event IP Unit Oswaldo Daniels MD [address] [place] [address] [facility] Start: 07-26-2022 End: 07-26-2022 Prq impltj nstim electrode array epidural SPINAL CORD STIMULATOR IMPLANT TRIAL Lumbar radiculopathy 07/26/2022 3:[address] [facility] Start: 07-26-2022 Subsequent hospital visit by physician 07/26/2022 Hospital Encounter IP Unit Maddy Cabezas MD [address] [place], [place] [id number] [facility] Start: 07-16-2022 DEPRESSION ASSESSMENT DEPRESSION ASSESSMENT [facility] Start: 07-13-2022 Annual Wellness Visit (AWV) Annual Wellness Visit (AWV) [facility] Start: 05-29-2022 Ultrasonography of limb extremity nonvascular [facility] Start: 05-29-[address] [facility] Start: 02-13-2022 Influenza vaccination Flu vaccine (#1) [facility] Start: 02-07-2020 PROSTATE CANCER SCREENING DISCUSSION PROSTATE CANCER SCREENING DISCUSSION [facility] Start: 12-27-2019 DIABETES SCREEN DIABETES SCREEN [facility] Start: 12-27-2019 Diabetes Screening Diabetes Screening [facility] Start: 2015 Influenza vaccination LUNG CANCER SCREENING [facility] Start: 2015 Screening for malignant neoplasm of lung Lung Cancer Screening [facility] Start: 2015 Shingles vaccine (1 of 2) Shingles vaccine (1 of 2) [facility] Start: 2015 SHINGRIX VACCINE (1 of 2) SHINGRIX VACCINE (1 of 2) [facility] Start: 2010 COLOGUARD (FIT-DNA) COLOGUARD (FIT-DNA) [facility] Start: 2010 Colonoscopy COLONOSCOPY [facility] Start: 2010 COLORECTAL CANCER SCREENING COLORECTAL CANCER SCREENING [facility] Start: [address] COLONOGRAPHY [facility] Start: 2010 FECAL OCCULT BLOOD FECAL OCCULT BLOOD [facility] Start: 2010 Screening for malignant neoplasm of colon [facility] Start: 2010 SIGMOIDOSCOPY SIGMOIDOSCOPY [facility] Start: 2005 Lipid panel Lipids [facility] Start: 02-07-2000 Diabetes screen Diabetes screen [facility] Start: 02-07-2000 Lipid 1996 panel - Serum or Plasma Lipid Screening [facility] Start: 02-07-2000 Lipid panel Lipid Screening [facility] Start: 02-07-2000 LIPID SCREEN LIPID SCREEN [facility] Start: 02-07-1984 Pneumococcal Vaccine: 50+ (1 of 2 - PCV) Pneumococcal Vaccine: 50+ (1 of 2 - PCV) [facility] Start: 02-07-1984 Urine microalbumin profile [facility] Start: 1983 Anxiety Screening Anxiety Screening [facility] Start: 1983 Depression Screening Depression Screening [facility] Start: 1983 Hepatitis C screening [facility] Start: 1983 HEPATITIS C SCREENING HEPATITIS C SCREENING [facility] Start: 1983 HIV SCREENING HIV SCREENING [facility] Start: 1983 HIV screening HIV Screening [facility] Start: 02-07-1980 HIV screening HIV screen [facility] Start: 1977 Depression Screen Depression Screen [facility] Start: 1971 PNEUMOCOCCAL (1 - PCV) PNEUMOCOCCAL (1 - PCV) [facility] Start: 1971 Pneumococcal 0-64 years Vaccine (1 - PCV) Pneumococcal 0-64 years Vaccine (1 - PCV) [facility] Start: 1971 Pneumococcal vaccination [facility] Start: 1965 COVID-19 Vaccine (#1) COVID-19 Vaccine (#1) [facility] Start: 1965 HEPATITIS B (1 of 3 - 3-dose series) HEPATITIS B (1 of 3 - 3-dose series) [facility] Start: 1965 Hepatitis B Vaccine (1 of 3 - 3-dose series) Hepatitis B Vaccine (1 of 3 - 3-dose series) [facility] End: 07-26-2022 Blood glucose - POCT Blood glucose - POCT Point of Care Testing Routine One Time for 1 Occurrences starting 07/26/2022 until 07/26/2022 [employer] Work Phone: Comment on above: One Time for 1 Occurrences starting 07/16 until 07/26/2022 Dermatopathology exam Dermatopat hology exam Pathology and Cytology Timed Neoplasm of unspecified behavior of bone, soft tissue, and skin Release Upon Ordering for 1 Occurrences starting 06/03/2024 [facility] Work Phone: Comment on above: Release Upon Ordering for 1 Occurrences starting 06/03/2024 End: 01-19-2024 EMG(NEURO/NI) EMG(NEURO/NI) EMG Routine Rotator cuff tear arthropathy, right Right arm weakness Spinal stenosis of cervical region 1 Occurrences starting 01/18/2023 until 01/19/2024 [facility] Work Phone: Comment on above: 1 Occurrences starting 01/18/2023 until 01/19/2024 End: 07-26-2022 INITIATE PACU OXYGEN THERAPY PROTOCOL Initiate PACU Oxygen Therapy Protocol Respiratory Care Routine Continuous until discontinued starting 07/26/2022 [employer] Work Phone: Comment on above: Continuous until discontinued starting 0 07/26/2022 End: 02-17-2024 Mri spinal canal cervical w/o contrast matrl MRI CERVICAL SPINE WO IVCON Radiology Routine Spinal stenosis of cervical region 1 Occurrences starting 01/18/2023 until 02/17/2024 [facility] Work Phone: Comment on above: 1 Occurrences starting 01/18/2023 until 02/17/2024 Oxygen therapy [[facility]] Initiate Oxygen Therapy Protocol Respiratory Care Routine As Needed until discontinued starting 07/26/2022 [facility] Work Phone: Comment on above: As Needed until discontinued starting [facility] Work Phone: Patient referral [facility] Work Phone: End: 07-26-2022 , urine POCT , urine POCT Point of Care Testing Routine One Time for 1 Occurrences starting 07/26/2022 until 07/26/2022 [facility]EW[facility] Work Phone: Comment on above: One Time for 1 Occurrences starting 07/16 until 07/26/2022 End: 12-15-2023 XR SHOULDER GENERAL 3V OR MORE AP/TRUE AP/OTHER LEFT XR SHOULDER GENERAL 3V OR MORE AP/TRUE AP/OTHER LEFT Radiology Routine Pain 1 Occurrences starting 11/16/2022 until 12/15/2023 [facility] Work Phone: Comment on above: 1 Occurrences starting 11/16/2022 until 12/15/2023 End: 12-15-2023 XR SHOULDER GENERAL 3V OR MORE AP/TRUE AP/OTHER RIGHT XR SHOULDER GENERAL 3V OR MORE AP/TRUE AP/OTHER RIGHT Radiology Routine Pain 1 Occurrences starting 11/16/2022 until 12/15/2023 [facility] Work Phone: Comment on above: 1 Occurrences starting 11/16/2022 until 12/15/2023 Payers Date Payer Category Payer Medicare [id number] 2020 Medicare (Managed Care) [id number] 2018 Medicare [id number] 2018 Self-pay ABC 2010 Unknown [id number] 2010 Unknown [id number] 1965 Unknown [id number] 18 1965 Unknown [id number] 56 1965 Unknown [id number] 77 1965 Unknown [id number] 77 1965 Unknown [id number] 93 1965 Unknown [id number] 93 1965 Unknown [id number] 93 1965 Unknown [id number] 259 1965 Unknown [id number] 259 1959 Medicare [id number] 1959 Self-pay [id number] Medicare Medicare [id number] Medicare Anthem MCR PFFS [id number] Unknown HCAP/HFA/FAP Active [id number] Worker's Compensation [facility] [id number] Social History Date Type Detail Facility Start: 05-22-2021 End: 11-12-2023 Tobacco smoking status [facility] Smoker (finding) [facility] Start: 1965 Sex Assigned At Male F [facility] Start: 07-20-2022 End: 01-18-2023 Tobacco smoking status [facility] Smokes tobacco daily [facility] Phone: Start: 10-22-1977 End: 10-22-2006 History of tobacco use Cigarette Smoker [facility] Phone: Start: 07-20-2022 End: 01-18-2023 Cigarettes smoked current (pack per day) - Reported 1 [facility] Phone: Start: 07-20-2022 End: 01-18-2023 Tobacco use and exposure Smokeless tobacco non-user [facility] Phone: Start: 07-20-2022 End: 08-07-2023 Alcohol intake Current drinker of alcohol (finding) [facility] Phone: Start: 07-20-2022 Alcohol Comment [employer] [employer] Phone: Start: 1965 Sex Assigned At Not on file B ON [employer] Phone: Start: 04-11-2021 End: 07-26-2022 Exposure to SARS-CoV-2 (event) Not sure [facility] Phone: Start: 11-21-2012 Alcohol Comment 2x year [facility] Start: 01-18-2023 End: 08-07-2023 Tobacco use panel [facility] National Score (1-10 0), lower number is lower risk 73 [facility] Start: 01-23-2023 Alcohol Comment coffee 2-3 coffee NO [facility] Medical [facility] Procedure Code Equipment Code [...] Cntct W Imag Rdy Mri Full - [id number] Start: 07-26-2022 Anchr Sut 5.5mm Bcmps Crkscr - [id number] Start: 02-19-2015 [place] [employer] Fiberwire Tigerwire 5.5mm 2 Full Thread Biocomposite 14.7 - [id number] Start: 01-05-2017 Bit Drl 165mm 2. 8mm Ti Qc Ns - [id number] Start: 04-05-2012 Comment on above: Description: DRILL B IT Graft Bn Dbm 10m l Ptty Strl - [id number] Start: 04-05-2012 Leander Bn Smpx P To bra Fd - [id number] Start: 08-30-2012 0---Leander Bn Smpx P Tobra Fd - [id number] Start: 12-03-2012 Cortical Screw [id number] Start: 04-05-2012 Multifire Scorpi on Needle [id number] Start: 02-19-2015 Comment on above: Description: NDL SUT MULTFI SCRPN STRL DISP Head Fem 48mm Hi p - [id number] Start: 08-30-2012 0---Head Fem 48m m Hip - [id number] Start: 12-03-2012 Screw Bn 3.5mm 1 6mm Lcp Ss - [id number] Start: 04-05-2012 Anchr Sut 5.5mm 2 Crkscr 2 - [id number] Start: 10-17-2011 Anchr Sut 5.5mm Bcmps Crkscr - [id number] Start: 02-19-2015 Bit Drl 140mm 2m m Qc D Mrk Ns - [id number] Start: 04-05-2012 Comment on above: Description: DRILL B IT Bit Drl Gld 110m m 2.5mm Ss Qc - [id number] Start: 04-05-2012 Comment on above: Description: DRILL B IT Ouu-Hk-G-Kind Implant - [id number] Start: 04-05-2012 Comment on above: Description: wrist f usion plate Cup Actb 54mm 48 mm r - [id number] Start: 08-30-2012 0---Cup Actb 54m m 48mm r Hd - [id number] Start: 12-03-2012 Screw Bn 2.7mm 2 2mm Lcp Ss Sm - [id number] Start: 04-05-2012 Screw Bn 2.7mm 1 6mm Lcp Ss - [id number] Start: 04-05-2012 Screw Bn 3.5mm 2 0mm Lcp Ss - [id number] Start: 04-05-2012 Screw Bn 2.7mm 1 4mm Lcp Ss Sm - [id number] Start: 04-05-2012 Screw Bn 2.7mm 2 0mm Lcp Ss Sm - [id number] Start: 04-05-2012 Goals Date Patient Goal Desired Activity /State Functional Status Date Assessment Result Facility 10-01-2014 Are you deaf, or do you have serious difficulty hearing No 10/01/2014 7:00 AM Melodie Loza No [facility] 10-01-2014 Are you blind, or do you have serious difficulty seeing, even when wearing glasses No 10/01/2014 7:00 AM EDMelodie Rosario [facility] 10-01-2014 Do you have serious difficulty walking or climbing stairs No 10/01/2014 7:00 AM Melodie Loza [facility] 10-01-2014 Do you have difficul ty dressing or bathing No 10/01/2014 7:00 AM Melodie Loza [facility] 10-01-2014 Because of a physica l, mental, or emotional condition, do you have difficulty doing errands alone such as visiting a physician's office or shopping No 10/01/2014 7:00 AM KAMRYNMelodie Rosario [facility] Mental Status Date Assessment Result Facility 10-01-2014 Because of a physica l, mental, or emotional condition, do you have serious difficulty concentrating, remembering, or making decisions No 10/01/2014 7:00 AM KAMRYNMelodie Rosario [facility] Clinical Notes 04-15-2021 to 07-28-2024 COREY [...] limited to risks of scarring, darker or cras pigmentary changes, recurrence, incomplete removal and infection. [...] intertrigo Left Medial Thigh, Right Medial Thigh [place] moist plaques. Flaring today Discussed that intertrigo [...] in 6 months documented in this encounter [facility] 06-03-2024 History of Present illness Narrative Images [...] limited to risks of scarring, darker or cras pigmentary changes, recurrence, incomplete removal and infection. [...] year, skin check documented in this encounter [facility] 11-12-2023 Procedure note [facility] 08-07-2023 Note HNO ID: [id number] Author: RAÚL SULLIVAN MD Service: ? Author [...] 04/01/10 Performed by BRUNO VICTORIA at [facility] NJX DX/THER AGT PVRT FACET JT LMBR/SAC 1 LEVEL 04/29/2010 Performed by BRUNO VICTORIA at [facility] PAST SURGICAL HISTORY OF 2000, 2004 shoulder [...] per capsule Ta (more content not included)... [facility] 05-04-2023 Miscellaneous Notes Follow-up MRI of the [...] Jessica Dotson MD documented in this encounter [facility] 04-13-2023 Note HNO ID: [id number] Author: Belem Ruiz RT(R) Service: Radiology Author [...] RT Aditya(R) April 13, 2023 6:01 PM [facility] 04-13-2023 Note HNO ID: [id number] Author: Keke Hollingsworth MD Service: ? Author [...] when applicable. LANDEN Quintero. Keke Hollingsworth MD [facility] 04-13-2023 History of Present illness Narrative [facility] [...] Keke Hollingsworth MD documented in this encounter [facility] 01-18-2023 Note HNO ID: [id number] Author: Jessica Dotson MD Service: ? Author Type: Physician Type: Progress Notes Filed: 01/18/2023 5:40 PM Note Text: [facility] NOTE Department of Orthopaedics Jessica Dotson M.D. NAME: Emdund Christopher [facility] NO.: [id number] DATE: January 18, 2023 Parth returns for [...] not hesitate to call. Jessica Dotson M.D. [facility] 01-18-2023 History of Present illness Narrative [facility] NOTE Department of Orthopaedics Jessica Dotson M.D. NAME: Edmund Christopher [facility] NO.: [id number] DATE: January 18, 2023 Parth returns for [...] Jessica Dotson M.D. documented in this encounter [facility] 01-18-2023 Note HNO ID: [id number] Author: Pina Armstrong Service: ? Author Type: Supply Chain Tech Type: Progress Notes Filed: 01/18/2023 7:42 AM [...] Pina Armstrong January 18, 2023 7:42 AM [facility] 01-18-2023 History of Present illness Narrative Radiology [...] 2023 7:42 AM documented in this encounter [facility] 07-26-2022 Hospital Discharge instructions Ana Laura [...] of your spine documented in this encounter [facility] Phone: 04-15-2021 Note HNO ID: [id number] Author: LAZARO Donnelly) Service: ? Author Type: [...] LAZARO Donnelly) April 15, 2021 8:00 PM [facility] 04-15-2021 Note HNO ID: [id number] Author: Sandra Taylor RDMS Service: ? Author Type: Circular Knitter Helper Type: Progress Notes Filed: 04/15/2021 6:49 PM [...] Taylor RDMS April 15, 2021 6:49 PM [facility] Evaluation note No assessment inform ation [facility] Work Phone: Evaluation note Diagnosis Pain- Primary Generalized pain [facility] Rotator cuff tear arthropathy, [...] cervical spine Cervicalgia [facility] Actinic keratosis Neoplasm of unspecified behavior of bone, soft tissue, and skin documented in this encounter [facility]* Diagnosis Actinic keratosis- Primary Erythema intertrigo Other specified erythematous condition [facility] Diagnosis Preventive antibiotic- Primary Encounter for long-term (current) use of antibiotics documented in [facility] Author Tuyet Adams [facility] November 12, 2023 8:15am Note Date/Time November 12, 2023 8:1 5am [facility] [address] [place] [address] Gastroenterology H&P Signed Patient: Edmund Christopher MR#: [id number] : 1965 Acct:[id number] Age/Sex: 58 / M Adm Date: 4 Loc: Room: Type: [facility] Attending Dr: Tuyet Adams DO Copies to: [...] <Electronically signed by Tuyet Adams DO> 11/12/23814 [facility] Work Phone: Hospital Discharge instructions Additional Instructions Call Dr. Hoyos's office Sunday morning to make an appointment Return to the ER for redness swelling warmth of the area fever chills or any [facility]: Hospital Discharge instructions Additional Instructions Follow-up with the specialist as scheduled concerning the stimulator If the specialist does not feel that the pains from the stimulator I am getting encourage you to follow-up with gastroenterology Return to the ER for worsening pain high fever vomiting or any other concerns [facility] Work Phone: Reason for referral (narrative)* Diagnostic Procedure Only (Routine) - Pending Review Specialty Diagnoses / Procedures Referred By Contac t Referred To Contact XR IMAGING Diagnoses Pain Procedures XR SHOULDER GENERAL 3V OR MORE AP/TRUE AP/OTHER RIGHT RADEX SHOULDER COMPLETE MINIMUM 2 VIEWS Jessica Dotson MD [address] [place] [address] Xr Imaging Referral ID Status Reason Start Date Expiration Date Visits Requested Visits Authorized [id number] Pending Review Auto-Generat ed Referral 11/16/2022 12/15/2023 1 1 * Diagnostic Procedure Only (Routine) - Pending Review Specialty Diagnoses / Procedures Referred By Contac t Referred To Contact XR IMAGING Diagnoses Pain Procedures XR SHOULDER GENERAL 3V OR MORE AP/TRUE AP/OTHER LEFT RADEX SHOULDER COMPLETE MINIMUM 2 VIEWS Jessica Dotson MD [address] [place] [address] Xr Imaging Referral ID Status Reason Start Date Expiration Date Visits Requested Visits Authorized [id number] Pending Review Auto-Generat ed Referral 11/16/2022 12/15/2023 1 1 [facility] for referral (narrative)* Outpatient Procedure (Routine) - Pending Review Specialty Diagnoses / Procedures Referred By Deshaun aleman Referred To Contact [facility] Diagnoses Rotator cuff tear arthropathy, right Right arm weakness Spinal stenosis of cervical region Procedures EMG(NEURO/NI) NERVE CONDUCTION STUDIES 9-10 STUDIES Jessica Dotson MD [address] [place] [address] Neu[facility] [address] [place] [address] Referral ID Status Reason Start Date Expiration Date Visits Requested Visits Authorized [id number] Pending Review Auto-Generat ed Referral 01/18/2023 01/19/2024 1 1 * MRI/CT (Routine) - Authorized Specialty Diagnoses / Procedures Referred By Deshaun aleman Referred To Contact MR IMAGING Diagnoses Spinal stenosis of cervical region Procedures MRI CERVICAL SPINE WO IVCON MRI SPINAL CANAL CERVICAL W/O CONTRAST MATRL Jessica Dotson MD [address] [place] [address] Mr Imaging Referral ID Status Reason Start Date Expiration Date Visits Requested Visits Authorized [id number] Authorized Auto-Generat ed Referral 01/18/2023 02/17/2024 1 1 [facility] for referral (narrative)* Diagnostic Procedure Only (Routine) - Closed Specialty Diagnoses / Procedures Referred By Deshaun aleman Referred To Contact XR IMAGING Diagnoses Pain Procedures XR SHOULDER GENERAL 3V OR MORE AP/TRUE AP/OTHER RIGHT RADEX SHOULDER COMPLETE MINIMUM 2 VIEWS Jessica Dotson MD [address] [place] [phone] Xr Imaging Referral ID Status Reason Start Date Expiration Date V isits Requested Visits Authorized [id number] Closed Auto-Generate d Referral 11/16/2022 12/15/2023 1 1 * Diagnostic Procedure Only (Routine) - Closed Specialty Diagnoses / Procedures Referred By Deshaun aleman Referred To Contact XR IMAGING Diagnoses Pain Procedures XR SHOULDER GENERAL 3V OR MORE AP/TRUE AP/OTHER LEFT RADEX SHOULDER COMPLETE MINIMUM 2 VIEWS Jessica Dotson MD [address] [place] [address] Xr Imaging Referral ID Status Reason Start Date Expiration Date V isits Requested Visits Authorized [id number] Closed Auto-Generate d Referral 11/16/2022 12/15/2023 1 1 [facility] for visit Narrative* Diagnostic Procedure Only (Routine) - Closed Specialty Diagnoses / Procedures Referred By Deshaun aleman Referred To Contact XR IMAGING Diagnoses Pain Procedures XR SHOULDER GENERAL 3V OR MORE AP/TRUE AP/OTHER RIGHT RADEX SHOULDER COMPLETE MINIMUM 2 VIEWS Jessica Dotson MD [address] [place] [phone] Xr Imaging Referral ID Status Reason Start Date Expiration Date V isits Requested Visits Authorized [id number] Closed Auto-Generate d Referral 11/16/2022 12/15/2023 1 1 [facility] Summary Purpose Family History Relationship Condition [...] Documents on File Type Date Recorded Patient Control Clerk Expl anation Advance Directive(s) 12/26/2016 12:39 PM Documents on File Type Date Recorded Patient Control Clerk Expl anation Advance Directive(s) 12/26/2016 12:39 PM [...] weakness Procedures CONSULT TO SPINE SURGERY OFFICE/OUTPATIENT [facility] 60-74 MINUTES Jessica Dotson MD [address] [place] [address] Referral ID Status Reason Start Date Expiration Date Visits Requested Visits Authorized [id number] Pending Review PCP Requested Referral 3 05/03/2024 1 1 Specialty Diagnoses / Procedures Referred By Deshaun aleman Referred To Contact MR IMAGING Diagnoses DDD (degenerative disc disease), cervical Chronic neck pain Anterolisthesis of cervical spine Cervicalgia Procedures MRI CERVICAL SPINE WO IVCON MRI, CERV SPINE Viola Steen, ONLINE PROGRAM COORDINATOR.X RAY SERVICE TECHNICIAN [address] [place] [address] [facility] [place] [address] Referral ID Status Reason Start Date Expiration Date V isits Requested Visits Authorized [id number] Closed Auto-Generate d Referral 04/29/2021 05/29/2022 1 [...] DATE CREATED AUTHOR AUTHOR'S ORGANIZ ATION 10/15/2018 [facility] DATE CREATED AUTHOR AUTHOR'S ORGANIZ ATION 03/05/2020 [facility] DATE CREATED AUTHOR AUTHOR'S ORGANIZ ATION 04/17/2021 [facility] DATE CREATED AUTHOR AUTHOR'S ORGANIZ ATION 07/26/2022 [facility] DATE CREATED AUTHOR AUTHOR'S ORGANIZ ATION 11/15/2022 [facility] DATE CREATED AUTHOR AUTHOR'S ORGANIZ ATION 08/18/2023 [facility] DATE CREATED AUTHOR AUTHOR'S ORGANIZ ATION 07/16/2024 [facility] DATE CREATED AUTHOR AUTHOR'S ORGANIZ ATION 07/31/2024 [facility] dical Specialists EPIC Care Teams (unrecognized sec tion and content) Team Status: Active Member Role Status Dates Shreyas Felipe SUPERVISOR [employer]LLER [employer]INTING-C Primary Care Provider Active Team Status: Inactive Member Role Status Dates Shreyas Felipe SUPERVISOR [employer]-C Primary Care Provider Active Arnoldo Rodriguez APRN Emergency Provider Active Team Status: Inactive Member Role Status Dates Shreyas Felipe SUPERVISOR [employer]-C Primary Care Provider Active Maddy Cabezas II, MD Attending Provider Active Team Status: Inactive Member Role Status Dates Shreyas Felipe SUPERVISOR [employer]ING-C Primary Care Provider, Attend ing Provider Active Cut[employer] Cre[employer] Press Operator Relationship Specialty Start Date End Date Shreyas Felipe [address] [place] [address] PCP - General 07/26/22 Team Status: Inactive Member Role Status Dates Shreyas Felipe SUPERVISOR [employer]-C Primary Care Provider Active Nataliia Banks DIRECTOR OUTPATIENT SERVICES-BC Emergency Provider Active Team Status: Inactive Member Role Status Dates Shreyas Felipe SUPERVISOR [employer]ING-C Primary Care Provider Active Kandis Farrell SUPERVISOR [employer]ER [employer]ING-C Attending Provider Active Team Status: Inactive Member Role Status Dates Shreyas Felipe SUPERVISOR [employer]ING-C Primary Care Provider Active Start: October 10, 2023 End: October 10, 2023 Nataliia Banks , DIRECTOR OUTPATIENT SERVICES-BC Emergency Provider Active Start: October 10, 2023 End: October 10, 2023 Team Status: Inactive Member Role Status Dates Shreyas Felipe SUPERVISOR [employer]ING-C Primary Care Provider Active Start: November 12, 2023 End: November 12, 2023 Tuyet Adams DO Attending Provider Active St art: November 12, 2023 End: November 12, 2023 Team Status: Active Member Role Status Dates Shreyas Felipe SUPERVISOR [employer]ING-C Primary Care Provider Active Start: November 12, 2023 Tuyet Adams DO Attending Provider, Other Provider Active Start: November 12, 2023 [employer]ting [employer] Creasing Press Operator Relationship Specialty Start Date End Date Pcp, DANILO Ngo PCP - General 04/16/21 11/12/21 [employer] Operator Relationship Specialty Start Date End Date Naresh Jerome MD [address] [place] [address] PCP - General Family Medicine 01/23/23 [employer] Cre[employer] Press Operator Relationship Specialty Start Date End Date Naresh Jerome MD [address] [place] [address] PCP - General Family Medicine 01/23/23 Cut[employer] Cre[employer] Press Operator Relationship Specialty Start Date End Date Naresh Jerome MD [address] [place] [address] PCP - General Family Medicine 01/23/23 Cutting And Creasing Press Operator Relationship Specialty Start Date End Date Naresh Jerome MD [address] [place] [address] PCP - General Family Medicine 01/23/23 Goals [...] Low back pain Lumbar radiculopathy [M54.16] Procedures ND PRQ IMPLTJ NSTIM ELECTRODE ARRAY EPIDURAL SPINAL CORD STIMULATOR IMPLANT TRIAL - Vapps Maddy Cabezas MD [address] [place] [address] [facility] [address] [place] [address] Referral ID Status Reason Start Date Expiration Date Visits Re quested Visits Authorized [id number] 1 1 Reason Comments Established Patient Follow Up Pain Specialty Diagnoses / Procedures Referred By Deshaun aleman Referred To Contact Orthopedics / ORTHOPAEDIC SURGERY Diagnoses Bilat shoulder pain BWC - ok per Nereida Procedures CAMILLA ESTABLISH Self Jessica Dotson MD [address] [place] [phone] Referral ID Status Reason Start Date Expiration Date Visits Requested Visits Authorized [id number] Outside PCP Patient Cleared - Admin/Chair man/Directo r advise to proceed or did not respond 01/18/2023 03/19/2023 1 1 Reason Onset Date Comments EMG 04/13/2023 Specialty Diagnoses / Procedures Referred By Deshaun aleman Referred To Contact [facility] Diagnoses Rotator cuff tear arthropathy, right Right arm weakness Spinal stenosis of cervical region Procedures EMG(NEURO/NI) NERVE CONDUCTION STUDIES 9-10 STUDIES Jessica Dotson MD [address] [place] [address] [place] [address] Referral ID Status Reason Start Date Expiration Date V isits Requested Visits Authorized [id number] Closed Auto-Generated Referral Patient Cleared - INN Insurance Found 01/18/2023 01/19/2024 1 1 Specialty Diagnoses / Procedures Referred By Deshaun aleman Referred To Contact MR IMAGING Diagnoses DDD (degenerative disc disease), cervical Chronic neck pain Anterolisthesis of cervical spine Cervicalgia Procedures MRI CERVICAL SPINE WO IVCON MRI, CERV SPINE Viola Steen, ONLINE PROGRAM COORDINATOR.X RAY SERVICE TECHNICIAN [address] [place] [id number] [facility] [place] [address] Referral ID Status Reason Start Date Expiration Date V isits Requested Visits Authorized [id number] Closed Auto-Generate d Referral 04/29/2021 05/29/2022 1 [...] start, Pre-op (day of surgery) lidocaine-EPINEPHrine 1 %-1:[id number] 30 mL, sodium bicarbonate 1 mL (CANCELED) [...] or prosecute any alcohol or drug abuse patient.[facility] the event this information is protected by the Federal Confidentiality of Alcohol and Drug Abuse Patient Records regulations: The Federal rules restrict any use of the information to criminally investigate or prosecute any alcohol or drug abuse patient.[facility] the event this information is protected by the Federal Confidentiality of Alcohol and Drug Abuse Patient Records regulations: The Federal rules restrict any use of the information to criminally investigate or prosecute any alcohol or drug abuse patient.[facility] the event this information is protected by the Federal Confidentiality of Alcohol and Drug Abuse Patient Records regulations: The Federal rules restrict any use of the information to criminally investigate or prosecute any alcohol or drug abuse patient.[facility] the event this information is protected by the Federal Confidentiality of Alcohol and Drug Abuse Patient Records regulations: The Federal rules restrict any use of the information to criminally investigate or prosecute any alcohol or drug abuse patient.[facility] Hospital[facility] the event this information is protected by the Federal Confidentiality of Alcohol and Drug Abuse Patient Records regulations: The Federal rules restrict any use of the information to criminally investigate or prosecute any alcohol or drug abuse patient.[facility] Hospital[facility] the event this information is protected by the Federal Confidentiality of Alcohol and Drug Abuse Patient Records regulations: The Federal rules restrict any use of the information to criminally investigate or prosecute any alcohol or drug abuse patient.[facility] FOR RECORDS PERTAINING TO PATIENTS WHO [...] BE BASED ON THE PRIMARY CLINICAL RECORDS. [facility]. provides no warranty or guarantee of the accuracy or completeness of information in this document.
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
[2025-04-04 14:18] VITALS: BP 160/102
== END 2025-04-04 14:19 | disposition home or self-care (01) ==
PROVIDERS: Emergency Provider Emergency Medicine; PCP Nurse Practitioner Family
DX: S00.81XA Abrasion of other part of head, initial encounter (principal); S40.812A Abrasion of left upper arm, initial encounter; W37.8XXA Explosion and rupture of other pressurized tire, pipe or hose, initial encounter
CPT/HCPCS: 70450; 71045; 99284

== ENCOUNTER 2025-04-06 17:49 | Emergency (ER) | payer MEDICARE, SELFPAY ==
--- OUTSIDE RECORDS SUMMARY | 2024-11-12 11:50 | XMS_ITS ---
Author Organization [facility] Address [address] [facility] [place] [address] Care Team Providers Care Carpenter Foreman Name Role Phone Kim Barlow Primary Care Provider [phone] Dr. Edmund Del Toro Unavailable [phone] REASON FOR VISIT NEW PT Encounters Encounter Location Date Provider Diagnosis [facility] [address] [place] [address] 11/12/2024 Edmund Del Toro Plan Of Treatment No Information Progress Notes * CATRACHO EDMUNDDOB:1965 (60 yo M)Acc No.[id number]:11/12/2024 Patient: EDMUND GARCIA Provider: Davin Del Toro DDS :1965 A ge:59 Y S ex:Male Date:11/12/2024 Address:[address] [place], [place] [phone] Pcp:Kim Barlow Subjective: * Chief Complaints: * 1 . NEW PT. * Medical History: Objective: * Vitals: Assessment: Plan: * Treatment: * Images: * Electronic signature of Dr. Edmund Del Toro , DMD on 04/06/2025 at 06:51 PM EDT Sign off status: Pending * Provider: Davin Del Toro DDS Date: 11/12/2024 Generated for Sergio beth/Jasmina/eTransmitting on: 04/06/2025 06:51 PM EDT
--- OUTSIDE RECORDS SUMMARY | 2025-04-06 18:51 | XMS_ITS | Encounter Summary ---
Author Organization [facility] Address [address] [place] [address] Care Team Providers Care Geospatial Technician Name Role Phone Unavailable Primary Care Provider Unavailabl e Source Comments In the event this information is protected by the Federal Confidentiality of Alcohol and Drug AbusePatient Records regulations: The Federal rules restrict any use of the information to criminally investigate or prosecute any alcohol or drug abuse patient.[facility] Encounter Details Date Type Department Care Team (Late st Contact Info) Description 04/11/2023 [place] [address] Provider, [facility] MRI Screening Questionnaire Completion Required Social History Tobacco Use Types Packs/Day Years Used Date Smoking Tobacco: Every Day Cigarettes 1 29 Smokeless Tobacco: Never Alcohol Use Standard Drinks/Week Comments Yes 0 (1 standard drink = 0.6 oz pur e alcohol) 2x year Area Deprivation Index Answer Date Mamadou rded National Score (1-100), lower number is lower ri sk 73 01/18/2023 State Score (1-10), lower number is lower risk 6 01/18/2023 Data from: https://www.neighborhoodatlas.medicine.[facility].edu/. Last address used for calculation [address] [place] [address] 01/18/2023 Sex and Gender Information Value Date Recorded Sex Assigned at Not on file Legal Sex Male 8:03 AM EST Gender Identity Not on file Sexual Orientation Not on file documented as of this encounter Functional Status * Are you deaf or do you have serious difficulty hearing? Answer Date of Assessment Author No 10/01/2014 7:00 AM Dominik Loza * Are you blind or do you have serious difficulty seeing, even when wearing glasses? Answer Date of Assessment Author No 10/01/2014 7:00 AM Dominik Loza * Do you have serious difficulty walking or climbing stairs? Answer Date of Assessment Author No 10/01/2014 7:00 AM Dominik Loza * Do you have difficulty dressing or bathing? Answer Date of Assessment Author No 10/01/2014 7:00 AM Dominik Loza * Because of a physical, mental, or emotional condition, do you have difficulty doing errands alone such as visiting a doctor's office or shopping? Answer Date of Assessment Author No 10/01/2014 7:00 AM Dominik Loza documented as of this encounter Mental Status * Because of a physical, mental, or emotional condition, do you have serious difficulty concentrating, remembering, or making decisions? Answer Entry Date Author No 10/01/2014 7:00 AM Dominik Loza documented in this encounter Plan of Treatment Not on file documented as of this encounter Visit Diagnoses Not on filedocumented in this encounter
--- OUTSIDE RECORDS SUMMARY | 2025-04-06 18:51 | XMS_ITS | Encounter Summary ---
Author Organization [facility] Address [address] [place] [address] Care Team Providers Care Fiber Worker Name Role Phone Unavailable Primary Care Provider Unavailabl e Source Comments In the event this information is protected by the Federal Confidentiality of Alcohol and Drug AbusePatient Records regulations: The Federal rules restrict any use of the information to criminally investigate or prosecute any alcohol or drug abuse patient.[facility] Encounter Details Date Type Department Care Team (Late st Contact Info) Description 01/22/2023 Patient Msg Neurology [address] [place], [place] [id number] Provider, Ccf Requested EMG Appointment Social History Tobacco Use Types Packs/Day Years [...] is lower risk 6 01/18/2023 Data from: https://www.neighborhoodatlas.medicine.[facility].edu/. Last address used for calculation [address] [place] [address] 01/18/2023 Sex and Gender Information Value Date [...]
--- OUTSIDE RECORDS SUMMARY | 2025-04-06 18:52 | XMS_ITS | Clinical Summary ---
Author Organization [facility] Address [address] [place] [address] Care Team Providers Care Center Lead Consultant Name Role Phone Unavailable Primary Care Provider Unavailabl e Allergies Active Allergy Reactions Criticality Noted Date Comments Cat Dander Other: See Comments 01/18/2023 congestion Latex Rash 03/28/2018 Adhesive Tape (Rosins) Rash 08/12/2012 One episode blisters with tape 2011 shoulder surgery Medications amLODIPine (NORVASC) 10 mg tablet Take 10 mg by mouth once daily. Active triamterene-hyd rochlorothiazid e 37.5-25 mg per capsule Take 1 capsule by mouth once daily. 6 Active albuterol HFA (VENTOLIN HFA) 90 mcg/actuation inhaler Inhale by mouth as instructed. 0 7 Active oxyCODONE-aceta minophen (PERCOCET) 5-325 mg tablet Take 1 tablet by mouth every 4 hours as needed for Pain. 120 tablet 7 Active Meperidine HCl 100 mg tablet Take 100 mg by mouth daily at bedtime. 8 Active PERCOCET 10-325 mg tablet 0 8 Active pregabalin (LYRICA) 100 mg capsule Take 100 mg by mouth four times daily. Active lisinopril (ZESTRIL, PRINIVIL) 10 mg tablet 1 Active oxyCODONE IR (ROXICODONE) 10 mg tab 1 Active amoxicillin (AMOXIL) 500 mg capsuleIndicati ons:Preventive antibiotic Take 4 capsules one hour prior to procedure 4 capsule 5 5 Active Active Problems Problem Noted Date Diagnosed Date Right arm weakness 01/18/2023 Rotator cuff tear arthropathy, right 07/22/2020 Rotator cuff tear arthropathy, left 07/22/2020 Sprain of right rotator cuff capsule 02/27/2019 Sprain of left rotator cuff capsule 02/27/2019 Complete tear of right rotator cuff 06/01/2016 Complete tear of left rotator cuff 06/01/2016 Bicipital tenosynovitis 05/28/2014 Rotator cuff (capsule) sprain 10/16/2013 Osteoarthrosis, unspecified whether generalized or localized, other specified sites 08/30/2012 Wrist arthritis 01/24/2012 Nontraumatic rupture of flexor tendons of hand a nd wrist 10/18/2011 Radiculitis, lumbosacral 11/29/2009 JOINT PAIN-WRIST 07/26/2009 Lumbosacral spondylosis without myelopathy 02/22 Thoracic or lumbosacral neur itis or radiculitis, unspecified 02/01/2006 Degeneration of intervertebral disc, site unspec ified 02/01/2006 Generalized osteoarthrosis, unspecified site Family History Medical History Relation Comments Emphysema Father Relation Status Comments Father Social History Tobacco Use Types Packs/Day Years Used Date Smoking Tobacco: Every Day Cigarettes 1 29 Smokeless Tobacco: Never Tobacco Cessation:Ready to Q uit: Not Asked; Counseling Given: Yes Alcohol Use Standard Drinks/Week Comments Yes 0 (1 standard drink = 0.6 oz pur e alcohol) 2x year Area Deprivation Index Answer Date Mamadou rded National Score (1-100), lower number is lower ri sk 73 01/18/2023 State Score (1-10), lower number is lower risk 6 01/18/2023 Data from: https://www.neighborhoodatlas.medicine.[facility].edu/. Last address used for calculation [address] [place] [address] [address] 01/18/2023 Sex and Gender Information Value Date Recorded Sex Assigned at Not on file Legal Sex Male 8:03 AM EST Gender Identity Not on file Sexual Orientation Not on file Last Filed Vital Signs Vital Sign Reading Time Taken Comments Blood Pressure 151/88 08/07/2023 2:28 PM EST Pulse 59 08/07/2023 2:28 PM EST Temperature 36.7 C (98.1 F) 04/15/2021 11:29 PM EDT Respiratory Rate 16 06/22/2021 11:49 AM EST Oxygen Saturation 94% 08/07/2023 2:28 PM EST Inhaled Oxygen Concentration - - Weight 73.9 kg (163 lb) 08/07/2023 2:28 PM EST Height 162.6 cm (5' 4 ) 08/07/2023 2:28 PM EST Body Mass Index 27.98 08/07/2023 2:28 PM EST Plan of Treatment Health Maintenance Due Date Last Done Comments Anxiety Screening 1983 Depression Screening 1983 HIV Screening 1983 Hepatitis C Screening 1983 Pneumococcal Vaccine: 50+ (1 of 2 - PCV) 02/07/1984 Lipid Screening 02/07/2000 CT Colonography 2010 Cologuard (FIT-DNA) 2010 Colonoscopy 2010 Colorectal Cancer Screening 2010 Fecal Occult Blood 2010 Sigmoidoscopy 2010 Shingrix Vaccine (1 of 2) 2015 Diabetes Screening 12/27/2019 12/26/2016, 0 02/12/2015, 12/05/2012, Additional history exists Medicare Advantage Annual [facility] Visit 07/16/2024 Influenza Vaccine (#1) 2025 Prostate Cancer Screening Discussion 11/04/2027 11/03/2022 DTaP,Tdap,Td Vaccine (2 - Td or Tdap) 03/24/2028 03/24/2018 RSV Vaccine (1 - 1-dose 75+ series) 02/07/2040 Medical Devices Implanted Type Area Textile Coating Machine Operator Device Identifier Shelf Expiration Date Model / Serial / Lot Anchr Sut 5.5mm Bcmps Crkscr - [id number] Implanted:Qty: 1 on 02/19/2015 at [facility] [place] Right: Bone - Shoulder [employer] 05/22/2016 [id number] / / [id number] Anchr Sut 5.5mm Bcmps Crkscr - [id number] Implanted:Qty: 1 on 02/19/2015 at [facility] [place] Right: Bone - Shoulder [employer] 05/22/2016 [id number] / / [id number] [place] [employer] Fiberwire Tigerwire 5.5mm 2 Full Thread Biocomposite 14.7 - [id number] Implanted:Qty: 1 on 01/05/2017 at [facility] Left: Bone - Shoulder [employer] 09/12/2018 [id number] / / [id number] Bit Drl 140mm 2mm Qc D Mrk Ns - [id number] Implanted:Qty: 1 on 04/05/2012 at [facility] Bit [employer] [place] 323.062 / / Description:DRILL BIT Bit Drl Gld 110mm 2.5mm Ss Qc - [id number] Implanted:Qty: 1 on 04/05/2012 at [facility] Bit [employer] [place] 310.25 / / Description:DRILL BIT Bit Drl 165mm 2.8mm Ti Qc Ns - [id number] Implanted:Qty: 1 on 04/05/2012 at [facility] [employer] INC [employer] [place] 310.288 / / Description:DRILL BIT Graft Bn Dbm 10ml Ptty Strl - [id number] Implanted:Qty: 1 on 04/05/2012 at [facility] Cement / Putty Left: Bone - Wrist MTF 12/03/2013 [id number] / [id number] / [id number] Leander Bn Smpx P Tobra Fd - [id number] Implanted:Qty: 1 on 08/30/2012 at [facility] Cement / Putty Right: Bone - Hip [employer] 03/16/2014 [id number] / / [id number]---Leander Bn Smpx P Tobra Fd - [id number] Implanted:Qty: 1 on 12/03/2012 at [facility] Cement / Putty Left: Bone - Hip [employer] 03/16/2014 [id number] / / [id number] Nko-Aw-C-Kind Implant - [id number] Implanted:Qty: 1 on 04/05/2012 at [facility] Implant Left: Bone - Wrist [employer] 02.110.151 / / Description:wrist fusion skylar te Cortical Screw Implanted:Qty: 2 on 04/05/2012 at [facility] Implant Left: Bone - Wrist [employer] [place] 02.200.018 / / Multifire Scorpion Needle Implanted:Qty: 1 on 02/19/2015 at [facility] Implant Right: Bone - Shoulder [employer] 06/21/2019 [id number] / / [id number] Description:NDL SUT ANTHONY S CRPN STRL DISP Cup Actb 54mm 48mm Bhr Hd - [id number] Implanted:Qty: 1 on 08/30/2012 at [facility] Joint - Hip Right: Bone - Hip [employer] 03/16/2017 [id number] / / [id number] Head Fem 48mm Hip - [id number] Implanted:Qty: 1 on 08/30/2012 at [facility] Joint - Hip Right: Bone - Hip [employer] 06/14/2017 [id number] / / [id number]---Cup Actb 54mm 48mm Bhr Hd - [id number] Implanted:Qty: 1 on 12/03/2012 at [facility] Joint - Hip Left: Bone - Hip [employer] 09/13/2017 [id number] / / [id number]---Head Fem 48mm Hip - [id number] Implanted:Qty: 1 on 12/03/2012 at [facility] Joint - Hip Left: Bone - Hip [employer] 09/13/2017 [id number] / / [id number] Screw Bn 2.7mm 22mm Lcp Ss Sm - [id number] Implanted:Qty: 1 on 04/05/2012 at [facility] Screw Left: Bone - Wrist [employer] [place] 202.222 / / Screw Bn 2.7mm 16mm Lcp Ss - [id number] Implanted:Qty: 1 on 04/05/2012 at [facility] Screw Left: Bone - Wrist [employer] [place] 202.876 / / Screw Bn 3.5mm 20mm Lcp Ss - [id number] Implanted:Qty: 1 on 04/05/2012 at [facility] Screw Left: Bone - Wrist [employer] [place] 212.106 / / Screw Bn 3.5mm 16mm Lcp Ss - [id number] Implanted:Qty: 1 on 04/05/2012 at [facility] Screw Left: Bone - Wrist [employer] [place] 212.104 / / Screw Bn 2.7mm 14mm Lcp Ss Sm - [id number] Implanted:Qty: 1 on 04/05/2012 at [facility] Screw Left: Bone - Wrist [employer] [place] 202.214 / / Screw Bn 2.7mm 20mm Lcp Ss Sm - [id number] Implanted:Qty: 1 on 04/05/2012 at [facility] Screw Left: Bone - Wrist [employer] [place] 202.220 / / Anchr Sut 5.5mm 2 Crkscr 2 - [id number] Implanted:Qty: 1 on 10/17/2011 at [facility] Wire Left: Bone - Shoulder [employer] 07/16/2016 [id number] / / [id number] Procedures Procedure Name Priority Date/Time Associated Diagnosis Comments BASIC METABOLIC PANEL Routine 12/26/2016 9:03 AM EDT Complete tear of left rotator cuff from Last 3 Months or Most Recently Relevant to Health Maintenance Results * BASIC METABOLIC PNL (12/26/2016 9:03 AM EDT) Glucose 96 74 - 99 mg/dL 12/26/2016 12:16 PM EDT [facility] Comment: The [place] Diabetes Association (ADA) provides guidance for cutoff values for fasting glucose and random glucose. The ADA defines fasting as no caloric intake for at least 8 hours. Fasting plasma glucose results between 100 to 125 mg/dL indicate increased risk for diabetes (prediabetes). Fasting plasma glucose results greater than or equal to 126 mg/dL meet the criteria for diagnosis of diabetes. In the absence of unequivocal hyperglycemia, results should be confirmed by repeat testing. In a patient with classic symptoms of hyperglycemia or hyperglycemic crisis, random plasma glucose results greater than or equal to 200 mg/dL meet the criteria for diagnosis of diabetes. Reference: Standards of Medical Care in Diabetes 2016, [place] Diabetes Association. Diabetes Care. 2016.39(Suppl 1). BUN 21 9 - 24 mg/dL 12/26/2016 12:16 PM EDT [facility] Creatinine 0.97 0.73 - 1.22 mg/dL 12/26/2016 12:16 PM EDT [facility] Sodium 138 136 - 144 mmol/L 12/26/2016 12:16 PM EDT [facility] Potassium 5.1 3.7 - 5.1 mmol/L 12/26/2016 12:16 PM EDT [facility] Chloride 100 97 - 105 mmol/L 12/26/2016 12:16 PM EDT [facility] CO2 25 22 - 30 mmol/L 12/26/2016 12:16 PM EDT [facility] Anion Gap 13 9 - 18 mmol/L 12/26/2016 12:16 PM EDT [facility] Calcium 9.7 8.5 - 10.2 mg/dL 12/26/2016 12:16 PM EDT [facility] eGFR- >60 12/26/2016 12:16 PM EDT [facility] eGFR-All Other Races >60 . 12/26/2016 12:16 PM EDT [facility] Comment: eGFR (Estimated GFR) Units of measure: mL/min/1.73 meters squared eGFR is derived from the reexpressed MDRD Study equation using the following parameters: serum creatinine, age, gender and race. The creatinine assay has been calibrated to be traceable to IDMS. An eGFR <60 mL/min/1.73m2 for >3 months is consistent with chronic kidney disease. Refer to KDOQI guidelines for clinical interpretation. In patients with unstable renal function, e.g. those with acute kidney injury, the eGFR may not accurately reflect actual GFR. Blood specimen (specimen) BLOOD SPECIMEN / Unknown 12/26/2016 9:03 AM EDT 12/26/2016 9:05 AM EDT Mario Dotson MD LABORATORY Final Result [facility] [address] [place] [address] from Last 3 Months or Most Recently Relevant to Health Maintenance Insurance [address] [place] [address] [facility] MEDICARE ADVANTAGE HMO [address] [place] [address] [facility] [place] Address[place] [address] [place] [address] Advance Directives Documents on File Type Date Recorded Patient Tester Vibrator Equipment Expl anation Advance Directive(s) 12/26/2016 12:39 PM
--- OUTSIDE RECORDS SUMMARY | 2025-04-06 18:52 | XMS_ITS | Encounter Summary ---
Author Organization [facility] Address [address] [place] [address] Care Team Providers Care Package Yarns Drying Machine Operator Name Role Phone Herberth Bello MD Primary Care Provider [phone] Pcp, No Primary Care Provider Unavailabl e Source Comments In the event this information is protected by the Federal Confidentiality of Alcohol and Drug AbusePatient Records regulations: The Federal rules restrict any use of the information to criminally investigate or prosecute any alcohol or drug abuse patient.[facility] Encounter Details Date Type Department Care Team (Late st Contact Info) Description 01/05/2017 [facility] [address] [id number] Mario Dotson MD [address] [place] [address] Social History Tobacco Use Types Packs/Day Years Used Date Smoking Tobacco: Former Cigarettes 1 29 0 10/22/1977 - 10/22/2006 Smokeless Tobacco: Never Alcohol Use Standard Drinks/Week Comments Yes 0 (1 standard drink = 0.6 oz pur e alcohol) 2x year Sex and Gender Information Value Date Recorded [...] Diagnoses Not on filedocumented in this encounter Care Teams Package Yarns Drying Machine Operator Relationship Specialty Start Date End Date Herberth Bello MD PCP - General 02/09/15 04/15/21 Pcp, No PCP - General 04/16/21 11/12/21 documented as of this encounter
--- OUTSIDE RECORDS SUMMARY | 2025-04-06 18:52 | XMS_ITS | Encounter Summary ---
Author Organization [facility] Address [address] [place] [address] Care Team Providers Care Blanket Binder Name Role Phone Herberth Bello MD Primary Care Provider [phone] Pcp, No Primary Care Provider Unavailabl e Source Comments In the event this information is protected by the Federal Confidentiality of Alcohol and Drug AbusePatient Records regulations: The Federal rules restrict any use of the information to criminally investigate or prosecute any alcohol or drug abuse patient.[facility] Encounter Details Date Type Department Care Team (Late st Contact Info) Description 08/23/2020 Patient Msg [facility] [place] [address] [place], [place] [id number] Provider, Ccf Appointment with Dr. Dotson Social History Tobacco Use Types Packs/Day Years Used Date Smoking Tobacco: Former Cigarettes 1 29 0 10/22/1977 - 10/22/2006 Smokeless Tobacco: Never Alcohol Use Standard Drinks/Week Comments Yes 0 (1 standard drink = 0.6 oz pur e alcohol) 2x year Area Deprivation Index Answer Date Mamadou rded National Score (1-100), lower number is lower ri sk Not on file 06/20/2020 State Score (1-10), lower number is lower risk N ot on file 06/20/2020 Data from: https://www.neighborhoodatlas.medicine.[facility].edu/. Last address used for calculation Not on file 06/20/2020 Sex and Gender Information Value Date Recorded [...] on filedocumented in this encounter Care Teams Blanket Binder Relationship Specialty Start Date End Date Herberth Bello MD PCP - General 02/09/15 04/15/21 Pcp, No PCP - General 04/16/21 11/12/21 documented as of this encounter
--- OUTSIDE RECORDS SUMMARY | 2025-04-06 18:52 | XMS_ITS | Clinical Summary ---
Author Organization [facility] Address [address] [place] [address], [address] [place] [address] Care Team Providers Care Flight Crew Time Clerk Name Role Phone Carola Galindo IT DATA ARCHITECT - COMIC ARTIST Primary Care Provide r Allergies Active Allergy [...] HIV screen 02/07/1980 Hepatitis C screen 1983 Pneumococcal 50+ years Vacci ne (1 of 2 - PCV) 02/07/1984 Lipids 2005 Colonoscopy 2010 Colorectal Cancer Screen 2010 FIT/FOBT: Average risk 2010 Fecal-DNA (Cologuard): [place] ge risk 2010 Sigmoidoscopy/CT colonography 2010 Shingles vaccine (1 of 2) 2015 Annual Wellness Visit (Medic are Advantage) 07/16/2024 Respiratory Syncytial Virus (RSV) or age 60 yrs+ (1 - Risk 60-74 years 1-dose series) 2025 Flu vaccine (#1) 02/13/2025 COVID-19 Vaccine (1 - 2023-2 5 season) 2025 DTaP/Tdap/Td vaccine (2 - Td or Tdap) 03/24/2028 03/24/2018 Hepatitis A vaccine Aged Out No longe r eligible based on patient's age to complete this topic Hepatitis B vaccine Aged Out No longe r eligible [...] this topic Medical Devices Implanted Type Area Steel Plate Caulker Device Identifier Shelf Expiration Date Model / Serial / Lot Kit Ld Trl L50cm Spnl Crd Perc 16 Cntct W Imag Rdy Mri Full - [id number] Implanted:Qty: 1 on 07/26/2022 by Herberth Cabezas MD at [facility] N/A: Back Right [employer] 06/17/2024 [id number] / [id number] / Kit Ld Trl L50cm Spnl Crd Perc 16 Cntct W Imag Rdy Mri Full - [id number] Implanted:Qty: 1 on 07/26/2022 by Herberth Cabezas MD at [facility] N/A: Back Right [employer] 06/28/2024 [id number] / [id number] / Cable Neurostimulator L2ft Spl [id number] Spnl Crd Or Extn - [id number] Implanted:Qty: 2 on 07/26/2022 by Herberth Cabezas MD at [facility] N/A: Back [employer] [id number] / / Insurance MEDICARE Care Teams Flight Crew Time Clerk Relationship Specialty Start Date End Date Carola Galindo, IT DATA ARCHITECT - COMIC ARTIST [facility] [place] [address] PCP - General 07/26/22
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
--- OUTSIDE RECORDS SUMMARY | 2025-04-06 18:52 | XMS_ITS | Encounter Summary ---
Author Organization [facility] Address [address] [place] [address] Care Team Providers Care Setter Helper Name Role Phone Matthew Jameson DO Primary Care Provider [phone] Herberth Bello MD Primary Care Provider [phone] Pcp, No Primary Care Provider Unavailabl e Source Comments In the event this information is protected by the Federal Confidentiality of Alcohol and Drug AbusePatient Records regulations: The Federal rules restrict any use of the information to criminally investigate or prosecute any alcohol or drug abuse patient.[facility] Encounter Details Date Type Department Care Team (Late st Contact Info) Description 04/05/2012 Operative Report Orthopaedics [address] [place] [address] Guille Rock MD [address] [place] [address] Social History Tobacco Use Types Packs/Day Years Used Date Smoking Tobacco: Former Cigarettes 1 29 0 10/22/1977 - 10/22/2006 Alcohol Use Standard Drinks/Week Comments No 0 (1 standard drink = 0.6 oz pur e alcohol) Sex and Gender Information Value Date Recorded Sex Assigned at Not on file Legal Sex Male 8:03 AM EST Gender Identity Not on file Sexual Orientation Not on file documented as of this encounter OR Notes * Operative Report - Shweta Guille - 04/05/2012 12:00 AM EDT [place] [address] [facility] OPERATIVE REPORT NAME: EDMUND CHRISTOPHER CLINIC #: [id number] DATE: 04/05/2012 AGE: 47 SURGEON 1: Guille Rock M.D. ASST. 1: Vikram Smith M.D. LOCATION: [place]. OPERATION: Left wrist arthrodesis. ANESTHESIA: Block with sedation. PREOPERATIVE DIAGNOSIS: Left wrist posttraumatic arthritis. POSTOPERATIVE DIAGNOSIS: same OPERATIVE INDICATIONS: The patient is a 47-year-old gentleman with longstanding left wrist posttraumatic arthritis. He has failed conservative measures and is extremely limited. Therefore, the risks and benefits of the above procedure were discussed with him in detail and he consented to proceed. OPERATIVE FINDINGS: OPERATIVE PROCEDURE: The patient had a block in the preoperative area and brought to the operating room in excellent condition. He was placed supine on the operating room table and sedation was placed. The left upper extremity was then prepped and draped in the usual sterile fashion. A surgical time-out was performed. The left wrist was identified as the correct operative site and marked in the preoperative area. Preoperative antibiotics were given within 1 hour and prior to incision. The left arm was then exsanguinated. A tourniquet was applied to the left upper brachium and inflated to 250 mmHg for less than 2 hour throughout the case. A longitudinal incision was made over the dorsum of th e wrist and centered on the wrist and third metacarpal, taken through skin and subcutaneous tissue with cauterization of all crossing vessels. Full-thickness radioulnar flaps were developed. The sensory nerve branch were identified, retracted, and protected throughout the remainder of the case. Thethird compartment was opened. The EPL was transposed and the second and fourth compartments were elevated off the underlying joint capsule. An inverted T capsulotomy was then made into the joint. He had abundant synovitis, which was debrided and sent to Pathology. It was noted that he had grade 4 articular cartilage changes throughout the entire radial platform, the lunate, and scaphoid as well as at the capitolunate joint. He had complete diastasis of the scapholunate interval and the capitatehead migrated proximally all the way against the radius. At this point, it was decided that given the amount of instability and also the fact that his scaphoid had almost complete sclerosis and very little cancellous bone that he would be best served with a proximal row carpectomy and wrist fusion.We then removed the scaphoid, lunate, and triquetrum in standard fashion without difficulty. We were able to utilize the lunate and triquetrum for bone graft. The scaphoid was sclerotic throughout its entire bone. Following this, any remaining cartilage left on the radial platform as well as on thehead of the capitate was removed down to healthy cancellous bone. The third CMC joint was opened and any remaining cartilage was removed with a combination of rongeur and curettes on the cancellous bone on both sides. At this point, a combination of Synthes DBX bone graft along with cancellous bone harvested from the PRC was mixed together, tightly packed within all of the joints to be arthrodesed, and then a Synthes fusion plate was placed and had excellent positioning and the center screw on the metacarpal was marked. The plate was removed. It was drilled to make sure it was centered on thebone. The plate was placed back once again, measured, and then placed. Fluoroscopy showed excellentplacement. The remaining screws into the metacarpal were then placed in locking fashion, getting excellent fixation. At this point, the plate was reduced back to the radius. It allowed the wrist to be in about 10-15 degrees of extension, very mild ulnar deviation. The first 2 screws and the plate were placed in compression mode, getting excellent compression at the arthrodesis site and fluoroscopy showed appropriate placement and the remaining screws were placed, both into the shaft as well as into the capitate. The capitate screw was unicortical. Final fluoroscopy showed excellent placement of our hardware, appropriate screw lengths, excellent position of the wrist, and nice coaptation of the arthrodesis site. The remaining bone graft was then tagged tightly into the area to be arthrodesed once again. The capsule was closed with 2-0 Vicryl suture. Tourniquet was deflated. Hemostasis was obtained. The wounds were copiously irrigated. The EPL was left transposed and the extensor retinaculum was closed with 2-0 Vicryl suture, getting excellent repair. The subcutaneous tissue was closed with 3-0 Monocryl. The skin was closed with horizontal mattress of 4-0 nylon. A bulky sterile dressing was applied as well as a volar splint and the patient was awoken from anesthesia in excellent condition. The patient will follow up in 7-10 days for an individualized program. ESTIMATED BLOOD LOSS: 5 mL. DRAINS: SPECIMENS: Harvested bone and synovitis. COUNTS: The sponge, needle, and instrument count was correct. COMPLICATIONS: None. Guille Rock M.D. ALETA/[id number]/ / documented in this encounter Plan of Treatment Not on file documented as of this encounter Visit Diagnoses Not on filedocumented in this encounter Care Teams Setter Helper Relationship Specialty Start Date End Date Matthew Jameson DO PCP - General 05/26/09 02/08/15 Herberth Bello MD PCP - General 02/09/15 04/15/21 Pcp, Jeni PCP - General 04/16/21 11/12/21 documented as of this encounter
--- OUTSIDE RECORDS SUMMARY | 2025-04-06 18:52 | XMS_ITS | Patient Health Record ---
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 Gabby Del Toro Unavailable [phone] Reason For Referral No Information Encounters Encounter Location Date Provider Diagnosis [facility] [address] [place] [address] 12/17/2024 Kim Barlow Encounter for dental examination [...] End Date DENTAL [employer] MED[employer]ARE [address] [address] [place] [address] [id number] GABBY HAYDEN Self - patient is the insured
--- OUTSIDE RECORDS SUMMARY | 2025-04-06 18:52 | XMS_ITS | Clinical Summary ---
Author Organization [facility] Address [address] [place] [address] Care Team Providers Care Digital Advertising Specialist Name Role Phone Naresh Jerome MD Primary Care Provider [phone] Allergies Active Allergy Reactions Criticality Noted Date Comments Cat Dander 01/18/2023 Other Reaction(s): Other: See Comments, Unknown congestion Other Reaction(s): Other: See Comments Latex Hives,Rash Low 03/28/2018 Other Reaction(s): rash/hives Pravastatin 01/23/2023 Other Reaction(s): Unknown Wound Dressing Adhesive Rash Low 08/12/2012 One episode blisters with tape 2011 shoulder surgery Medications acetaminophen (Tylenol 8 Hour) 650 MG ER tablet Take 650 mg by mouth. Active amLODIPine (Norvasc) 10 MG tablet Take 10 mg by mouth in the morning. Active oxyCODONE (Roxicodone) 15 MG immediate release tablet take 1 tablet by mouth every 3 hours to every 4 hours maximum tangela... (REFER TO PRESCRIPTION NOTES). Active Cialis 10 MG tablet 1 (one) time each day at the same time. Active naproxen (Naprosyn) 500 MG tablet Take 500 mg by mouth in the morning and 500 mg before bedtime. 3 Active hydroCHLOROthia zide (HYDRODiuril) 25 MG tablet TAKE 1/2 (ONE-HALF) OF A TABLET BY MOUTH EVERY MORNING FOR 90 DAYS Active tiZANidine (Zanaflex) 4 MG tablet Take 4 mg by mouth 2 (two) times a day as needed 4 Active albuterol HFA 90 mcg/act inhaler INHALE 2 PUFFS BY MOUTH EVERY 6 HOURS NEEDED for SHORTNESS OF BREATH or FOR WHEEZING 4 Active lisinopril 40 MG tablet Take 40 mg by mouth Daily 4 Active meloxicam (Mobic) 15 MG tablet TAKE 1 TABLET BY MOUTH WITH FOOD ONCE DAILY IN THE MORNING 4 Active cloNIDine (Catapres) 0.1 MG tablet Take 0.1 mg by mouth in the morning and 0.1 mg before bedtime. 4 Active ciclopirox (Loprox) 0.77 % creamIndication s:Erythema intertrigo Apply thin layer to affected area once a day, 30 day supply 90 g 5 Active Active Problems Problem Noted Date Diagnosed Date Primary osteoarthritis, right wrist 01/23/2023 Ganglion cyst of wrist, right 01/23/2023 Family History Medical History Relation Name Comments Emphysema Father Heart disease Father No Known Problems Mother Relation Name Status Comments Father Mother Alive Social History Tobacco Use Types Packs/Day Years Used Date Smoking Tobacco: Every Day Cigarettes Tobacco Cessation:Ready to Q uit: No; Counseling Given: Yes Alcohol Use Standard Drinks/Week Comments Yes 0 (1 standard drink = 0.6 oz pur e alcohol) coffee 2-3 coffee Sex and Gender Information Value Date Recorded Sex Assigned at Not on file Legal Sex Male 7:20 PM EDT Gender Identity Not on file Sexual Orientation Not on file Last Filed Vital Signs Vital Sign Reading Time Taken Comments Blood Pressure 158/100 03/24/2021 12:00 PM EDT Pulse - - Temperature 36.7 C (98 F) 01/23/2023 9:14 AM EDT Respiratory Rate - - Oxygen Saturation - - Inhaled Oxygen Concentration - - Weight 71.2 kg (157 lb) 01/23/2023 9:14 AM EDT Height 160 cm (5' 3 ) 01/23/2023 9:14 AM EDT Body Mass Index 27.81 01/23/2023 9:14 AM EDT Plan of Treatment Not on file Insurance [employer] Care Teams Digital Advertising Specialist Relationship Specialty Start Date End Date Naresh Jerome MD PCP - General Family Medicine 01/23/23
--- OUTSIDE RECORDS SUMMARY | 2025-04-06 18:54 | XMS_ITS | CCD ---
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 Role Phone Omayra Gonzales Attending Unavailable MADDY COTTO Primary Care Unavailable Omayra Gonzales Admitting Unavailable LAURA Felipe Primary Care Provider LAURA Felipe Attending Provider [phone] MD Maddy Cabezas II Attending Provider Unavailable [...] Care Provider UnavailASHLYN BuiEDNA Yeung Emergency Provider [phone] LAURA Felipe Primary Care Provider LAURA Farrell Attending Provider [phone] JESSICA DOTSON Referring Unavailable RAÚL SULLIVAN Attending Unavailable JEMTTI, JESSICA T Referring Unavailable RICVILMATTI, JESSICA T Referring Unavailable RICVILMATTI, JESSICA T Referring Unavailable SELF Referring Unavailable RIGOBERTO JESSICA T Attending Unavailable LAURA Felipe Primary Care Provider Bullimore, FEATHER BONER-BC Nataliia E Emergency Provider Ly, DO Tuyet Florez Attending Provider [phone] Pcp 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, No Primary Care Provider Unavaildiane Jerome MD, Naresh Lehman Primary Care Provider [phone] Josie, Shreyas Angelia Primary Care Unavailable Tuyet [...] Propensity to adverse reactions to drug (disorder) [facility] (20 sources) Latex; Translations: [LATEX] Allergy to substance 8 Hives, Rash [facility] (8 sources) Adhesive Tape; Translations: [ADHESIVE TAPE (ROSINS)] Allergy to substance 3 [facility] Work Phone: (8 sources) Cat Dander; Translations: [CAT DANDER] Drug Allergy 3 Other: See Comments [facility] (2 sources) Cat Allergy to substance 4 Unknown Reaction [facility] (6 sources) Pravastatin Drug Allergy 3 [facility] (3 sources) Cat Hair Extract Allergy to substance 3 [facility] (2 sources) Wound Dressing Adhesive Drug Allergy 3 [facility] NEGATED: Highlighted row has been ruled out! (2 sources) Other Propensity to adverse reactions 3 Other (See Comments) [facility] Work Phone: Medications Current Medications Medication Drug [...] every 4 hours as needed for Pain. [id number] 200 actuat albuterol 0.09 mg/actuat metered dose [...] Comment on above: Take 1 capsule by [facility] once daily. 0.5 ml HYDROmorphone hydrochloride [...] aftercare (1 source) Antibiotic prophylaxis indicated; Translations: [terminologist (current) use of antibiotics] 12-25-2024 Episodic Other [...] Reference Range Facility No Panel Informationon 07-28 [facility] Healthcare COVID-19 / Flu A/B / [...] or Cepheid Disclaimer revoked sooner. PERFORMED BY: [place] [address] PATHOLOGIST MOLD REPAIRER MAGGIE RICARDO M.D. Normal [facility] Comment on above: Performed By: #### C OVID19 FLU RSV, CEPHEID NEG #### [address] Cepheid COVID PCR Negativeon 07-15-2024 SARS-CoV-2 (COVID-19) RNA DENISE+probe Ql (Unsp spec) Negative Normal Negative [facility] Comment on above: Result Comment: This is a duplicate Cepheid Xpert Xpress CoV-2/Flu/RSV Plus RNA by RT-PCR result to be used for statistical tracking purpose only. PERFORMED BY: [place] [address] PATHOLOGIST MOLD REPAIRER MAGGIE RICARDO M.D. Performed By: #### C OVID19 FLU RSV, CEPHEID NEG #### [place] [id number] [facility] XR chest 1V portableon 07-15 XR chest 1V portable [facility] [address] [place] [address] XRay Report Signed Patient: Edmund Christopher MR#: [id number] : 1965 Acct:[id number] Age/Sex: 59 / M ADM Date: 07/15/24 Loc: ER Room: Type: [facility] ER Attending Dr: Copies to: Jessica [...] Maya Trent M.D.07/15/2024 8:32 AM Dictation Location: [place] [address] Transcribed By: [facility] 07/15/24831 Dictated By: Maya Trent MD 07/15/2404 Signed By: 07/15/24831 Normal [facility] No Panel Informationon 06-03 [facility] [...] taken Amount of lidocaine used: 0.6 cc [facility] [employer] [facility] Curry 11-12-2023 L Specimen: Received: 11/12/23 Status: EMELYN Brooke Num: [id number] Spec Type: Surgical Subm Dr: Tuyet Adams DO Tissues: A Colon Biopsy (ASC POLYPS) Procedures: HE/2, Gross/Micro L4 Age/ Patient Sex Location Account Attending Physician Edmund Christopher 58/M [id number] Tuyet Adams DO SPEC NUM: [id number] RECD: 11/12/23 STATUS: EMELYN BROOKE NUM: [id number] THONY: 11/12/23- SUBM DR: Tuyet Adams DO ENTERED: 11/12/[address] [facility] [address]: SPEC TYPE: Surgical DEPT: S [...] in A1. Clinical history: ABD CPT Codes 37041 -------- -------- Specimen: [id number] Received: 11/12/23 Status: EMELYN Brooke Num: [id number] Spec Type: Surgical Subm Dr: Tuyet Adams DO Tissues: A Colon Biopsy (ASC POLYPS) Procedures: HE/2, Gross/Micro L4 -------- Patient: Edmund Christopher [id number] (Continued) -------- Signed (signature on file) Jennifer Pino MD 11/13/231046 Normal [facility] Alanine aminotransferase [En zymatic activity/volume] in Serum or PlasmaOrdered By: Nataliia Banks on 10-10-2023 ALT [Catalytic activity/Vol] 24 U/L Normal 7-52 [facility] Comment on above: Performed By: #### C BC, CMP #### [place] [id number] [facility] Albumin [Mass/volume] in Ser um or Plasma by Bromocresol green (BCG) dye binding methoOrdered By: Nataliia Bullimore on 10-10-2023 Albumin BCG dye [Mass/Vol] 4.3 g/dL 3.5-5.7 [facility] Alkaline phosphatase [Enzyma tic activity/volume] in Serum or PlasmaOrdered By: Nataliia Bullimore on 10-10-2023 ALP [Catalytic activity/Vol] 74 U/L Normal 34-104 [facility] Comment on above: Performed By: #### C BC, CMP #### [address] Aspartate aminotransferase [ Enzymatic activity/volume] in Serum or PlasmaOrdered By: Nataliia Bullimore on 10-10-2023 AST [Catalytic activity/Vol] 26 U/L Normal 13-39 [facility] Comment on above: Performed By: #### C BC, CMP #### [address] Automated basophil %Ordered By: Nataliia Bullimore on 10-10-2023 Basophils/100 WBC (Bld) 0.4 % Normal . [facility] Comment on above: Performed By: #### C BC, CMP #### [address] Automated basophil countOrde red By: Nataliia Bullimore on 10-10-2023 Basophils (Bld) [#/Vol] 0.0 10*3/uL Normal 0.0-0.2 [facility] Comment on above: Result Comment: PERF ORMED BY: [place] [address] PATHOLOGIST MOLD REPAIRER SIMÓN MARTINES M.D. Performed By: #### C BC, CMP #### [address] Automated blood monocyte cou ntOrdered By: Nataliia Bullimore on 10-10-2023 Monocytes (Bld) [#/Vol] 0.4 10*3/uL Normal 0.0-0.8 [facility] Comment on above: Performed By: #### C BC, CMP #### [address] Automated eosinophil %Ordere d By: Nataliia Bullimore on 10-10-2023 Eosinophils/100 WBC (Bld) 0.5 % Normal . [facility] Comment on above: Performed By: #### C BC, CMP #### [address] Automated eosinophil countOr dered By: Nataliia Bullimore on 10-10-2023 Eosinophils (Bld) [#/Vol] 0.0 10*3/uL Normal 0.0-0.45 [facility] Comment on above: Performed By: #### C BC, CMP #### [address] Automated monocyte %Ordered By: Nataliia Bullimore on 10-10-2023 Monocytes/100 WBC (Bld) 4.4 % Normal . [facility] Comment on above: Performed By: #### C BC, CMP #### [address] Automated neutrophil %Ordere d By: Nataliia Bullimore on 10-10-2023 Neutrophils/100 WBC (Bld) 85.2 % Normal . [facility] Comment on above: Performed By: #### C BC, CMP #### [address] Automated urine color determ inationOrdered By: Nataliia Jocelyn on 10-10-2023 Color (U) Yellow Normal Yellow [facility] Comment on above: Order Comment: Name Collection Type:: Clean-Voided Midstream Performed By: #### U A #### [address] Bilirubin Test strip Ql (U)O rdered By: Nataliia Bullimore on 10-10-2023 Bilirubin Ql (U) Negative Negative [facility] Bilirubin.total [Mass/volume ] in Serum or PlasmaOrdered By: Nataliia Bullimore on 10-10-2023 Bilirubin [Mass/Vol] 0.5 mg/dL Normal 0.3-1.0 [facility] Comment on above: Performed By: #### C BC, CMP #### [facility] [address] abdomen pelvis w conon CT abdomen pelvis w con [facility] [address] [place] [address] CT Scan Report Signed Patient: Edmund Christopher MR#: [id number] : 1965 Acct:[id number] Age/Sex: 58 / M ADM Date: 10/10/23 Loc: ER Room: Type: [facility] ER Attending Dr: Copies to: LUIS Keenan [...] Lamonte10/10/2023 3:30 PM Dictation Location: [place] [address] Transcribed By: [facility] 10/10/23 1530 Dictated By: Edmund Sanz Jr, DO 10/10/23 1527 Signed By: 10/10/23 1530 Normal [facility] Calcium [Mass/volume] in Ser um or PlasmaOrdered By: Nataliia Banks on 10-10-2023 Calcium [Mass/Vol] 9.8 mg/dL Normal 8.6-10.3 [facility] Comment on above: Performed By: #### C BC, CMP #### [address] Carbon dioxide, total [Moles /volume] in Serum or PlasmaOrdered By: Nataliia Banks on 10-10-2023 CO2 [Moles/Vol] 26.4 mmol/L Normal 21.0-31.0 [facility] Comment on above: Performed By: #### C BC, CMP #### [address] Chloride [Moles/volume] in S tammy or PlasmaOrdered By: Nataliia Banks on 10-10-2023 Chloride [Moles/Vol] 104 mmol/L Normal 98-107 [facility] Comment on above: Performed By: #### C BC, CMP #### [address] Complete Blood Count Auto Di ffon 10-10-2023 Mean Corpuscular HGB Conc 33.6 g/dL Normal 32.5-35.6 [facility] Comment on above: Performed By: #### C BC, CMP #### [place] [address] [place] Monocytes/100 WBC (Bld) 14.04 % Normal 0.00-20.00 [facility] Comment on above: Performed By: #### C BC, CMP #### [address] NRBC% 0.1 /100{WBC} Normal 0-0.5 [facility] Comment on above: Performed By: #### C BC, CMP #### [address] Comprehensive Metabolic Pane curry 10-10-2023 Albumin [Mass/Vol] 4.3 g/dL Normal 3.5-5.7 [facility] Comment on above: Performed By: #### C BC, CMP #### [address] Creatinine Clr Calc Pharmacy 92.21 Normal [facility] Comment on above: Result Comment: PERF ORMED BY: [place] [address] PATHOLOGIST MOLD REPAIRER SIMÓN MARTINES M.D. Performed By: #### C BC, CMP #### [address] GFR/1.73 sq M.predicted MDRD (S/P/Bld) [Vol rate/Area] mL/min/{1.73_m2} Normal [facility] Comment on above: Performed By: #### C BC, CMP #### [address] Creatinine [Mass/volume] in Serum or PlasmaOrdered By: Nataliia Banks on 10-10-2023 Creatinine [Mass/Vol] 0.77 mg/dL Normal 0.70-1.30 [facility] Comment on above: Performed By: #### C BC, CMP #### [address] Erythrocyte distribution wid th [Ratio] by Automated countOrdered By: Nataliia Danielore on 10-10-2023 Erythrocyte distribution width (RBC) [Ratio] 13.4 % Normal 12.0-14.8 [facility] Comment on above: Performed By: #### C BC, CMP #### [address] [place] [address] [place] Erythrocytes [#/volume] in B lood by Automated countOrdered By: Nataliia Banks on 10-10-2023 RBC (Bld) [#/Vol] 5.23 10*6/uL Normal 3.90-5.60 [facility] Comment on above: Performed By: #### C BC, CMP #### [address] Glucose [Mass/volume] in Ser um or PlasmaOrdered By: Nataliia Jocelyn on 10-10-2023 Glucose [Mass/Vol] 97 mg/dL Normal 70-100 [facility] Comment on above: ADA recommended refe rence rangeRandom Glucose Reference Range is dependent on time and content of last meal. Glucose of more than 200 mg/dL in a nonstressed, ambulatory subject supports the diagnosis of Diabetes Mellitus. Result Comment: [place] om Glucose Reference Range is dependent on time and content of last meal. Glucose of more than 200 mg/dL in a nonstressed, ambulatory subject supports the diagnosis of Diabetes Mellitus. ADA recommended reference range Performed By: #### C BC, CMP #### [address] Hematocrit [Volume Fraction] of Blood by Automated countOrdered By: Nataliia Banks on 10-10-2023 Hematocrit (Bld) [Volume fraction] 46.4 % Normal 38.8-50.0 [facility] Comment on above: Performed By: #### C BC, CMP #### [address] Hemoglobin [Mass/volume] in BloodOrdered By: Nataliia Banks on 10-10-2023 Hemoglobin (Bld) [Mass/Vol] 15.6 g/dL Normal 13.0-17.0 [facility] Comment on above: Performed By: #### C BC, CMP #### [address] Ketones Auto test strip (U) [Mass/Vol]Ordered By: Nataliia Banks on 10-10-2023 Ketones (U) [Mass/Vol] Negative Negative [facility] Leukocytes [#/volume] correc ronaldo for nucleated erythrocytes in Blood by Automated counOrdered By: Nataliia Gamalimore on 10-10-2023 WBC corrected for nucl RBC Auto (Bld) [#/Vol] 9.9 10*3/uL 4.1-10.5 [facility] Leukocytes [#/volume] in Blo od by Automated countOrdered By: Nataliia Bullimore on 10-10-2023 WBC (Bld) [#/Vol] 9.9 10*3/uL Normal 4.1-10.5 [facility] Comment on above: Performed By: #### C BC, CMP #### [address] Lymphocytes [#/volume] in Bl ood by Automated countOrdered By: Nataliia Yeungimore on 10-10-2023 Lymphocytes (Bld) [#/Vol] 0.9 10*3/uL Low 1.00-4.8 [facility] Comment on above: Performed By: #### C BC, CMP #### [address] Lymphocytes/100 leukocytes i n Blood by Automated countOrdered By: Nataliia Banks on 10-10-2023 Lymphocytes/100 WBC (Bld) 9.5 % Normal . [facility] Comment on above: Performed By: #### C BC, CMP #### [facility] [address] [place] [address] MCH [Entitic mass] by Automa ronaldo countOrdered By: Nataliia Bullimore on 10-10-2023 MCH (RBC) [Entitic mass] 29.8 pg Normal 27.5-35.2 [facility] Comment on above: Performed By: #### C BC, CMP #### [address] MCHC Auto (RBC) [Mass/Vol]Or dered By: Nataliia Bullimore on 10-10-2023 MCHC (RBC) [Mass/Vol] 33.6 g/dL 32.5-35.6 [facility] MCV [Entitic volume] by Auto mated countOrdered By: Nataliia Banks on 10-10-2023 MCV (RBC) [Entitic vol] 88.7 fL Normal 83.5-101 [facility] Comment on above: Performed By: #### C BC, CMP #### [address] Monocyte distribution width [Entitic volume] in Blood by AutomatedOrdered By: Nataliia Banks on 10-10-2023 Monocyte distribution width Auto (Bld) [Entitic vol] 14.04 % 0.00-20.00 [facility] Neutrophils [#/volume] in Bl ood by Automated countOrdered By: Nataliia Banks on 10-10-2023 Neutrophils (Bld) [#/Vol] 8.4 10*3/uL High 1.8-7.7 [facility] Comment on above: Performed By: #### C EDNA, CMP #### [address] Nitrite Test strip Ql (U)Ord ered By: Nataliia Banks on 10-10-2023 Nitrite Ql (U) Negative Negative [facility] No Panel InformationOrdered By: Nataliia Banks on 10-10-2023 Estimated GFR (CKD-EPI) > 60.0 mL/Min [facility] Creatinine Clearance (Chem 92.21 [facility] Nucleated erythrocytes [Pres ence] in Blood by Automated countOrdered By: Nataliia Banks on 10-10-2023 Nucleated RBC Auto Ql (Bld) 0.1 /100{WBC} 0-0.5 [facility] Platelet mean volume [Entiti c volume] in Blood by Automated countOrdered By: Nataliia Banks on 10-10-2023 Platelet mean volume (Bld) [Entitic vol] 7.2 fL Normal 6.6-10.1 [facility] Comment on above: Performed By: #### C BC, CMP #### [address] Platelets [#/volume] in Bloo d by Automated countOrdered By: Nataliia Banks on 10-10-2023 Platelets (Bld) [#/Vol] 313 10*3/uL Normal 150-450 [facility] Comment on above: Performed By: #### C BC, CMP #### [address] Potassium [Moles/volume] in Serum or PlasmaOrdered By: Nataliia Bullimore on 10-10-2023 Potassium [Moles/Vol] 4.4 mmol/L Normal 3.5-5.1 [facility] Comment on above: Performed By: #### C BC, CMP #### [address] Protein Auto test strip (U) [Mass/Vol]Ordered By: Nataliia Bullimore on 10-10-2023 Protein (U) [Mass/Vol] Negative Negative [facility] Protein [Mass/volume] in Ser um or PlasmaOrdered By: Nataliia Bullimore on 10-10-2023 Protein [Mass/Vol] 7.0 g/dL Normal 6.4-8.9 [facility] Comment on above: Performed By: #### C BC, CMP #### [address] Serum globulin measurement b y calculation (mass/volume)Ordered By: Nataliia Bullimore on 10-10-2023 Globulin (S) [Mass/Vol] 2.7 g/dL Normal [facility] Comment on above: Performed By: #### C BC, CMP #### [facility] [address] [place] [address] Serum or plasma albumin/glob ulin mass ratioOrdered By: Nataliia Bullimore on 10-10-2023 Albumin/Globulin [Mass ratio] 1.6 {ratio} Normal [facility] Comment on above: Performed By: #### C BC, CMP #### [address] Serum or plasma anion gap de terminationOrdered By: Nataliia Bullimore on 10-10-2023 Anion gap [Moles/Vol] 12.0 mmol/L Normal 6.0-15.0 [facility] Comment on above: Performed By: #### C EDNA, CMP #### [address] Sodium [Moles/volume] in Ser um or PlasmaOrdered By: Nataliia Bullimore on 10-10-2023 Sodium [Moles/Vol] 138 mmol/L Normal 136-145 [facility] Comment on above: Performed By: #### C EDNA, CMP #### [address] Specific gravity Auto test s trip (U) [Rel density]Ordered By: Nataliia Bullimore on 10-10-2023 Specific gravity (U) [Rel density] 1.008 1.001-1.030 [facility] Urea nitrogen [Mass/volume] in Serum or PlasmaOrdered By: Nataliia Bullimore on 10-10-2023 Urea nitrogen [Mass/Vol] 20 mg/dL Normal 7-25 [facility] Comment on above: Performed By: #### C EDNA, CMP #### [address] Urinalysison 10-10-2023 Appearance (U) Clear Normal Clear [facility] Comment on above: Order Comment: Name Collection Type:: Clean-Voided Midstream Performed By: #### U A #### [address] Bilirubin,Urine Negative Normal Negative [facility] Comment on above: Order Comment: Name Collection Type:: Clean-Voided Midstream Performed By: #### U A #### [address] Glucose Ql (U) Normal Normal Normal [facility] Comment on above: Order Comment: Name Collection Type:: Clean-Voided Midstream Performed By: #### U A #### [address] Ketones Ql (U) Negative Normal Negative [facility] Comment on above: Order Comment: Name Collection Type:: Clean-Voided Midstream Performed By: #### U A #### [address] Leukocyte esterase Test strip Ql (U) Negative Normal Negative [facility] Comment on above: Order Comment: Name Collection Type:: Clean-Voided Midstream Performed By: #### U A #### [address] Nitrite,Urine Negative Normal Negative [facility] Comment on above: Order Comment: Name Collection Type:: Clean-Voided Midstream Performed By: #### U A #### [address] Occult Blood,Urine Negative Normal Negative [facility] Comment on above: Order Comment: Name Collection Type:: Clean-Voided Midstream Result Comment: PERF ORMED BY: [place] [address] PATHOLOGIST MOLD REPAIRER SIMÓN MARTINES M.D. Performed By: #### U A #### [address] Protein,Urine Negative Normal Negative [facility] Comment on above: Order Comment: Name Collection Type:: Clean-Voided Midstream Performed By: #### U A #### [address] Specificy [place],Urine 1.008 Normal 1.001-1.030 [facility] Comment on above: Order Comment: Name Collection Type:: Clean-Voided Midstream Performed By: #### U A #### [address] Urobilinogen,Urine Normal Normal Normal [facility] Comment on above: Order Comment: Name Collection Type:: Clean-Voided Midstream Performed By: #### U A #### [address] Urine clarity by refractomet ry automatedOrdered By: Nataliia Banks on 10-10-2023 Clarity Refractometry automated (U) Clear Clear [facility] Urine glucose measurement by automated test strip (mass/volume)Ordered By: Nataliia Banks on 10-10-2023 Glucose Auto test strip (U) [Mass/Vol] Normal mg/dL Normal [facility] Urine hemoglobin detection b y automated test stripOrdered By: Nataliia Banks on 10-10-2023 Hemoglobin Auto test strip Ql (U) Negative Negative [facility] Urine leukocyte esterase det ection by automated test stripOrdered By: Nataliia Banks on 10-10-2023 Leukocyte esterase Auto test strip Ql (U) Negative Negative [facility] Urine pH measurement by auto mated test stripOrdered By: Nataliia Banks on 10-10-2023 pH (U) 5.5 [pH] Normal 5.0-9.0 [facility] Comment on above: Order Comment: Name Collection Type:: Clean-Voided Midstream Performed By: #### U A #### [address] Urobilinogen Auto test strip (U) [Mass/Vol]Ordered By: Nataliia Banks on 10-10-2023 Urobilinogen (U) [Mass/Vol] Normal mg/dL Normal [facility] CNOVon 08-07-2023 CNOV Office Visit (MAGYSES ) EDMUND CHRISTOPHER ([id number]) 1965 M Date Time Provider Department 08/07/23 [...] beforehand. Given MRI and EMG findings, Dr cMkeon recommended spine consultation in the interim. Per [...] LS 04/01/10 Performed by BRUNO VICTORIA at [facility] LORCEZAR NJX DX/THER AGT PVRT FACET JT LMBR/SAC 1 LEVEL 04/29/2010 Performed by BRUNO VICTORIA at [facility] OF [facility], [...] bedtime. PERCOCET (more content not included)... Normal [facility] Coreen 05-04-2023 BRITTANIN Telephone ([facility]) EDMUND CHRISTOPHER ([id number]) 1965 M Date Time Provider Department 05/04/23 [facility] DOT[facility] During your visit today, we recorded the [...] arm weakness [R29.898] Order(s):CONSULT TO SPINE SURGERY [[id number]] Order #: [id number]: 1 FUTURE Prescriptions as of 05/04/2023 - [...] Date 05/04/2023 Noted Resolved LUMBOSACRAL NEURITIS NOS [[id number]] 02/01/2006 DISC DEGENERATION NOS [[id number]] 02/01/2006 GENERAL OSTEOARTHROSIS [M15.9] 02/01/2006 LUMBOSACRAL SPONDYLOSIS [...] Status:Closed by JESSICA DOTSON on 05/04/23 Normal [facility] EMG(NEURO/NI)on 04-13-2023 [facility] MRI CERVICAL SPINE WO IVCONo n 04-13-2023 [...] arthropathy. Moderate canal narrowing. Moderate right and deqt-gf-lhuzlqal left foraminal narrowing. C5-C6: Posterior osteophytic ridge. Moderate spinal canal stenosis with canal measuring 8 mm. Left foraminal stenosis. Lgpf-kf-fnxmvilx right foraminal narrowing. Slight ventral impression on the cord. C6-C7: Posterior disc and osteophyte complex. Ccdu-cj-ctckfwmn canal narrowing. Moderate foraminal narrowing bilaterally. C7-T1: Spondylolisthesis. Bilateral foraminal stenosis. Chnt-ft-vfulokjz canal narrowing. 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 The degree of spinal canal stenosis is very similar to the previous study. Multilevel foraminal stenosis. Grade 2 spondylolisthesis C7 on T1. This is unchanged from the previous study. Anatomic Variant: None. Assume 7 cervical vertebrae with counting from the craniocervical junction. Premium Service Representative: [place] Transcribe Date/Time: Apr 13 2023 7:53P Dictated by : MARLEY HURT MD This examination was interpreted and the report reviewed and electronically signed by: MARLEY HURT MD on Apr 13 2023 8:01PM EST [id number] Normal [facility] CNOVon 01-18-2023 CNOV Office Visit (ORHSMN ) EDMUND CHRISTOPHER ([id number]) 1965 M Date Time Provider Department 01/18/23 8:15 AM JESSICA DOTSON [facility] During your visit today, we recorded the following information about you: Jessica Dotson MD 01/18/2023 5:40 PM Addendum [facility] NOTE Department of Orthopaedics Jessica Dotson M.D. NAME: Edmund Christopher CLINIC NO.: [id number] DATE: January 18, 2023 Parth returns for [...] region [M48.02] Order(s):MRI CERVICAL SPINE WO IVCON [[id number]] Order #: [id number] FUTURE EMG(NEURO/NI) [[id number]] Order #: [id number]: 1 FUTURE Prescriptions as of 01/18/2023 - lisinopril (ZESTRIL, PRINIVIL) 10 mg tablet - oxyCODONE IR (ROXICODONE) 10 mg tab - pregabalin (LYRICA) 100 mg capsule Take 100 mg by mouth four times daily. - Meperidine HCl 100 mg tablet Take 100 mg by mouth daily at bedtime. - PERCOCET 10-325 mg tablet - oxyCODONE-acetaminoph en (more content not included)... Normal [facility] No Panel Informationon 01-18 [facility] XR SHLDR >/=3V AP/AQUILINO AP/OTH R LTon [...] FINDINGS CONSISTENT WITH ROTATOR CUFF TEARING DESCRIBED Premium Service Representative: [facility] Transcribe Date/Time: Jan 18 2023 8:20A Dictated by : JENIFER HAMMER MD This examination was interpreted and the report reviewed and electronically signed by: JENIFER HAMMER MD on Jan 18 2023 8:28AM EST [id number] N Normal [facility] XR SHLDR >/=3V AP/AQUILINO AP/OTH R [...] FINDINGS CONSISTENT WITH ROTATOR CUFF TEARING DESCRIBED Premium Service Representative: [place] Transcribe Date/Time: Jan 18 2023 8:20A Dictated by : JENIFER HAMMER MD This examination was interpreted and the report reviewed and electronically signed by: JENIFER HAMMER MD on Jan 18 2023 8:28AM EST [id number] N Normal [facility] INSULINon 11-04-2022 Insulin 3.0 uIU/mL Normal 2.6-24.9 [facility] Comment on above: Performed By: #### I NSULIN #### [facility] [address] [place] [address] Dr. Stacy Saxena OCC BLD IMMUNO SCREENon 10-15 OCCULT BLOOD Negative Normal NEGATIVE [facility] Comment on above: Performed By: #### O BSCRN #### [facility] [address] [address] [address] Stacy Saxena TESTOSTERONE, TOTALon 2022 Testosterone [Mass/Vol] 480 ng/dL Normal 264-916 [facility] Comment on above: Result Comment: Adul t male reference interval is based on a population of healthy nonobese males (BMI <30) between 19 and 39 years old. katherine Lucia.al. JCEM 2017,102;[id number]. PMID: [id number]. Performed By: #### L IPID, URIC, CMP, T7, TSH #### [facility] [address] [address] [address] Stacy Saxena CBC AUTO DIFFon 11-03-2022 BASO # 0.0 103/ul Normal 0.0-0.1 [facility] Comment on above: Performed By: #### C BC #### [facility] [address] [address] [address] Stacy Saxena Basophils/100 WBC (Bld) 0.6 % Normal 0.2-2.0 [facility] Comment on above: Performed By: #### C BC #### [facility] [address] [address] [address] Stacy Saxena EO # 0.1 103/ul Normal 0.0-0.7 [facility] Comment on above: Performed By: #### C BC #### [facility] [address] [place] [address] Dr. Stacy Saxena Eosinophils/100 WBC (Bld) 1.9 % Normal 0.9-7.0 [facility] Comment on above: Performed By: #### C BC #### [facility] [address] [place] [address] Dr. Stacy Saxena Erythrocyte distribution width (RBC) [Ratio] 13.0 % Normal 11.0-15.0 [facility] Comment on above: Performed By: #### C BC #### [facility] [address] [place] [address] Dr. Stacy Saxena Hematocrit (Bld) [Volume fraction] 45.1 % Normal 42.0-54.0 [facility] Comment on above: Performed By: #### C BC #### [facility] [address] [place] [address] Dr. Stacy Saxena Hemoglobin (Bld) [Mass/Vol] 15.3 g/dL Normal 14.0-18.0 [facility] Comment on above: Performed By: #### C BC #### [facility] [address] [place] [address] Dr. Stacy Saxena IG # 0.01 10e3/ul Normal 0.00-0.03 [facility] Comment on above: Performed By: #### C BC #### [facility] [address] [place] [address] Dr. Stacy Saxena IG % 0.1 % Normal 0.0-0.5 [facility] Comment on above: Performed By: #### C BC #### [facility] [address] [place] [address] Dr. Stacy Saxena LYMPH # 1.3 103/ul Normal 1.2-3.8 [facility] Comment on above: Performed By: #### C BC #### [facility] [address] [place] [address] Dr. Stacy Saxena Lymphocytes/100 WBC (Bld) 18.9 % Critically low 20.5-60.0 [facility] Comment on above: Performed By: #### C BC #### [facility] [address] [place] [address] Dr. Stacy Saxena MANUAL DIFF REQ NO Normal [facility] Comment on above: Performed By: #### C BC #### [facility] [address] [place] [address] Dr. Stacy Saxena MCH (RBC) [Entitic mass] 29.0 pg Normal 25.9-34.0 [facility] Comment on above: Performed By: #### C BC #### [facility] [address] [place] [address] Dr. Stacy Saxena MCHC (RBC) [Mass/Vol] 33.9 g/dL Normal 29.9-35.2 [facility] Comment on above: Performed By: #### C BC #### [facility] [address] [place] [address] Dr. Stacy Saxena MCV (RBC) [Entitic vol] 85.6 fL Normal 80.0-94.0 [facility] Comment on above: Performed By: #### C BC #### [facility] [address] [place] [address] Dr. Stacy Saxena MONO # 0.9 103/ul Critically high 0.3-0.8 [facility] Comment on above: Performed By: #### C BC #### [facility] [address] [place] [address] Dr. Stacy Saxena Monocytes/100 WBC (Bld) 12.9 % Critically high 1.7-12. 0 [facility] Comment on above: Performed By: #### C BC #### [facility] [address] [place] [address] Dr. Stacy Saxena NEUT # 4.5 103/ul Normal 1.4-6.5 [facility] Comment on above: Performed By: #### C BC #### [facility] [address] [place] [address] Dr. Stacy Saxena Neutrophils/100 WBC (Bld) 65.6 % Normal 43.0-75.0 [facility] Comment on above: Performed By: #### C BC #### [facility] [address] [place] [address] Dr. Stacy Saxena Platelet mean volume (Bld) [Entitic vol] 8.9 fL Critically low 9.5-13.5 [facility] Comment on above: Performed By: #### C BC #### [facility] [address] [place] [address] Dr. Stacy Saxena PLT 250 103/ul Normal 150-450 [facility] Comment on above: Performed By: #### C BC #### [facility] [address] [place] [address] Dr. Stacy Saxena RBC 5.27 106/ul Normal 4.70-6.10 [facility] Comment on above: Performed By: #### C BC #### [facility] [address] [place] [address] Dr. Stacy Saxena WBC 6.9 103/ul Normal 4.0-11.0 [facility] Comment on above: Performed By: #### C BC #### [facility] [address] [place] [address] Dr. Stacy Saxena FREE THYROXINE INDEX T7on FTI 3.08 Normal 1.30-4.50 [facility] Comment on above: Performed By: #### L IPID, URIC, CMP, T7, TSH #### [facility] [address] [place] [address] Dr. Stacy Saxena T3U 35.0 % Normal 33.0-40.0 [facility] Comment on above: Performed By: #### L IPID, URIC, CMP, T7, TSH #### [facility] [address] [place] [address] Dr. Stacy Saxena T4 [Mass/Vol] 8.80 ug/dL Normal 4.50-12.10 [facility] Comment on above: Performed By: #### L IPID, URIC, CMP, T7, TSH #### [facility] [address] [place] [address] Dr. Stacy Saxena GLYCOHEMOGLOBIN A1Con 2022 ADA RECOMMENDATION SEE BELOW Normal [facility] Comment on above: Result Comment: ADA RECOMMENDED LIMIT 4.0 - 6.0 ADA THERAPEUTIC TARGET < 7.0 ACTION SUGGESTED > 7.0 Performed By: #### A 1C #### [facility] [address] [place] [address] Dr. Stacy Saxena Glucose [Mass/Vol] 111 mg/dL Normal [facility] Comment on above: Performed By: #### A 1C #### [facility] [address] [place] [address] Dr. Stacy Saxena HbA1c (Bld) [Mass fraction] 5.5 % Normal 4.5-6.2 [facility] Comment on above: Performed By: #### A 1C #### [facility] [address] [place] [address] Dr. Stacy Saxena LIPID PROFILEon 11-03-2022 CHOL-HDL RATIO NORM SEE BELOW Normal [facility] Comment on above: Result Comment: 3.3 - 4.4 LOW RISK 4.4 - 7.1 AVERAGE RISK 7.1 - 11.0 MODERATE RISK >11.0 HIGH RISK Performed By: #### L IPID, URIC, CMP, T7, TSH #### [facility] [address] [place] [address] Dr. Stacy Saxena Cholesterol [Mass/Vol] 183 mg/dL Normal <=200 [facility] Comment on above: Performed By: #### L IPID, URIC, CMP, T7, TSH #### [facility] [address] [address] [address] Stacy Saxena Cholesterol in HDL [Mass/Vol] 58 mg/dL Normal 40-60 [facility] Comment on above: Performed By: #### L IPID, URIC, CMP, T7, TSH #### [facility] [address] [address] [address] Stacy Saxena Cholesterol in LDL [Mass/Vol] 115.0 mg/dL Normal [facility] Comment on above: Performed By: #### L IPID, URIC, CMP, T7, TSH #### [facility] [address] [address] [address] Stacy Saxena Cholesterol.total/Libby sterol in HDL [Mass ratio] 3.2 {ratio} Normal [facility] Comment on above: Performed By: #### L IPID, URIC, CMP, T7, TSH #### [facility] [address] [address] [address] Stacy Saxena HDL NORMAL > or = 60 mg/dl - LO W CARDIOVASCULAR RISK <40 mg/dl - HIGH CARDIOVASCULAR RISK Normal [facility] Comment on above: Performed By: #### L IPID, URIC, CMP, T7, TSH #### [facility] [address] [address] [address] Stacy Saxena LDL CALC NORMAL SEE BELOW Normal [facility] Comment on above: Result Comment: <100 mg/dl OPTIMAL 100 - 129 mg/dl NEAR OR ABOVE OPTIMAL 130 - 159 mg/dl BORDERLINE HIGH 160 - 189 mg/dl HIGH >190 mg/dl VERY HIGH Performed By: #### L IPID, URIC, CMP, T7, TSH #### [facility] [address] [address] [address] Stacy Saxena Triglyceride [Mass/Vol] 50 mg/dL Normal <=150 [facility] Comment on above: Performed By: #### L IPID, URIC, CMP, T7, TSH #### [facility] [address] [address] [address] Stacy Saxena VLDL CALC 10.0 mg/dL Normal [facility] Comment on above: Performed By: #### L IPID, URIC, CMP, T7, TSH #### [facility] [address] [place] [address] Dr. Stacy Saxena PROF 14(COMP METB)on 023 Albumin [Mass/Vol] 3.9 g/dL Normal 3.4-5.0 [facility] Comment on above: Performed By: #### L IPID, URIC, CMP, T7, TSH #### [facility] [address] [place] [address] Dr. Stacy Saxena Albumin/Globulin [Mass ratio] 1.2 {ratio} Normal [facility] Comment on above: Performed By: #### L IPID, URIC, CMP, T7, TSH #### [facility] [address] [place] [address] Dr. Stacy Saxena ALP [Catalytic activity/Vol] 94 U/L Normal 46-116 [facility] Comment on above: Performed By: #### L IPID, URIC, CMP, T7, TSH #### [facility] [address] [place] [address] Dr. Stacy Saxena ALT [Catalytic activity/Vol] 38 U/L Normal 16-63 [facility] Comment on above: Performed By: #### L IPID, URIC, CMP, T7, TSH #### [facility] [address] [place] [address] Dr. Stacy Saxena Anion gap [Moles/Vol] 14.1 mmol/L Normal [facility] Comment on above: Performed By: #### L IPID, URIC, CMP, T7, TSH #### [facility] [address] [place] [address] Dr. Stacy Saxena AST [Catalytic activity/Vol] 46 U/L Critically high 15-37 [facility] Comment on above: Performed By: #### L IPID, URIC, CMP, T7, TSH #### [facility] [address] [place] [address] Dr. Stacy Saxena Bilirubin [Mass/Vol] 0.3 mg/dL Normal 0.2-1.0 [facility] Comment on above: Performed By: #### L IPID, URIC, CMP, T7, TSH #### [facility] [address] [place] [address] Dr. Stacy Saxena Calcium [Mass/Vol] 9.0 mg/dL Normal 8.5-10.1 [facility] Comment on above: Performed By: #### L IPID, URIC, CMP, T7, TSH #### [facility] [address] [place] [address] Dr. Stacy Saxena Chloride [Moles/Vol] 106 mmol/L Normal 98-107 [facility] Comment on above: Performed By: #### L IPID, URIC, CMP, T7, TSH #### [facility] [address] [place] [address] Dr. Stacy Saxena CO2 [Moles/Vol] 26.1 mmol/L Normal 21.0-32.0 [facility] Comment on above: Performed By: #### L IPID, URIC, CMP, T7, TSH #### [facility] [address] [place] [address] Dr. Stacy Saxena Creatinine [Mass/Vol] 0.87 mg/dL Normal 0.70-1.30 [facility] Comment on above: Performed By: #### L IPID, URIC, CMP, T7, TSH #### [facility] [address] [place] [address] Dr. Stacy Saxena EGFR-AF MAURITIAN >60 Normal >=60 [facility] Comment on above: Performed By: #### L IPID, URIC, CMP, T7, TSH #### [facility] [address] [place] [address] Dr. Stacy Saxena EGFR-NON AF MAURITIAN >60 Normal >=60 [facility] Comment on above: Performed By: #### L IPID, URIC, CMP, T7, TSH #### [facility] [address] [place] [address] Dr. Stacy Saxena Globulin (S) [Mass/Vol] 3.3 g/dL Normal [facility] Comment on above: Performed By: #### L IPID, URIC, CMP, T7, TSH #### [facility] [address] [place] [address] Dr. Stacy Saxena Glucose [Mass/Vol] 97 mg/dL Normal 74-106 [facility] Comment on above: Performed By: #### L IPID, URIC, CMP, T7, TSH #### [facility] [address] [place] [address] Dr. Stacy Saxena Potassium [Moles/Vol] 4.2 mmol/L Normal 3.5-5.1 [facility] Comment on above: Performed By: #### L IPID, URIC, CMP, T7, TSH #### [facility] [address] [place] [address] Dr. Stacy Saxena Protein [Mass/Vol] 7.2 g/dL Normal 6.4-8.2 [facility] Comment on above: Performed By: #### L IPID, URIC, CMP, T7, TSH #### [facility] [address] [place] [address] Dr. Stacy Saxena Sodium [Moles/Vol] 142 mmol/L Normal 136-145 [facility] Comment on above: Performed By: #### L IPID, URIC, CMP, T7, TSH #### [facility] [address] [place] [address] Dr. Stacy Saxena Urea nitrogen [Mass/Vol] 21.0 mg/dL Critically high 7.0-18.0 [facility] Comment on above: Performed By: #### L IPID, URIC, CMP, T7, TSH #### [facility] [address] [place] [address] Dr. Stacy Saxena Urea nitrogen/Creatinine [Mass ratio] 24.1 mg/mg Normal [facility] Comment on above: Performed By: #### L IPID, URIC, CMP, T7, TSH #### [facility] [address] [place] [address] Dr. Stacy Saxena TSHon 11-03-2022 TSH 1.227 uIU/mL Normal 0.358-3.740 [facility] Comment on above: Performed By: #### L IPID, URIC, CMP, T7, TSH #### [facility] [address] [place] [address] Dr. Stacy Saxena URIC ACID SERUMon 11-03-2022 Urate [Mass/Vol] 5.6 mg/dL Normal 3.5-7.2 [facility] Comment on above: Performed By: #### L IPID, URIC, CMP, T7, TSH #### [facility] [address] [address] [address] Stacy Saxena FLUORO FOR SURGICAL PROCEDUR ESon 07-26-2022 FLUORO FOR SURGICAL PROCEDURES Radiology exam is complete. No Radiologist dictation. Please follow up with ordering provider. Final result Normal [facility] Radiology exam is complete. No Radiologist dictation. Please follow up with ordering provider. MHPN RIS CONSOLIDATED CBCon 07-20-2022 Erythrocyte distribution width (RBC) [Ratio] 12.9 % Normal 11.8-14.4 [facility] Comment on above: Performed By: #### C EDNA LYTE #### [facility] [address] [facility] [place] [address] Rat Farmer: Awais Sadler MD Hematocrit (Bld) [Volume fraction] 42.3 % Normal 40.7-50.3 [facility] Comment on above: Performed By: #### Monica BISHOP LYTE #### [facility] [address] [place] [address] Rat Farmer: Awais Sadler MD Hemoglobin (Bld) [Mass/Vol] 14.2 g/dL Normal 13.0-17.0 [facility] Comment on above: Performed By: #### C EDNA LYTE #### [facility] [address] [facility] [place] [address] Rat Farmer: Awais Sadler MD MCH (RBC) [Entitic mass] 29.5 pg Normal 25.2-33.5 [facility] Comment on above: Performed By: #### C EDNA LYTE #### [facility] [address] [facility] [place] [address] Rat Farmer: Awais Sadler MD MCHC (RBC) [Mass/Vol] 33.6 g/dL Normal 28.4-34.8 [facility] Comment on above: Performed By: #### Monica BISHOP LYTE #### [facility] [address] [place] [address] Rat Farmer: Awais Sadler MD MCV (RBC) [Entitic vol] 87.8 fL Normal 82.6-102.9 [facility] Comment on above: Performed By: #### C EDNA LYTE #### [facility] [address] [place] [address]. [place] [address] Rat Farmer: Awais Sadler MD NRBC Automated 0.0 per 100 WBC Normal 0.0 [facility] Comment on above: Performed By: #### Monica BISHOP LYTE #### [facility] [address] [place] [address]. [place] [address] Rat Farmer: Awais Sadler MD Platelet mean volume (Bld) [Entitic vol] 9.3 fL Normal 8.1-13.5 [facility] Comment on above: Performed By: #### ANGIE BRYANTTE #### [facility] [address] [place] [address]. [place] [address] Rat Farmer: Awais Sadler MD Platelets (Bld) [#/Vol] 233 10*3/uL Normal 138-453 [facility] Comment on above: Performed By: #### Monica BISHOP LYTE #### [facility] [address] [place] [address]. [place] [address] Rat Farmer: Awais Sadler MD RBC (Bld) [#/Vol] 4.82 10*6/uL Normal 4.21-5.77 [facility] Comment on above: Performed By: #### Monica BISHOP LYTE #### [facility] [address] [place] [address] Rat Farmer: Awais Sadler MD WBC (Bld) [#/Vol] 9.4 10*3/uL Normal 3.5-11.3 [facility] Comment on above: Performed By: #### C BC, BRAD #### [facility] [address] [facility] [place] [address] Rat Farmer: Awais Sadler MD Hematocrit (Bld) [Volume fraction] 42.3 % 40.7 - 50.3 % [facility] Hemoglobin (Bld) [Mass/Vol] 14.2 g/dL 13.0 - 17.0 g/dL [facility] MCH (RBC) [Entitic mass] 29.5 pg 25.2 - 33.5 pg [facility] MCHC (RBC) [Mass/Vol] 33.6 g/dL 28.4 - 34.8 g/dL [facility] MCV (RBC) [Entitic vol] 87.8 fL 82.6 - 102.9 fL [facility] NRBC Automated 0.0 0.0 per 100 WBC [facility] Platelet distribution width (Bld) [Ratio] 12.9 % 11.8 - 14.4 % [facility] Platelet mean volume (Bld) [Entitic vol] 9.3 fL 8.1 - 13.5 fL [facility] Platelets (Bld) [#/Vol] 233 10*3/uL [facility] RBC (Bld) [#/Vol] 4.82 10*6/uL 4.21 - 5.7 7 m/uL [facility] WBC (Bld) [#/Vol] 9.4 10*3/uL [facility] EKG 12 LeadOrdered By: Ashley Monahan on 07-20-2022 Atrial Rate 58 BPM [facility] Work Phone: P Guthrie 46 degrees [facility] Work Phone: P-R Interval 192 ms [employer] Work Phone: Q-T Interval 400 ms [employer] Work Phone: QRS Duration 96 ms [employer] Work Phone: QTc Calculation (Bazett) 392 ms [employer] Work Phone: R Guthrie 81 degrees [employer] Work Phone: T Guthrie 65 degrees [employer] Work Phone: Ventricular Rate 58 BPM [employer] Work Phone: [employer] Work Phone: EKG 12 Leadon 07-20-2022 Sinus bradycardia Otherwise normal ECG No previous ECGs available [facility] Ashley Singh MD - 07/20/2022 Sinus bradycardia Otherwise normal ECG No previous ECGs available [employer] Work Phone: Electrolyte Panelon 07-20-19 Anion gap [Moles/Vol] 10 mmol/L 9 - 17 mmol/L [employer] Chloride [Moles/Vol] 101 mmol/L 98 - 10 7 mmol/L [employer] CO2 [Moles/Vol] 25 mmol/L 20 - 31 mmol/L [employer] Potassium [Moles/Vol] 4.1 mmol/L 3.7 - 5.3 mmol/L [employer] Sodium [Moles/Vol] 136 mmol/L 135 - 144 mmol/L [facility] [employer] [facility] [employer] Electrolyteson 07-20-2022 Anion gap [Moles/Vol] 10 mmol/L Normal 9-17 [facility] Comment on above: Performed By: #### C BRAD BISHOP #### [facility] [address] [place] [address] Rat Farmer: Awais Sadler MD Chloride [Moles/Vol] 101 mmol/L Normal 98-107 [facility] Comment on above: Performed By: #### C EDNA LYTE #### [facility] [address] [place] [address] Rat Farmer: Awais Sdaler MD CO2 [Moles/Vol] 25 mmol/L Normal 20-31 [facility] Comment on above: Performed By: #### C EDNA LYTE #### [facility] [address] [place] [address] Rat Farmer: Awais Sadler MD Potassium [Moles/Vol] 4.1 mmol/L Normal 3.7-5.3 [facility] Comment on above: Performed By: #### C ANGIE BISHOPTE #### [facility] [place] [address] Rat Farmer: Awais Sadler MD Sodium [Moles/Vol] 136 mmol/L Normal 135-144 [facility] [facility] Comment on above: Performed By: #### C EDNA LYTE #### [facility] [place] [address] Rat Farmer: Awais Sadler MD MR Cervical spine WO contras ton 05-11-2021 IMPRESSION: 1. 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 2. Spinal cord and thecal sac impingement without compression at C7-T1. 3. Left C3-4 & right C5-6 and bilateral C6-7 and C7-T1 significant foramina narrowing. COUNTING REFERENCE: Superior cervical disc is taken as C2-3. Structural anomalies: None. Premium Service Representative: PSCB Transcribe Date/Time: May 11 2021 11:48A Dictated by : TREASURE NAM MD This examination was interpreted and the report reviewed and electronically signed by: TREASURE NAM MD on May 11 2021 11:54AM [facility] DIVISION OF RADIOLOGY * * *Final Report* [...] DIVISION OF RADIOLOGY Provider, [facility] - 05/11/2021 * * *Final Report* [...] is taken as C2-3. Structural anomalies: None. Premium Service Representative: PSCB Transcribe Date/Time: May 11 2021 11:48A Dictated by : TREASURE NAM MD This examination was interpreted and the report reviewed and electronically signed by: TREASURE NAM MD on May 11 2021 11:54AM EST [facility] Radiology Study observation (narrative) [facility] MR Cervical spine WO contras tOrdered By: Ccf Provider on 05-11-2021 [facility] ED NOTEon 04-16-2021 ED NOTE HNO ID: [id number] Author: Vashti Mc RN Service: ? Author Type: Registered Nurse Type: ED Notes Filed: 04/16/2021 4:51 AM Note Text: Verbalized understanding of new meds sent to documented preferred pharmacy and sched f/u appt with Spine. Phone number provided to patient for PCP f/u appt. Ambulatory out of dept. Normal [facility] ED NOTE HNO ID: [id number] Author: Vashti Mc RN Service: ? Author Type: Registered Nurse Type: ED Notes Filed: 04/16/2021 3:09 AM Note Text: Ambulatory in room for urine sample. Urinal provided. [facility] ED NOTE HNO ID: [id number] Author: Vashti Mc RN Service: ? Author Type: Registered Nurse Type: ED Notes Filed: 04/16/2021 2:52 AM Note Text: Patient denies any recent injury/trauma. Denies loss of function to bowel/bladder. [facility] ED NOTE HNO ID: [id number] Author: Vashti Mc RN Service: ? Author Type: Registered Nurse Type: ED Notes Filed: 04/16/2021 1:15 AM Note Text: Patient ambulatory from lobby to room independently with steady gait. [facility] ED PROV NOTEon 04-16-2021 ED PROV NOTE HNO ID: [id number] Author: Jacquelyn Walls PA-C Service: ? 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 Mouth/Throat: Lips: [place]. Mouth: Mucous membranes are dry. Eyes: Extraocular [...] No o (more content not included)... Normal [facility] Urinalysis with [facility] 04-16-2021 Bilirubin, Urine Negative Normal Negative [facility] pital Cast SEE COMMENT Normal 0 [facility] Comment on above: Result Comment: 0 Clarity (U) Clear Normal Clear [facility] Color (U) Yellow Normal Yellow [facility] Glucose Ql (U) Negative Normal Negative [facility] Hemoglobin/Blood,Ur Negative Normal Negative [facility] Ketones Ql (U) Trace Critically abnormal Negative [facility] Leukest Trace Critically abnormal Negative [facility] Nitrite Ql (U) Negative Normal Negative [facility] pH (U) 6.5 [pH] Normal 5.0-8.0 [facility] Protein, Urine Negative Normal Negative [facility] RBC 0-3 Normal 0-3 [facility] Specific [place], Ur 1.022 Normal 1.005-1.030 [facility] Urobilinogen Qn (U) 1.0 {Jalen'U}/dL Normal 0.2-1.0 [facility] WBC 0-5 Normal 0-[address] [facility] [address] BRAIN WO IVCONon 04-15-[address] BRAIN WO IVCON * * *Final Report* * * DATE OF EXAM: Apr 15 2021 8:31PM [facility] 0504 - CT BRAIN WO IVCON [...] base and imaged soft tissues are unremarkable. [employer] Floorperson (topogram) images: Unremarkable. IMPRESSION: No evidence of an acute intracranial process. Premium Service Representative: PSCB Transcribe Date/Time: Apr 15 2021 8:36P Dictated by : HEATHER LUCIO MD This examination was interpreted and the report reviewed and electronically signed by: HEATHER LUCIO MD on Apr 15 2021 8:38PM EST [id number] Normal [facility] CT CERVICAL SPINE WO IVCONon 04-15-2021 CT CERVICAL SPINE WO IVCON * * *Final Report* * * DATE OF EXAM: Apr 15 2021 8:31PM [facility] 0505 - CT CERVICAL SPINE WO [...] Counting reference: Craniocervical junction. Anatomic Variants: None. [employer] Floorperson (topogram) images: Alignment: Alignment is anatomic. Craniocervical [...] vertebrae with counting from the craniocervical junction. Premium Service Representative: [place] Transcribe Date/Time: Apr 15 2021 8:38P Dictated by : HEATHER LUCIO MD This examination was interpreted and the report reviewed and electronically signed by: HEATHER LUCIO MD on Apr 15 2021 8:40PM EST [id number] Normal [facility] CT LUMBAR SPINE WO IVCONon 1 CT LUMBAR SPINE WO IVCON * * *Final Report* * * DATE OF EXAM: Apr 15 2021 8:31PM [facility] 0508 - CT LUMBAR SPINE WO [...] junction. For the purposes of this report, [employer] Floorperson (topogram) images: Alignment: Alignment is anatomic. Bone [...] and assume there are 5 lumbar-type vertebrae. Premium Service Representative: [place] Transcribe Date/Time: Apr 15 2021 8:40P Dictated by : HEATHER LUCIO MD This examination was interpreted and the report reviewed and electronically signed by: HEATHER LUCIO MD on Apr 15 2021 8:43PM EST [id number] N [facility] ED NOTEon 04-15-2021 ED NOTE HNO ID: [id number] Author: Li Damon RN Service: ? Author Type: Registered Nurse Type: ED Notes Filed: 04/15/2021 6:06 PM Note Text: Pt. to ED for neck and low back pain after falling about 4 weeks ago. Pt. states was up about 3 ft on ladder when he fell off onto anjali that was on the ground. Denies loc, no blood thinners. [facility] ED Triage Noteon 04-15-2021 ED Triage Note HNO ID: [id number] Author: Geovanny Tanner PA-C Service: Emergency Medicine Author Type: Physician Hand Etcher Helper Type: ED Triage Notes Filed: 04/15/2021 6:11 [...] Midline cervical and lumbar spinal tenderness. 5/5 gyroscope technician, bicep, tricep strength b/l. 5/5 hip extension, knee extension/flexion, DF/PF strength b/l. Normal gross motor and sensory function to light touch over b/l face, UEs, and LEs. Normal finger to nose. No basilar skull fracture signs. Deferred exam at this time. INTAKE WORKUP: Imaging: CT: Brain, C spine, Lumbar spine Testicular US SIGNATURE: Geovanny Tanner PA-C [facility] US DOPPLER COMPLETEon 2020 US DOPPLER COMPLETE * * *Final Report* * * DATE OF EXAM: Apr 15 2021 6:53PM [facility] 1033 - US DOPPLER COMPLETE / [...] 3. Slightly complex septated small left hydrocele. Premium Service Representative: [facility] Transcribe Date/Time: Apr 15 2021 7:06P Dictated by : JENNIFER CASTILLO MD This examination was interpreted and the report reviewed and electronically signed by: JENNIFER CASTILLO MD on Apr 15 2021 7:12PM EST [id number] Normal [facility] US SCROTUM AND CONTENTSon US SCROTUM AND CONTENTS * * *Final Repor t* * * DATE OF EXAM: Apr 15 2021 6:53PM [facility] 1063 - US SCROTUM AND CONTENTS [...] 3. Slightly complex septated small left hydrocele. Premium Service Representative: [facility] Transcribe Date/Time: Apr 15 2021 7:06P Dictated by : JENNIFER CASTILLO MD This examination was interpreted and the report reviewed and electronically signed by: JENNIFER CASTILLO MD on Apr 15 2021 7:12PM EST [id number] [facility] VW Son 02-17-2020 LUMB SP COMP W FLEX/EXT 6 VWS STUDY: LUMB SP COMP W FLEX/EXT 6 VWS ; 02/17/2020 9:43 am INDICATION: PAIN. COMPARISON: 10/08/2018 ACCESSION NUMBER(S): [id number] ORDERING CLINICIAN: Earl Choi FINDINGS: Severe levoscoliosis. [...] the lumbar spine without dynamic instability. Normal [facility] Coding Summaryon 04-25-2018 Coding Summary CODING DATE: 04/25/2018 [facility] STATUS: Home PAYOR: Medicare ADMIT DX: [...] Oakley' Date Saved: 04/25/2018 05:43 pm Normal [facility] ED Clinical Summaryon 2017 ED Clinical Summary [facility] ? Urgent Care [address] [place] [address] Clinical Summary PERSON INFORMATION Name: EDMUND CHRISTOPHER Age: 53 Years Sex: MALE : 65 MRN: Acct#: Visit Reason: UC - Eye Pain; LEFT EYE PAIN Arrival: 03/24/18 12:26:00 Discharge: 03/24/18 13:10:00 LOS: 000 00:44 Check In: 03/24/18 12:26:00 Checkout: 03/24/18 13:10:00 Address: [address] [place] [id number] PCP: MADDY COTTO MD PROVIDER INFORMATION Provider Role Assigned Unassigned Omayra Munguia ED PA 03/24/18 12:29:30 03/24/18 12:36:20 Omayra Munguia ED PA 03/24/18 12:36:24 Lin Farmer CRIME LAB ANALYST Nurse 03/24/18 12:38:39 VITALS INFORMATION Vital Sign [...] pain. He states he is working along [employer] believes he got something into his eye [...] vision. Impression and Plan Diagnosis Corneal abrasion ([id number] S05.00XA, Discharge, Medical) Plan Condition: Stable. Disposition: [...] Abrasion Follow-Up: With: Address: When: MADDY COTTO [address] [place] [address] [facility] (for; to (do) In 2 days 03/26/18 DIAGNOSIS: Corneal abrasion Patient Understands: Yes - Patient/family/caregi chang verbalizes understanding of instructions given Comment: [facility] ED Note - Physicianon 2017 ED Note [...] vision. Impression and Plan Diagnosis Corneal abrasion ([id number] S05.00XA, Discharge, Medical) Plan Condition: Stable. Disposition: [...] on: 03/24/2018 13:04 EDT] Omayra Munguia [facility] ED Patient Summaryon 018 ED Patient Summary [facility] ? Urgent Care [address] [place] [address] PATIENT DISCHARGE INSTRUCTIONS Patient Information Name: EDMUND CHRISTOPHER Age: 53 Years Date of : [birth year] Reason For Visit: UC - Eye Pain; LEFT EYE PAIN Arrival Time: 03/24/18 12:26:00 Primary Care Physician: MADDY COTTO MD Attending Physician: Omayra Munguia Comment: Patient Education With: Address: When: MADDY COTTO [address] [place] [id number] Business (1) In 2 days 03/26/18 [...] condition may be caused by: ? A boxing machine operator the eye. ? A gritty or irritating [...] in diseases and conditions of the eye (molder feeder). Before the eye exam, numbing drops may be put into your eye. You may also have dye put in your eye with a dropper or a small paper strip. The dye makes the abrasion easy to see when your molder feeder examines your eye with a light. Your molder feeder may look at your eye through an [...] you start to feel better. ? Take lhrv-dvg-iyacrqp and prescription medicines only as told by your eye care provider. ? Do not drive or use heavy machinery while taking prescription pain medicine. General instructions ? If you have an eye patch, wear it as told by your eye care provider. ? Do not drive or use machinery while wearing an eye patch. Your ability to admissions officer distances will be impaired. ? Follow instructions [...] 06/29/2001 Document Revised: 06/12/2017 Document Reviewed: 06/12/2017 [employer] Patient Education ? 2017 [employer] Medication Information: The exam and treatment you received today in the [facility] Emergency Department were for an urgent problem and are not intended as complete care. It is important for you to follow up with a doctor, nurse practitioner, or physician?s produce assistant for ongoing care. If your symptoms [...] so we can reach you if necessary. [facility] Emergency Department has provided you with a complete list of medications post discharge. Please inform your primary grade teacher/provider of your visit and for further instruction on these medications. Any specific questions regarding your chronic medications and dosages should be discussed with your primary care physician(s) and/or pharmacist. New Medications [facility], [address] [place] [address], [phone] ketorolac ophthalmic (Acular 0.5% ophthalmic solution) 1 Drops Ophthalmic 4 times a day as needed for itching for 3 Days. Refills: 0. tobramycin ophthalmic (Tobrex 0.3% ophthalmic solution) 1 Drops Ophthalmic 4 times a day for 7 Days. Refills: 0. Visit Information Visit Diagnosis: Diagnoses This Visit Corneal abrasion (S05.00XA) UC - Eye Pain ([id number]) If you received any narcotics, sedation, or [...] Disease Control and Prevention March 2014 Normal [facility] Urgent Care [place] 018 Urgent Care Record [facility] ? Urgent Care [address] [place] [id number] PATIENT DISCHARGE INSTRUCTIONS Patient Information Name: EDMUND CHRISTOPHER Age: 53 Years Date of : 65 Reason For Visit: UC - Eye Pain; LEFT EYE PAIN Arrival Time: 03/24/18 12:26:00 Primary Care Physician: MADDY COTTO MD Attending Physician: Omayra Munguia Comment: Visit Diagnosis: Diagnoses This Visit Corneal abrasion (S05.00XA) UC - Eye Pain ([id number]) If you received any narcotics, sedation, or [...] legal documents With: Address: When: MADDY COTTO [address] [place] [phone] Business (1) In 2 days 03/26/18 Medication Information: The exam and treatment you received today in the [facility] were for an urgent problem and are not intended as complete care. It is important for you to follow up with a doctor, nurse practitioner, or physician?s produce assistant for ongoing care. If your symptoms [...] so we can reach you if necessary. [facility] Urgent Care has provided you with a complete list of medications post discharge. Please inform your primary grade teacher/provider of your visit and for further instruction on these medications. Any specific questions regarding your chronic medications and dosages should be discussed with your primary care physician(s) and/or pharmacist. New Medications [facility], [address] [place] [id number], [phone] ketorolac ophthalmic (Acular 0.5% ophthalmic solution) 1 [...] condition may be caused by: ? A boxing machine operator the eye. ? A gritty or irritating [...] in diseases and conditions of the eye (molder feeder). Before the eye exam, numbing drops may be put into your eye. You may also have dye put in your eye with a dropper or a small paper strip. The dye makes the abrasion easy to see when your molder feeder examines your eye with a light. Your molder feeder may look at your eye through an [...] you start to feel better. ? Take vsgz-nrx-yjwgxkj and prescription medicines only as told by your eye care provider. ? Do not drive or use heavy machinery while taking prescription pain medicine. General instructions ? If you have an eye patch, wear it as told by your eye care provider. ? Do not drive or use machinery while wearing an eye patch. Your ability to admissions officer distances will be impaired. ? Follow instructions [...] 06/29/2001 Document Revised: 06/12/2017 Document Reviewed: 06/12/2017 [employer] Patient Education ? 2017 [employer]. Viruses or Bacteria What?s got you sick? [...] Disease Control and Prevention March 2014 [facility] Vital Signs Date Time Vital Sign Value Performing Clinician Facility 11-12-2023 09:41-0400 Diastolic blood pressure 62 mm[Hg] PICK REMOVER-C Shreyas Felipe Work Phone: [facility] 11-12-2023 09:41-0400 Heart rate 59 /min PICK REMOVER-C Shreyas Felipe Work Phone: [facility] 11-12-2023 09:41-0400 Respiratory rate 18 /min PICK REMOVER-C Shreyas Felipe Work Phone: [facility] 11-12-2023 09:41-0400 SaO2% (BldA) [Mass fraction] 98 % PICK REMOVER-C Shreyas Felipe Work Phone: [facility] 11-12-2023 09:41-0400 Systolic blood pressure 95 mm[Hg] PICK REMOVER-C Shreyas Felipe Work Phone: [facility] 11-12-2023 07:49-0400 Body height 162.56 cm PICK REMOVER-C Shreyas Josie Work Phone: [facility] 11-12-2023 07:49-0400 Body weight 70.3 kg PICK REMOVER-C Shreyas Josie Work Phone: [facility] 10-10-2023 14:34-0400 Body temperature 97.8 [degF] PICK REMOVER-C Shreyas Josie Work Phone: [facility] 10-10-2023 14:34-0400 Diastolic blood pressure 84 mm[Hg] PICK REMOVER-C Shreyas Josie Work Phone: [facility] 10-10-2023 14:34-0400 Heart rate 60 /min PICK REMOVER-C Shreyas Josie Work Phone: [facility] 10-10-2023 14:34-0400 Respiratory rate 16 /min PICK REMOVER-C Shreyas Josie Work Phone: [facility] 10-10-2023 14:34-0400 SaO2% (BldA) [Mass fraction] 99 % PICK REMOVER-C Shreyas Josie Work Phone: [facility] 10-10-2023 14:34-0400 Systolic blood pressure 130 mm[Hg] PICK REMOVER-C Shreyas Josie Work Phone: [facility] 10-10-2023 11:16-0400 Body height 160.02 cm PICK REMOVER-C Shreyas Josie Work Phone: [facility] 10-10-2023 11:16-0400 Body weight 70.5 kg PICK REMOVER-C Shreyas Josie Work Phone: [facility] 01-05-2023 19:55-0400 Body height 162.56 cm PICK REMOVER-C Shreyas Josie Work Phone: [facility] 01-05-2023 19:55-0400 Body temperature 97.7 [degF] PICK REMOVER-C Shreyas Josie Work Phone: [facility] 06-23-2023 19:55-0400 Body weight 71.6 kg PICK REMOVER-C Shreyas Josie Work Phone: [facility] 01-05-2023 19:55-0400 Diastolic blood pressure 100 mm[Hg] PICK REMOVER-C Shreyas Josie Work Phone: [facility] 01-05-2023 19:55-0400 Heart rate 81 /min PICK REMOVER-C Shreyas Josie Work Phone: [facility] 01-05-2023 19:55-0400 Respiratory rate 20 /min PICK REMOVER-C Shreyas Josie Work Phone: [facility] 01-05-2023 19:55-0400 SaO2% (BldA) [Mass fraction] 95 % PICK REMOVER-C Shreyas Josie Work Phone: [facility] 01-05-2023 19:55-0400 Systolic blood pressure 135 mm[Hg] PICK REMOVER-C Shreyas Josie Work Phone: [facility] 11-07-2022 11:23-0400 Body height 160.02 cm PICK REMOVER-C Shreyas Josie Work Phone: [facility] 11-07-2022 11:23-0400 Body temperature 98.1 [degF] PICK REMOVER-C Shreyas Josie Work Phone: [facility] 11-07-2022 11:23-0400 Body weight 73.1 kg PICK REMOVER-C Shreyas Josie Work Phone: [facility] 11-07-2022 11:23-0400 Diastolic blood pressure 83 mm[Hg] PICK REMOVER-C Shreyas Josie Work Phone: [facility] 11-07-2022 11:23-0400 Heart rate 92 /min PICK REMOVER-C Shreyas Josie Work Phone: [facility] 11-07-2022 11:23-0400 Respiratory rate 18 /min PICK REMOVER-C Shreyas Josie Work Phone: [facility] 11-07-2022 11:23-0400 SaO2% (BldA) [Mass fraction] 95 % PICK REMOVER-C Shreyas Josie Work Phone: [facility] 11-07-2022 11:23-0400 Systolic blood pressure 129 mm[Hg] PICK REMOVER-C Shreyas Josie Work Phone: [facility] 07-26-2022 17:45-0500 Body temperature 97.5 [degF] Maddy Cabezas MD Work Phone: [employer] 07-26-2022 17:45-0500 Diastolic blood pressure 84 mm[Hg] Maddy Cabezas MD Work Phone: [employer] [facility] 07-26-2022 17:45-0500 Heart rate 56 /min Maddy Cabezas MD Work Phone: [employer] [facility] 07-26-2022 17:45-0500 Respiratory rate 17 /min Maddy Cabezas MD Work Phone: [employer] 07-26-2022 17:45-0500 SaO2% (BldA) [Mass fraction] 95 % Maddy Cabezas MD Work Phone: [employer] 07-26-2022 17:45-0500 Systolic blood pressure 106 mm[Hg] Maddy Cabezas MD Work Phone: [employer] [facility] 07-26-2022 13:06-0500 Body height 162.6 cm Maddy Cabezas MD Work Phone: [employer] [facility] 07-26-2022 13:06-0500 Body mass index (BMI) [Ratio] 26.14 kg/m2 Maddy Cabezas MD Work Phone: [employer] [facility] 07-26-2022 13:06-0500 Body weight 69.08 kg Maddy Cabezas MD Work Phone: [employer] [facility] 07-20-2022 14:07-0500 Body height 162.6 cm Sta 1 [employer] [facility] 07-20-2022 14:07-0500 Body mass index (BMI) [Ratio] 25.75 kg/m2 Sta 1 [facility] 07-20-2022 14:07-0500 Body temperature 97.81 [degF] Sta 1 [facility] [employer] 07-20-2022 14:07-0500 Body weight 68.04 kg Sta 1 [facility] 07-20-2022 14:07-0500 Diastolic blood pressure 85 mm[Hg] Sta 1 [facility] 07-20-2022 14:07-0500 Heart rate 72 /min Sta 1 [facility] [employer] 07-20-2022 14:07-0500 Respiratory rate 18 /min Sta [address] [facility] [facility] [employer] 07-20-2022 14:07-0500 SaO2% (BldA) [Mass fraction] 97 % Sta 1 [facility] 07-20-2022 14:07-0500 Systolic blood pressure 140 mm[Hg] Sta 1 [facility] Encounters Encounter Date Encounter Type Care Provider Facility Start: 12-25-2024 End: 12-25-2024 Refill Larry Mcdonald PA-C Work Phone: [facility] Comment on above: Refill Request Start: 07-28-2024 End: 07-28-2024 Bamboo flowsheet Denae A Felter 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-[employer]MAN Work Phone: [facility] Start: 07-28-2024 End: 07-28-2024 Bamboo flowsheet Denae A Felter 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 Work Phone: [facility] Start: 07-28-2024 End: 07-28-2024 Office outpatient visit 15 minutes Denae A Felter 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 Work Phone: [facility] Comment on above: Actinic keratosis (P rimary Dx); Erythema intertrigo Start: 07-28-2024 End: 07-28-2024 ambulatory DENAE A FELTER Not Available Start: 07-15-2024 End: 07-15-2024 Emergency department patient visit Shreyas Felipe Facility:[facility] Start: 06-03-2024 End: 06-03-2024 ambulatory DENAE A FELTER Not Available Start: 06-03-2024 End: 06-03-2024 Patient encounter procedure Denae Lopez 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 Work Phone: [facility] Comment on above: Actinic keratosis; Neoplasm of unspecified behavior of bone, soft tissue, and skin Start: 06-03-2024 End: 06-03-2024 Bamboo flowsheet Denae Lopez 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 Work Phone: [facility] Start: 06-03-2024 End: 06-03-2024 Bamboo flowsheet Denae Lopez 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 Work Phone: [facility] Start: 11-12-2023 Non-patient / Non-visit PICK REMOVER-C Shreyas Felipe Work Phone: [facility] Work Phone: Start: 11-12-2023 End: 11-12-2023 Admission to same day surgery center PICK REMOVER-C Shreyas Felipe Work Phone: [facility] Work Phone: Start: 11-12-2023 End: 11-12-2023 ambulatory PICK REMOVER-C Shreyas Felipe Work Phone: [facility] Work Phone: Start: 10-10-2023 End: 10-10-2023 Emergency department patient visit PICK REMOVER-C Shreyas Felipe Work Phone: [facility] Work Phone: Start: 08-07-2023 End: 08-08-2023 ambulatory RAÚL SULLIVAN Facility:[facility] Start: 06-18-2023 End: 06-18-2023 ambulatory PICK REMOVER-C Shreyas Felipe Work Phone: [facility] Work Phone: Start: 06-18-2023 End: 06-18-2023 Patient encounter procedure PICK REMOVER-C Shreyas Felipe Work Phone: [facility] Work Phone: Start: 05-04-2023 Telephone encounter Jessica paula MD Work Phone: Orthopaedics Start: 04-13-2023 End: 04-13-2023 ambulatory JESSICA DOTSON Facility:[facility] Start: 04-13-2023 End: 04-13-2023 ambulatory JESSICA T JEMElmer Facility:[facility] Start: 04-13-2023 End: 04-13-2023 ambulatory Emg 1000) Work Phone: Neurology Comment on above: EMG Start: 04-13-2023 End: 04-13-2023 Patient encounter procedure Emg 4 Neur Main (Max Weight: 1000) Work Phone: [facility] Start: 01-18-2023 End: 01-18-2023 ambulatory JESSICA DOTSON Facility:[facility] Start: 01-18-2023 End: 01-18-2023 Patient encounter [...] 01-05-2023 End: 01-05-2023 Emergency department patient visit PICK REMOVER-Monica Felipe Work Phone: [facility]-Emergency Room Work Phone: Start: 11-15-2022 Orders Only Jessica shook MD Work Phone: [facility] [place] Comment on above: Pain (Primary Dx) Start: 11-07-2022 End: 11-07-2022 Emergency department patient visit PICK REMOVER-Monica Felipe Work Phone: [facility]-Emergency Room Work Phone: Start: 11-04-2022 End: 11-04-2022 ambulatory SHREYAS FELIPE Facility:[facility]1 Start: 11-03-2022 End: 11-04-2022 ambulatory SHREYAS FELIPE Facility:[facility] Start: 07-26-2022 End: 07-26-2022 ambulatory MADDY [facility] Start: 07-26-2022 End: 07-26-2022 Subsequent hospital visit by physician Maddy Cabezas MD Work Phone: [facility] Start: 07-20-2022 End: 07-25-2022 ambulatory MADDY Davin MAHINMAYRA [facility] Start: 07-20-2022 End: 07-24-2022 Subsequent hospital visit by physician Shy Riley Rm 1 [facility] PRE-ADMIT TESTING Start: 05-29-2022 End: 05-29-2022 ambulatory PICK REMOVER-C Shreyas Felipe Work Phone: [facility] Work Phone: Start: 05-29-2022 End: 05-29-2022 Patient encounter procedure PICK REMOVER-C Shreyas Felipe Work Phone: [facility] Start: 12-02-2021 ambulatory SHREYAS FELIPE Facility: [facility] Start: 05-11-2021 End: 05-11-2021 Subsequent hospital visit by physician [facility] Melodie (1.5t) Work Phone: Radiology Comment on above: DDD (degenerative di sc disease), cervical [M50.30] Start: 10-08-2018 Patient encounter procedure Facility:[id number] Start: 03-24-2018 End: 08-05-2018 Patient encounter procedure Omayra Gonzales Facility:[facility] Procedures Date Procedure Procedure Detail Performing Clinician Start: 07-28-2024 CRYOTHERAPY SKIN LESION Denae A Chelseaer 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 Work Phone: Start: 06-03-2024 CRYOTHERAPY SKIN LESION Denae A Chelseaer 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 Work Phone: Start: 06-03-2024 SKIN / NAIL BIOPSY Myrtle lie A John 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 Work Phone: Start: 11-12-2023 Colonoscopy PICK REMOVER-C Ania Felipe Work Phone: Start: 10-10-2023 Computed tomography of abdomen and pelvis with contrast P[employer] REMOVER-C Shreyas Felipe Work Phone: Start: 06-18-2023 X-ray of lumbar spin e, six views including bending views PICK REMOVER-C Shreyas Felipe Work Phone: Start: 04-13-2023 Nerve conduction bety dies 5-6 studies Jessica Dotson MD Work Phone: Start: 01-18-2023 Radex shoulder compl ete minimum 2 views Jessica Dotson MD Work Phone: Start: 11-07-2022 X-ray of right knee PICK REMOVER- C Shreyas Felipe Work Phone: Start: 11-03-2022 PSA screening SHREYAS WELSH Comment on above: Performed By: #### [facility] #### [facility] [address] [place] [address] Dr. Stacy Saxena Start: 07-26-2022 Fluoroscopy during operation Maddy Cabezas MD Work Phone: Start: 07-20-2022 Electrolyte panel Ioana Roy MD Work Phone: Start: 07-20-2022 Ecg routine ecg w/le ast 12 lds trcg only w/o i&r Ioana Roy MD Work Phone: Start: 05-29-2022 Plain x-ray of pelvi s and lower extremity PICK REMOVER-C Shreyas Felipe Work Phone: Start: 05-29-2022 X-ray of both knees PICK REMOVER- C Shreyas Felipe Work Phone: Start: 05-11-2021 Mri spinal canal cer vical w/o contrast wanda Steen APRN.CNP Work Phone: Plan of Treatment Date Care Activity Detail Author Start: 03-24-2028 DTaP/Tdap/Td vaccine (2 - Td or Tdap) DTaP/Tdap/Td vaccine (2 - Td or Tdap) [facility] Start: 03-24-2028 Urine microalbumin profile DTaP,Tdap,Td Vaccine (2 - Td or Tdap) [facility] Start: 11-04-2027 PROSTATE CANCER SCREENING DISCUSSION PROSTATE CANCER SCREENING DISCUSSION [facility] Start: 11-04-2027 Prostate specific antigen measurement Prostate Cancer Screening Discussion [facility] Start: 03-16-2025 Influenza vaccination Influenza Vaccine (Season Ended) [facility] Start: 01-26-2025 End: 01-26-2025 Patient encounter procedure 01/26/2025 1:20 PM EDT Office Visit [facility] [address] [place] [phone] Denae Lopez, 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 [address] [place] [address] [facility] Start: 07-28-2024 End: 07-28-2024 Patient encounter procedure 07/28/2024 1:35 PM EST Office Visit [facility] [address] [place] [phone] Denae Lopez, 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 [address] [place] [address] Arrived [facility] Comment on above: Arrived Start: 07-16-2024 Medicare Advantage Annual Wellness Visit Medicare Advantage Annual Wellness Visit [facility] Start: 03-16-2024 Covid-19 Vaccine ( season) Covid-19 Vaccine ( season) [facility] Start: 03-16-2024 Influenza vaccination Influenza Vaccine (#1) [facility] Start: 11-12-2023 [facility] Start: 03-16-2023 Influenza vaccination [facility] Start: 07-26-2022 End: 07-26-2022 Prq impltj nstim electrode array epidural SPINAL CORD STIMULATOR IMPLANT TRIAL Lumbar radiculopathy 07/26/2022 4:40 PM EST [facility] Start: 07-26-2022 End: 07-26-2022 Admission to same day surgery center 07/26/2022 Surgery IP Unit Maddy Cabezas MD [address] [place] [address] SPINAL CORD STIMULATOR IMPLANT TRIAL - [facility] Comment on above: SPINAL CORD STIMULATOR IMPLANT TRIAL - [facility] Start: 07-26-2022 End: 07-26-2022 Anesthesia consultation 07/26/2022 Anesthesia Event IP Unit Oswaldo Daniels MD [address] [place] [address] [facility] Start: 07-26-2022 End: 07-26-2022 Prq impltj nstim electrode array epidural SPINAL CORD STIMULATOR IMPLANT TRIAL Lumbar radiculopathy 07/26/2022 3:20 PM [facility] Start: 07-26-2022 Subsequent hospital visit by physician 07/26/2022 Hospital Encounter IP Unit Maddy Cabezas MD [address] [place], [place] [id number] [facility] Start: 07-16-2022 DEPRESSION ASSESSMENT DEPRESSION ASSESSMENT [facility] Start: 07-13-2022 Annual Wellness Visit (AWV) Annual Wellness Visit (AWV) [facility] Start: 05-29-2022 Ultrasonography of limb extremity nonvascular [facility] Start: 05-29-2022 US Extremity [facility] Start: 02-13-2022 Influenza vaccination Flu vaccine (#1) [facility] Start: 02-07-2020 PROSTATE CANCER SCREENING DISCUSSION PROSTATE CANCER SCREENING DISCUSSION [facility] Start: 12-27-2019 DIABETES SCREEN DIABETES SCREEN [facility] Start: 12-27-2019 Diabetes Screening Diabetes Screening [facility] Start: 2015 Influenza vaccination LUNG CANCER SCREENING [facility] Start: 2015 Screening for malignant neoplasm of lung Lung Cancer Screening [facility] Start: 2015 Shingles vaccine (1 of 2) Shingles vaccine (1 of 2) [facility] Start: 2015 SHINGRIX VACCINE (1 of 2) SHINGRIX VACCINE (1 of 2) [facility] Start: 2010 COLOGUARD (FIT-DNA) COLOGUARD (FIT-DNA) [facility] Start: 2010 Colonoscopy COLONOSCOPY [facility] Start: 2010 COLORECTAL CANCER SCREENING COLORECTAL CANCER SCREENING [facility] Start: [address] COLONOGRAPHY [facility] Start: 2010 FECAL OCCULT BLOOD FECAL OCCULT BLOOD [facility] Start: 2010 Screening for malignant neoplasm of colon [facility] Start: 2010 SIGMOIDOSCOPY SIGMOIDOSCOPY [facility] Start: 2005 Lipid panel Lipids [employer] Start: 02-07-2000 Diabetes screen Diabetes screen [facility] Start: 02-07-2000 Lipid 1996 panel - Serum or Plasma Lipid Screening [facility] Start: 02-07-2000 Lipid panel Lipid Screening [facility] Start: 02-07-2000 LIPID SCREEN LIPID SCREEN [facility] Start: 02-07-1984 Pneumococcal Vaccine: 50+ (1 of 2 - PCV) Pneumococcal Vaccine: 50+ (1 of 2 - PCV) [facility] Start: 02-07-1984 Urine microalbumin profile [facility] Start: 1983 Anxiety Screening Anxiety Screening [facility] Start: 1983 Depression Screening Depression Screening [facility] Start: 1983 Hepatitis C screening [facility] Start: 1983 HEPATITIS C SCREENING HEPATITIS C SCREENING [facility] Start: 1983 HIV SCREENING HIV SCREENING [facility] Start: 1983 HIV screening HIV Screening [facility] Start: 02-07-1980 HIV screening HIV screen [facility] [employer] Start: 1977 Depression Screen Depression Screen [facility] Start: 1971 PNEUMOCOCCAL (1 - PCV) PNEUMOCOCCAL (1 - PCV) [facility] Start: 1971 Pneumococcal 0-64 years Vaccine (1 - PCV) Pneumococcal 0-64 years Vaccine (1 - PCV) [employer] Start: 1971 Pneumococcal vaccination [facility] Start: 1965 COVID-19 Vaccine (#1) COVID-19 Vaccine (#1) [employer] Start: 1965 HEPATITIS B (1 of 3 - 3-dose series) HEPATITIS B (1 of 3 - 3-dose series) [facility] Start: 1965 Hepatitis B Vaccine (1 of 3 - 3-dose series) Hepatitis B Vaccine (1 of 3 - 3-dose series) [facility] End: 07-26-2022 Blood glucose - POCT Blood glucose - POCT Point of Care Testing Routine One Time for 1 Occurrences starting 07/26/2022 until 07/26/2022 [employer] Work Phone: Comment on above: One Time for 1 Occurrences starting 07/16 until 07/26/2022 Dermatopathology exam Dermatopat hology exam Pathology and Cytology Timed Neoplasm of unspecified behavior of bone, soft tissue, and skin Release Upon Ordering for 1 Occurrences starting 06/03/2024 [facility] Work Phone: Comment on above: Release Upon Ordering for 1 Occurrences starting 06/03/2024 End: 01-19-2024 EMG(NEURO/NI) EMG(NEURO/NI) EMG Routine Rotator cuff tear arthropathy, right Right arm weakness Spinal stenosis of cervical region 1 Occurrences starting 01/18/2023 until 01/19/2024 [facility] Work Phone: Comment on above: 1 Occurrences starting 01/18/2023 until 01/19/2024 End: 07-26-2022 INITIATE PACU OXYGEN THERAPY PROTOCOL Initiate PACU Oxygen Therapy Protocol Respiratory Care Routine Continuous until discontinued starting 07/26/2022 [employer] Work Phone: Comment on above: Continuous until discontinued starting 0 07/26/2022 End: 02-17-2024 Mri spinal canal cervical w/o contrast matrl MRI CERVICAL SPINE WO IVCON Radiology Routine Spinal stenosis of cervical region 1 Occurrences starting 01/18/2023 until 02/17/2024 [facility] Work Phone: Comment on above: 1 Occurrences starting 01/18/2023 until 02/17/2024 Oxygen therapy [[facility] Data Set] Initiate Oxygen Therapy Protocol Respiratory Care Routine As Needed until discontinued starting 07/26/2022 [employer] Work Phone: Comment on above: As Needed until discontinued starting Patient Education [facility] Work Phone: Patient referral [facility] Work Phone: End: 07-26-2022 , urine POCT , urine POCT Point of Care Testing Routine One Time for 1 Occurrences starting 07/26/2022 until 07/26/2022 [facility] Work Phone: Comment on above: One Time for 1 Occurrences starting 07/16 until 07/26/2022 End: 12-15-2023 XR SHOULDER GENERAL 3V OR MORE AP/TRUE AP/OTHER LEFT XR SHOULDER GENERAL 3V OR MORE AP/TRUE AP/OTHER LEFT Radiology Routine Pain 1 Occurrences starting 11/16/2022 until 12/15/2023 [facility] Work Phone: Comment on above: 1 Occurrences starting 11/16/2022 until 12/15/2023 End: 12-15-2023 XR SHOULDER GENERAL 3V OR MORE AP/TRUE AP/OTHER RIGHT XR SHOULDER GENERAL 3V OR MORE AP/TRUE AP/OTHER RIGHT Radiology Routine Pain 1 Occurrences starting 11/16/2022 until 12/15/2023 [facility] Work Phone: Comment on above: 1 Occurrences starting 11/16/2022 until 12/15/2023 Payers Date Payer Category Payer Medicare [id number] 2020 Medicare (Managed Care) [id number] 2018 Medicare [id number] 2018 Self-pay ABC 2010 Unknown [id number] 2010 Unknown [id number] 1965 Unknown [id number] 18 1965 Unknown [id number] 56 1965 Unknown [id number] 77 1965 Unknown [id number] 77 1965 Unknown [id number] 93 1965 Unknown [id number] 93 1965 Unknown [id number] 93 1965 Unknown [id number] 259 1965 Unknown [id number] 259 1959 Medicare [id number] 1959 Self-pay [id number] Medicare Medicare [id number] Medicare Anthem MCR PFFS [id number] Unknown HCAP/HFA/FAP Active [id number] 21 [id number] Worker's Compensation [facility] [id number] Social History Date Type Detail Facility Start: 05-22-2021 End: 11-12-2023 Tobacco smoking status [facility] Smoker (finding) [facility] Start: 1965 Sex Assigned At Male F [facility] Start: 07-20-2022 End: 01-18-2023 Tobacco smoking status [facility] Smokes tobacco daily [employer] Phone: Start: 10-22-1977 End: 10-22-2006 History of tobacco use Cigarette Smoker [employer] Phone: Start: 07-20-2022 End: 01-18-2023 Cigarettes smoked current (pack per day) - Reported 1 [employer] Phone: Start: 07-20-2022 End: 01-18-2023 Tobacco use and exposure Smokeless tobacco non-user [employer] Phone: Start: 07-20-2022 End: 08-07-2023 Alcohol intake Current drinker of alcohol (finding) [employer] Phone: Start: 07-20-2022 Alcohol Comment socailly [employer] Phone: Start: 1965 Sex Assigned At Not on file B ON [employer] Phone: Start: 04-11-2021 End: 07-26-2022 Exposure to SARS-CoV-2 (event) Not sure [employer] Phone: Start: 11-21-2012 Alcohol Comment 2x year [facility] Start: 01-18-2023 End: 08-07-2023 Tobacco use panel [facility] National Score (1-10 0), lower number is lower risk 73 [facility] Start: 01-23-2023 Alcohol Comment coffee 2-3 coffee NO IN Healthcare Medical Equipment Procedure Code Equipment Code [...] Cntct W Imag Rdy Mri Full - [id number] Start: 07-26-2022 Anchr Sut 5.5mm Bcmps Crkscr - [id number] Start: 02-19-2015 [place] [employer] Tigerwire 5.5mm 2 Full Thread Biocomposite 14.7 - [id number] Start: 01-05-2017 Bit Drl 165mm 2. 8mm Ti Qc Ns - [id number] Start: 04-05-2012 Comment on above: Description: DRILL B IT Graft Bn Dbm 10m l Ptty Strl - [id number] Start: 04-05-2012 Leander Bn Smpx P To bra Fd - [id number] Start: 08-30-2012 0---Leander Bn Smpx P Tobra Fd - [id number] Start: 12-03-2012 Cortical Screw [id number] Start: 04-05-2012 Multifire Scorpi on Needle [id number] Start: 02-19-2015 Comment on above: Description: NDL SUT MULTFI SCRPN STRL DISP Head Fem 48mm Hi p - [id number] Start: 08-30-2012 0---Head Fem 48m m Hip - [id number] Start: 12-03-2012 Screw Bn 3.5mm 1 6mm Lcp Ss - [id number] Start: 04-05-2012 Anchr Sut 5.5mm 2 Crkscr 2 - [id number] Start: 10-17-2011 Anchr Sut 5.5mm Bcmps Crkscr - [id number] Start: 02-19-2015 Bit Drl 140mm 2m m Qc D Mrk Ns - [id number] Start: 04-05-2012 Comment on above: Description: DRILL B IT Bit Drl Gld 110m m 2.5mm Ss Qc - [id number] Start: 04-05-2012 Comment on above: Description: DRILL B IT Xtl-Zs-P-Kind Implant - [id number] Start: 04-05-2012 Comment on above: Description: wrist f usion plate Cup Actb 54mm 48 mm r - [id number] Start: 08-30-2012 0---Cup Actb 54m m 48mm r Hd - [id number] Start: 12-03-2012 Screw Bn 2.7mm 2 2mm Lcp Ss Sm - [id number] Start: 04-05-2012 Screw Bn 2.7mm 1 6mm Lcp Ss - [id number] Start: 04-05-2012 Screw Bn 3.5mm 2 0mm Lcp Ss - [id number] Start: 04-05-2012 Screw Bn 2.7mm 1 4mm Lcp Ss Sm - [id number] Start: 04-05-2012 Screw Bn 2.7mm 2 0mm Lcp Ss Sm - [id number] Start: 04-05-2012 Goals Date Patient Goal Desired Activity /State Functional Status Date Assessment Result Facility 10-01-2014 Are you deaf, or do you have serious difficulty hearing No 10/01/2014 7:00 AM Melodie Loza No [facility] 10-01-2014 Are you blind, or do you have serious difficulty seeing, even when wearing glasses No 10/01/2014 7:00 AM EDMelodie Rosario [facility] 10-01-2014 Do you have serious difficulty walking or climbing stairs No 10/01/2014 7:00 AM Melodie Loza [facility] 10-01-2014 Do you have difficul ty dressing or bathing No 10/01/2014 7:00 AM Melodie Loza [facility] 10-01-2014 Because of a physica l, mental, or emotional condition, do you have difficulty doing errands alone such as visiting a physician's office or shopping No 10/01/2014 7:00 AM KAMRYNMelodie Rosario [facility] Mental Status Date Assessment Result Facility 10-01-2014 Because of a physica l, mental, or emotional condition, do you have serious difficulty concentrating, remembering, or making decisions No 10/01/2014 7:00 AM KAMRYNMelodie Rosario [facility] Clinical Notes 04-15-2021 to 07-28-2024 COREY Casillas [...] limited to risks of scarring, darker or information systems consultant pigmentary changes, recurrence, incomplete removal and infection. [...] intertrigo Left Medial Thigh, Right Medial Thigh [place] moist plaques. Flaring today Discussed that intertrigo [...] in 6 months documented in this encounter [facility] 06-03-2024 History of Present illness Narrative Images [...] limited to risks of scarring, darker or information systems consultant pigmentary changes, recurrence, incomplete removal and infection. [...] year, skin check documented in this encounter [facility] 11-12-2023 Procedure note [facility] 08-07-2023 Note HNO ID: [id number] Author: ARÚL SULLIVAN MD Service: ? Author Type: Physician [...] 04/01/10 Performed by BRUNO VICTORIA at [facility] NJX DX/THER AGT PVRT FACET JT LMBR/SAC 1 LEVEL 04/29/2010 Performed by BRUNO VICTORIA at [facility] PAST SURGICAL HISTORY OF 2000, [...] per capsule Ta (more content not included)... [facility] 05-04-2023 Miscellaneous Notes Follow-up MRI of [...] Jessica Dotson MD documented in this encounter [facility] 04-13-2023 Note HNO ID: [id number] Author: Belem Ruiz RT(R) Service: Radiology Author [...] RT Aditya(R) April 13, 2023 6:01 PM [facility] 04-13-2023 Note HNO ID: [id number] Author: Keke Hollingsworth MD Service: ? Author [...] when applicable. LANDEN Quintero. Keke Hollingsworth MD [facility] 04-13-2023 History of Present illness Narrative [...] Keke Hollingsworth MD documented in this encounter [facility] 01-18-2023 Note HNO ID: [id number] Author: Jessica Dotson MD Service: ? Author Type: Physician Type: Progress Notes Filed: 01/18/2023 5:40 PM Note Text: [facility] NOTE Department of Orthopaedics Jessica Dotson M.D. NAME: Edmund Christopher [facility] NO.: [id number] DATE: January 18, 2023 Parth returns for [...] not hesitate to call. Jessica Dotson M.D. [facility] 01-18-2023 History of Present illness Narrative [facility] NOTE Department of Orthopaedics Jessica Dotson M.D. NAME: Edmund Christopher [facility] NO.: [id number] DATE: January 18, 2023 Parth returns for [...] Jessica Dotson M.D. documented in this encounter [facility] 01-18-2023 Note HNO ID: [id number] Author: Pina Armstrong Service: ? Author Type: Blogs Manager Type: Progress Notes Filed: 01/18/2023 7:42 AM [...] Pina Armstrong January 18, 2023 7:42 AM [facility] 01-18-2023 History of Present illness Narrative [...] 2023 7:42 AM documented in this encounter [facility] 07-26-2022 Hospital Discharge instructions Ana Laura Segura [...] of your spine documented in this encounter [employer] Phone: 04-15-2021 Note HNO ID: [id number] Author: LAZARO Donnelly) Service: ? Author Type: [...] LAZARO Donnelly) April 15, 2021 8:00 PM [facility] 04-15-2021 Note HNO ID: [id number] Author: Sandra Taylor RDMS Service: ? Author Type: Nitriles Lab Technician Type: Progress Notes Filed: 04/15/2021 6:49 PM [...] Taylor RDMS April 15, 2021 6:49 PM [facility] Evaluation note No assessment inform ation [facility] Work Phone: Evaluation note Diagnosis Pain- Primary Generalized pain [facility] Rotator cuff tear arthropathy, [...] cervical spine Cervicalgia [facility] Actinic keratosis Neoplasm of unspecified behavior of bone, soft tissue, and skin documented in this encounter [facility] HealthcareEvaluation note* Diagnosis Actinic keratosis- Primary Erythema intertrigo Other specified erythematous condition documented in this encounter [facility]* Diagnosis Preventive antibiotic- Primary Encounter for long-term (current) use of antibiotics [facility] Author Tuyet Adams [facility] November 12, 2023 8:15am Note Date/Time November 12, 2023 8:1 5am [facility] [address] [place] [address] Gastroenterology H&P Signed Patient: Edmund Christopher MR#: [id number] : 1965 Acct:[id number] Age/Sex: 58 / M Adm Date: 4 Loc: Room: Type: [facility] Attending Dr: Tuyet Adams DO Copies to: [...] <Electronically signed by Tuyet Adams DO> 11/12/23814 [facility] Work Phone: Hospital Discharge instructions Additional Instructions Call Dr. Hoyos's office Sunday morning to make an appointment Return to the ER for redness swelling warmth of the area fever chills [facility] Discharge instructions Additional Instructions Follow-up with the specialist as scheduled concerning the stimulator If the specialist does not feel that the pains from the stimulator I am getting encourage you to follow-up with gastroenterology Return to the ER for worsening pain high fever vomiting or any other concerns [facility] Work Phone: Reason for referral (narrative)* Diagnostic Procedure Only (Routine) - Pending Review Specialty Diagnoses / Procedures Referred By Contac t Referred To Contact XR IMAGING Diagnoses Pain Procedures XR SHOULDER GENERAL 3V OR MORE AP/TRUE AP/OTHER RIGHT RADEX SHOULDER COMPLETE MINIMUM 2 VIEWS Jessica Dotson MD [address] [place] [address] Xr Imaging Referral ID Status Reason Start Date Expiration Date Visits Requested Visits Authorized [id number] Pending Review Auto-Generat ed Referral 11/16/2022 12/15/2023 1 1 * Diagnostic Procedure Only (Routine) - Pending Review Specialty Diagnoses / Procedures Referred By Contac t Referred To Contact XR IMAGING Diagnoses Pain Procedures XR SHOULDER GENERAL 3V OR MORE AP/TRUE AP/OTHER LEFT RADEX SHOULDER COMPLETE MINIMUM 2 VIEWS Jessica Dotson MD [address] [place] [address] Xr Imaging Referral ID Status Reason Start Date Expiration Date Visits Requested Visits Authorized [id number] Pending Review Auto-Generat ed Referral 11/16/2022 12/15/2023 1 1 [facility] for referral (narrative)* Outpatient Procedure (Routine) - Pending Review Specialty Diagnoses / Procedures Referred By Deshaun aleman Referred To Contact [facility] Diagnoses Rotator cuff tear arthropathy, right Right arm weakness Spinal stenosis of cervical region Procedures EMG(NEURO/NI) NERVE CONDUCTION STUDIES 9-10 STUDIES Jessica Dotson MD [address] [place] [address] Neurological [place] [address] [place] [address] Referral ID Status Reason Start Date Expiration Date Visits Requested Visits Authorized [id number] Pending Review Auto-Generat ed Referral 01/18/2023 01/19/2024 1 1 * MRI/CT (Routine) - Authorized Specialty Diagnoses / Procedures Referred By Deshaun aleman Referred To Contact MR IMAGING Diagnoses Spinal stenosis of cervical region Procedures MRI CERVICAL SPINE WO IVCON MRI SPINAL CANAL CERVICAL W/O CONTRAST MATRL Jessica Dotson MD [address] [place] [address] Mr Imaging Referral ID Status Reason Start Date Expiration Date Visits Requested Visits Authorized [id number] Authorized Auto-Generat ed Referral 01/18/2023 02/17/2024 1 1 [facility] for referral (narrative)* Diagnostic Procedure Only (Routine) - Closed Specialty Diagnoses / Procedures Referred By Deshaun aleman Referred To Contact XR IMAGING Diagnoses Pain Procedures XR SHOULDER GENERAL 3V OR MORE AP/TRUE AP/OTHER RIGHT RADEX SHOULDER COMPLETE MINIMUM 2 VIEWS Jessica Dotson MD [address] [place] [phone] Xr Imaging Referral ID Status Reason Start Date Expiration Date V isits Requested Visits Authorized [id number] Closed Auto-Generate d Referral 11/16/2022 12/15/2023 1 1 * Diagnostic Procedure Only (Routine) - Closed Specialty Diagnoses / Procedures Referred By Deshaun aleman Referred To Contact XR IMAGING Diagnoses Pain Procedures XR SHOULDER GENERAL 3V OR MORE AP/TRUE AP/OTHER LEFT RADEX SHOULDER COMPLETE MINIMUM 2 VIEWS Jessica Dotson MD [address] [place] [address] Xr Imaging Referral ID Status Reason Start Date Expiration Date V isits Requested Visits Authorized [id number] Closed Auto-Generate d Referral 11/16/2022 12/15/2023 1 1 [facility] for visit Narrative* Diagnostic Procedure Only (Routine) - Closed Specialty Diagnoses / Procedures Referred By Deshaun aleman Referred To Contact XR IMAGING Diagnoses Pain Procedures XR SHOULDER GENERAL 3V OR MORE AP/TRUE AP/OTHER RIGHT RADEX SHOULDER COMPLETE MINIMUM 2 VIEWS Jessica Dotson MD [address] [place] [phone] Xr Imaging Referral ID Status Reason Start Date Expiration Date V isits Requested Visits Authorized [id number] Closed Auto-Generate d Referral 11/16/2022 12/15/2023 1 1 [facility] Summary Purpose Family History Relationship Condition Age [...] Documents on File Type Date Recorded 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 Advance Directive(s) 12/26/2016 12:39 PM Documents on File Type Date Recorded 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 Advance Directive(s) 12/26/2016 12:39 PM [...] weakness Procedures CONSULT TO SPINE SURGERY OFFICE/OUTPATIENT [facility] 60-74 MINUTES Jessica Dotson MD [address] [place] [address] Referral ID Status Reason Start Date Expiration Date Visits Requested Visits Authorized [id number] Pending Review PCP Requested Referral 3 05/03/2024 1 1 Specialty Diagnoses / Procedures Referred By Deshaun aleman Referred To Contact MR IMAGING Diagnoses DDD (degenerative disc disease), cervical Chronic neck pain Anterolisthesis of cervical spine Cervicalgia Procedures MRI CERVICAL SPINE WO IVCON MRI, CERV SPINE Viola Steen, 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.RAILROAD CARMAN [address] [place] [address] Mr Imaging [place] [address] Referral ID Status Reason Start Date Expiration Date V isits Requested Visits Authorized [id number] Closed Auto-Generate d Referral 04/29/2021 05/29/2022 1 [...] DATE CREATED AUTHOR AUTHOR'S ORGANIZ ATION 10/15/2018 [facility] DATE CREATED AUTHOR AUTHOR'S ORGANIZ ATION 03/05/2020 [facility] DATE CREATED AUTHOR AUTHOR'S ORGANIZ ATION 04/17/2021 [facility] DATE CREATED AUTHOR AUTHOR'S ORGANIZ ATION 07/26/2022 [facility] DATE CREATED AUTHOR AUTHOR'S ORGANIZ ATION 11/15/2022 [facility] DATE CREATED AUTHOR AUTHOR'S ORGANIZ ATION 08/18/2023 [facility] DATE CREATED AUTHOR AUTHOR'S ORGANIZ ATION 07/16/2024 [facility] DATE CREATED AUTHOR AUTHOR'S ORGANIZ ATION 07/31/2024 [facility] d[facility] Specialists EPIC Care Teams (unrecognized sec tion and content) Team Status: Active Member Role Status Dates Shreyas Felipe PICK REMOVER-C Primary Care Provider Active Team Status: Inactive Member Role Status Dates Shreyas Felipe PICK REMOVER-C Primary Care Provider Active Arnoldo Rodriguez APRN Emergency Provider Active Team Status: Inactive Member Role Status Dates Shreyas Felipe PICK REMOVER-C Primary Care Provider Active Maddy Cabezas II, MD Attending Provider Active Team Status: Inactive Member Role Status Dates Shreyas Felipe PICK REMOVER-C Primary Care Provider, Attend ing Provider Active Bead Worker Sewing Relationship Specialty Start Date End Date Shreyas Felipe [address] [place] [address] PCP - General 07/26/22 Team Status: Inactive Member Role Status Dates Shreyas Felipe PICK REMOVER-C Primary Care Provider Active Nataliia Banks FEATHER BONER-BC Emergency Provider Active Team Status: Inactive Member Role Status Dates Shreyas Felipe PICK REMOVER-C Primary Care Provider Active Kandis Farrell PICK REMOVER-C Attending Provider Active Team Status: Inactive Member Role Status Dates Shreyas Felipe PICK REMOVER-C Primary Care Provider Active Start: October 10, 2023 End: October 10, 2023 Nataliia Banks , FEATHER BONER-BC Emergency Provider Active Start: October 10, 2023 End: October 10, 2023 Team Status: Inactive Member Role Status Dates Shreyas Felipe PICK REMOVER-C Primary Care Provider Active Start: November 12, 2023 End: November 12, 2023 Tuyet Adams DO Attending Provider Active St art: November 12, 2023 End: November 12, 2023 Team Status: Active Member Role Status Dates Shreyas Felipe PICK REMOVER-C Primary Care Provider Active Start: November 12, 2023 Tuyet Adams DO Attending Provider, Other Provider Active Start: November 12, 2023 Bead Worker Sewing Relationship Specialty Start Date End Date Pcp, DANILO Ngo PCP - General 04/16/21 11/12/21 Bead Worker Sewing Relationship Specialty Start Date End Date Naresh Jerome MD [address] [place] [address] PCP - General Family Medicine 01/23/23 Bead Worker Sewing Relationship Specialty Start Date End Date Naresh Jerome MD [address] [place] [address] PCP - General Family Medicine 01/23/23 Bead Worker Sewing Relationship Specialty Start Date End Date Naresh Jerome MD [address] [place] [address] PCP - General Family Medicine 01/23/23 Bead Worker Sewing Relationship Specialty Start Date End Date Naresh Jerome MD [address] [place] [address] PCP - General Family Medicine 01/23/23 Goals [...] Low back pain Lumbar radiculopathy [M54.16] Procedures DC PRQ IMPLTJ NSTIM ELECTRODE ARRAY EPIDURAL SPINAL CORD STIMULATOR IMPLANT TRIAL - [employer] Maddy Cabezas MD [address] [place] [address] [facility] [address] [place] [address] Referral ID Status Reason Start Date Expiration Date Visits Re quested Visits Authorized [id number] 1 1 Reason Comments Established Patient Follow Up Pain Specialty Diagnoses / Procedures Referred By Deshaun aleman Referred To Contact Orthopedics / ORTHOPAEDIC SURGERY Diagnoses Bilat shoulder pain BWC - ok per Nereida Procedures CAMILLA ESTABLISH Self Jessica Dotson MD [address] [place] [phone] Referral ID Status Reason Start Date Expiration Date Visits Requested Visits Authorized [id number] Outside PCP Patient Cleared - Admin/Chair man/Directo r advise to proceed or did not respond 01/18/2023 03/19/2023 1 1 Reason Onset Date Comments EMG 04/13/2023 Specialty Diagnoses / Procedures Referred By Deshaun aleman Referred To Contact [facility] Diagnoses Rotator cuff tear arthropathy, right Right arm weakness Spinal stenosis of cervical region Procedures EMG(NEURO/NI) NERVE CONDUCTION STUDIES 9-10 STUDIES Jessica Dotson MD [address] [place] [address] [place] [address] Referral ID Status Reason Start Date Expiration Date V isits Requested Visits Authorized [id number] Closed Auto-Generated Referral Patient Cleared - INN Insurance Found 01/18/2023 01/19/2024 1 1 Specialty Diagnoses / Procedures Referred By Deshaun aleman Referred To Contact MR IMAGING Diagnoses DDD (degenerative disc disease), cervical Chronic neck pain Anterolisthesis of cervical spine Cervicalgia Procedures MRI CERVICAL SPINE WO IVCON MRI, CERV SPINE Viola Steen, 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.RAILROAD CARMAN [address] [place] [id number] Mr Imaging [place] [address] Referral ID Status Reason Start Date Expiration Date V isits Requested Visits Authorized [id number] Closed Auto-Generate d Referral 04/29/2021 05/29/2022 1 [...] start, Pre-op (day of surgery) lidocaine-EPINEPHrine 1 %-1:308373 30 mL, sodium bicarbonate 1 mL (CANCELED) [...] or prosecute any alcohol or drug abuse patient.[facility] the event this information is protected by the Federal Confidentiality of Alcohol and Drug Abuse Patient Records regulations: The Federal rules restrict any use of the information to criminally investigate or prosecute any alcohol or drug abuse patient.[facility] the event this information is protected by the Federal Confidentiality of Alcohol and Drug Abuse Patient Records regulations: The Federal rules restrict any use of the information to criminally investigate or prosecute any alcohol or drug abuse patient.[facility] the event this information is protected by the Federal Confidentiality of Alcohol and Drug Abuse Patient Records regulations: The Federal rules restrict any use of the information to criminally investigate or prosecute any alcohol or drug abuse patient.[facility] the event this information is protected by the Federal Confidentiality of Alcohol and Drug Abuse Patient Records regulations: The Federal rules restrict any use of the information to criminally investigate or prosecute any alcohol or drug abuse patient.[facility] the event this information is protected by the Federal Confidentiality of Alcohol and Drug Abuse Patient Records regulations: The Federal rules restrict any use of the information to criminally investigate or prosecute any alcohol or drug abuse patient.[facility] the event this information is protected by the Federal Confidentiality of Alcohol and Drug Abuse Patient Records regulations: The Federal rules restrict any use of the information to criminally investigate or prosecute any alcohol or drug abuse patient.[facility] FOR RECORDS PERTAINING TO PATIENTS WHO ARE [...] BE BASED ON THE PRIMARY CLINICAL RECORDS. [facility]. provides no warranty or guarantee of the accuracy or completeness of information in this document.
== END 2025-04-06 18:22 | disposition left against medical advice (07) ==
LOC: ER 18:50
PROVIDERS: Emergency Provider Emergency Medicine; PCP Nurse Practitioner Family
DX: Z53.21 Procedure and treatment not carried out due to patient leaving prior to being seen by health care provider (principal)

== ENCOUNTER 2025-04-07 16:32 | Emergency (ER) | payer MEDICARE, SELFPAY ==
--- OUTSIDE RECORDS SUMMARY | 2017-07-12 07:32 | XMS_ITS | Continuity of Care Document ---
Author Organization [facility] Address [address] [place] [address] Phone Care Team Providers Care Longwall Foreman Name Role Phone Juan Robin Unavailable Unavailable Allergies, Adverse Reactions, Alerts Substance Reaction Status Criticality No Known Allergies Active No Inform ation Medications Medication Instructions Dosage Effective Dates (start - stop) Status Comments No Drug Therapy Prescribed Procedures Procedure Date OFFICE/OUTPATIENT VISIT, [facility] ROUTINE VENIPUNCTURE Rapid Anitibody HIV-1 / HIV-2 6 Advance Directives Directive Yes / No Effective Date File Name No Information Encounters Encounter Description Practice Location Reason(s) For Visit Diagnoses Date Provider Providers Copied on Encounter [facility], [address], [place], [id number], tel:[phone] [facility] No Information Edyta NICHOLAS Juan. [address], [place], [id number] , [place]. tel:[phone] OFFICE/OUTPAT IENT VISIT, [facility], [address], [place], [id number], tel:[phone] [facility] symptoms (chief complaint) Encounter for screening for HIVEncounter for STD screeningGroin ringworm Hannah Bae. [address], [place], [id number] , [place]. tel:[phone] Family History Family Member Type Diagnosis Age At Onset No Information Payers Payer name Insurance type Covered libertarian ID Authoriza tion(s) Medicare PPS [id number] Medicaid Crossover [id number] Social History Type Description Quantity Date Captured Comments Sex Male Smoking Status No Information Chief Complaint And Reason For Visit No Information Reason For Referral Reason For Referral No Information Plan Of Treatment Date Type Action Status Goal Tobacco cessation counseling completed History Of Present Illness Encounter Date Complaint History Of Prese nt Illness symptoms Pt reports unpro tected sex, found out she was drug user. Has seperated and pt has noticed 2 discolored areas. Denies all other symptoms. Declines condoms. [place] Functional Status Date Functional Assessmen t No Information Medications Administered Medication Instructions Dosage Effective Dates (start - stop) Status Comments No Drug Therapy Prescribed Instructions Date Instruction Additional Infor mation No treatment indicat ed today. Call for test results. Related to Encounter for STD screening Avoid sexual activit y while you await your test results. Related to Encounter for STD screening Assessments Type Assessment Date No Information Patient Care Teams Name Effective Dates (start - stop) Status Members No Information
--- OUTSIDE RECORDS SUMMARY | 2024-11-12 11:50 | XMS_ITS ---
Author Organization [facility] Address [address] [facility] [place] [address] Care Team Providers Care Purchase Order Checker Name Role Phone Kim Barlow Primary Care Provider [phone] Dr. Edmund Del Toro Unavailable [phone] REASON FOR VISIT NEW PT Encounters Encounter Location Date Provider Diagnosis [facility] [address] [place] [address] 11/12/2024 Edmund Del Toro Plan Of Treatment No Information Progress Notes * CATRACHO EDMUNDDOB:1965 (60 yo M)Acc No.[id number]:11/12/2024 Patient: EDMUND GARCIA Provider: Davin Del Toro DDS :1965 A ge:59 Y S ex:Male Date:11/12/2024 Address:[address] [place], [place] [id number] Pcp:Kim Barlow Subjective: * Chief Complaints: * 1 . NEW PT. * Medical History: Objective: * Vitals: Assessment: Plan: * Treatment: * Images: * Electronic signature of Dr. Edmund Del Toro , DMD on 04/07/2025 at 04:38 PM EDT Sign off status: Pending * Provider: Davin Del Toro DDS Date: 11/12/2024 Generated for Sergio beth/Jasmina/eTransmitting on: 04/07/2025 04:38 PM EDT
--- OUTSIDE RECORDS SUMMARY | 2025-04-07 16:38 | XMS_ITS | Clinical Summary ---
Author Organization [facility] Address [address] [place] [address] Care Team Providers Care Chemical Recovery Operator Name Role Phone Unavailable Primary Care Provider [...] is lower risk 6 01/18/2023 Data from: https://www.neighborhoodatlas.medicine.[facility].edu/. Last address used for calculation [address] [place] [address] [address] 01/18/2023 Sex and Gender Information [...] Additional history exists Medicare Advantage Annual We [facility] Visit 07/16/2024 Influenza Vaccine (#1) 2025 Prostate Cancer Screening Discussion 11/04/2027 11/03/2022 DTaP,Tdap,Td Vaccine (2 - Td or Tdap) 03/24/2028 03/24/2018 RSV Vaccine (1 - 1-dose 75+ series) 02/07/2040 Medical Devices Implanted Type Area Director Of Customer Service Device Identifier Shelf Expiration Date Model / Serial / Lot Anchr Sut 5.5mm Bcmps Crkscr - [id number] Implanted:Qty: 1 on 02/19/2015 at [facility] Odon Right: Bone - Shoulder [employer] 05/22/2016 [id number] / / [id number] Anchr Sut 5.5mm Bcmps Crkscr - [id number] Implanted:Qty: 1 on 02/19/2015 at [facility] Odon Right: Bone - Shoulder [employer] 05/22/2016 [id number] / / [id number] Odon Corkscrew Fiberwire Tigerwire 5.5mm 2 Full Thread Biocomposite 14.7 - [id number] Implanted:Qty: 1 on 01/05/2017 at [facility] Odon Left: Bone - Shoulder [employer] 09/12/2018 [id number] / / [id number] Bit Drl 140mm 2mm Qc D Mrk Ns - [id number] Implanted:Qty: 1 on 04/05/2012 at [facility] Bit [employer]ES [employer] [place] 323.062 / / Description:DRILL BIT Bit Drl Gld 110mm 2.5mm Ss Qc - [id number] Implanted:Qty: 1 on 04/05/2012 at [facility] Bit [employer] [place] 310.25 / / Description:DRILL BIT Bit Drl 165mm 2.8mm Ti Qc Ns - [id number] Implanted:Qty: 1 on 04/05/2012 at [facility] Get In INC [employer]ES [place] 310.288 / / Description:DRILL BIT Graft Bn Dbm 10ml Ptty Strl - [id number] Implanted:Qty: 1 on 04/05/2012 at [facility] Cement / Putty Left: Bone - Wrist MTF 12/03/2013 [id number] / [id number] / [id number] Leander Bn Smpx P Tobra Fd - [id number] Implanted:Qty: 1 on 08/30/2012 at [facility] Cement / Putty Right: Bone - Hip [employer] 03/16/2014 [id number] / / [id number]---Leander Bn Smpx P Tobra Fd - [id number] Implanted:Qty: 1 on 12/03/2012 at [facility] Cement / Putty Left: Bone - Hip [employer] 03/16/2014 [id number] / / [id number]-Zt-A-Kind Implant - [id number] Implanted:Qty: 1 on 04/05/2012 at [facility] Implant Left: Bone - Wrist [employer] TRAUMA 02.110.151 / / Description:wrist fusion skylar te Cortical Screw Implanted:Qty: 2 on 04/05/2012 at [facility] Implant Left: Bone - Wrist [employer] [place] 02.200.018 / / Multifire Scorpion Needle Implanted:Qty: 1 on 02/19/2015 at [facility] Implant Right: Bone - Shoulder [employer] 06/21/2019 [id number] / / [id number] Description:NDL SUT ANTHONY S CRPN STRL DISP Cup Actb 54mm 48mm Bhr Hd - [id number] Implanted:Qty: 1 on 08/30/2012 at [facility] Joint - Hip Right: Bone - Hip [employer] 03/16/2017 [id number] / / [id number] Head Fem 48mm Hip - [id number] Implanted:Qty: 1 on 08/30/2012 at [facility] Joint - Hip Right: Bone - Hip [employer] 06/14/2017 [id number] / / [id number]---Cup Actb 54mm 48mm Bhr Hd - [id number] Implanted:Qty: 1 on 12/03/2012 at [facility] Joint - Hip Left: Bone - Hip [employer] 09/13/2017 [id number] / / [id number]---Head Fem 48mm Hip - [id number] Implanted:Qty: 1 on 12/03/2012 at [facility] Joint - Hip Left: Bone - Hip [employer] 09/13/2017 [id number] / / [id number] Screw Bn 2.7mm 22mm Lcp Ss Sm - [id number] Implanted:Qty: 1 on 04/05/2012 at [facility] Screw Left: Bone - Wrist [employer] [place] 202.222 / / Screw Bn 2.7mm 16mm Lcp Ss - [id number] Implanted:Qty: 1 on 04/05/2012 at [facility] Screw Left: Bone - Wrist [employer] [place] 202.876 / / Screw Bn 3.5mm 20mm Lcp Ss - [id number] Implanted:Qty: 1 on 04/05/2012 at [facility] Screw Left: Bone - Wrist [employer] [place] 212.106 / / Screw Bn 3.5mm 16mm Lcp Ss - [id number] Implanted:Qty: 1 on 04/05/2012 at [facility] Screw Left: Bone - Wrist [employer] [place] 212.104 / / Screw Bn 2.7mm 14mm Lcp Ss Sm - [id number] Implanted:Qty: 1 on 04/05/2012 at [facility] Screw Left: Bone - Wrist [employer] [place] 202.214 / / Screw Bn 2.7mm 20mm Lcp Ss Sm - [id number] Implanted:Qty: 1 on 04/05/2012 at [facility] Screw Left: Bone - Wrist [employer] [place] 202.220 / / Anchr Sut 5.5mm 2 Crkscr 2 - [id number] Implanted:Qty: 1 on 10/17/2011 at [facility] Wire Left: Bone - Shoulder [employer] 07/16/2016 [id number] / / [id number] Procedures Procedure Name Priority Date/Time Associated Diagnosis Comments BASIC METABOLIC PANEL Routine 12/26/2016 9:03 AM EDT Complete tear of left rotator cuff from Last 3 Months or Most Recently Relevant to Health Maintenance Results * BASIC METABOLIC PNL (12/26/2016 9:03 AM EDT) Glucose 96 74 - 99 mg/dL 12/26/2016 12:16 PM EDT [facility] Comment: The Stateless Diabetes Association (ADA) provides guidance for cutoff [...] Standards of Medical Care in Diabetes 2016, Stateless Diabetes Association. Diabetes Care. 2016.39(Suppl 1). BUN 21 9 - 24 mg/dL 12/26/2016 12:16 PM EDT [facility] Creatinine 0.97 0.73 - 1.22 mg/dL 12/26/2016 12:16 PM EDT [facility] Sodium 138 136 - 144 mmol/L 12/26/2016 12:16 PM EDT [facility] Potassium 5.1 3.7 - 5.1 mmol/L 12/26/2016 12:16 PM EDT [facility] Chloride 100 97 - 105 mmol/L 12/26/2016 12:[address] [facility] CO2 25 22 - 30 mmol/L 12/26/2016 12:[address] [facility] Anion Gap 13 9 - 18 mmol/L 12/26/2016 12:[address] [facility] Calcium 9.7 8.5 - 10.2 mg/dL 12/26/2016 12:[address] [facility] eGFR- >60 12/26/2016 12:[address] [facility] eGFR-All Other Races >60 . 12/26/2016 12:[address] [facility] Comment: eGFR (Estimated GFR) Units [...] EDT Mario Dotson MD LABORATORY Final Result [facility] [address] [facility] [place] [address] from Last 3 Months or Most Recently Relevant to Health Maintenance Insurance [address] [place] [address] [facility] [employer] [place] [address] [place] [address] Advance Directives Documents on File Type Date Recorded Patient Svp Operations Expl anation Advance Directive(s) 12/26/2016 12:39 PM
--- OUTSIDE RECORDS SUMMARY | 2025-04-07 16:38 | XMS_ITS | Encounter Summary ---
Author Organization [facility] Address [address] [place] [address] Care Team Providers Care Auto Fleet Maintenance Manager Name Role Phone Unavailable Primary Care Provider Unavailabl e Source Comments In the event this information is protected by the Federal Confidentiality of Alcohol and Drug AbusePatient Records regulations: The Federal rules restrict any use of the information to criminally investigate or prosecute any alcohol or drug abuse patient.[facility] Encounter Details Date Type Department Care Team (Late st Contact Info) Description 01/22/2023 Patient Msg Neurology [address] [place], [place] [id number] Provider, Ccf Requested EMG Appointment Social History [...] is lower risk 6 01/18/2023 Data from: https://www.neighborhoodatlas.medicine.[facility].edu/. Last address used for calculation [address] [place] [address] 01/18/2023 Sex and Gender Information Value [...]
--- OUTSIDE RECORDS SUMMARY | 2025-04-07 16:38 | XMS_ITS | Clinical Summary ---
Author Organization [facility] Address [address] [place] [address] Care Team Providers Care Wheelchair Driver Name Role Phone Naresh Jerome MD Primary Care Provider [phone] Allergies Active Allergy Reactions Criticality Noted Date [...] file Insurance [employer]VANTAGE Care Teams Wheelchair Driver Relationship Specialty Start Date End Date Naresh Jerome MD PCP - General Family Medicine 01/23/23
--- OUTSIDE RECORDS SUMMARY | 2025-04-07 16:38 | XMS_ITS | Encounter Summary ---
Author Organization [facility] Address [address] [place] [address] Care Team Providers Care Adjunct Professor Of Law Name Role Phone Unavailable Primary Care Provider Unavailabl e Source Comments In the event this information is protected by the Federal Confidentiality of Alcohol and Drug AbusePatient Records regulations: The Federal rules restrict any use of the information to criminally investigate or prosecute any alcohol or drug abuse patient.[facility] Encounter Details Date Type Department Care Team (Late st Contact Info) Description 04/11/2023 [place] [address] Provider, Ccf MRI Screening Questionnaire Completion Required [...] is lower risk 6 01/18/2023 Data from: https://www.neighborhoodatlas.medicine.[facility].edu/. Last address used for calculation [address] [place] [address] 01/18/2023 Sex and Gender Information Value Date [...]
--- OUTSIDE RECORDS SUMMARY | 2025-04-07 16:38 | XMS_ITS | Clinical Summary ---
Author Organization [facility] Address [id number] [address] [place] [address] Care Team Providers Care Freight Rate Specialist Name Role Phone Unavailable Primary Care Provider Unavailabl e Allergies No known active allergies Social History Tobacco Use Types Packs/Day Years Used Date Smoking Tobacco: Unknown Smokeless Tobacco: Never Alcohol Use Standard Drinks/Week Comments No 0 (1 standard drink = 0.6 oz pur e alcohol) Childcare Answer Date Recorded Childcare Unknown 12/23/2018 Employment Answer Date Recorded Employment Unknown 12/23/2018 Purpose - Life Answer Date Recorded Purpose and direction in life Unknown Sex and Gender Information Value Date Recorded Sex Assigned at Not on file Legal Sex Male 12:48 PM EDT Gender Identity Not on file Sexual Orientation Not on file Last Filed Vital Signs Vital Sign Reading Time Taken Comments Blood Pressure - - Pulse - - Temperature - - Respiratory Rate - - Oxygen Saturation - - Inhaled Oxygen Concentration - - Weight 85.3 kg (188 lb) 02/13/2012 3:22 PM EDT Height 167.6 cm (5' 6 ) 02/13/2012 3:22 PM EDT Body Mass Index 30.34 02/13/2012 3:22 PM EDT Plan of Treatment Health Maintenance Due Date Last Done Comments Depression Screening 1977 Tobacco Screening 1977 Adult BMI Screening 1983 DTaP,Tdap and Td Vaccines (1 - Tdap) 02/07/1984 Zoster (Shingles) Vaccine (1 of 2) 2015 Influenza Vaccine 03/16/2025 Medical Devices Not on file
--- OUTSIDE RECORDS SUMMARY | 2025-04-07 16:39 | XMS_ITS | Encounter Summary ---
Author Organization [facility] Address [address] [place] [address] Care Team Providers Care Hebrew Cantor Name Role Phone Herberth Bello MD Primary Care Provider [phone] Pcp, No Primary Care Provider Unavailabl e Source Comments In the event this information is protected by the Federal Confidentiality of Alcohol and Drug AbusePatient Records regulations: The Federal rules restrict any use of the information to criminally investigate or prosecute any alcohol or drug abuse patient.[facility] Encounter Details Date Type Department Care Team (Late st Contact Info) Description 08/23/2020 Patient Msg Orth and Rheum [place] [address] [place], [place] [id number] Provider, Ccf Appointment with Dr. Dotson Social [...] N ot on file 06/20/2020 Data from: https://www.neighborhoodatlas.medicine.[facility].edu/. Last address used for calculation Not on [...] on filedocumented in this encounter Care Teams Hebrew Cantor Relationship Specialty Start Date End Date Herberth Bello MD PCP - General 02/09/15 04/15/21 Pcp, No PCP - General 04/16/21 11/12/21 documented as of this encounter
--- OUTSIDE RECORDS SUMMARY | 2025-04-07 16:39 | XMS_ITS | Encounter Summary ---
Author Organization [facility] Address [address] [place] [address] Care Team Providers Care Firmware Manager Name Role Phone Matthew Jameson DO Primary Care Provider [phone] Herberth Bello MD Primary Care Provider [phone] Pcp, No Primary Care Provider Unavailabl e Source Comments In the event this information is protected by the Federal Confidentiality of Alcohol and Drug AbusePatient Records regulations: The Federal rules restrict any use of the information to criminally investigate or prosecute any alcohol or drug abuse patient.[facility] Encounter Details Date Type Department Care Team (Late st Contact Info) Description 04/05/2012 Operative Report Orthopaedics [address] [place] [address] Guille Rock MD [address] [place] [address] Social History Tobacco Use Types [...] Shweta Guille - 04/05/2012 12:00 AM EDT [place] [address] [place] [facility] OPERATIVE REPORT NAME: EDMUND CHRISTOPHER CLINIC #: [id number] DATE: 04/05/2012 AGE: 47 SURGEON 1: Guille Rock M.D. ASST. 1: Vikram Smith M.D. LOCATION: [place]. OPERATION: Left wrist arthrodesis. ANESTHESIA: Block with [...] was correct. COMPLICATIONS: None. Guille Rock M.D. ALETA/[id number]/ / documented in this encounter Plan of Treatment Not on file documented as of this encounter Visit Diagnoses Not on filedocumented in this encounter Care Teams Firmware Manager Relationship Specialty Start Date End Date Matthew Jameson DO PCP - General 05/26/09 02/08/15 Herberth Bello MD PCP - General 02/09/15 04/15/21 Pcp, Jeni PCP - General 04/16/21 11/12/21 documented as of this encounter
--- OUTSIDE RECORDS SUMMARY | 2025-04-07 16:39 | XMS_ITS | Encounter Summary ---
Author Organization [facility] Address [address] [place] [address] Care Team Providers Care It Teacher Name Role Phone Herberth Bello MD Primary Care Provider [phone] Pcp, No Primary Care Provider Unavailabl e Source Comments In the event this information is protected by the Federal Confidentiality of Alcohol and Drug AbusePatient Records regulations: The Federal rules restrict any use of the information to criminally investigate or prosecute any alcohol or drug abuse patient.[facility] Encounter Details Date Type Department Care Team (Late st Contact Info) Description 01/05/2017 [facility] [address] [place] [id number] Mario Dotson MD [address] [place] [address] Social History Tobacco Use Types [...] on filedocumented in this encounter Care Teams It Teacher Relationship Specialty Start Date End Date Herberth Bello MD PCP - General 02/09/15 04/15/21 Pcp, No PCP - General 04/16/21 11/12/21 documented as of this encounter
--- OUTSIDE RECORDS SUMMARY | 2025-04-07 16:39 | XMS_ITS | Patient Health Record ---
Author Organization [facility] [place] Address [address] [place] [address] Care Team Providers Care Sales Executive Insurance Name Role Phone Carola Galindo Primary Care [...] AM Interpretation: Performing Lab: Notes/Report: Source Facility: [place] [address] CT Scan Report Signed Patient: EDMUND CHRISTOPHER MR#: [id number] : 1965 Acct:[id number] Age/Sex: 59 / M ADM Date: 02/04/25 Loc: CT Attending Dr: CAROLA GALINDO Ordering Physician: CAROLA GALINDO Date of Service: 02/04/25 Procedure(s): CT cervical spine wo con Accession Number(s): [id number] cc: CAROLA GALINDO [place] [id number] Patient Name: EDMUND CHRISTOPHER MRN: [id number] date: 1965 Sex: M Assigned Patient Location: CT Current Patient Location: CT Accession/Order Number: [id number] Exam Date: 02/04/2025 13:35 Report Date: 02/04/2025 [...] Jr., D.O. 02/04/2025 1:37 PM Dictation Location: [place] [address] Electronically authenticated by: [id number] Y Date: 02/04/2025 13:37 Dictated By: Edmund Sanz M.D. Signed By: 02/04/25 1340 DD/ 1337 TD/TT: Clinical Laboratory Service Teacher: CBC AUTO DIFF Reviewed date:01/01/2025 10:33:46 AM Interpretation: Performing Lab: Notes/Report: [facility] , White Blood Count 7.1 4.0-11.0 10 [...] 0.00-0.03 10 3/uL Performing Lab: see note [facility] LB PROF CHEM 8 (BAS METB) Reviewed date:01/01/2025 10:33:46 AM Interpretation: Performing Lab: Notes/Report: [facility] , Sodium 139 136-145 mmol/L Potassium 3.8 [...] 8.5-10.1 mg/dL Performing Lab: see note - [facility] LB ECG 12 lead Reviewed date:01/01/2025 10:33:46 AM Interpretation: Performing Lab: Notes/Report: Source Facility: [facility]-[address] [place] [address] [place] [address] Electrocardiograph Report Signed Patient: EDMUND CHRISTOPHER MR#: [id number] : 1965 Acct:[id number] Age/Sex: 59 / M ADM Date: 12/26/24 Loc: ER Attending Dr: Ordering Physician: Radha Ascencio Date of Service: 12/26/24 Procedure(s): ECG 12 lead Accession Number(s): [id number] cc: [facility] Test Date: 2024-12-26 Pat Name: EDMUND CHRISTOPHER Department: Room: - Gender: Male Land Classifier: : 1965 Requested By: [id number] Order Number: [id number] Reading MD: SHAKIRA SMITH M.D. Measurements Intervals [place] Rate: 84 P: 47 CA: 200 QRS: 90 QRSD: 98 T: 60 QT: 372 QTc: 413 Interpretive Statements 1100 Sinus rhythm 9110 normal ECG No previous ECG available for comparison Electronically Signed On 12-26-2024 19:28:59 EDT by SHAKIRA SMITH M.D. Dictated By: SHAKIRA SMITH Signed By: 12/26/241928 DD/ 24 TD/TT: Clinical Laboratory Service Teacher: XR chest 1V Reviewed date:01/01/2025 10:33:46 AM Interpretation: Performing Lab: Notes/Report: Source Facility: [place] [address] XRay Report Signed Patient: EDMUND CHRISTOPHER MR#: [id number] : 1965 Acct:[id number] Age/Sex: 59 / M ADM Date: 12/26/24 Loc: ER Attending Dr: Ordering Physician: Radha Ascencio Date of Service: 12/26/24 Procedure(s): XR chest 1V Accession Number(s): [id number] cc: CAROLA GALINDO [place] [id number] Patient Name: EDMUND CHRISTOPHER MRN: [id number] date: 1965 Sex: M Assigned Patient Location: ER Current Patient Location: ED.MAIN Accession/Order Number: [id number] Exam Date: 12/26/2024 18:49 Report Date: 12/26/2024 [...] Riddle M.D. 12/26/2024 6:50 PM Dictation Location: [place] [address] Electronically authenticated by: [id number] Y Date: 12/26/2024 18:50 Dictated By: Earl Riddle D.O. Signed By: 12/26/241851 DD/ 49 TD/TT: Clinical Laboratory Service Teacher: CT head/brain wo con Reviewed date:04/06/2025 11:37:04 AM Interpretation: Performing Lab: Notes/Report: Source Facility: [place] [address] CT Scan Report Signed Patient: EDMUND CHRISTOPHER MR#: [id number] : 1965 Acct:[id number] Age/Sex: 60 / M ADM Date: 04/04/25 Loc: ER Attending Dr: Ordering Physician: Karlene Nunn M.D. Date of Service: 04/04/25 Procedure(s): CT head/brain wo con Accession Number(s): [id number] cc: CAROLA GALINDO [place] [address] Patient Name: EDMUND CHRISTOPHER MRN: [id number] date: 1965 Sex: M Assigned Patient Location: ER Current Patient Location: ER Accession/Order Number: [id number] Exam Date: 04/04/2025 12:35 Report Date: 04/04/2025 [...] Ryder M.D. 04/04/2025 1:17 PM Dictation Location: [place] [address] Electronically authenticated by: [id number] Y Date: 04/04/2025 13:17 Dictated By: Ludin Ryder M.D. Signed By: 04/04/25 1320 DD/ 1317 TD/TT: Clinical Laboratory Service Teacher: XR chest 1V Reviewed date:04/06/2025 11:36:48 AM Interpretation: Performing Lab: Notes/Report: Source Facility: [place] [address] XRay Report Signed Patient: EDMUND CHRISTOPHER MR#: [id number] : 1965 Acct:[id number] Age/Sex: 60 / M ADM Date: 04/04/25 Loc: ER Attending Dr: Ordering Physician: Karlene Nunn M.D. Date of Service: 04/04/25 Procedure(s): XR chest 1V Accession Number(s): [id number] cc: CAROLA GALINDO ; Karlene Nunn M.D. The [place] [address] Patient Name: EDMUND CHRISTOPHER MRN: [id number] date: 1965 Sex: M Assigned Patient Location: ER Current Patient Location: ER Accession/Order Number: [id number] Exam Date: 04/04/2025 12:35 Report Date: 04/04/2025 [...] Ryder M.D. 04/04/2025 1:46 PM Dictation Location: [place] [address] Electronically authenticated by: [id number] Y Date: 04/04/2025 13:46 Dictated By: Ludin yRder M.D. Signed By: 04/04/25 1349 DD/ 1346 TD/TT: Clinical Laboratory Service Teacher: Reason For Referral No Information Medications Medication [...] Risk Notes Problem Chronic obstructive pulmonary disease (23183890) Chronic obstructive pulmonary disease, unspecified (J44.9) Active confirmed Problem Moderate major depression, single episode (14327172) Major depressive disorder, single episode, moderate (F32.1) Active confirmed Problem Localized, secondary osteoarthritis of the hand (425724798) Bilateral post-traumatic osteoarthritis of first carpometacarpal joints (M18.2) Active confirmed Problem Localized, primary osteoarthritis of the wrist (439115711) Primary osteoarthritis, 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) Active confirmed Problem Ganglion cyst of right wrist (042358136797934) Ganglion, right wrist (M67.431) Active confirmed Problem Total hip replacement prosthesis (195834645) Presence of unspecified artificial hip joint (Z96.649) Active confirmed Problem Hyperlipidemia (59099036) Hyperlipidemia (E78.5) Active confirmed Problem Hypertension (31725705) Hypertension (I10) Active confirmed Problem Cervical radiculopathy (25192380) Cervical radiculopathy (M54.12) Active confirmed Problem Anxiety (02953155) Anxiety (F41.9) Active confirmed Problem Stroke (036579953) Stroke (I63.9) Active confirmed Problem Arthritis (5104460) Arthritis (M19.90) Active confirmed Problem Depression (951331834) Depression (F32.9) Active confirmed Problem Smoker (14986986) Smoker (F17.200) Active confi rmed Problem Insomnia (346808597) Insomnia (G47.00) Active confirmed Problem Transient ischemic attack (459247159) TIA (transient ischemic attack) (G45.9) Active confirmed Problem Degeneration of lumbar intervertebral disc (06255456) Degenerative disc disease, lumbar (M51.36) Active confirmed Problem Sciatica (00124459) Sciatica (M54.30) Active confirmed Problem Chronic pain (99050764) Chronic pain (G89.29) Active confirmed Problem Colonic polyp (78345228) Colonic polyp (K63.5) Active confirmed Problem Erectile dysfunction (disorder) (378052261) Erectile dysfunction, unspecified erectile dysfunction type (N52.9) Active confirmed Problem Current smoker (16255191) Current smoker (F17.200) Active confirmed Problem Overweight (276943969) Over weight (E66.3) Active confirmed Problem Lump (3047087) Lump (R22.9) Active confirmed Problem Shoulder pain (78915504) Pain in shoulder (M25.519) Active confirmed Problem Poor concentration (68803119) Poor concentration (R41.840) Active confirmed Problem Mixed anxiety and depressive disorder (920283415) Anxiety and depression (F41.9) Active confirmed Problem Essential hypertension (76382959) Hypertension, unspecified type (I10) Active confirmed Vital [...] N/A Encounters Encounter Location Date Provider Diagnosis [address] [address] 05/20/2024 Carola Galindo Hypertension I10 ; Chronic pain G89.29 and Wellness examination Z00.[address] [address] 08/08/2024 Carola Galindo Eczema L30.9 ; Depression F32.9 and Hypertension I10 [address] [address] 09/08/2024 Carola Galindo Anxiety F41.9 ; Lifestyle Director kaden pain G89.29 and Hypertension, unspecified type I10 [address] [address] 10/20/2024 Carola Galindo Insomnia G47.00 ; Anxiety and depression F41.9 and Hypertension I10 [address] [address] 01/09/2025 Carola Galindo Major depressive disorder, single episode, moderate F32.1 ; Fatigue R53.83 and Cervical radiculopathy M54.12 [facility] [address] [place] [address] 01/15/2025 Carola Galindo [facility] [address] [place] [address] 02/05/2025 Carola Galindo [facility] [address] [place] [address] 05/30/2024 Carola Galindo [facility] [address] [place] [address] 12/09/2024 Carola Galindo [facility] [address] [place] [address] 12/09/2024 Carola Galindo [facility] [address] [place] [address] 01/09/2025 Carola Galindo Assessments Encounter Date Diagnosis (ICD Code) Assessment Notes Treatment Notes Treatment Clinical Notes Section Notes 05/20/2024 Hypertension (ICD-10 - I10) record BP report 1-2 weeks 05/20/2024 Chronic pain (ICD-10 - G89.29) current pain man tapering him off oxy discussed other options, Dr Verde, [facility] if needed 08/08/2024 Depression (ICD-10 - F32.9) consider counseling fu one month 08/08/2024 Eczema (ICD-10 - L30.9) fu derm if not improving 09/08/2024 Anxiety (ICD-10 - F41.9) fu one [...] pain, numbness and tingling in right arm 09/08/2024 Hypertension, unspecified type (ICD-10 - I10) recommend adding clonidine back 10/20/2024 Hypertension (ICD-10 - I10) states BP ok at home, states high because stress and pain today continue monitor 05/20/2024 Wellness examination (ICD-10 - Z00.00) ROS done exam done encouraged labs, CT Lung screening 08/08/2024 Hypertension (ICD-10 - I10) bring BP cuff next visit continue monitor increase HCTZ dose pt stating BP good at home 05/20/[address] BP [...] Date HUM[employer] MEDICARE ADV PLAN [address] [address] [place] [address] [id number] Edmund Christopher Self - patient is the [...]
--- OUTSIDE RECORDS SUMMARY | 2025-04-07 16:39 | XMS_ITS | Clinical Summary ---
Author Organization [facility] Address [address] [place] [address], [address] [place] [address] Care Team Providers Care Copy Technician Name Role Phone Carola Galindo CREDIT COLLECTIONS SPECIALIST - COTTON PULLER Primary Care Provide r Allergies Active Allergy [...] 2010 FIT/FOBT: Average risk 2010 Fecal-DNA (Cologuard): Almena ge risk 2010 Sigmoidoscopy/CT colonography 2010 Shingles [...] this topic Medical Devices Implanted Type Area Lock Assembler Device Identifier Shelf Expiration Date Model / Serial / Lot Kit Ld Trl L50cm Spnl Crd Perc 16 Cntct W Imag Rdy Mri Full - [id number] Implanted:Qty: 1 on 07/26/2022 by Herberth Cabezas MD at [facility] N/A: Back [employer] 06/17/2024 [id number] / [id number] / Kit Ld Trl L50cm Spnl Crd Perc 16 Cntct W Imag Rdy Mri Full - [id number] Implanted:Qty: 1 on 07/26/2022 by Herberth Cabezas MD at [facility] N/A: Back [employer] 06/28/2024 [id number] / [id number] / Cable Neurostimulator L2ft Spl [id number] Spnl Crd Or Extn - [id number] Implanted:Qty: 2 on 07/26/2022 by Herberth Cabezas MD at [facility] N/A: Back [employer] [id number] / / Insurance MEDICARE Care Teams Copy Technician Relationship Specialty Start Date End Date Carola Galindo, CREDIT COLLECTIONS SPECIALIST - COTTON PULLER [facility] [place] [address] PCP - General 07/26/22
--- OUTSIDE RECORDS SUMMARY | 2025-04-07 16:39 | XMS_ITS | Patient Health Record ---
Author Organization [facility] Address [address] [place] [address] Care Team Providers Care Pharmacist Hospital Name Role Phone Kim Barlow Primary Care Provider Dr. Gabby Del Toro Unavailable [phone] Reason For Referral No Information Encounters Encounter Location Date Provider Diagnosis [facility] [address] [place] [address] 12/17/2024 Kim Barlow Encounter for dental examination [...] End Date DENTAL [employer] MEDICARE [address] [address] [place] [address] [id number] GABBY HAYDEN Self - patient is the insured
[2025-04-07 16:54] VITALS: BP 151/109; PULSE 82; TEMP 37.1; O2SAT 96; BMI 27.5
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
[2025-04-07] MEDS: BACITRACIN 0.9 GM PACKET 1 PACKET TOPICAL (18:44)
[2025-04-07] MEDS: AMOXICILLIN 500 MG CAPSULE PO (18:44)
== END 2025-04-07 18:51 | disposition home or self-care (01) ==
PROVIDERS: Emergency Provider Emergency Medicine; PCP Nurse Practitioner Family
DX: Z48.00 Encounter for change or removal of nonsurgical wound dressing (principal)
CPT/HCPCS: 99283